=== PATIENT | female | born 1955 | race Caucasian/White ===

== ENCOUNTER 2021-06-07 11:13 | Emergency (ER) | payer MEDICARE, SELFPAY ==
[2021-06-07 11:30] VITALS: BP 157/78; PULSE 73; RESP 20; TEMP 36.5; O2SAT 97
--- NOTE | 2021-06-07 11:48 | ED.URI ---
HPI - URI/Sore Throat General Chief Complaint: Upper Respiratory Infection Stated Complaint: Cough/Sore Throat Time Seen by Provider: 06/07/21 11:48 Source: patient History of Present Illness HPI Narrative: cough and sinus congestion for the past 10 days. negative covid test. no shortness of breath and no chest pain. Related Data Home Medications Medication Instructions Recorded Confirmed alprazolam 1 mg PO BID 06/07/21 06/07/21 clopidogrel 1 mg PO DAILY 06/07/21 06/07/21 diltiazem HCl [Cartia XT] 1 mg PO DAILY 06/07/21 06/07/21 rosuvastatin 1 mg PO DAILY 06/07/21 06/07/21 sertraline 1 mg PO DAILY 06/07/21 06/07/21 Allergies Allergy/AdvReac Type Severity Reaction Status Date / Time bacitracin Allergy Intermediate Rash Verified 06/07/21 11:44 chromium Allergy Intermediate RASH Verified 06/07/21 11:44 neomycin Allergy Intermediate Rash Verified 06/07/21 11:44 polymyxin B Allergy Intermediate Rash Verified 06/07/21 11:44 Sulfa (Sulfonamide AdvReac Intermediate personality Verified 06/07/21 11:44 Antibiotics) change BETA BLOCKERS Allergy Intermediate HEART Uncoded 06/07/21 11:44 RYTHUM CHANGES ALEJANDRA INHIBORTERS Allergy Mild CARDIC Uncoded 06/07/21 11:44 SPASMS Review of Systems Review of Systems: CONSTITUTIONAL: Denies chills, or sweats. Reports fever and generalized body aches EYES: Denies visual changes, redness, or discharge. ENT: Denies otalgia. Reports nasal congestion runny nose and sore throat CARDIOVASCULAR: Denies chest pain, palpitations, or edema. RESPIRATORY: Denies dyspnea. Reports occasional cough GASTROINTESTINAL: Denies abdominal pain, nausea, vomiting, or diarrhea. GENITOURINARY: Denies dysuria or hematuria. SKIN: Denies rash or itching. MUSCULOSKELETAL: Denies back pain, joint pain, or myalgia. Reports generalized body aches NEUROLOGIC: Denies headache, numbness, or weakness. PSYCHIATRIC: Denies anxiety or depression. PMFSH Comments At time of signature, agree with nursing past medical, surgical, social and family history. There is no relevant family history pertinent to the presenting complaint Exam Narrative: The patient is a well-developed, well-nourished in no acute distress. SKIN: Skin is warm and dry without erythema, swelling or exudate. There is good turgor. No tenting. HEAD: Atraumatic. Normocephalic. No temporal or scalp tenderness. EYES: Moist and bright. Sclera and conjunctivae normal. No discharge. PERRLA. Extraocular motions intact. Gross visual acuity intact. EARS: Pinna is normal shape and contour. Clear external auditory canals. TM pearly osullivan with good cone of light, no erythema or suppuration. Bilateral cerumen noted no gross hearing deficit. NOSE: pink, moist mucosa with good air movement. Purulent rhinorrhea without nasal flaring. Septum midline. Moderate maxillary sinus pressure and tenderness Mouth: moist mucous membranes. THROAT; mild erythema noted to posterior oropharynx with moderate postnasal drainage. Without exudate or ulceration.. Uvula midline. Normal movement of soft palate. NECK: Supple and nontender with full range of motion without discomfort. No meningeal signs. LUNGS: Equal and bilateral breath sounds without wheezes, rales or rhonchi. CHEST: The chest wall is without retractions or use of accessory muscles. HEART: Has a regular rate and rhythm without murmur, gallops, click or rub. ABDOMEN: Soft, nontender with positive active bowel sounds. No rebound tenderness. EXTREMITIES: Without cyanosis, clubbing or edema. Equal 2+ distal pulses and 2 second capillary refill noted. NEUROLOGIC: alert, active, . The patient moves all extremities with normal muscle strength. Normal muscle tone is noted. Normal coordination is noted. NO focal neurological findings noted. Course Vital Signs Vital signs: Vital Signs Temperature 36.5 C 06/07/21 11:30 Pulse Rate 73 06/07/21 11:30 Respiratory Rate 20 06/07/21 11:30 Blood Pressure 157/78 H 06/07/21 1
== END 2021-06-07 11:57 | disposition home or self-care (01) ==
PROVIDERS: Emergency Provider Nurse Practitioner Family; PCP Nurse Practitioner Adult Health
DX: J32.9 Chronic sinusitis, unspecified (principal); J40 Bronchitis, not specified as acute or chronic; E78.00 Pure hypercholesterolemia, unspecified; F41.9 Anxiety disorder, unspecified; F32.9 Major depressive disorder, single episode, unspecified
CPT/HCPCS: 99213; G0463

== ENCOUNTER 2021-11-16 11:55 | Emergency (ER) | payer MEDICARE, SELFPAY ==
[2021-11-16 12:00] VITALS: BP 145/80; PULSE 73; RESP 20; TEMP 36.9; O2SAT 98
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
== END 2021-11-16 12:36 | disposition home or self-care (01) ==
PROVIDERS: Emergency Provider Registered Nurse; PCP Nurse Practitioner Adult Health
DX: J01.40 Acute pansinusitis, unspecified (principal); M19.90 Unspecified osteoarthritis, unspecified site; I25.10 Atherosclerotic heart disease of native coronary artery without angina pectoris; K21.9 Gastro-esophageal reflux disease without esophagitis; I10 Essential (primary) hypertension; G47.30 Sleep apnea, unspecified; Z96.652 Presence of left artificial knee joint
CPT/HCPCS: 99213; G0463

== ENCOUNTER 2022-04-28 15:44 | Emergency (ER) | payer MEDICARE, SELFPAY ==
[2022-04-28 15:50] VITALS: BP 132/97; PULSE 73; RESP 16; TEMP 36.8; O2SAT 94
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
== END 2022-04-28 16:20 | disposition home or self-care (01) ==
PROVIDERS: Emergency Provider Nurse Practitioner Family; PCP Nurse Practitioner Adult Health
DX: J40 Bronchitis, not specified as acute or chronic (principal); J32.9 Chronic sinusitis, unspecified; Z87.891 Personal history of nicotine dependence; M19.90 Unspecified osteoarthritis, unspecified site; I25.10 Atherosclerotic heart disease of native coronary artery without angina pectoris; K21.9 Gastro-esophageal reflux disease without esophagitis; I10 Essential (primary) hypertension; G47.33 Obstructive sleep apnea (adult) (pediatric); Z95.5 Presence of coronary angioplasty implant and graft; Z90.710 Acquired absence of both cervix and uterus; Z96.652 Presence of left artificial knee joint
CPT/HCPCS: 87081; 87880; 99213; G0463

== ENCOUNTER 2022-06-30 18:31 | Emergency (ER) | payer MEDICARE, SELFPAY ==
[2022-06-30 19:08] VITALS: BP 180/78; PULSE 73; RESP 16; TEMP 36.5; O2SAT 97
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
== END 2022-06-30 20:10 | disposition home or self-care (01) ==
PROVIDERS: Emergency Provider Nurse Practitioner; PCP Nurse Practitioner Adult Health
DX: J40 Bronchitis, not specified as acute or chronic (principal); I25.10 Atherosclerotic heart disease of native coronary artery without angina pectoris; I10 Essential (primary) hypertension; Z87.891 Personal history of nicotine dependence
CPT/HCPCS: 99213; G0463

== ENCOUNTER 2022-09-02 08:01 | Outpatient (CLI) | payer MEDICARE, SELFPAY ==
[2022-09-02 20:18] LABS: Alanine Aminotransferase 42 U/L (6-35); Alkaline Phosphatase 67 U/L (38-126); Anion Gap 7 mmol/L (8-16); Aspartate Amino Transferase 53 U/L (14-36); Bilirubin,Total 0.5 mg/dL (0.2-1.3); Blood Urea Nitrogen 13 mg/dL (7-17); Calcium 8.9 mg/dL (8.4-10.2); Carbon Dioxide 28 mmol/L (22-30); Chloride 105 mmol/L (98-107); Cholesterol 133 mg/dL (0-200); Estimated Glomerular Filt Rate > 60; Glucose 100 mg/dL (65-110); HDL Direct 41 mg/dL; Potassium 4.2 mmol/L (3.4-5.0); Sodium 140 mmol/L (137-145); Triglycerides 162 mg/dL (<150)
[2022-09-02 20:29] LABS: LDL Cholesterol Direct 54 mg/dL
[2022-09-02 20:43] LABS: Basophils Absolute Auto 0.1 K/mm3 (0.0-0.1); Basophils Percent Auto 0.9 % (0.2-1.2); Eosinophils Absolute Auto 0.5 K/mm3 (0-0.3); Eosinophils Percent Auto 6.1 % (0-4.4); Hematocrit 43.4 % (37.0-47.0); Hemoglobin 13.9 g/dL (12.0-15.0); Immature Granulocyte Absolute 0.06 K/mm3 (0.00-0.031); Immature Granulocyte Percent A 0.8 % (0-0.5); Lymphocytes Absolute Auto 1.71 K/mm3 (0.9-3.2); Lymphocytes Percent Auto 22.8 % (18.3-44.2); Mean Corpuscular Hemoglobin 30.5 pg (26-34); Mean Corpuscular Volume 95.4 fl (80-100); Mean Platelet Volume 10.6 fl (7.4-10.4); Monocytes Absolute Auto 0.6 K/mm3 (0.1-0.6); Monocytes Percent Auto 8.1 % (2.6-8.5); Neutrophils Absolute Auto 4.6 K/mm3 (1.3-6.7); Neutrophils Percent Auto 61.3 % (45.5-73.1); Platelet Count Result 243 k/mm3 (150-375); Red Blood Count 4.55 M/mm3 (4.2-5.4); White Blood Count 7.5 K/mm3 (4.5-10.0)
== END 2022-09-02 08:02 | disposition home or self-care (01) ==
PROVIDERS: PCP Family Medicine; Visit Provider Family Medicine
DX: I25.10 Atherosclerotic heart disease of native coronary artery without angina pectoris (principal); I10 Essential (primary) hypertension; Z90.710 Acquired absence of both cervix and uterus; Z95.5 Presence of coronary angioplasty implant and graft; R73.09 Other abnormal glucose
CPT/HCPCS: 36415; 80053; 80061; 83036; 85025

== ENCOUNTER 2022-11-30 07:26 | Outpatient (CLI) | payer MEDICARE, SELFPAY ==
[2022-11-30 18:38] LABS: Alanine Aminotransferase 26 U/L (6-35); Albumin Level 4.4 g/dL (3.5-5.1); Alkaline Phosphatase 68 U/L (38-126); Aspartate Amino Transferase 82 U/L (14-36); Bilirubin,Total 0.6 mg/dL (0.2-1.3)
[2022-11-30 18:48] LABS: Hemoglobin A1C 6.2 % (<5.7)
[2022-11-30 19:04] LABS: Hepatitis B Surface Antigen Negative (Negative)
[2022-11-30 19:10] LABS: HAV RESULT Negative (Negative); Hepatitis B Core IgM Result Negative (Negative)
[2022-11-30 19:21] LABS: Hepatitis C Virus Antibody Negative (Negative)
== END 2022-11-30 07:27 | disposition home or self-care (01) ==
LOC: ANHBWCLAB 07:29
PROVIDERS: PCP Family Medicine; Visit Provider Family Medicine
DX: R73.03 Prediabetes (principal); R74.01 Elevation of levels of liver transaminase levels
CPT/HCPCS: 36415; 80074; 80076; 83036

== ENCOUNTER 2023-03-04 10:12 | Outpatient (CLI) | payer MEDICARE, SELFPAY ==
[2023-03-04 18:35] LABS: Basophils Absolute Auto 0.1 K/mm3 (0.0-0.1); Basophils Percent Auto 0.7 % (0.2-1.2); Eosinophils Absolute Auto 0.5 K/mm3 (0-0.3); Eosinophils Percent Auto 5.8 % (0-4.4); Hematocrit 45.2 % (37.0-47.0); Hemoglobin 14.5 g/dL (12.0-15.0); Immature Granulocyte Absolute 0.02 K/mm3 (0.00-0.031); Immature Granulocyte Percent A 0.2 % (0-0.5); Lymphocytes Absolute Auto 1.61 K/mm3 (0.9-3.2); Lymphocytes Percent Auto 19.8 % (18.3-44.2); Mean Corpuscular HGB Conc 32.1 g/dl (32-36); Mean Corpuscular Hemoglobin 28.8 pg (26-34); Mean Corpuscular Volume 89.9 fl (80-100); Mean Platelet Volume 10.9 fl (7.4-10.4); Monocytes Absolute Auto 0.7 K/mm3 (0.1-0.6); Neutrophils Absolute Auto 5.2 K/mm3 (1.3-6.7); Neutrophils Percent Auto 64.5 % (45.5-73.1); Platelet Count Result 225 k/mm3 (150-375); Red Blood Count 5.03 M/mm3 (4.2-5.4); Red Cell Distribution Width 15.2 % (11.5-14.5); White Blood Count 8.1 K/mm3 (4.5-10.0)
[2023-03-04 18:49] LABS: Alanine Aminotransferase 40 U/L (6-35); Albumin Level 4.7 g/dL (3.5-5.1); Alkaline Phosphatase 59 U/L (38-126); Anion Gap 10 mmol/L (8-16); Aspartate Amino Transferase 68 U/L (14-36); Bilirubin,Total 0.5 mg/dL (0.2-1.3); Blood Urea Nitrogen 10 mg/dL (7-17); Calcium 9.5 mg/dL (8.4-10.2); Carbon Dioxide 24 mmol/L (22-30); Chloride 104 mmol/L (98-107); Cholesterol 134 mg/dL (0-200); Estimated Glomerular Filt Rate > 60; Glucose 102 mg/dL (65-110); HDL Direct 56 mg/dL; Potassium 4.1 mmol/L (3.4-5.0); Sodium 138 mmol/L (137-145); Triglycerides 143 mg/dL (<150)
[2023-03-04 19:00] LABS: LDL Cholesterol Direct 45 mg/dL
[2023-03-04 19:37] LABS: Hemoglobin A1C 5.9 % (<5.7)
== END 2023-03-04 10:13 | disposition home or self-care (01) ==
PROVIDERS: PCP Nurse Practitioner Adult Health; Visit Provider Nurse Practitioner Adult Health
DX: R74.01 Elevation of levels of liver transaminase levels (principal); E11.9 Type 2 diabetes mellitus without complications; E78.5 Hyperlipidemia, unspecified; I10 Essential (primary) hypertension
CPT/HCPCS: 36415; 80048; 80061; 80076; 83036; 85025

== ENCOUNTER 2023-05-12 09:40 | Outpatient (CLI) | payer MEDICARE, SELFPAY ==
[2023-05-12 19:38] LABS: Anion Gap 9 mmol/L (8-16); Blood Urea Nitrogen 12 mg/dL (7-17); CRP < 0.5 mg/dL (<1.0); Calcium 9.1 mg/dL (8.4-10.2); Carbon Dioxide 26 mmol/L (22-30); Chloride 105 mmol/L (98-107); Estimated Glomerular Filt Rate > 60; Glucose 94 mg/dL (65-110); Potassium 3.8 mmol/L (3.4-5.0); Sodium 140 mmol/L (137-145)
[2023-05-12 19:43] LABS: NT Pro B Type Natriuretic Pept 35 pg/mL (19.9-100)
[2023-05-12 20:34] LABS: Creatinine Urine 71.1 mg/dL
[2023-05-12 20:49] LABS: Microalbumin Urine Random < 6.0 mg/L (0-16.7)
[2023-05-12 20:50] LABS: MALB Creatinine Ratio < 8.4 mg/g (0-30)
[2023-05-17 00:41] LABS: Lipoprotein A 241 nmol/L (<75)
== END 2023-05-12 09:41 | disposition home or self-care (01) ==
PROVIDERS: PCP Nurse Practitioner Adult Health; Visit Provider Internal Medicine Cardiovascular Disease
DX: R07.89 Other chest pain (principal); I10 Essential (primary) hypertension; I77.811 Abdominal aortic ectasia; R73.9 Hyperglycemia, unspecified; K11.8 Other diseases of salivary glands; R91.1 Solitary pulmonary nodule; E66.9 Obesity, unspecified; G47.33 Obstructive sleep apnea (adult) (pediatric); E78.2 Mixed hyperlipidemia; I25.10 Atherosclerotic heart disease of native coronary artery without angina pectoris; Z87.891 Personal history of nicotine dependence; R06.02 Shortness of breath
CPT/HCPCS: 36415; 80048; 82043; 83036; 83695; 83880; 86140

== ENCOUNTER 2023-09-20 10:16 | Outpatient (CLI) | payer MEDICARE, SELFPAY ==
[2023-09-20 19:13] LABS: Hemoglobin A1C 5.6 % (<5.7)
[2023-09-20 19:26] LABS: Anion Gap 8 mmol/L (8-16); Blood Urea Nitrogen 17 mg/dL (7-17); Calcium 9.6 mg/dL (8.4-10.2); Carbon Dioxide 26 mmol/L (22-30); Chloride 104 mmol/L (98-107); Cholesterol 141 mg/dL (0-200); Estimated Glomerular Filt Rate > 60; Glucose 99 mg/dL (65-110); HDL Direct 47 mg/dL; Potassium 4.1 mmol/L (3.4-5.0); Sodium 138 mmol/L (137-145); Triglycerides 185 mg/dL (<150)
[2023-09-20 19:31] LABS: Creatinine Urine 193.4 mg/dL
[2023-09-20 19:32] LABS: MALB Creatinine Ratio 8.1 mg/g (0-30); Microalbumin Urine Random 15.7 mg/L (0-16.7)
[2023-09-20 19:36] LABS: LDL Cholesterol Direct 56 mg/dL
== END 2023-09-20 10:17 | disposition home or self-care (01) ==
LOC: ANHBWCLAB 10:20
PROVIDERS: PCP Nurse Practitioner Adult Health; Visit Provider Nurse Practitioner Adult Health
DX: E11.9 Type 2 diabetes mellitus without complications (principal)
CPT/HCPCS: 36415; 80048; 80061; 82043; 83036

== ENCOUNTER 2024-02-06 08:38 | Emergency (ER) | payer MEDICARE, SELFPAY ==
[2024-02-06 08:50] VITALS: BP 127/69; PULSE 62; RESP 18; TEMP 36.4; O2SAT 98
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
[2024-02-06 09:03] VITALS: BP 127/69; PULSE 62; RESP 18; TEMP 36.4; O2SAT 98
[2024-02-06 09:09] LABS: EDSTREPNEGPOS1 Presumptive Negative
[2024-02-06 09:13] LABS: EDINFLUASCREEN Negative; EDINFLUBSCREEN Negative
== END 2024-02-06 09:25 | disposition home or self-care (01) ==
PROVIDERS: Emergency Provider Registered Nurse; PCP Nurse Practitioner Adult Health
DX: J40 Bronchitis, not specified as acute or chronic (principal); Z20.822 Contact with and (suspected) exposure to COVID-19; Z87.891 Personal history of nicotine dependence; M19.90 Unspecified osteoarthritis, unspecified site; I25.10 Atherosclerotic heart disease of native coronary artery without angina pectoris; K21.9 Gastro-esophageal reflux disease without esophagitis; I10 Essential (primary) hypertension; G47.30 Sleep apnea, unspecified; Z96.652 Presence of left artificial knee joint; Z95.5 Presence of coronary angioplasty implant and graft
CPT/HCPCS: 87081; 87426; 87804; 87880; 99213; G0463

== ENCOUNTER 2024-03-21 06:47 | Outpatient (CLI) | payer MEDICARE, SELFPAY ==
[2024-03-21 18:41] LABS: Basophils Absolute Auto 0.1 K/mm3 (0.0-0.1); Basophils Percent Auto 0.7 % (0.2-1.2); Eosinophils Absolute Auto 1.1 K/mm3 (0-0.3); Hematocrit 45.1 % (37.0-47.0); Hemoglobin 13.9 g/dL (12.0-15.0); Immature Granulocyte Absolute 0.05 K/mm3 (0.00-0.031); Immature Granulocyte Percent A 0.6 % (0-0.5); Lymphocytes Percent Auto 30.8 % (18.3-44.2); Mean Corpuscular HGB Conc 30.8 g/dl (32-36); Mean Corpuscular Hemoglobin 29.4 pg (26-34); Mean Corpuscular Volume 95.3 fl (80-100); Mean Platelet Volume 11.3 fl (7.4-10.4); Monocytes Absolute Auto 0.6 K/mm3 (0.1-0.6); Monocytes Percent Auto 7.1 % (2.6-8.5); Neutrophils Percent Auto 47.8 % (45.5-73.1); Platelet Count Result 209 k/mm3 (150-375); Red Blood Count 4.73 M/mm3 (4.2-5.4); Red Cell Distribution Width 15.4 % (11.5-14.5); White Blood Count 8.4 K/mm3 (4.5-10.0)
[2024-03-21 19:00] LABS: Alanine Aminotransferase 19 U/L (6-35); Albumin Level 4.2 g/dL (3.5-5.1); Alkaline Phosphatase 58 U/L (38-126); Anion Gap 11 mmol/L (4-12); Aspartate Amino Transferase 62 U/L (14-36); Bilirubin,Total 0.4 mg/dL (0.2-1.3); Blood Urea Nitrogen 16 mg/dL (7-17); Calcium 9.2 mg/dL (8.4-10.2); Carbon Dioxide 28 mmol/L (22-30); Chloride 99 mmol/L (98-107); Cholesterol 142 mg/dL (0-200); Estimated Glomerular Filt Rate > 60; Glucose 106 mg/dL (65-110); HDL Direct 53 mg/dL; Magnesium 2.1 mg/dL (1.6-2.3); Potassium 3.9 mmol/L (3.4-5.0); Sodium 138 mmol/L (137-145); Triglycerides 159 mg/dL (<150)
[2024-03-21 19:14] LABS: LDL Cholesterol Direct 49 mg/dL
[2024-03-21 22:18] LABS: Hemoglobin A1C 6.3 % (<5.7)
== END 2024-03-21 06:48 | disposition home or self-care (01) ==
PROVIDERS: PCP Nurse Practitioner Adult Health; Visit Provider Nurse Practitioner Adult Health
DX: I10 Essential (primary) hypertension (principal); E11.9 Type 2 diabetes mellitus without complications
CPT/HCPCS: 36415; 80053; 80061; 83036; 83735; 84443; 85025

== ENCOUNTER 2024-06-15 11:23 | Outpatient (CLI) | payer MEDICARE, SELFPAY ==
[2024-06-15 20:21] LABS: Alanine Aminotransferase 22 U/L (6-35); Albumin Level 4.6 g/dL (3.5-5.1); Alkaline Phosphatase 63 U/L (38-126); Anion Gap 9 mmol/L (4-12); Aspartate Amino Transferase 76 U/L (14-36); Bilirubin,Total 0.5 mg/dL (0.2-1.3); Blood Urea Nitrogen 13 mg/dL (7-17); Calcium 9.4 mg/dL (8.4-10.2); Carbon Dioxide 28 mmol/L (22-30); Chloride 101 mmol/L (98-107); Cholesterol 130 mg/dL (0-200); Estimated Glomerular Filt Rate > 60; Glucose 111 mg/dL (65-110); HDL Direct 63 mg/dL; Potassium 4.2 mmol/L (3.4-5.0); Sodium 138 mmol/L (137-145); Triglycerides 124 mg/dL (<150)
[2024-06-15 20:29] LABS: MALB Creatinine Ratio 8.5 mg/g (0-30); Microalbumin Urine Random 17.7 mg/L (0-16.7)
[2024-06-15 20:32] LABS: LDL Cholesterol Direct 38 mg/dL
== END 2024-06-15 11:24 | disposition home or self-care (01) ==
PROVIDERS: PCP Nurse Practitioner Adult Health; Visit Provider Nurse Practitioner Adult Health
DX: K21.9 Gastro-esophageal reflux disease without esophagitis (principal); E11.9 Type 2 diabetes mellitus without complications; Z51.81 Encounter for therapeutic drug level monitoring
CPT/HCPCS: 36415; 80053; 80061; 82043; 82565; 82607; 83036

== ENCOUNTER 2024-06-27 17:08 | Outpatient (CLI) | payer MEDICARE, SELFPAY | END 2024-06-27 17:09 | disposition home or self-care (01) | LOC: ANHLAB 17:09 | PROVIDERS: PCP Nurse Practitioner Adult Health; Visit Provider Nurse Practitioner Adult Health | DX: R05.9 Cough, unspecified (principal) | CPT/HCPCS: 87070; 87205 ==

== ENCOUNTER 2024-07-24 07:38 | Outpatient (CLI) | payer MEDICARE, SELFPAY ==
--- NOTE | ~2024-07-24 | CT_ITS ---
EXAMINATION: CT lung screening DATE: 07/24/2024 08:02 INDICATION: Z87.891 - Personal history of nicotine dependence TECHNIQUE: Computed tomography (CT) of the chest was performed without intravenous contrast. Addition al 3D reconstructions utilizing coronal maximum intensity projection (MIP) were performed. Automated exposure control and iterative reconstruction technique were employed. The dose-length product was 16 2.48 mGy-cm. COMPARISON: None FINDINGS: 7 mm nodule at the anterobasilar segment of the right lower lobe. Mild reticular pattern with depende nt atelectasis in both lungs. There are a few additional scattered <3 mm pulmonary nodules. Heart siz e is normal. Lipomatous hypertrophy of the atrial septum. Atherosclerotic coronary artery calcificati on. Aortic valve and mitral annular callus location. Thoracic aorta is normal in caliber. No patholog ically enlarged thoracic lymphadenopathy. Cholecystectomy clips the gallbladder fossa. Visualized lef t renal cyst measuring up to 5.3 cm. Mild thoracic dextrocurvature with moderate spondylosis. IMPRESSION: 1. Lung-RADS category 3: Probably benign. Further evaluation is recommended with noncontrast low-dose chest CT in 6 months. Reviewed, dictated and finalized at location [facility] [employer] IMPRESSION: 1. Lung-RADS category 3: Probably benign. Further evaluation is recommended wit h noncontrast low-dose chest CT in 6 months.
--- OUTSIDE RECORDS SUMMARY | 2024-07-31 09:08 | XMS_ITS | Encounter Summary ---
Author Organization [facility] Care Team Providers Care Banquet Line Cook Name Role Phone Tricia Conroy MD Unavailable [phone] Kellie Pizano APRN Primary Care Provider [phone] Encounter Details Date Type Department Care Team (Latest Contact Info) Description 05/09/2021 Travel Social History Tobacco Use Types Packs/Day Years Used Date Smoking Tobacco: Every Day Cigarettes Last attempted to quit: 01/07/1970 Smokeless Tobacco: Never Comments:Less than 2 packs p er wk Alcohol Use Standard Drinks/Week Comments No 0 (1 standard drink = 0.6 oz pur e alcohol) Rare. 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 No / Unsure 05/09/2021 2:24 PM CDT documented as of this encounter Plan of Treatment Not on file documented as of this encounter Visit Diagnoses Not on filedocumented in this encounter Care Teams Ban[employer] Relationship Specialty Start Date End Date Kellie Pizano APRN [address] [id number] PCP - General Advanced Practice Nurse 01/07/16 Tricia Conroy MD #[address] [phone] General Surgery 12/09/14 documented as of this encounter
--- OUTSIDE RECORDS SUMMARY | 2024-07-31 09:08 | XMS_ITS | Encounter Summary ---
Author Organization [facility] Address [address] [place] [address] Phone Care Team Providers Care Poultry Field Service Technician Name Role Phone Tricia Conroy MD Unavailable [phone] Ori Pizano APRN Primary Care Provider [phone] Reason for Visit * Auth/Cert Specialty Diagnoses / Procedures Referred By Michelle t Referred To Contact Diagnoses POLYP OF COLON-PHARYNGOESOPHAGEAL DYSPHAGIA Procedures COLONOSCOPY Referral ID Status Reason Start Date Expiration Date Visits Re quested Visits Authorized [id number] 1 1 Encounter Details Date Type Department Care Team (Latest Contact Info) Description 05/28/2021 7:30 AM CDT - 05/28/2021 10:23 AM CDT Hospital Encounter [facility] GI Lab Preop/Pacu II [address] [place] [address] Marlon Alvarado MD Discharge Disposition: Discharged to home or Selfcare Social History Tobacco Use Types Packs/Day Years Used Date Smoking Tobacco: Former Cigarettes Q uit: 05/10/1981 Smokeless Tobacco: Never Alcohol Use Standard Drinks/Week Comments No 0 [...] 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 No / Unsure 05/28/2021 7:30 AM CDT documented as of this encounter Last Filed Vital Signs Vital Sign Reading Time Taken Comments Blood Pressure 129/81 05/28/2021 10:10 AM CDT Pulse 60 05/28/2021 10:10 AM CDT Temperature 36.2 ??C (97.2 ??F) 05/28/2021 8:00 AM CD T Respiratory Rate 14 05/28/2021 10:10 AM CDT Oxygen Saturation 98% 05/28/2021 10:10 AM CDT Inhaled Oxygen Concentration - - Weight 100.2 kg (221 lb) 05/09/2021 1:00 PM CDT Height 162.6 cm (5' 4 ) 05/09/2021 1:00 PM CDT Body Mass Index 37.93 05/09/2021 1:00 PM CDT documented in this encounter Discharge Instructions * Discharge Instructions* Lyndsey Vaguhn RN - 05/28/2021 10:03 AM CDT YOU HAD AN EGD AND COLONOSCOPY TODAY. DR. ALVARADO FOUND: DYSPHAGIA TO SOLIDS HIATAL HERNIA GASTRITIS WITH BIOPSIES PENDING. DUODENAL ATROPHY Post-operative Diagnosis: ESOPHAGEAL STRICTURE DILATED WITH NO 50 CHÁVEZ. DILATOR GASTRIC BIOPSIES PENDING NEEDS TO TAKE PPI 1/2 HOUR BEFORE EVENING AND BREAKFAST MEAL ?? Postoperative Diagnosis: NEGATIVE SCREENING Findings: ?? SEVERE DIVERTICULOSIS LEFT COLON. NO COLITIS OR DIVERTICULITIS. TORTUOUS COLON ,ENTIRE COLON EXAMINED MIXED HEMORRHODS AVOID POPCORN, NUTS, SEEDS DO NOT DRIVE, WORK, OPERATE MACHINERY OR USE POWER TOOLS UNTIL DAY AFTER PROCEDURE. NO ALCOHOL BEVERAGES TODAY FOLLOWING DAY: RETURN TO FULL ACTIVITY, INCLUDING WORK, UNLESS INSTRUCTED OTHERWISE. Call doctor's office ([phone]) or go to Emergency room for: Difficulty Breathing, Headache Or Visual Disturbances Persistent Dizziness Or Light-Headedness Persistent Nausea and Vomiting Temperature greater then 100.0 Significant abdominal pain, chest pain, or bleeding. Here at [facility] we strive to provide excellent care to each of our patients, along with an easy transition between departments, starting with registration until discharge. Through our excellent care and services, we hope that you would recommend our services to your family and friends. You will receive a follow-up phone call in 24-48 hours after your procedure to see how you are doing. This gives our patients the opportunity to recognize any members from our team, from housekeepers, to nurses, to physicians, that you felt gave you excellent service as well as any suggestions for improvement. We hope you found our facility clean and our mission partners courteous. You may also receiving a survey in the mail. We would appreciate it if you could complete the form and return it. A self addressed pre-paid envelope is provided. THANK YOU FOR CHOOSING [facility]. * Attachments The following attachments cannot be sent through Care Everywhere. * Hernia, Hiatal (Swazi) * Dilation, Esophageal (Swazi) * Gastritis, Treating (Swazi) * Diverticulosis (Swazi) documented in this encounter Medications at Time of Discharge acetaminophen (Tylenol 8 Hour) 650 MG Tablet Controlled Release every 6 hours as needed. 0 acetaminophen (Tylenol) 325 MG Tablet 325 mg. 4 albuterol (Ventolin HFA) 108 (90 Base) MCG/ACT Aerosol Solution every 4 hours as needed. 8 ALPRAZolam (XANAX) 0.5 MG Tablet Take 0.5 mg by mouth nightly. Calcium Carbonate-Vitamin D (CALCIUM + D PO) Take by mouth nightly. Calcium Polycarbophil (FIBER-CAPS PO) Take by mouth daily. Cholecalciferol (TH VITAMIN D3) 1000 UNIT PO CAPS Take 1 Capsule by mouth nightly. clobetasol (TEMOVATE) 0.05 % Ointment clobetasol 0.05 % topical ointment APPLY THIN LAYER EXTERNALLY TO THE AFFECTED AREA TWICE DAILY clopidogrel (PLAVIX) 75 MG Tablet Take 75 mg by mouth daily. diltiazem (CARTIA XT) 240 MG CAPSULE SR 24 HR Take 1 Cap by mouth daily. 30 Cap 5 6 esomeprazole (NexIUM) 20 MG CAPSULE DELAYED RELEASE Take 20 mg by mouth 2 times daily. fish oil-omega-3 fatty acids 1000 MG Capsule Take 1,000 mg by mouth daily. Fluticasone Propionate (FLONASE NA) by Nasal route daily as needed. levalbuterol (XOPENEX HFA) 45 MCG/ACT IN AEROIndications:As needed take by inhalation. Indications: As needed metroNIDAZOLE (METROGEL) 0.75 % Gel metronidazole 0.75 % topical gel APPLY THIN LAYER EXTERNALLY TO THE AFFECTED AREA TWICE DAILY IN THE MORNING AND IN THE EVENING nitroGLYCERIN (NITROSTAT) 0.4 MG SL Tablet 0.4 mg by Sublingual route every 5 minutes as needed. ondansetron (ZOFRAN-ODT) 4 MG TABLET DISPERSIBLE Take 4 mg by mouth every 8 hours as needed for Nausea. Probiotic Product (FLORASTOR PRE PO) Take by mouth nightly. rosuvastatin (CRESTOR) 20 MG Tablet Take 40 mg by mouth nightly. sertraline (ZOLOFT) 50 MG Tablet Take 1 Tablet by mouth nightly. 5 7 traMADol 50 MG PO TABS Take 50 mg by mouth nightly as needed. vitamin B complex-C (ALLBEE-C) Tablet Take 1 Tablet by mouth nightly. documented as of this encounter H&P Notes * Marlon Alvaardo MD - 05/28/2021 8:43 AM CDT I have reviewed Desiree Parson History and Physical, re-examined her, and no change has occurred in her condition since the H&P was completed. I have explained the risks, benefits, and alternatives of the procedure to the patient and family. They wish to proceed with procedure. Marlon Alvarado MD 05/28/2021 8:44 AM CDT * Marlon Alvarado MD - 05/27/2021 5:12 PM CDT [facility] GASTRO[facility]OLOG[facility] CONSULT/H&P NAME: Desiree Parson DATE 1955 DATE OF CONSULT: 05/27/2021 Very pleasant patient was seen at the request of Ori Pizano APN. and with the patient's permission. The patient was examined and the chart was reviewed. HISTORY: PATIENT LAST COLONOSCOPY WAS ON 01/09/16. WITH POLYPS REMOVED, HE IS NOW DUE FOR REPEAT SCREENING. ALLERGIES: Allergies Allergen Reactions ??? Marin Inhibitors Unknown ??? Adhesive Tape Unknown ??? Beta Adrenergic Blockers Unknown ??? Chromium Other (see Comments) REDNESS SKIN IRRITATION ??? Latex Unknown ??? Neosporin [Neomycin-Bacitracin Zn-Polymyx] Unknown ??? Sulfa Antibiotics Other (see Comments) Agitation MEDICATIONS No medications prior to admission. PROBLEM LIST Patient Active Problem List Diagnosis ??? Anxiety state ??? Bronchitis ??? Depressive disorder ??? Esophageal reflux ??? Hyperlipidemia ??? Systemic hypertension ??? Obesity ??? Sleep apnea MEDICAL HISTORY: Past Medical History Positives Diagnosis Date ??? Abdominal aneurysm (HCC) ??? Anxiety ??? Arthritis ??? Coronary artery disease ??? Diverticulitis of colon 10/15 ??? Dyslipidemia ??? Erosive esophagitis ??? GERD (gastroesophageal reflux disease) ??? Hx of adenomatous colonic polyps ??? Hypertension ??? Intestinal metaplasia of gastric mucosa ??? Obstructive sleep apnea ??? Rhinitis ??? Ventral hernia X2 SURGICAL HISTORY: Past Surgical History: Procedure Laterality Date ??? COLONOSCOPY N/A 01/08/2016 Procedure: COLONOSCOPY, DIVERTICULOSIS; Surgeon: Zachariah Layton DO; Location: [facility] GI LAB; Service: ??? CORONARY ANGIOPLASTY WITH STENT PLACEMENT 2014 X2 STENTS ??? INCISION AND DRAINAGE 11/06/14 I&D of skin abscess on left thigh and right labia ??? LAP,CHOLECYSTECTOMY 2012 ??? OTHER SURGICAL HISTORY 2009 excision of parotid tumor/gland left side ??? OTHER SURGICAL HISTORY 1992 skin grafts on buttocks and thighs ??? OH COLONOSCOPY W/BIOPSY SINGLE/MULTIPLE 01/21/2015 ??? OH EGD TRANSORAL BIOPSY SINGLE/MULTIPLE 02/07/2010 ??? SALPINGO-OOPHORECTOMY Bilateral ??? TONSILLECTOMY AND ADENOIDECTOMY 1969 ??? TOTAL KNEE ARTHROPLASTY Left 06/14/2016 ??? TUBAL LIGATION 1988 ??? UPPER GASTROINTESTINAL ENDOSCOPY N/A 05/11/2016 Procedure: EGD - TLAI, BIOPSY, GASTRITIS, ERROSIVE ESOPHAGITIS; Surgeon: Zachariah Layton DO; Location: [facility] GI LAB; Service: FAMILY HISTORY: Family History Problem Relation Age of Onset ??? Leukemia/Lymphoma Mother APLASTIC ANEMIA ??? Cancer Father esophageal & Lung ??? Diabetes Father ??? Heart Attack Father ??? Stroke Father ??? Diabetes Brother ??? Cancer Paternal Grandfather pancreatic ??? Lung Cancer Paternal Uncle SOCIAL HISTORY: Social History Socioeconomic History ??? Marital status: Spouse name: Not on file ??? Number of children: 2 ??? Years of education: Not on file ??? Highest education level: Not on file Occupational History ??? 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 Smoking status: Former Smoker Packs/day: 0.00 Years: 40.00 Pack years: 0.00 Types: Cigarettes Quit date: 05/10/2021 Years since quittin.0 ??? Smokeless tobacco: Never Used Vaping Use ??? Vaping Use: Never used Substance and Sexual Activity ??? Alcohol use: No Alcohol/week: 0.0 oz Comment: Rare. ??? Drug use: No ??? Sexual activity: Not Currently Other Topics Concern ??? Not on file Social History Narrative No recent travel. No asbestos. Has a bird. Social Determinants of Health Social determinant risk not applicable to this patient. OBSTETRICS HISTORY: OB History 3 Para 2 Term AB Living SAB TAB Ectopic Multiple Live Births REVIEW OF RESULTS: LAB REVIEWED: Lab Results Component Value Date SODIUM 137 06/11/2015 SODIUM 137 06/11/2015 POTASSIUM 4.4 06/11/2015 POTASSIUM 4.4 06/11/2015 CHLORIDE 98 (L) 06/11/2015 CHLORIDE 98 (L) 06/11/2015 CO2VEN 30 06/11/2015 CO2VEN 30 06/11/2015 ANIONGAP 13.4 06/11/2015 ANIONGAP 13.4 06/11/2015 GLUCOSE 93 06/11/2015 GLUCOSE 93 06/11/2015 BUN 14 06/11/2015 BUN 14 06/11/2015 CREATININE 0.80 06/11/2015 CREATININE 0.80 06/11/2015 BCRATIO8 18 06/11/2015 BCRATIO8 18 06/11/2015 TOTALPROTEIN 7.2 06/11/2015 ALBUMIN 4.2 06/11/2015 CALCIUM 10.2 06/11/2015 CALCIUM 10.2 06/11/2015 TBIL 0.3 06/11/2015 SGOTAST 23 06/11/2015 SGPTALT 20 06/11/2015 ALKALINEPHO 68 06/11/2015 GFRNA >60 06/11/2015 GFRNA >60 06/11/2015 GFRA >60 06/11/2015 GFRA >60 06/11/2015 Lab Results Component Value Date SODIUM 137 06/11/2015 SODIUM 137 06/11/2015 POTASSIUM 4.4 06/11/2015 POTASSIUM 4.4 06/11/2015 CHLORIDE 98 (L) 06/11/2015 CHLORIDE 98 (L) 06/11/2015 CO2VEN 30 06/11/2015 CO2VEN 30 06/11/2015 ANIONGAP 13.4 06/11/2015 ANIONGAP 13.4 06/11/2015 GLUCOSE 93 06/11/2015 GLUCOSE 93 06/11/2015 BUN 14 06/11/2015 BUN 14 06/11/2015 CREATININE 0.80 06/11/2015 CREATININE 0.80 06/11/2015 BCRATIO8 18 06/11/2015 BCRATIO8 18 06/11/2015 TOTALPROTEIN 7.2 06/11/2015 ALBUMIN 4.2 06/11/2015 CALCIUM 10.2 06/11/2015 CALCIUM 10.2 06/11/2015 TBIL 0.3 06/11/2015 SGOTAST 23 06/11/2015 SGPTALT 20 06/11/2015 ALKALINEPHO 68 06/11/2015 GFRNA >60 06/11/2015 GFRNA >60 06/11/2015 GFRA >60 06/11/2015 GFRA >60 06/11/2015 T-1 No results for input(s): ALBUMIN, TBIL, BILIRUBIN, ALKALINEPHO, SGOTAST, SGPTALT, TOTALPROTEIN in the last 72 hours. Lab Results Component Value Date WBC 7.78 06/11/2015 HEMOGLOBIN 15.0 06/11/2015 HEMATOCRIT 43.3 06/11/2015 PLATELETCNT 246 06/11/2015 MCV 90.2 06/11/2015 LAST IMAGING: EXAMINATION Ht 5' 4 (1.626 m) Wt 221 lb (100.2 kg) BMI 37.93 kg/m?? General appearance: alert, no distress, cooperative, appears stated age. HEENT: No scleral icterus Heart: regular rate and rhythm, S1, S2 normal, no murmur, click, rub or gallop. Lungs: no acute distress, clear to auscultation bilaterally anterior and posterior, good effort. Abdomen: soft, non-tender. Bowel sounds normal. No hepatosplenomegaly. No abdominal tenderness. Extremities: extremities normal, atraumatic, no cyanosis or edema, negative homans/angelo Skin: Skin color, texture, turgor normal. No rashes or lesions. Lymph nodes: Cervical nodes normal., Supraclavicular nodes normal. Neurologic: Alert and oriented X 3. No focal deficits. MARIELENA: No significant joint tenderness and swelling. No muscle atrophy. Mental status: Orientation X3. Affect was appropriate. Rectal exam: Deferred. IMPRESSION: H/O COLON POLYPS LAST REMOVED IN 2015. RECOMMENDATIONS: COLONOSCOPY SCREENING Thank you for much for the opportunity to participate in the care of this patient. Please do not hesitate to contact us if we can be of any further assistance. Documentation for this visit on 05/27/21. was completed using a template. I have seen and examined the patient. Everything documented was personally performed at this visit with the necessary additions, deletions and changes made as appropriate. documented in this encounter OR Notes * OR Surgeon - Marlon Alvarado MD - 05/28/2021 9:48 AM CDT COLONOSCOPY PROCEDURE NOTE Date of Procedure: 05/28/2021 History and Preoperative Diagnosis: SCREENING COLONOSCOPY FOR POLYPS. LAST COLONOSCOPY 2015 WITH POLYPS REMOVED BY Postoperative Diagnosis: NEGATIVE SCREENING Findings: SEVERE DIVERTICULOSIS LEFT COLON. NO COLITIS OR DIVERTICULITIS. TORTUOUS COLON ,ENTIRE COLON EXAMINED MIXED HEMORRHODS Anesthesia: MAC Complications: No immediate. Procedure performed: COMPLETE COLONOSCOPY. Quality Indicators: 100 % VISUALIZATION. EXCELLENT PREP Recommendations: REPEAT IN 5 YEARS. Fiber Specimens: ID Type Source Tests Collected by Time A : GASTRIC BODY AND ANTRUM BIOPSIES RULE OUT H PYLORI Tissue Stomach PATHOLOGY SURGICAL Marlon Alvarado MD 05/28/2021 0902 EBL: less than 10ml Procedure Details: Pre-Procedure: After discussion of the risks, benefits, and alternatives to the procedure, informedconsent was obtained from patient/power of estate planning attorney/caregiver. Risks discussed included, but were not limited to infection, perforation, hemorrhage, arrhythmia, hypersensitivity to sedatives, missed c ancer, surgery, blood transfusion and . Based on the pre-procedure assessment, including review of the patient's medical history, medications, allergies, and review of systems, he had been deemed to be an appropriate candidate for moderate sedation. The patient understood procedure and all ques tions were answered. A physician-directed time out was held to confirm patient and procedure. Patient was placed in the left lateral decubitus position. Sedated by the department of Anesthesiology. Digital rectal examination was performed and was unremarkable. Using the Olympus video colonoscope, it was inserted under direct visualization into the rectum and advanced to the cecum (or as otherwise specified). The cecum was identified by the appendiceal opening and ileocecal valve. Instrument used: Olympus video colonoscope Documentation for this visit on 05/28/21 was completed using a template. I have seen and examined the patient. Everything documented was personally performed at this visit with the necessary additions, deletions and changes made as appropriate. REFERRING PHYSICIAN: No ref. provider found Surgeon: Surgeon(s) and Role: * Marlon Alvarado MD - Primary Marlon Alvarado MD, 05/28/2021, 9:48 AM CDT Attending Physician: Marlon Alvarado MD Primary Care Physician: ORI PIZANO APRN * OR Surgeon - Marlon Alvarado MD - 05/28/2021 9:40 AM CDT ESOPHAGOGASTRODUODENOSCOPY PROCEDURE NOTE Date of Procedure: 05/28/2021 History and Pre-operative Diagnosis: DYSPHAGIA TO SOLIDS HIATAL HERNIA GASTRITIS WITH BIOPSIES PENDING. DUODENAL ATROPHY Post-operative Diagnosis: ESOPHAGEAL STRICTURE DILATED WITH NO 50 CHÁVEZ. DILATOR GASTRIC BIOPSIES PENDING NEEDS TO TAKE PPI 1/2 HOUR BEFORE EVENING AND BREAKFAST MEAL Findings: SEE ABOVE NOTE. Anesthesia: MAC Complications: No immediate. Procedure Performed: EGD WITH BIOPSIES AND ESOPHAGEAL DILATATION WITHOUT COMPLICATIONS AND WELL TOLRATED. Recommendations: SAME MEDS. Specimens: ID Type Source Tests Collected by Time A : GASTRIC BODY AND ANTRUM BIOPSIES RULE OUT H PYLORI Tissue Stomach PATHOLOGY SURGICAL Marlon Alvarado MD 05/28/2021 0902 EBL: less than 10ml Procedure Details: Pre-Procedure: After discussion of the risks, benefits, and alternatives to the procedure, informedconsent was obtained from patient/power of estate planning attorney/caregiver. Risks discussed included, but were not limited to infection, perforation, hemorrhage, arrhythmia, hypersensitivity to sedatives, missed c ancer, surgery, blood transfusion and . Based on the pre-procedure assessment, including review of the patient's medical history, medications, allergies, and review of systems, he had been deemed to be an appropriate candidate for moderate sedation. The patient understood procedure and all ques tions were answered. A physician-directed time out was held to confirm patient and procedure. The patient was brought to the endoscopy suite after an overnight fast and was placed in the left lateral decubitus position, sedated by the Department of Anesthesiology. Using the Olympus video endoscope inserted under direct vision and without difficulty in to the esophagus. Detailed examination of the esophagus was carried out and the GE junction identified. Scope was then advanced to the second portion of the duodenum unless otherwise specified. The endoscope was withdrawn back into the stomach. The stomach was examined in the forward and retroflexed views. The scope was withdrawn from the patient. The patient tolerated the procedure well, without any immediate complications. Documentation for this visit on was completed using a template. I have seen and examinedthe patient. Everything documented was personally performed at this visit with the necessary additions, deletions and changes made as appropriate. REFERRING PHYSICIAN: No ref. provider found Surgeon: Surgeon(s) and Role: * Marlon Alvarado MD - Primary Primary Care Physician: ORI PIZANO APRN documented in this encounter Miscellaneous Notes * Plan of Care - Lyndsey Vaughn RN - 05/28/2021 9:47 AM CDT Problem: Adult Inpatient Plan of Care Goal: Plan of Care Review 05/28/2021 0945 by Lyndsey Vaughn, RN Outcome: Outcome Achieved 05/28/2021 0739 by Lyndsey Vaughn, RN Outcome: Ongoing (see interventions/notes) Flowsheets (Taken 05/28/2021738) Plan of Care Reviewed With: patient Outcome Summary: Ready for procedure Today's Goal: to go home Goal: Absence of Hospital-Acquired Illness or Injury 05/28/2021944 by Lyndsey Vaughn RN Outcome: Outcome Achieved 05/28/2021738 by Lyndsey Vaughn RN Outcome: Ongoing (see interventions/notes) Goal: Optimal Comfort and Wellbeing 05/28/2021944 by Lyndsey Vaughn RN Outcome: Outcome Achieved 05/28/2021738 by Lyndsey Vaughn RN Outcome: Ongoing (see interventions/notes) Goal: Readiness for Transition of Care 05/28/2021944 by Lyndsey Vaughn RN Outcome: Outcome Achieved 05/28/2021738 by Lyndsey Vaughn RN Outcome: Ongoing (see interventions/notes) Problem: Ongoing Anesthesia Effects (Surgery Nonspecified) Goal: Anesthesia/Sedation Recovery 05/28/2021944 by Lyndsey Vaughn RN Outcome: Outcome Achieved 05/28/2021738 by Lyndsey Vaughn RN Outcome: Ongoing (see interventions/notes) Intervention: Optimize Anesthesia Recovery Flowsheets (Taken 05/28/2021944) Patient Tolerance (IS): good Outcome Anesthesia/Sedation Recovery: criteria met for discharge Note: Ready for discharge Problem: Pain (Surgery Nonspecified) Goal: Acceptable Pain Control 05/28/2021944 by Lyndsey Vaughn RN Outcome: Outcome Achieved 05/28/2021738 by Lyndsey Vaughn RN Outcome: Ongoing (see interventions/notes) Problem: Postoperative Nausea and Vomiting (Surgery Nonspecified) Goal: Nausea and Vomiting Relief 05/28/2021944 by Lyndsey Vaughn RN Outcome: Outcome Achieved 05/28/2021738 by Lyndsey Vaughn RN Outcome: Ongoing (see interventions/notes) * Interdisciplinary - Lyndsey Vaughn RN - 05/28/2021 8:18 AM CDT Patient meets CDC/[facility] COVID criteria for no SARS-COV-2 testing per CDC guidelines. * Plan of Care - Lyndsey Vaughn, RN - 05/28/2021 7:40 AM CDT Problem: Adult Inpatient Plan of Care Goal: Plan of Care Review Outcome: Ongoing (see interventions/notes) Flowsheets (Taken 05/28/2021 9142) Plan of Care Reviewed With: patient Outcome Summary: Ready for procedure Today's Goal: to go home Goal: Absence of Hospital-Acquired Illness or Injury Outcome: Ongoing (see interventions/notes) Goal: Optimal Comfort and Wellbeing Outcome: Ongoing (see interventions/notes) Goal: Readiness for Transition of Care Outcome: Ongoing (see interventions/notes) Problem: Ongoing Anesthesia Effects (Surgery Nonspecified) Goal: Anesthesia/Sedation Recovery Outcome: Ongoing (see interventions/notes) Problem: Pain (Surgery Nonspecified) Goal: Acceptable Pain Control Outcome: Ongoing (see interventions/notes) Problem: Postoperative Nausea and Vomiting (Surgery Nonspecified) Goal: Nausea and Vomiting Relief Outcome: Ongoing (see interventions/notes) * Interdisciplinary - Patricia Connelly RN - 05/09/2021 2:51 PM CDT [facility] GI TEACHING Patient Name: Desiree Parson : 1955 [facility]#: [id number] Person Educated Patient Ready to Learn Yes Teaching Method Phone Fully vaccinated per patients records. No covid test required. Recomended to wear mask and social distance. The Day of Procedure: Call your physician if your physical condition changes (cold, fever, flu). Do not come to the hospital without first calling your physician. Follow your surgeon's instructions regarding your diet, bowel prep, and medications if applicable. If your have any questions, please contact your surgeon's office. No alcohol and no smoking for 24 hrs prior to procedure if applicable. Wear comfortable, loose fitting clothing. Instruction to leave all jewelry at home including wedding/engagement rings or any body piercing jewelry. Leave all valuables at home. Children ages under 16 must be accompanied by a parent or legal guardian in the hospital at all times. Detailed instructions given for arrival location and parking. Arrive for your procedure as instructed by the [facility]. Go to Registration the morning of the procedure to check in. Arrange for a responsible person to accompany you and drive you home following your procedure. Follow directions regarding which medications to take or hold. It is very important to follow directions on diabetic medication or blood thinners from your surgeon's office. When you come to the hospital only 1 adult over the age of 16 will be allowed to accompany you to the [facility]. No children under the age of 16 will be allowed in the [facility] unless they are the patient. If the patient chooses to bring their children under the age of 16, an adult must accompany those children in the surgery waiting room and cannot leave them unattended. During the flu season: refer to the visitation restriction guidelines implemented during that season if applicable. Fall Prevention Teaching The Day of Surgery: ?? Your safety while you are in the hospital is very important to us. Following surgery, you might be at increased risk for falling for several reasons: ??? -The hospital environment is unfamiliar. It???s not the same as being at home ??? -You may be weaker than you realize. ??? -You may be connected to lines or equipment that can cause you to trip. ??? -You may be on medications that make you drowsy or dizzy. We know this can happen especially with pain medication and anesthesia. ??? We want to partner with you in the hospital to make sure you are safe ??? -Please do not feel hesitant to ask for help while in the hospital. You will -need extra help until you get stronger especially with walking and using the bathroom. ??? -Pay close attention to what the doctors and nurses tell you about your risk of falling. ??? -A fall can mean a longer hospital stay. Also, injuries from a fall can affect your health for the rest of your life. ??? Some things the nurses may do to keep you safe are: ??? -Have you use the call light for help whenever you get out of bed. ??? -Wear non-skid slippers to keep you from slipping on the floors ??? -Use a special belt that wraps around your waist so we can help steady you when you walk ??? -Activate an alarm on your bed so we know if you are getting up in case you forget to use your call light ??? 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 documented in this encounter Plan of Treatment Not on file documented as of this encounter Procedures Procedure Name Priority Date/Time Associated Diagnosis Comments PATHOLOGY SURGICAL Routine 05/28/2021 9:02 AM CDT EGD 05/28/2021 8:50 AM CDT EGD - GASTRIC BODY AND ANTRUM BIOPSIES RULE OUT H PYLORI, GASTRITIS, LARGE HIATAL HERNIA, ESOPHAGEAL DILATION WITH 50F MALONEYCOLONOSCOPY - DIVERTICULOSIS Special Needs 05/28 - polyps Vaccinated-no proof REQUESTS A MORNING ARRIVAL TIME COLONOSCOPY 05/28/2021 8:50 AM CDT EGD - GASTRIC BODY AND ANTRUM BIOPSIES RULE OUT H PYLORI, GASTRITIS, LARGE HIATAL HERNIA, ESOPHAGEAL DILATION WITH 50F MALONEYCOLONOSCOPY - DIVERTICULOSIS Special Needs 05/28 - polyps Vaccinated-no proof REQUESTS A MORNING ARRIVAL TIME documented in this encounter Results * Pathology Surgical (05/28/2021 9:02 AM CDT) Case Report Surgical Pathology Report ? Case: [id number] ? Authorizing Provider: ??Marlon Alvarado MD ?Collected: ? 05/28/2021 09:02 AM ? Ordering Location: ? [facility] ? Received: ?05/28/2021 12:44 PM ? [facility] ? Lab Main ? Pathologist: ? Sheeba Clarke, ? MD ? Specimen: ?Stomach, GASTRIC BODY AND ANTRUM BIOPSIES RULE OUT H PYLORI ? 05/29/2021 4:15 PM CDT [facility] FINAL DIAGNOSIS Stomach, Body and Antrum, Biopsy: - Reactive gastropathy. 05/29/2021 4:15 PM CDT [facility] Pre-Operative Diagnosis Polyp of Colon - Pharyngoesophageal Dysphagia 05/29/2021 4:15 PM CDT [facility] Gross Description A. GASTRIC BODY AND ANTRUM BIOPSIES RULE OUT H PYLORI The specimen presents in a single formalin container for gross and microscopic examination, labeled with the patient's name, Desiree MachadoZina Eb, and designated as gastric body and antrum biopsies, rule out H. pylori. In formalin are multiple pieces of pink-ramirez to yellow-ramirez tissue measuring from 3 mm up to 5 mm in greatest dimension. They will be submitted in their entirety in cassette A1. CP/sb 05/29/2021 4:15 PM CDT [facility] Microscopic Description 3 H&E. Sections show fragments of antral and fundic-type gastric mucosa with reactive epithelial changes including tortuosity of the superficial gastric pits associated with relative mucin depletion. No significant cute inflammation, intestinal metaplasia, or epithelial atypia is identified. SES/sb 05/29/2021 4:15 PM CDT [facility] Tissue STOMACH STRUCTURE / Unknown 05/28/2021 9:02 AM CDT 05/28/2021 12:44 PM CDT us Marlon Alvarado MD PATHOLOGY/CYTOLOGY ORDERABLE S Final Result [facility] [address] [place] [address] documented in this encounter Visit Diagnoses Not on filedocumented in this encounter Administered Medications Inactive Administered Medications - up to 3 most recent administrations Medication Order MAR Action Action Date Dose Rate Site lactated ringers infusion at 20 mL/hr, Intravenous, CONTINUOUS, Starting on Wed05/28/21 at 0800, Until Wed05/28/21 at 1223, PRE-OP (SURGERY) New Bag 05/28/2021 8:00 AM CDT 20 mL/hr 20 mL/hr documented in this encounter Active and Recently Administered Medications Times are shown in CDT. Scheduled Medication Order 05/26/2021 05/27/2021 05/28/2021 ondansetron (ZOFRAN) injection 4 mg 4 mg, Intravenous, ONCE, 1 dose, On Wed05/28/21 at 0800 0800 (Due) Continuous Medication Order 05/26/2021 05/27/2021 05/28/2021 lactated ringers infusion at 20 mL/hr, Intravenous, CONTINUOUS, Starting on Wed05/28/21 at 0800, Until Wed05/28/21 at 1223, PRE-OP (SURGERY) 0800 (New Bag - Prov ider: Lyndsey Vaughn RN)[phone] (Continued by Anesthesia - Provider: Marlon Alvarado MD)[phone] (Stopped - Provider: Dave Harding APRN, [place]) documented in this encounter Care Teams Poultry Field Service Technician Relationship Specialty Start Date End Date Ori Pizano APRN #[address] [address] PCP - General Advanced Practice Nurse 01/07/16 Tricia Conroy MD #[address] [address] General Surgery 12/09/14 documented as of this encounter
--- OUTSIDE RECORDS SUMMARY | 2024-07-31 09:08 | XMS_ITS | Encounter Summary ---
Author Organization [facility] Address [address] [place] [address] Phone Care Team Providers Care Coil Rewind Machine Operator Name Role Phone Tricia Conroy MD Unavailable [phone] Ori Pizano APRN Primary Care Provider [phone] Reason for Visit * Auth/Cert Specialty Diagnoses / Procedures Referred By Michelle jaime Referred To Contact Diagnoses POLYP OF COLON-PHARYNGOESOPHAGEAL DYSPHAGIA Procedures COLONOSCOPY Referral ID Status Reason Start Date Expiration Date Visits Re quested Visits Authorized [id number] 1 1 Encounter Details Date Type Department Care Team (Late st Contact Info) Description 05/28/2021 8:30 AM CDT - 05/28/2021 9:30 AM CDT [facility] [address] [place] [address] Marlon Alvarado MD COLONOSCOPY - DIVERTICULOSIS Surgery Details Date/Time Status Location OR Service Patient Class Case Class Case Type Trauma Case? 05/28/2021 8:30 AM Posted [facility] GI 02 [facility] Ambulatory Surgery Panel 1 Procedure LRB Anes Op Region Wound Class Comments COLONOSCOPY - DIVERTICULOSIS N/A Monitored Anesthesia Care EGD - GASTRIC BODY AND ANTRUM BIOPSIES RULE OUT H PYLORI, GASTRITIS, LARGE HIATAL HERNIA, ESOPHAGEAL DILATION WITH 50F CHÁVEZ N/A Monitored Anesthesia Care Surgeon Surgeon Role Service Panel Marlon Alvarado MD Primary Gastroenterology 1 Special Needs 05/28 - polyps Vaccinated-no proof REQUESTS A MORNING ARRIVAL TIME documented in this encounter Social History Tobacco Use Types Packs/Day Years [...] 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 No / Unsure 05/28/2021 7:30 AM CDT documented as of this encounter Last Filed Vital Signs Vital Sign Reading Time Taken Comments Blood Pressure 129/78 05/28/2021 8:00 AM CDT Pulse 72 05/28/2021 8:00 AM CDT Temperature 36.2 ??C (97.2 ??F) 05/28/2021 8:00 AM CD T Respiratory Rate 27 05/28/2021 8:00 AM CDT Oxygen Saturation 96% 05/28/2021 8:00 AM CDT Inhaled Oxygen Concentration - - Weight 100.2 kg (221 lb) 05/09/2021 1:00 PM CDT Height 162.6 cm (5' 4 ) 05/09/2021 1:00 PM CDT Body Mass Index 37.93 05/09/2021 1:00 PM CDT documented in this encounter Discharge Instructions * Discharge Instructions* Lyndsey Vaughn RN - 05/28/2021 10:03 AM CDT YOU [...] WORK, UNLESS INSTRUCTED OTHERWISE. Call doctor's office ([phone]) or go to Emergency room for: Difficulty Breathing, Headache Or Visual Disturbances Persistent Dizziness Or Light-Headedness Persistent Nausea and Vomiting Temperature greater then 100.0 Significant abdominal pain, chest pain, or bleeding. Here at [facility] we strive to provide excellent care to [...] envelope is provided. THANK YOU FOR CHOOSING [facility]. * Attachments The following attachments cannot be sent through Care Everywhere. * Hernia, Hiatal (Marshallese) * Dilation, Esophageal (Marshallese) * Gastritis, Treating (Marshallese) * Diverticulosis (Marshallese) documented in this encounter Medications at Time [...] of this encounter H&P Notes * Marlon Alvarado MD - 05/28/2021 8:43 AM CDT I [...] MD - 05/27/2021 5:12 PM CDT [facility] GASTROENTEROLOGY CONSULT/H&P NAME: Desiree Parson DATE [...] COLONOSCOPY, DIVERTICULOSIS; Surgeon: Zachariah Layton DO; Location: [facility]; Service: ??? CORONARY ANGIOPLASTY WITH STENT PLACEMENT 2014 X2 STENTS ??? INCISION AND DRAINAGE 11/06/14 I&D of skin abscess on left thigh and right labia ??? LAP,CHOLECYSTECTOMY 2012 ??? OTHER SURGICAL HISTORY 2009 excision of parotid tumor/gland left side ??? OTHER SURGICAL HISTORY 1993 skin grafts on buttocks and thighs ??? UT COLONOSCOPY W/BIOPSY SINGLE/MULTIPLE 01/21/2015 ??? UT EGD TRANSORAL BIOPSY SINGLE/MULTIPLE 02/07/2010 ??? SALPINGO-OOPHORECTOMY Bilateral ??? TONSILLECTOMY AND ADENOIDECTOMY 1969 ??? TOTAL KNEE ARTHROPLASTY Left 06/14/2016 ??? TUBAL LIGATION 1988 ??? UPPER GASTROINTESTINAL ENDOSCOPY N/A 05/11/2016 Procedure: EGD - TALI, BIOPSY, GASTRITIS, ERROSIVE ESOPHAGITIS; Surgeon: Zachariah Layton DO; Location: [facility]; Service: FAMILY HISTORY: Family History [...] on file Occupational History ??? 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 Smoking status: Former Smoker [...] procedure, informedconsent was obtained from patient/power of family law attorney/caregiver. Risks discussed included, but were not [...] 05/28/2021, 9:48 AM CDT Attending Physician: Marlon Avlarado MD Primary Care Physician: ORI PIZANO APRN [...] procedure, informedconsent was obtained from patient/power of family law attorney/caregiver. Risks discussed included, but were not [...] of Care Goal: Plan of Care Review 05/28/2021944 by Lyndsey Vaughn RN Outcome: Outcome Achieved 05/28/2021738 by Lyndsey Vaughn RN Outcome: Ongoing (see interventions/notes) Flowsheets (Taken [...] by Lyndsey Vaughn RN Outcome: Outcome Achieved 05/28/2021 0739 by Lyndsey Vaughn RN Outcome: Ongoing (see interventions/notes) * Interdisciplinary - Lyndsey Vaughn RN - 05/28/2021 8:18 AM CDT Patient meets CDC/[facility] COVID criteria for no SARS-COV-2 testing per CDC guidelines. * Plan of Care - Lyndsey Vaughn RN - 05/28/2021 7:40 AM CDT Problem: Adult Inpatient Plan of Care Goal: Plan of Care Review Outcome: Ongoing (see interventions/notes) Flowsheets (Taken 05/28/2021 0739) Plan of Care Reviewed With: patient Outcome [...] Connelly RN - 05/09/2021 2:51 PM CDT [facility] TEACHING Patient Name: Desiree Parson : 1955 CSN#: [id number] Person Educated Patient Ready to Learn Yes [...] be allowed to accompany you to the [facility]. No children under the age of 16 will be allowed in the [facility] unless they are the patient. 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 Case: [id number] ? Authorizing Provider: ??Marlon Alvarado MD ?Collected: ? 05/28/2021 09:02 AM ? Ordering Location: ? [facility] ? Received: ?05/28/2021 12:44 PM ? [facility] ? Lab Main ? Pathologist: ? Tricia, Sheeba Dowling, ? MD ? Specimen: ?Stomach, GASTRIC BODY AND ANTRUM BIOPSIES RULE OUT H PYLORI ? 05/29/2021 4:15 PM CDT [facility] FINAL DIAGNOSIS Stomach, Body and Antrum, Biopsy: - Reactive gastropathy. 05/29/2021 4:15 PM CDT [facility] Pre-Operative Diagnosis Polyp of Colon - Pharyngoesophageal Dysphagia 05/29/2021 4:15 PM CDT [facility] Gross Description A. GASTRIC BODY AND ANTRUM BIOPSIES RULE OUT H PYLORI The specimen presents in a single formalin container for gross and microscopic examination, labeled with the patient's name, Desiree Parson, and designated as gastric body and antrum biopsies, rule out H. pylori. In formalin are multiple pieces of pink-ramirez to yellow-ramirez tissue measuring from 3 mm up to 5 mm in greatest dimension. They will be submitted in their entirety in cassette A1. CP/sb 05/29/2021 4:15 PM CDT [facility] Microscopic Description 3 H&E. Sections show fragments of antral and fundic-type gastric mucosa with reactive epithelial changes including tortuosity of the superficial gastric pits associated with relative mucin depletion. No significant cute inflammation, intestinal metaplasia, or epithelial atypia is identified. SES/sb 05/29/2021 4:15 PM CDT [facility] Tissue STOMACH STRUCTURE / Unknown 05/28/2021 9:02 AM CDT 05/28/2021 12:44 PM CDT us Marlon Alvarado MD PATHOLOGY/CYTOLOGY ORDERABLE S Final Result [facility] [address] [place] [address] documented in this encounter Visit Diagnoses Not [...] [id number] (Stopped - Provider: Dave Harding APRN, ALARM INSTALLER) documented in this encounter Care Teams Coil Rewind Machine Operator Relationship Specialty Start Date End Date Ori Pizano APRN #[address] [address] PCP - General Advanced Practice Nurse 01/07/16 Tricia Conroy MD #2 [facility] [address] [place] [address] General Surgery 12/09/14 documented as of this encounter
--- OUTSIDE RECORDS SUMMARY | 2024-07-31 09:08 | XMS_ITS | Encounter Summary ---
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 No / Unsure 04/14/2021 1:22 PM CDT documented as of this encounter Plan of Treatment Not on file documented as of this encounter Visit Diagnoses Not on filedocumented in this encounter Care Teams Oil Pipeline Operator Relationship Specialty Start Date End Date Kellie Pizano APRN #[address] [address] PCP - General Advanced Practice Nurse 01/07/16 Tricia Conroy MD #[address] [id number] General Surgery 12/09/14 documented as of this encounter
--- OUTSIDE RECORDS SUMMARY | 2024-07-31 09:08 | XMS_ITS | Encounter Summary ---
Author Organization [facility] Address [address] [place] [address] Phone Care Team Providers Care News Specialist Name Role Phone Tricia Conroy MD Unavailable [phone] Kellie Pizano APRN Primary Care Provider [phone] Reason for Referral * Other (Routine) - Closed Specialty Diagnoses / Procedures Referred By Michelle jaime Referred To Contact Gastroenterology Diagnoses Pharyngoesophageal dysphagia Procedures GASTRO PROCEDURE Dr. Alvarado 05/28/2021 Colonoscopy Estrellita Pompa Dana, PAC [address] [place] [address] Phone: tel: fax: Marlon Alvarado MD Referral ID Status Reason Start Date Expiration Date Visits Re quested Visits Authorized [id number] Closed 04/14/2021 1 1 * Other (Routine) - Closed Specialty Diagnoses / Procedures Referred By Michelle jaime Referred To Contact Gastroenterology Diagnoses Polyp of colon, unspecified part of colon, unspecified type Procedures GASTRO PROCEDURE Dr. Alvarado 05/28/2021 Colonoscopy Estrellita Pompa, PAC [address] [place] [address] Phone: tel: fax: Marlon Alvarado MD Referral ID Status Reason Start Date Expiration Date Visits Re quested Visits Authorized [id number] Closed 04/14/2021 1 1 Reason for Visit * Reason Comments New Patient Other Esophogeal web * Consult, Test & Initiate Treatment (Routine) - Closed Specialty Diagnoses / Procedures Referred By Michelle t Referred To Contact Gastroenterology Diagnoses Esophageal web Kellie Pizano APRN [address] [address] Phone: tel: fax: [facility] Gastroenterology [facility] ([facility] [address] [place] [address] Phone: tel: fax: Referral ID Status Reason Start Date Expiration Date Visits Re quested Visits Authorized [id number] Closed 1 1 Encounter Details Date Type Department Care Team (Latest Contact Info) Description 04/14/2021 1:20 PM CDT Office Visit [facility] Gastroenterology [facility] ([facility] [address] [place] [address] Estrellita Pompa PAC [address] [place], [place] [id number] Pharyngoesophageal dysphagia (Primary Dx); Polyp of colon, unspecified part of colon, unspecified type; Gastroesophageal reflux disease without esophagitis Discharge Disposition: Discharged to home or Selfcare [...] 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 No / Unsure 04/14/2021 1:22 PM CDT documented as of this encounter Last Filed Vital Signs Vital Sign Reading Time Taken Comments Blood Pressure 124/84 04/14/2021 1:45 PM CDT Pulse 51 04/14/2021 1:45 PM CDT Temperature 36.4 ??C (97.6 ??F) 04/14/2021 1:45 PM CD T Respiratory Rate 16 04/14/2021 1:45 PM CDT Oxygen Saturation 98% 04/14/2021 1:45 PM CDT Inhaled Oxygen Concentration - - Weight 100.7 kg (221 lb 14.4 oz) 04/14/2021 1:45 PM CDT Height 162.6 cm (5' 4 ) 04/14/2021 1:45 PM CDT Body Mass Index 38.09 04/14/2021 1:45 PM CDT documented in this encounter Patient Instructions * Patient Instructions* Estrellita Pompa Dana, PAC - 04/14/2021 1:20 PM CDT Await EGD and colonoscopy Continue current therapyNatural fibers: all bran/ raisin bran/ fiber one/ oats Fruits such as apples/ pears/ prunes and juices of same may stimulate bowels- warm juice works best Bananas can cause constipation Add generic benefiber 2 tbsp daily to help regulate your system, may use up to 3 times a day Probiotic-highest colony count you can afford to purchase on a routine basis If you had lab work ordered at this visit, we will contact you regarding the results once all results have been received and reviewed. You may be able to see results in your my chart as they come in, please remember the computer is only given parameters for what is ???normal?? or ???abnormal?? .The significance of anything in the ???abnormal?? range is based on the remaining test results. Aga in we will contact you when we have received and reviewed all the results. Please arrive 15 minutes prior to all appointments Please schedule follow-up in near future to discuss any concerns that were not addressed fully at today's office visit. To continue to provide excellent patient care, you may receive a survey regarding your visit today.To help us serve you better, please complete and return. These surveys are completely anonymous. If you have any concerns/ questions regarding today's visit please call. documented in this encounter Progress Notes * Estrellita Pompa PAC - 04/14/2021 1:20 PM CDT PROBLEM LIST: Patient Active Problem List Diagnosis ??? Anxiety state ??? Bronchitis ??? Depressive disorder ??? Esophageal reflux ??? Hyperlipidemia ??? Systemic hypertension ??? Obesity ??? Sleep apnea Desiree Parson is a . 66 y.o. female who presents with Chief Complaint Patient presents with ??? New Patient ??? Other Esophogeal web . DIAGNOSIS, PLAN AND FOLLOW UP: Diagnoses and all orders for this visit: Pharyngoesophageal dysphagia - GASTRO PROCEDURE; Future Polyp of colon, unspecified part of colon, unspecified type - GASTRO PROCEDURE; Future Gastroesophageal reflux disease without esophagitis Other orders - Calcium Polycarbophil (FIBER-CAPS PO); Take by mouth. - Probiotic Product (FLORASTOR PRE PO); Take by mouth. - acetaminophen (Tylenol 8 Hour) 650 MG Tablet Controlled Release; Tylenol Arthritis Pain 650 mg tablet extended release - acetaminophen (Tylenol) 325 MG Tablet; 325 mg. - albuterol (Ventolin HFA) 108 (90 Base) MCG/ACT Aerosol Solution; Ventolin HFA 90 mcg/actuation aerosol inhaler - Discontinue: Ascorbic Acid 1000 MG Tablet; Take by mouth. - Discontinue: benzonatate (TESSALON) 100 MG Capsule; benzonatate 100 mg capsule - clobetasol (TEMOVATE) 0.05 % Ointment; clobetasol 0.05 % topical ointment APPLY THIN LAYER EXTERNALLY TO THE AFFECTED AREA TWICE DAILY - metroNIDAZOLE (METROGEL) 0.75 % Gel; metronidazole 0.75 % topical gel APPLY THIN LAYER EXTERNALLY TO THE AFFECTED AREA TWICE DAILY IN THE MORNING AND IN THE EVENING - esomeprazole (NexIUM) 20 MG CAPSULE DELAYED RELEASE; Take 20 mg by mouth 2 times daily. - nitroGLYCERIN (NITROSTAT) 0.4 MG SL Tablet; 0.4 mg by Sublingual route every 5 minutes as needed. - vitamin B complex-C (ALLBEE-C) Tablet; Take 1 Tablet by mouth daily. S: NPE. Referred by PCP for evaluation esophageal web . Reports has recently had a little bit of difficulty swallowing/ choking. Last EGD was performed 11/26/2016 and demonstrated hiatal hernia and gastritis. Reports has difficulty swallowing in past- and had to have esophagus dilatation x 2. Lastcolonoscopy 01-09-16- polyps so she is also due for colonoscopy. Normal appetite. Denies early satiety. Denies heartburn/ reflux/ nausea/ vomiting/ abdominal pain/ constipation/ diarrhea/ mucus or blood in stools/ toilet or on tissue. Denies black or tarry stools. Denies weight loss/ malaise/ fatigue. Denies sore throat/ hoarseness/ feeling of foreign body in throat. Denies yellowish discoloration to eyes or skin. Denies chest pain/ pressure/ heaviness/ tightness. Denies cough/ sob/ wheezing. ALLERGIES: Allergies Allergen Reactions ??? Marin Inhibitors Unknown ??? Adhesive Tape Unknown ??? Beta Adrenergic Blockers Unknown ??? Chromium Other (see Comments) REDNESS SKIN IRRITATION ??? Latex Unknown ??? Neosporin [Neomycin-Bacitracin Zn-Polymyx] Unknown ??? Sulfa Antibiotics Other (see Comments) Agitation MEDICATIONS: Current Outpatient Medications Medication Sig Dispense Refill ??? acetaminophen (Tylenol 8 Hour) 650 MG Tablet Controlled Release Tylenol Arthritis Pain 650 mg tablet extended release ??? acetaminophen (Tylenol) 325 MG Tablet 325 mg. ??? albuterol (Ventolin HFA) 108 (90 Base) MCG/ACT Aerosol Solution Ventolin HFA 90 mcg/actuation aerosol inhaler ??? ALPRAZolam (XANAX) 0.5 MG Tablet Take 0.5 mg by mouth 2 times daily. ??? Calcium Carbonate-Vitamin D (CALCIUM + D PO) Take by mouth daily. ??? Calcium Polycarbophil (FIBER-CAPS PO) Take by mouth. ??? Cholecalciferol (TH VITAMIN D3) 1000 UNIT PO CAPS Take 1 Cap by mouth daily. ??? clobetasol (TEMOVATE) 0.05 % Ointment clobetasol 0.05 % topical ointment APPLY THIN LAYER EXTERNALLY TO THE AFFECTED AREA TWICE DAILY ??? clopidogrel (PLAVIX) 75 MG Tablet Take 75 mg by mouth daily. ??? diltiazem (CARTIA XT) 240 MG CAPSULE SR 24 HR Take 1 Cap by mouth daily. 30 Cap 5 ??? esomeprazole (NexIUM) 20 MG CAPSULE DELAYED RELEASE Take 20 mg by mouth 2 times daily. ??? fish oil-omega-3 fatty acids 1000 MG Capsule Take 1,000 mg by mouth daily. (Patient not taking:Reported on 04/14/2021) ??? Fluticasone Propionate (FLONASE NA) by Nasal route daily as needed. ??? levalbuterol (XOPENEX HFA) 45 MCG/ACT IN AERO take by inhalation. Indications: As needed ??? metroNIDAZOLE (METROGEL) 0.75 % Gel metronidazole 0.75 % topical gel APPLY THIN LAYER EXTERNALLY TO THE AFFECTED AREA TWICE DAILY IN THE MORNING AND IN THE EVENING ??? nitroGLYCERIN (NITROSTAT) 0.4 MG SL Tablet 0.4 mg by Sublingual route every 5 minutes as needed. ??? ondansetron (ZOFRAN-ODT) 4 MG TABLET DISPERSIBLE Take 4 mg by mouth every 8 hours as needed forNausea. ??? Probiotic Product (FLORASTOR PRE PO) Take by mouth. ??? rosuvastatin (CRESTOR) 20 MG Tablet Take 40 mg by mouth daily. ??? sertraline (ZOLOFT) 50 MG Tablet Take 1 Tab by mouth daily. 5 ??? traMADol 50 MG PO TABS Take 50 mg by mouth nightly. ??? vitamin B complex-C (ALLBEE-C) Tablet Take 1 Tablet by mouth daily. No current facility-administered medications for this visit. PMS/H: Past Medical History Positives Diagnosis Date ??? Abdominal aneurysm (HCC) ??? Anxiety ??? Arthritis ??? Coronary artery disease ??? Diverticulitis of colon 10/15 ??? Dyslipidemia ??? Erosive esophagitis ??? GERD (gastroesophageal reflux disease) ??? Hx of adenomatous colonic polyps ??? Hypertension ??? Intestinal metaplasia of gastric mucosa ??? Obstructive sleep apnea ??? Rhinitis ??? Ventral hernia X2 Past Surgical History: Procedure Laterality Date ??? COLONOSCOPY N/A 01/08/2016 Procedure: COLONOSCOPY, DIVERTICULOSIS; Surgeon: Zachariah Layton DO; Location: [facility]; Service: ??? CORONARY ANGIOPLASTY WITH STENT PLACEMENT X2 STENTS ??? INCISION AND DRAINAGE 11/06/14 I&D of skin abscess on left thigh and right labia ??? LAP,CHOLECYSTECTOMY 2012 ??? OTHER SURGICAL HISTORY 2009 excision of parotid tumor/gland left side ??? OTHER SURGICAL HISTORY 1992 skin grafts on buttocks and thighs ??? DC COLONOSCOPY W/BIOPSY SINGLE/MULTIPLE 01/21/2015 ??? DC EGD TRANSORAL BIOPSY SINGLE/MULTIPLE 02/07/2010 ??? SALPINGO-OOPHORECTOMY Bilateral ??? TONSILLECTOMY AND ADENOIDECTOMY 1969 ??? TOTAL KNEE ARTHROPLASTY Left 06-14-15 ??? TUBAL LIGATION 1988 ??? UPPER GASTROINTESTINAL ENDOSCOPY N/A 05/11/2016 Procedure: EGD - TALI, BIOPSY, GASTRITIS, ERROSIVE ESOPHAGITIS; Surgeon: Zachariah Layton DO; Location: [facility]; Service: SOCIAL: Social History Socioeconomic History ??? Marital status: Spouse name: Not on file ??? Number of children: 2 ??? Years of education: Not on file ??? Highest education level: Not on file Occupational History ??? 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 Smoking status: Former Smoker Packs/day: 1.00 Years: 40.00 Pack years: 40.00 Types: Cigarettes Quit date: 01/07/2010 Years since quittin.2 ??? Smokeless tobacco: Never Used ??? Tobacco comment: quit 2009 -although has occasional cigarettes in stressful situations Vaping Use ??? Vaping Use: Never used Substance and Sexual Activity ??? Alcohol use: No Alcohol/week: 0.0 oz Comment: Rare. ??? Drug use: No ??? Sexual activity: Not Currently Other Topics Concern ??? Not on file Social History Narrative No recent travel. No asbestos. Has a bird. Social Determinants of Health Social determinant risk not applicable to this patient. FAMILY HX: Family History Problem Relation Age of Onset ??? Leukemia/Lymphoma Mother APLASTIC ANEMIA ??? Cancer Father esophageal & Lung ??? Diabetes Father ??? Heart Attack Father ??? Stroke Father ??? Diabetes Brother ??? Cancer Paternal Grandfather pancreatic ??? Lung Cancer Paternal Uncle VITAL SIGNS: Vitals: 04/14/21 1345 BP: 124/84 Pulse: 51 Resp: 16 Temp: 97.6 ??F (36.4 ??C) SpO2: 98% Weight: 221 lb 14.4 oz (100.7 kg) Height: 5' 4 (1.626 m) GENERAL EXAM: GENERAL: Well developed, well nourished, obese, in no acute distress. AAO x3. Cooperative. HEENT: Normocephalic. PERRLA. Nonicteric. NECK: Supple/ non tender/ full ROM LYMPH NODES: No adenopathy. CARDIOVASCULAR: RRR/ S1S2/ No m/g/c/r. PULMONARY: Respirations easy and regular. Breath sounds clear bilaterally. No rhonchi/ rales/ wheezes. GI: Abdomen soft, nondistended. No tenderness, rebound, guarding or masses. No hepatosplenomegaly. Bowel sounds normoactive. MUSCULOSKELETAL: No CVA tenderness. Normal gait and movement of extremities. No tenderness/ swelling/ crepitus. SKIN: General-warm, pink and dry. No rashes/ lesions. PSYCHIATRIC: Euthymic. Affect congruent with mood. Normal thought process. Return if symptoms worsen or fail to improve. Medication changes/ treatment plan reviewed. Risks and benefits discussed. Expressed understanding. Patient Instructions Await EGD and colonoscopy Continue current therapyNatural fibers: all bran/ raisin bran/ fiber one/ oats Fruits such as apples/ pears/ prunes and juices of same may stimulate bowels- warm juice works best Bananas can cause constipation Add generic benefiber 2 tbsp daily to help regulate your system, may use up to 3 times a day Probiotic-highest colony count you can afford to purchase on a routine basis If you had lab work ordered at this visit, we will contact you regarding the results once all results have been received and reviewed. You may be able to see results in your my chart as they come in, please remember the computer is only given parameters for what is ???normal?? or ???abnormal?? .The significance of anything in the ???abnormal?? range is based on the remaining test results. Aga in we will contact you when we have received and reviewed all the results. Please arrive 15 minutes prior to all appointments Please schedule follow-up in near future to discuss any concerns that were not addressed fully at today's office visit. To continue to provide excellent patient care, you may receive a survey regarding your visit today.To help us serve you better, please complete and return. These surveys are completely anonymous. If you have any concerns/ questions regarding today's visit please call. documented in this encounter Plan of Treatment Scheduled Orders Name Type Priority Associated Diagnoses Orde r Schedule GASTRO PROCEDURE Procedures Routine Polyp of colon, unspecified part of colon, unspecified type Expected: 10/14/2021 (Approximate), Expires: 04/15/2022 GASTRO PROCEDURE Procedures Routine Pharyngoesophageal dysphagia Expected: 10/13/2021 (Approximate), Expires: 10/13/2021 documented as of this encounter Visit Diagnoses Diagnosis Pharyngoesophageal dysphagia- Primary Dysphagia, pharyngoesophageal phase Polyp of colon, unspecified part of colon, unspecified type Gastroesophageal reflux disease without esophagitis Esophageal reflux documented in this encounter Care Teams News Specialist Relationship Specialty Start Date End Date Kellie Pizano APRN [address] [phone] PCP - General Advanced Practice Nurse 01/07/16 Tricia Conroy MD [address] [phone] General Surgery 12/09/14 documented as of this encounter
--- OUTSIDE RECORDS SUMMARY | 2024-07-31 09:08 | XMS_ITS | Encounter Summary ---
Author Organization [employer] 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 No / Unsure 05/28/2021 7:30 AM CDT documented as of this encounter Plan of Treatment Not on file documented as of this encounter Visit Diagnoses Not on filedocumented in this encounter Care Teams Party Plan Sales Agent Relationship Specialty Start Date End Date Kellie Pizano APRN [address] [address] PCP - General Advanced Practice Nurse 01/07/16 Tricia Conroy MD [address] [address] General Surgery 12/09/14 documented as of this encounter
--- OUTSIDE RECORDS SUMMARY | 2024-07-31 09:08 | XMS_ITS | Encounter Summary ---
Author Organization [facility] Address [address] 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 No / Unsure 04/14/2021 1:22 PM CDT documented as of this encounter Miscellaneous Notes * Telephone Encounter - Dolores Brewster RMA - 05/08/2021 4:18 PM CDT Sent patient instructions documented in this encounter Plan of Treatment Not on file documented as of this encounter Visit Diagnoses Not on filedocumented in this encounter Care Teams Venetian Blind Tape Cutter Relationship Specialty Start Date End Date Kellie Pizano APRN [address] [phone] PCP - General Advanced Practice Nurse 01/07/16 Tricia Conroy MD [address] [phone] General Surgery 12/09/14 documented as of this encounter
--- OUTSIDE RECORDS SUMMARY | 2024-07-31 09:08 | XMS_ITS | Clinical Summary ---
Author Organization [facility] Care Team Providers Care Glass Carrier Name Role Phone Tricia Conroy MD Unavailable [phone] Kellie Pizano APRN Primary Care Provider [phone] Allergies Active Allergy Reactions Criticality Noted Date Comments Marin Inhibitors Unknown Adhesive Tape Unknown Beta Adrenergic Blockers Unknown Chromium Other (see Comments) 01/06/2016 REDNESS SKIN IRRITATION Latex Unknown Neomycin-Bacitracin Zn-Polymyx Unknown 01/06/2016 Sulfa Antibiotics Other (see Comments) Agitation Medications traMADol 50 MG PO TABS Take 50 mg by mouth nightly as needed. Active Cholecalciferol ( VITAMIN D3) 1000 UNIT PO CAPS Take 1 Capsule by mouth nightly. Active ALPRAZolam (XANAX) 0.5 MG Tablet Take 0.5 mg by mouth nightly. Active levalbuterol (XOPENEX HFA) 45 MCG/ACT IN AEROIndications:A s needed take by inhalation. Indications: As needed Active diltiazem (CARTIA XT) 240 MG CAPSULE SR 24 HR Take 1 Cap by mouth daily. 30 Cap 5 11/06/19 16 Active Additional Information Patient taking differently:240 mg OralNIGHTLY, Reported on 05/27/2021 rosuvastatin (CRESTOR) 20 MG Tablet Take 40 mg by mouth nightly. Active ondansetron (ZOFRAN-ODT) 4 MG TABLET DISPERSIBLE Take 4 mg by mouth every 8 hours as needed for Nausea. Active Fluticasone Propionate (FLONASE NA) by Nasal route daily as needed. Active Calcium Carbonate-Vitamin D (CALCIUM + D PO) Take by mouth nightly. Active clopidogrel (PLAVIX) 75 MG Tablet Take 75 mg by mouth daily. Active fish oil-omega-3 fatty acids 1000 MG Capsule Take 1,000 mg by mouth daily. Active sertraline (ZOLOFT) 50 MG Tablet Take 1 Tablet by mouth nightly. 5 11/08/19 17 Active Calcium Polycarbophil (FIBER-CAPS PO) Take by mouth daily. Active Probiotic Product (FLORASTOR PRE PO) Take by mouth nightly. Active acetaminophen (Tylenol 8 Hour) 650 MG Tablet Controlled Release every 6 hours as needed. 03/26/20 20 Active acetaminophen (Tylenol) 325 MG Tablet 325 mg. 11/07/19 14 Active albuterol (Ventolin HFA) 108 (90 Base) MCG/ACT Aerosol Solution every 4 hours as needed. 03/04/20 18 Active clobetasol (TEMOVATE) 0.05 % Ointment clobetasol 0.05 % topical ointment APPLY THIN LAYER EXTERNALLY TO THE AFFECTED AREA TWICE DAILY Active metroNIDAZOLE (METROGEL) 0.75 % Gel metronidazole 0.75 % topical gel APPLY THIN LAYER EXTERNALLY TO THE AFFECTED AREA TWICE DAILY IN THE MORNING AND IN THE EVENING Active esomeprazole (NexIUM) 20 MG CAPSULE DELAYED RELEASE Take 20 mg by mouth 2 times daily. Active nitroGLYCERIN (NITROSTAT) 0.4 MG SL Tablet 0.4 mg by Sublingual route every 5 minutes as needed. Active vitamin B complex-C (ALLBEE-C) Tablet Take 1 Tablet by mouth nightly. Active Active Problems Problem Noted Date Diagnosed Date Anxiety state Bronchitis Depressive disorder Esophageal reflux Hyperlipidemia Systemic hypertension Obesity Sleep apnea Immunizations Immunization Administration Dates Next Due Covid-19, Mrna, Lnp-s, Pf, 30 Mcg/0.3 Ml Dose (P fizer) 10/18/2020,09/27/2020 Influenza Vaccine greater than 3 yrs 08/02/2011 TD VACCINE 08/02/2012 Family History Medical History Relation Name Comments Diabetes Brother Cancer Father esophageal & Bozena ng Diabetes Father Heart Attack Father Stroke Father Leukemia/Lymphoma Mother APLASTIC A NEMIA Cancer Paternal Grandfather pancrea tic Lung Cancer Paternal Uncle Relation Name Status Comments Brother Father Mother Paternal Grandfather Paternal Uncle Social History Tobacco Use Types Packs/Day Years [...] 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 Date 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 on file Not on file Last Filed Vital Signs Vital Sign Reading [...] Mass Index 37.93 05/09/2021 1:00 PM CDT Plan of Treatment Health Maintenance Due Date Last Done Comments DEXA Bone Density 1955 Hepatitis C Virus (HCV) Screening 1955 Cologuard 2005 Immunochemical Fecal Occult Blood 2005 Mammogram 2005 Zoster Immunization (1 of 2) 2005 Respiratory Syncytial Virus (RSV) Immunization (Adult) (1 - Risk 60-74 years 1-dose series) 2015 Pneumococcal Immunization (50+ years) (2 of 2 - PCV) 05/30/2021 05/30/2020, 05/30/2015 Influenza Immunization (#1) 04/02/202405/02, 05/30/2020, 06/12/2019, Additional history exists SARS-COV-2 Immunization ( season) 2024 07/21/2021, 10/18/2020, 09/27/2020 Colonoscopy 05/28/2031 05/28/2021, 01/08/2016 Colorectal Cancer Screening 05/28/2031 05/28/2021, 01/08/2016 DTaP/Tdap/Td Immunization Discontinued 06/30/2018, 08/2012 TdaP Immunization Completed 06/30/2018 Pneumococcal Immunization Combined Discontinued 05/30/2020, 05/30/2015 Hepatitis B Immunization Aged Out No longer eligible based on patient's age to complete this topic Meningococcal Immunization (ACWY) Aged Out No longer eligible based on patient's age to complete this topic Rotavirus Immunization Aged Out No lo nger eligible based on patient's age to complete this topic Insurance [facility] Care Teams Glass Carrier Relationship Specialty Start Date End Date Kellie Pizano APRN [address] [phone] PCP - General Advanced Practice Nurse 01/07/16 Tricia Conroy MD [address] [phone] General Surgery 12/09/14
--- OUTSIDE RECORDS SUMMARY | 2024-07-31 09:08 | XMS_ITS | Encounter Summary ---
Author Organization [facility] Address [address] [place] [address] Phone Care Team Providers Care Chopping Machine Operator Name Role Phone Tricia Conroy MD Unavailable [phone] Kellie Pizano APRN Primary Care Provider [phone] Reason for Visit * Auth/Cert Specialty Diagnoses / Procedures Referred By Michelle t Referred To Contact Diagnoses POLYP OF COLON-PHARYNGOESOPHAGEAL DYSPHAGIA Procedures COLONOSCOPY Referral ID Status Reason Start Date Expiration Date Visits Re quested Visits Authorized [id number] 1 1 Encounter Details Date Type Department Care Team (Late st Contact Info) Description 05/28/2021 8:54 AM CDT Anesthesia Event [facility] Periop [address] [place] [phone] Dave Harding APRN, MILKER MACHINE [address] [place] [address] Anesthesia Record Procedure Summary Procedure Name Responsible Anesthesiologist Anesthesia Start Time Anesthesia Stop Time COLONOSCOPY - DIVERTICULOSIS Dave Harding APRN, MILKER MACHINE 05/28/21 0854 05/28/21 0941 Events Date Time Event Comment 05/28/2021 0843 0854 An Start 0854 An Start Data 0854 ANASSESSCMPLT 0854 Start Supplemental O2 0856 Anesthesia Ready 0940 Stop Supplemental O2 0940 Stop Data Collection 0940 Transort to Postop 0941 Handoff to RN I completed my SBAR handoff to the receiving nurse. Last vitals BP: 93/76 Temp: 36.2 ??C (97.2 ??F) Pulse: 74 Resp: 21 SpO2: 97 % 0941 An Stop Last vitals: BP : 93/76 Temp: 36.2 ??C (97.2 ??F) Pulse: 74 Resp: 21 SpO2: 97 % Meds Name Total propofol 10 mg/mL 611,220 mcg lactated ringers infusion 600 mL * Agents Name Inspired CO2 (mmHg) ETCO2 (mmHg) * Blood No blood administrations on file. 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 No / Unsure 05/28/2021 7:30 AM CDT documented as of this encounter OR Notes * Anesthesia Postprocedure Evaluation - Dave Harding, VAISHNAVI, MILKER MACHINE - 05/28/2021 9:46 AM CDT Patient: Desiree Parson Procedure Summary Date: 05/28/21 Room / Location: [facility] 02 / [facility] Anesthesia Start: 0854 Anesthesia Stop: 940 Procedures: COLONOSCOPY - DIVERTICULOSIS (N/A ) EGD - GASTRIC BODY AND ANTRUM BIOPSIES RULE OUT H PYLORI, GASTRITIS, LARGE HIATAL HERNIA, ESOPHAGEAL DILATION WITH 50F CHÁVEZ (N/A ) Diagnosis: (EGD - GASTRIC BODY AND ANTRUM BIOPSIES RULE OUT H PYLORI, GASTRITIS, LARGE HIATAL HERNIA, ESOPHAGEAL DILATION WITH 50F CHÁVEZ COLONOSCOPY - DIVERTICULOSIS) Surgeons: Marlon Alvarado MD Responsible Provider: Dave Harding APRN, CRNA Anesthesia Type: MAC ASA Status: 3 Anesthesia Type: MAC Last vitals Vitals Value Taken Time BP 93/76 05/28/21939 Temp Pulse 74 05/28/21939 Resp 21 05/28/21939 SpO2 97 % 05/28/21939 Pain score: 0 Pain management: adequate Patient location during evaluation: GI Lab Patient participation: Sufficiently recovered to participate Level of consciousness: sleepy but conscious Cardiovascular status: acceptable Respiratory status: acceptable Hydration status: acceptable Comments: Vital signs on nursing flowsheet Anesthetic complications: no Airway patency: patent Nausea and Vomiting: none * Anesthesia Preprocedure Evaluation - Dave Harding APRN, CRNA - 05/28/2021 8:41 AM CDT Anesthesia Evaluation Procedure Information Date/Time: 05/28/2130 Procedures: COLONOSCOPY (N/A ) EGD (N/A ) Location: [facility] 02 / [facility] Surgeons: Marlon Alvarado MD Patient summary reviewed and Nursing notes reviewed No history of anesthetic complications No family history of anesthesia reaction Allergies: -- Marin Inhibitors -- Unknown -- Adhesive Tape -- Unknown -- Beta Adrenergic Blockers -- Unknown -- Chromium -- Other (see Comments) -- REDNESS SKIN IRRITATION -- Latex -- Unknown -- Neosporin (Neomycin-Bacitracin Zn-Polymyx) -- Unknown -- Sulfa Antibiotics -- Other (see Comments) -- Agitation Patient allergies reviewed. Medications: Current Facility-Administered Medications: ??? lactated ringers infusion, 20 mL/hr, Intravenous, Continuous, Marlon Alvarado MD, Last Rate:20 mL/hr at 05/28/21 0800, 20 mL/hr at 05/28/21 0800 ??? ondansetron (ZOFRAN) injection 4 mg, 4 mg, Intravenous, Once, Marlon Alvarado MD Medications Prior to Admission: acetaminophen (Tylenol 8 Hour) 650 MG Tablet Controlled Release, every 6 hours as needed., Disp: , Rfl: acetaminophen (Tylenol) 325 MG Tablet, 325 mg. (Patient not taking: Reported on 05/09/2021), Disp: ,Rfl: albuterol (Ventolin HFA) 108 (90 Base) MCG/ACT Aerosol Solution, every 4 hours as needed., Disp: , Rfl: ALPRAZolam (XANAX) 0.5 MG Tablet, Take 0.5 mg by mouth nightly., Disp: , Rfl: Calcium Carbonate-Vitamin D (CALCIUM + D PO), Take by mouth nightly., Disp: , Rfl: Calcium Polycarbophil (FIBER-CAPS PO), Take by mouth daily., Disp: , Rfl: Cholecalciferol (TH VITAMIN D3) 1000 UNIT PO CAPS, Take 1 Capsule by mouth nightly., Disp: , Rfl: clobetasol (TEMOVATE) 0.05 % Ointment, clobetasol 0.05 % topical ointment APPLY THIN LAYER EXTERNALLY TO THE AFFECTED AREA TWICE DAILY, Disp: , Rfl: clopidogrel (PLAVIX) 75 MG Tablet, Take 75 mg by mouth daily., Disp: , Rfl: diltiazem (CARTIA XT) 240 MG CAPSULE SR 24 HR, Take 1 Cap by mouth daily. (Patient taking differently: Take 240 mg by mouth nightly.), Disp: 30 Cap, Rfl: 5 esomeprazole (NexIUM) 20 MG CAPSULE DELAYED RELEASE, Take 20 mg by mouth 2 times daily., Disp: , Rfl: fish oil-omega-3 fatty acids 1000 MG Capsule, Take 1,000 mg by mouth daily. (Patient not taking: Reported on 04/14/2021), Disp: , Rfl: Fluticasone Propionate (FLONASE NA), by Nasal route daily as needed. (Patient not taking: Reported on 05/09/2021), Disp: , Rfl: levalbuterol (XOPENEX HFA) 45 MCG/ACT IN AERO, take by inhalation. Indications: As needed (Patient not taking: Reported on 05/09/2021), Disp: , Rfl: metroNIDAZOLE (METROGEL) 0.75 % Gel, metronidazole 0.75 % topical gel APPLY THIN LAYER EXTERNALLY TO THE AFFECTED AREA TWICE DAILY IN THE MORNING AND IN THE EVENING, Disp: , Rfl: nitroGLYCERIN (NITROSTAT) 0.4 MG SL Tablet, 0.4 mg by Sublingual route every 5 minutes as needed. (Patient not taking: Reported on 05/28/2021), Disp: , Rfl: ondansetron (ZOFRAN-ODT) 4 MG TABLET DISPERSIBLE, Take 4 mg by mouth every 8 hours as needed for Nausea. (Patient not taking: Reported on 05/09/2021), Disp: , Rfl: Probiotic Product (FLORASTOR PRE PO), Take by mouth nightly., Disp: , Rfl: rosuvastatin (CRESTOR) 20 MG Tablet, Take 40 mg by mouth nightly., Disp: , Rfl: sertraline (ZOLOFT) 50 MG Tablet, Take 1 Tablet by mouth nightly., Disp: , Rfl: 5 traMADol 50 MG PO TABS, Take 50 mg by mouth nightly as needed., Disp: , Rfl: vitamin B complex-C (ALLBEE-C) Tablet, Take 1 Tablet by mouth nightly., Disp: , Rfl: Patient medications reviewed. Airway Mallampati: II TM distance: <3 FB Neck ROM: full Dental - normal exam Pulmonary - normal exam breath sounds clear to auscultation (+) asthma, sleep apnea, Cardiovascular - normal exam Exercise tolerance: good (+) hypertension, Rhythm: regular Rate: normal ROS comment: hyperlipidemia Neuro/Psych (+) psychiatric history GI/Hepatic/Renal (+) GERD, Endo/Other (+) arthritis, Risks, benefits, alternatives discussed with:patient. Anesthesia Plan ASA 3 MAC intravenous induction Anesthetic plan and risks discussed with Patient. Plan discussed with MILKER MACHINE and surgeon. documented in this encounter Plan of Treatment Not on file documented as of this encounter Visit Diagnoses Not on filedocumented in this encounter Administered Medications Inactive Administered Medications - up to 3 most recent administrations Medication Order MAR Action Action Date Dose Rate Site propofol (DIPRIVAN) injection Intravenous, CONTINUOUS (in OR), Starting on Wed05/28/21 at 0854, Until Wed05/28/21 at 0946 Rate Change 05/28/2021 9:18 AM CDT 100 mcg/kg/min 60.12 mL/hr New Bag 05/28/2021 8:54 AM CDT 200 mcg/kg/min 120.24 mL /hr documented in this encounter Care Teams Chopping Machine Operator Relationship Specialty Start Date End Date Kellie Pizano APRN [address] [phone] PCP - General Advanced Practice Nurse 01/07/16 Tricia Conroy MD #[address] [phone] General Surgery 12/09/14 documented as of this encounter
--- OUTSIDE RECORDS SUMMARY | 2024-07-31 09:15 | XMS_ITS | CONTINUITY OF CARE DOCUMENT ---
Author Name peggy woods Address Unknown Organization [facility] Address [address] [place] [address] Phone [phone] Care Team Providers Care Procurement Professional Name Role Phone Frank Frazier MD Unavailable [phone] MIRNA KELLER MD Unavailable [phone] ORI MAYA Unavailable [phone] PROBLEMS Condition Status Date Provider Notes Chest pressure active Frank Frazier MD Hyperglycemia active Mane Goldstein R parotid mass - benign active Mane babb Pulmonary nodule, right lowe r lobe active Mane Goldstein Tobacco use quit active Frank Frazier MD Leg edema, left completed - Mane Goldstein CAD active Frank Frazier MD Dyslipidemia active Frank Frazier MD Obstructive sleep apnea - using CPAP active Frank Frazier MD Obesity active Frank Frazier MD Preop exam completed - Frank Frazier MD Abdominal aortic ectasia - 3.54cm 03/2022 active Frank Frazier MD HTN essential active Sean Ware ENCOUNTERS Date Type Provider Location Encounter Diag nosis - In-person encounter Office Visit Frank Frazier MD [facility] - In-person encounter Office Visit Frank Frazier MD [facility] - In-person encounter Office Visit Frank Frazier MD [facility] - In-person encounter Office Visit Frank Frazier MD [facility] - In-person encounter Office Visit Frank Frazier MD [facility] Abdominal aortic ectasia - 3.54cm 03/2022HTN essential - In-person encounter Office Visit Frank Frazier MD [facility] - In-person encounter Office Visit Frank Frazier MD [facility] - In-person encounter Office Visit Frank Frazier MD [facility] - In-person encounter Office Visit Frank Frazier MD [facility] - In-person encounter Office Visit Frank Frazier MD [facility] Preop exam - In-person encounter Office Visit Frank Frazier MD [facility] - In-person encounter Office Visit Frank Frazier MD [facility] DyslipidemiaObstructive sleep apnea - using CPAPObesity - In-person encounter Office Visit Frank Frazier MD [facility] - In-person encounter Office Visit Frank Frazier MD [facility] - In-person encounter Office Visit Frank Frazier MD [facility] Dyslipidemia - In-person encounter Office Visit Frank Frazier MD [facility] Tobacco use quitLeg edema, leftCAD VITAL SIGNS Date Observation Value Provider Body Mass Index (Ratio) 37.59 kg/m2 Jamari Álvarez blood pressure, cuff size regular Chico Cortez blood pressure, diastolic 85 mm[Hg] Chico Cortez blood pressure, systolic 124 mm[Hg] Maikol Cortez oxygen saturation, oximetry 97 % Snow Cortez pulse rate 77 /min Snow Cortez respiratory rate E&M 14 /min Snow Cortez weight E&M 219 [lb_av] Snow Cortez height E&M 64 [in_i] Snow Cortez Body Mass Index (Ratio) 36.90 kg/m2 [facility] ghada Roshan blood pressure, diastolic 83 mm[Hg] Jocelyn nkLog blood pressure, systolic 135 mm[Hg] Jeri [facility] blood pressure, cuff size regular Arnoldo blood pressure, diastolic 83 mm[Hg] Ja rust blood pressure, systolic 135 mm[Hg] Maddy [facility] pulse rate 70 /min Tarik respiratory rate E&M 14 /min Tarik oxygen saturation, oximetry 97 % Tarik weight E&M 215 [lb_av] Tarik y height E&M 64 [in_i] [facility] Body Mass Index (Ratio) 41.02 kg/m2 [facility] ghada Roshan blood pressure, diastolic 93 mm[Hg] Dayanara kelsea Unger blood pressure, systolic 134 mm[Hg] Ruthie Unger pulse rate 78 /min Orin Unger oxygen saturation, oximetry 96 % Orin Unger weight E&M 239 [lb_av] Orin Unger blood pressure, cuff size large An kelsea Unger height E&M 64 [in_i] Orin Unger Body Mass Index (Ratio) 42.91 kg/m2 Frank Frazier MD blood pressure, diastolic 77 mm[Hg] Jocelyn nkLogkaren blood pressure, systolic 149 mm[Hg] Jeri [facility] saturation, oximetry 96 % Mirtha Archuleta pulse rate 66 /min Mirtha Archuleta blood pressure, cuff size regular Ev Archuleta blood pressure, diastolic 77 mm[Hg] Ev Archuleta blood pressure, systolic 149 mm[Hg] She edvin Archuleta respiratory rate E&M 20 /min Mirtha Archuleta weight E&M 250 [lb_av] Mirtha Archuleta height E&M 64 [in_i] Mirtha Archuleta Body Mass Index (Ratio) 43.25 kg/m2 Mitch preeti Ware blood pressure, cuff size large Tx yifan [place] blood pressure, diastolic 104 mm[Hg] Tx yifan [place] blood pressure, systolic 181 mm[Hg] [facility] silvio [place] oxygen saturation, oximetry 99 % Shilpi Saravia pulse rate 87 /min Shilpi quintana weight E&M 252 [lb_av] Shilpi quintana respiratory rate E&M 16 /min Breanna Saravia height E&M 64 [in_i] Shilpi quintana Body Mass Index (Ratio) 41.71 kg/m2 Carli Chua blood pressure, cuff size large Ke rri Kyle blood pressure, diastolic 70 mm[Hg] Ke rri Kyle blood pressure, systolic 120 mm[Hg] Hugo Wright oxygen saturation, oximetry 95 % Tressa Wright respiratory rate E&M 14 /min Tressa acuña pulse rate 86 /min Tressa lott weight E&M 243 [lb_av] Tressa deckerer height E&M 64 [in_i] Tressa Desaiameliekarly lder Body Mass Index (Ratio) 37.93 kg/m2 Carli chester Jacobsmeyer blood pressure, diastolic 80 mm[Hg] Jocelyn nkLogic blood pressure, systolic 140 mm[Hg] Jeri kLogic blood pressure, cuff size regular Mikhail Bermudezby blood pressure, diastolic 80 mm[Hg] Mikhail Bermudezby blood pressure, systolic 140 mm[Hg] Kri priyanka Bermudez pulse rate 89 /min Etelvina Kathie oxygen saturation, oximetry 97 % Etelvina Belpre respiratory rate E&M 18 /min Etelvina Kathie weight E&M 221 [lb_av] Etelvina Kathie height E&M 64 [in_i] Etelvina [place] Body Mass Index (Ratio) 39.65 kg/m2 [facility]iva [facility], diastolic 74 mm[Hg] Al harry Angelita blood pressure, systolic 139 mm[Hg] Melani ricketts Angelita pulse rate 85 /min [facility] oxygen saturation, oximetry 97 % [facility] weight E&M 231 [lb_av] [employer] height E&M 64 [in_i] [employer] blood pressure, resting No Siva cliff Angelita Body Mass Index (Ratio) 40.68 kg/m2 Siva cliff Angelita blood pressure, diastolic 82 mm[Hg] Er ica Alpa blood pressure, systolic 124 mm[Hg] Sarah Yuen oxygen saturation, oximetry 98 % Winnie Yuen pulse rate 71 /min Winnie Verdin weight E&M 237 [lb_av] Winnie Verdin height E&M 64 [in_i] Winnie Verdin Body Mass Index (Ratio) 37.93 kg/m2 Siva Teagueberg blood pressure, diastolic 76 mm[Hg] Mikhail Vázquez blood pressure, systolic 140 mm[Hg] Curtis Vázquez respiratory rate E&M 17 /min Etelvina Bermudezby oxygen saturation, oximetry 97 % Etelvina Vázquez pulse rate 85 /min Etelvina Vázquez weight E&M 221 [lb_av] Etelvina Vázquez blood pressure, cuff size regular Mikhail Vázquez height E&M 64 [in_i] Etelvina Vázquez Body Mass Index (Ratio) 38.96 kg/m2 Siva Goldstein blood pressure, diastolic 80 mm[Hg] Chico Bills blood pressure, systolic 118 mm[Hg] Velasco paz Bills blood pressure, cuff size regular Chico sim Bills oxygen saturation, oximetry 97 % Romina Bills respiratory rate E&M 18 /min Romina Bills pulse rate 84 /min Romina Bills weight E&M 227 [lb_av] Romina Bills height E&M 64 [in_i] Romina Bills Body Mass Index (Ratio) 39.13 kg/m2 Siva Goldstein blood pressure, resting Yes Frank Frazier MD blood pressure, cuff size regular Chico sim Bills pulse rate 85 /min Romina Bills respiratory rate E&M 20 /min Romina Bills oxygen saturation, oximetry 98 % Romina Bills blood pressure, diastolic 82 mm[Hg] Ta chiquis Bills blood pressure, systolic 126 mm[Hg] Velasco ica Bills weight E&M 228 [lb_av] Romina Bills height E&M 64 [in_i] Romina Bills blood pressure, diastolic, left arm 80 mm [Hg] Etelvina Bermudez blood pressure, systolic, left arm 124 mm [Hg] Etelvina Bermudez blood pressure, diastolic, right arm 82 m m[Hg] Etelvina Bermudez blood pressure, systolic, right arm 130 m m[Hg] Etelvina Bermudez blood pressure, diastolic 80 mm[Hg] Mikhail Vázquez blood pressure, systolic 124 mm[Hg] Curtis Bermudezby pulse rate 79 /min Etelvina Bermudezby oxygen saturation, oximetry 98 % Etelvina Bermudezby respiratory rate E&M 18 /min Etelvina Kathie Body Mass Index (Ratio) 35.18 kg/m2 Dylan Bermudezby weight E&M 205 [lb_av] Etelvina Bermudezby blood pressure, diastolic 74 mm[Hg] Chico sim Bills blood pressure, systolic 132 mm[Hg] Rod Bills pulse rate 95 /min Romina Bills oxygen saturation, oximetry 98 % Romina Bills respiratory rate E&M 18 /min Romina Bills Body Mass Index (Ratio) 39.82 kg/m2 Tess collin Bills weight E&M 232 [lb_av] Romina Sanju blood pressure, diastolic 100 mm[Hg] Dmitry Pichardo blood pressure, systolic 130 mm[Hg] Chris Pichardo pulse rate 79 /min Jeff Pichardo oxygen saturation, oximetry 99 % Jeff Pichardo respiratory rate E&M 18 /min Jeff Pichardo Body Mass Index (Ratio) 39.51 kg/m2 Kenneth Pichardo weight E&M 230.2 [lb_av] Jeff Pichardo blood pressure, diastolic, left arm 91 mm [Hg] Oanh Jones blood pressure, systolic, left arm 139 mm [Hg] Oanh Jones blood pressure, diastolic, right arm 86 m m[Hg] Oanh Jones blood pressure, systolic, right arm 144 m m[Hg] Oanh Jones blood pressure, diastolic 91 mm[Hg] Me herron Jones blood pressure, systolic 139 mm[Hg] Jessica Jones pulse rate 88 /min Oanh Jones oxygen saturation, oximetry 95 % Oanh Jones respiratory rate E&M 15 /min Oanh Jones Body Mass Index (Ratio) 39.82 kg/m2 Olga shah Jones weight E&M 232 [lb_av] Oanh Jones height E&M 64 [in_i] Oanh Jones ALLERGIES Allergy Name Onset Date Reaction Criticality Status SULFA High Criticality active BETA BLOCKERS High Criticality activ e ALEJANDRA INHIBITORS High Criticality acti ve RESULTS Date Observation Value Provider Reference Range Interpretation Location 2 LDL cholesterol, serum 58 mg/dL [facility] 4 LDL cholesterol, serum 69 mg/dL [facility] 5 triglyceride, serum, fasting 197 mg/dL Frank Frazier MD 5 HDL cholesterol, serum 48 mg/dL Frank Frazier MD 5 LDL cholesterol, serum 49 mg/dL Frank Frazier MD 5 cholesterol, serum 136 mg/dL Frank Frazier MD HISTORY OF MEDICATION USE Medication Status Instructions Dates Provider Indications Com ments clopidogrel 75 mg tablet active TAKE ONE (1) TABLET BY MOUTH EVERY DAY Julieta Ruple Trulicity 1.5 mg/0.5 mL pen injector active INJECT 1.5 MG UNDER THE SKIN EVERY WEEK. Frank Frazier MD metformin 500 mg tablet active Frank Frazier MD rosuvastatin 40 mg tablet active TAKE 1 TABLET BY MOUTH EVERY DAY ret rosuvastatin 40 mg tablet completed Take 1 tablet by mouth once a day - Frank Frazier MD clopidogrel 75 mg tablet completed TAKE 1 TABLET BY MOUTH EVERY DAY - Julieta Ochoa Nexium 20 mg capsule,delayed release(DR/EC) active 1 capsule once a day Shilpi Saravia SUPER B-COMPLEX TABS active 1 tablet once a day Etelvina Vázquez Lasix 40 mg tablet active 1 tablet once a day as needed Etelvina Vázquez ROSUVASTATIN CALCIUM 20 MG TABS completed TAKE 1 TABLET BY MOUTH DAILY - Mane Goldstein NALTREXONE HCL 50 MG ORAL TABLET completed 1/2 tab by mouth daily, if not effective after 1 week may increase to 1/2 tab twice daily - Mane Goldstein BUPROPION HCL 100 MG ORAL TABLET completed 1 tab by mouth daily, if not effective after 1 week may increase to 1 tab twice daily - Mane Goldstein METAMUCIL FIBER PACKET active Take 1 tablet by mouth once a day Etelvina Vázquez clobetasol 0.05% cream active as directed Etelvina Vázquez ProAir HFA 90 mcg/actuation HFA aerosol inhaler active Use as directed Etelvina Vázquez Vitamin C 1,000 mg tablet active Take 1 tablet by mouth once a day Etelvina Vázquez B-12 5000 MCG ORAL TABLET (CYANOCOBALAMIN) completed take one tablet by mouth once daily - Winnie Yuen sertraline 50 mg tablet active 1 tablet once a day Etelvina Vázquez clopidogrel 75 mg tablet completed Take 1 tablet by mouth once a day - Yolanda Cintia METAMUCIL POWD completed as needed - Romina Bills ALEVE 220 MG ORAL TABLET completed 2 at night - Romina Bills tramadol 50 mg tablet completed once a day as needed - Shilpi Saravia FLONASE 50 MCG/ACT NASAL SUSPENSION completed as needed - Romina Bills Nitrostat 0.4 mg tablet, sublingual active 1 tablet under tongue as needed Frank Frazier MD ONDANSETRON HCL TABS completed as needed - Romina Bills PROBIOTIC ORAL active 1 tablet by mouth once a day Etelvina Vázquez Tylenol Arthritis Pain 650 mg tablet extended release completed 4 tablet once a day - Frank Frazier MD rosuvastatin 20 mg tablet completed Take 1 tablet by mouth once a day - Jorge A Hesst BRILINTA 90 MG ORAL TABLET completed TWICE DAILY - Frank Frazier MD CITALOPRAM HYDROBROMIDE 10 MG ORAL TABLET completed ONCE DAILY - Romina Bills VITAMIN C TABLET [id number] rror once daily - Winnie Yuen alprazolam 0.5 mg tablet active Take 1 tablet twice a day Frank Frazier MD Fish Oil 300-1,000 mg capsule,delayed release(DR/EC) active 1 capsule twice a day Etelvina Vázquez CALCIUM + D3 600-200 MG-UNIT ORAL TABLET active Take 1 tablet by mouth once a day Etelvina Vázquez VITAMIN D TABLET 125 MG(CHOLECALCIFERO L TABS) completed take one tablet by mouth once daily - Mane Goldstein MULTIVITAMINS ORAL CAPSULE completed ONE TAB. DAILY - Romina Bills ADULT ASPIRIN EC LOW STRENGTH 81 MG ORAL TABLET DELAYED RELEASE completed once daily - Mane Goldstein OXYCODONE-ACETAMI NOPHEN 5-325 MG ORAL TABLET completed every 4 hours as needed for pain - Etelvina Vázquez OMEPRAZOLE 40 MG ORAL CAPSULE DELAYED RELEASE completed once daily - Winnie Yuen PRAVACHOL 80 MG ORAL TABLET completed once daily - Romina Bills Cartia XT 300 mg capsule,extended release 24hr active Take 1 capsule once a day Frank Frazier MD SOCIAL HISTORY Date Observation Value Provider smoking status Never smoker Uziel Stevenshuber hawkins smoking status Never smoker Leland Jevon block smoking status Never smoker Frank Quintana social history reviewed E&M revi ewed - no changes required Frank Frazier MD social history E&M S moking History: Shaista goodwin has never smoked. Frank Frazier MD social history reviewed E&M revi ewed - no changes required Frank Frazier MD smoking status Never smoker Mirtha Archuleta social history E&M S moking History: P buddy is a former smoker. Frank Frazier MD social history reviewed E&M revi ewed - no changes required Frank Frazier MD smoking, year quit 2004 Shilpi Saravia cigarette use yes Shilpi Cabrera nd smoking status Former smoker Shilpi Dennise israel social history reviewed E&M revi ewed - no changes required Shantelle Chua social history E&M S moking History: Shaista goodwin is a former smoker. Frank Frazier MD social history reviewed E&M revi ewed - no changes required Frank Frazier MD smoking, year quit 2004 Tressa terry cigarette use yes Tressa [facility] smoking status Former smoker Tressa Giselle [facility] social history E&M S moking History: Shaista goodwin is a former smoker. Frank Frazier MD social history reviewed E&M revi ewed - no changes required Frank Frazier MD smoking, year quit 2005 Etelvina king cigarette use yes Etelvina Vázquez smoking status Former smoker Etelvinablaine Vázquez social history reviewed E&M revi ewed - no changes required Winnie Yuen smoking, year quit 2004 Winnie cross-Lambert cigarette use yes Winnie Meyers -Lambert smoking status Former smoker Winnie Coles on-Lambert social history reviewed E&M revi ewed - no changes required Frank Frazier MD smoking, year quit 2004 Etelvina Suazo fernando cigarette use yes Etelvina Vázquez smoking status Former smoker Etelvina Bermudezby social history reviewed E&M revi ewed - no changes required Frank Frazier MD smoking, year quit 2004 Frank martin MD cigarette use yes Frank Frazier MD smoking status Former smoker Frank Frazier MD social history reviewed E&M revi ewed - no changes required Frank Frazier MD social history reviewed E&M revi ewed - no changes required Frank Frazier MD social history E&M Smoking Histo ry: Shaista goodwin is a former smoker. Frank Frazier MD number of grandchildren Frank Frazier MD Dylan tamayo Belpre social history reviewed E&M revi ewed - no changes required Frank Frazier MD social history reviewed E&M revi ewed - no changes required Frank Frazier MD social history E&M Smoking Histo ry: Shaista goodwin is a former smoker. Frank Frazier MD social history reviewed E&M revi ewed - no changes required Frank Frazier MD smoking, year quit 2004 Oanh Bahena cigarette use yes Oanh Jones smoking status Former smoker Oanh Doss nn FUNCTIONAL STATUS Date Observation Value Provider HRA, CV Assess/Plan, Angina (inactive) Management Plan continue current therapy Uziel Álvarez HRA, CV Assess/Plan, Angina (inactive) Management Plan continue current therapy Leland Islas HRA, CV Assess/Plan, Angina (inactive) Management Plan continue current therapy Frank Frazier MD HRA, CV Assess/Plan, Angina (inactive) Management Plan continue current therapy Frank Frazier MD HRA, CV Assess/Plan, Angina (inactive) Management Plan continue current therapy Frank Frazier MD HRA, CV Assess/Plan, Angina (inactive) Management Plan continue current therapy Shantelle Toma HRA, CV Assess/Plan, Angina (inactive) Management Plan continue current therapy Frank Frazier MD HRA, CV Assess/Plan, Angina (inactive) Management Plan continue current therapy Frank Frazier MD HRA, CV Assess/Plan, Angina (inactive) Management Plan continue current therapy Frank Frazier MD HRA, CV Assess/Plan, Angina (inactive) Management Plan continue current therapy Frank Frazier MD HRA, CV Assess/Plan, Angina (inactive) Management Plan continue current therapy Mane Goldstein HRA, CV Assess/Plan, Angina (inactive) Management Plan continue current therapy Frank Frazier MD HRA, CV Assess/Plan, Angina (inactive) Management Plan continue current therapy Frank Frazier MD FAMILY HISTORY Family Member Condition Father Family History of Co ronary Artery Disease: INSURANCE PROVIDERS Payer name Policy type / Coverage type [place] red democrat ID [facility] [id number] [id number] (PPO C-SNP) Commercial insurance company [id number] ADVANCE DIRECTIVES Name Date DISCUSSED - NO DECISION MADE TREATMENT PLAN Date Name Performer [id number],Frank Santo MD [id number],S, H er updated medication list for this problem includes: Rosuvastatin 40 Mg Tablet (Rosuvastatin) ..... Take 1 tablet by mouth every day Frank Frazier MD [id number],S, H er updated medication list for this problem includes: Clopidogrel 75 Mg Tablet (Clopidogrel) ..... Take 1 tablet by mouth every day Cartia Xt 300 Mg Capsule,extended Release 24hr (Diltiazem hcl) ..... Take 1 capsule once a day Nitrostat 0.4 Mg Tablet, Sublingual (Nitroglycerin) ..... 1 tablet under tongue as needed Frank Frazier MD [id number],S, B P today: 134/93 P rior BP: 149/77 (09/21/2022) Labs Reviewed: C hol: 136 (10/15/2015) HDL: 48 (10/15/2015) LDL: 58 (04/13/2019) T (10/15/2015) Her updated medication list for this problem includes: Cartia Xt 300 Mg Capsule,extended Release 24hr (Diltiazem hcl) ..... Take 1 capsule once a day Lasix 40 Mg Tablet (Furosemide) ..... 1 tablet once a day as needed Frank Frazier MD [id number],S, H er updated medication list for this problem includes: Rosuvastatin 40 Mg Tablet (Rosuvastatin) ..... Take 1 tablet by mouth every day Frank Frazier MD [id number],B, B P today: 149/77 P rior BP: 181/104 (08/04/2022) Her updated medication list for this problem includes: Lasix 40 Mg Tablet (Furosemide) ..... 1 tablet once a day as needed Cartia Xt 240 Mg Capsule,extended Release 24hr (Diltiazem hcl) ..... Take 1 capsule once a day Frank Frazier MD [id number],S, Frank Frazier MD [id number],S,F /u AAA duplex today showed 3.51cm distal AAA, unchanged from previous. Will repeat her duplex in 6 months. Frank Frazier MD [id number],S, N o angina. Her updated medication list for this problem includes: Clopidogrel 75 Mg Tablet (Clopidogrel) ..... Take 1 tablet by mouth every day Nitrostat 0.4 Mg Tablet, Sublingual (Nitroglycerin) ..... 1 tablet under tongue as needed Cartia Xt 240 Mg Capsule,extended Release 24hr (Diltiazem hcl) ..... Take 1 capsule once a day Frank Frazier MD [id number],W,B P is elevated today. Patient was short on her alprazolam since she lost her PCP. We will give her a refill and she will monitor her BP. Sean Jeanie [id number],S, Sean Rose [id number],S, H er updated medication list for this problem includes: Rosuvastatin 40 Mg Tablet (Rosuvastatin) ..... Take 1 tablet by mouth every day Sena Ware [id number],S,W ill obtain AAA duplex in September. Sean [facility] [id number],S,N o angina. Her updated medication list for this problem includes: Clopidogrel 75 Mg Tablet (Clopidogrel) ..... Take 1 tablet by mouth every day Nitrostat 0.4 Mg Tablet, Sublingual (Nitroglycerin) ..... 1 tablet under tongue as needed Cartia Xt 240 Mg Capsule,extended Release 24hr (Diltiazem hcl) ..... Take 1 capsule once a day Sean Ware [id number],W, Frank Frazier MD [id number],S, W eight loss advised Shantelle Chua [id number],C, LDL 56, trigs 194. she does not want to start medications at this time Will obtain AAA duplex and lipid panel in 6 months. H er updated medication list for this problem includes: Rosuvastatin 40 Mg Tablet (Rosuvastatin) ..... Take 1 tablet by mouth once a day Shantelle Chua [id number],C, AAA is 3.5. Will obtain AAA duplex and lipid panel in 6 months. Shantelle Chua [id number],C,Pt denies SOB and chest pain. Shantelle Chua [id number],S, Shantelle nunez [id number],C,W eight loss advised Shantelle Toma [id number],C, TGs are elevated to 185. She is going to lose weight. Will repeat in Mar. H er updated medication list for this problem includes: Rosuvastatin 40 Mg Tablet (Rosuvastatin) ..... Take 1 tablet by mouth once a day Shantelle Chua [id number],C,. AAA showed 3.3 cm, will repeat in March. Shantelle Chua [id number],C,S /p stenting of the PDA. Her sxs improved signficnatly. TGs are elevated to 185. She is going to lose weight. Will repeat in Mar. AAA showed 3.3 cm, will repeat in March. H er updated medication list for this problem includes: Clopidogrel 75 Mg Tablet (Clopidogrel) ..... Take 1 tablet by mouth every day Nitrostat 0.4 Mg Tablet, Sublingual (Nitroglycerin) ..... 1 tablet under tongue as needed Cartia Xt 240 Mg Capsule,extended Release 24hr (Diltiazem hcl) ..... Take 1 capsule once a day Shantelle Chua [id number],W, Frank Frazier MD [id number],SFrank MD [id number],S, Frank Frazier MD [id number],SFrank MD [id number],SFrank MD [id number],C,Weight loss a dvised Shantelle Chua [id number],S, Shantelle nunez [id number],S,T he patient is using CPAP on a regular basis. The patient has been benefiting from therapy and should continue use. Shantelle Chua [id number],C,O n statin. Her updated medication list for this problem includes: Rosuvastatin 20 Mg Tablet (Rosuvastatin) ..... Take 1 tablet by mouth once a day Shantelle Chua [id number],C,h er December duplex showed AAA increased from 2.9 to 3.2, will obtain f/u duplex in July as well as ehco and stress myoview. Shantelle Chua [id number],C,O verall doing well. No chest pain, but noted palpitations with reminder of her symptoms prior to her revascularization a few years ago. In addition, her December duplex showed AAA increased from 2.9 to 3.2, will obtain f/u duplex in July as well as ehco and stress myoview. H er updated medication list for this problem includes: Nitrostat 0.4 Mg Tablet, Sublingual (Nitroglycerin) ..... 1 tablet under tongue as needed Cartia Xt 240 Mg Capsule,extended Release 24hr (Diltiazem hcl) ..... Take 1 capsule once a day Clopidogrel 75 Mg Tablet (Clopidogrel) ..... Take 1 tablet by mouth once a day Shantelle Chua Cardiology: BP is we ll controlled today. BP today: 124/85 P rior BP: 135/83 (10/18/2023) Her updated medication list for this problem includes: Cartia Xt 300 Mg Capsule,extended Release 24hr (Diltiazem hcl) ..... Take 1 capsule once a day Lasix 40 Mg Tablet (Furosemide) ..... 1 tablet once a day as needed This visit has been a part of the consistent, comprehensive, and ongoing management of the chronic medical condition(s) listed above for the patient. Uziel Álvarez Cardiology:AAA size today is 3.89 cm. Will f/u again in 6 months. Uziel Álvarez Cardiology:Her [facility] ed medication list for this problem includes: Clopidogrel 75 Mg Tablet (Clopidogrel) ..... Take 1 tablet by mouth every day Cartia Xt 300 Mg Capsule,extended Release 24hr (Diltiazem hcl) ..... Take 1 capsule once a day Nitrostat 0.4 Mg Tablet, Sublingual (Nitroglycerin) ..... 1 tablet under tongue as needed Uziel Preeti Cardiology:Trigmonica matute e 159 on 03/25. She is interested in [place] clinical trial. Her updated medication list for this problem includes: Rosuvastatin 40 Mg Tablet (Rosuvastatin) ..... Take 1 tablet by mouth every day This visit has been a part of the consistent, comprehensive, and ongoing management of the chronic medical condition(s) listed above for the patient. Uziel Álvarez Cardiology: T he patient is using CPAP on a regular basis. The patient has been benefiting from therapy and should continue use. Uziel Álvarez Cardiology:weight loss encourage d Uziel Álvarez Cardiology: H er updated medication list for this problem includes: Clopidogrel 75 Mg Tablet (Clopidogrel) ..... Take 1 tablet by mouth every day Cartia Xt 300 Mg Capsule,extended Release 24hr (Diltiazem hcl) ..... Take 1 capsule once a day Nitrostat 0.4 Mg Tablet, Sublingual (Nitroglycerin) ..... 1 tablet under tongue as needed Leland Islas Cardiology:The patie nt is using CPAP on a regular basis. The patient has been benefiting from therapy and should continue use. Leland Islas Cardiology: B P today: 135/83 P rior BP: 134/93 (04/20/2023) Labs Reviewed: C hol: 136 (10/15/2015) HDL: 48 (10/15/2015) LDL: 58 (04/13/2019) T (10/15/2015) Her updated medication list for this problem includes: Cartia Xt 300 Mg Capsule,extended Release 24hr (Diltiazem hcl) ..... Take 1 capsule once a day Lasix 40 Mg Tablet (Furosemide) ..... 1 tablet once a day as needed Leland Islas Cardiology:Lp(a) dameon vated to 271, will enroll her if [facility](a) opens back up H er updated medication list for this problem includes: Rosuvastatin 40 Mg Tablet (Rosuvastatin) ..... Take 1 tablet by mouth every day Leland Islas Cardiology:AAA size today is 3.5 cm. Will f/u in 6 months. Lp(a) elevated to 271, will enroll her if [employer](a) opens back up. WIll obtain f/u echo Leland Islas Cardiology Frank Frazier MD Cardiology: H er updated medication list for this problem includes: Rosuvastatin 40 Mg Tablet (Rosuvastatin) ..... Take 1 tablet by mouth every day Frank Frazier MD Cardiology: H er updated medication list for this problem includes: Clopidogrel 75 Mg Tablet (Clopidogrel) ..... Take 1 tablet by mouth every day Cartia Xt 300 Mg Capsule,extended Release 24hr (Diltiazem hcl) ..... Take 1 capsule once a day Nitrostat 0.4 Mg Tablet, Sublingual (Nitroglycerin) ..... 1 tablet under tongue as needed Frank Frazier MD Cardiology: B P today: 134/93 P rior BP: 149/77 (09/21/2022) Labs Reviewed: C hol: 136 (10/15/2015) HDL: 48 (10/15/2015) LDL: 58 (04/13/2019) T (10/15/2015) Her updated medication list for this problem includes: Cartia Xt 300 Mg Capsule,extended Release 24hr (Diltiazem hcl) ..... Take 1 capsule once a day Lasix 40 Mg Tablet (Furosemide) ..... 1 tablet once a day as needed Frank Frazier MD Cardiology: H er updated medication list for this problem includes: Rosuvastatin 40 Mg Tablet (Rosuvastatin) ..... Take 1 tablet by mouth every day Frank Frazier MD Cardiology: B P today: 149/77 P rior BP: 181/104 (08/04/2022) Her updated medication list for this problem includes: Lasix 40 Mg Tablet (Furosemide) ..... 1 tablet once a day as needed Cartia Xt 240 Mg Capsule,extended Release 24hr (Diltiazem hcl) ..... Take 1 capsule once a day Frank Frazier MD Cardiology Frank Frazier MD Cardiology:F/u AAA d uplex today showed 3.51cm distal AAA, unchanged from previous. Will repeat her duplex in 6 months. Frank Frazier MD Cardiology: N o angina. Her updated medication list for this problem includes: Clopidogrel 75 Mg Tablet (Clopidogrel) ..... Take 1 tablet by mouth every day Nitrostat 0.4 Mg Tablet, Sublingual (Nitroglycerin) ..... 1 tablet under tongue as needed Cartia Xt 240 Mg Capsule,extended Release 24hr (Diltiazem hcl) ..... Take 1 capsule once a day Frank Frazier MD Cardiology:BP is dameon vated today. Patient was short on her alprazolam since she lost her PCP. We will give her a refill and she will monitor her BP. Sean Ware Cardiology Sean Ware Cardiology: H er updated medication list for this problem includes: Rosuvastatin 40 Mg Tablet (Rosuvastatin) ..... Take 1 tablet by mouth every day Sean Ware Cardiology:Will obtain AAA duple x in September. Sean Ware Cardiology:No angina . Her updated medication list for this problem includes: Clopidogrel 75 Mg Tablet (Clopidogrel) ..... Take 1 tablet by mouth every day Nitrostat 0.4 Mg Tablet, Sublingual (Nitroglycerin) ..... 1 tablet under tongue as needed Cartia Xt 240 Mg Capsule,extended Release 24hr (Diltiazem hcl) ..... Take 1 capsule once a day Sean Ware Cardiology Frank Frazier MD TeleHealth: W eight loss advised Shantelle Chua TeleHealth: LDL 56, trigs 194. she does not want to start medications at this time Will obtain AAA duplex and lipid panel in 6 months. H er updated medication list for this problem includes: Rosuvastatin 40 Mg Tablet (Rosuvastatin) ..... Take 1 tablet by mouth once a day Shantelle Chua TeleHealth: AAA is 3 .5. Will obtain AAA duplex and lipid panel in 6 months. Shantelle Chua TeleHealth:Pt denies SOB and agata st pain. Shantelle Chua Cardiology Shantelle Prater eyer Cardiology:Weight lo ss advised Shantelle Chua Cardiology: TGs are elevated to 185. She is going to lose weight. Will repeat in Mar. H er updated medication list for this problem includes: Rosuvastatin 40 Mg Tablet (Rosuvastatin) ..... Take 1 tablet by mouth once a day Shantelle Chua Cardiology:. AAA jeannie wed 3.3 cm, will repeat in March. Shantelle Chua Cardiology:S/p stent ing of the PDA. Her sxs improved signficnatly. TGs are elevated to 185. She is going to lose weight. Will repeat in Mar. AAA showed 3.3 cm, will repeat in March. H er updated medication list for this problem includes: Clopidogrel 75 Mg Tablet (Clopidogrel) ..... Take 1 tablet by mouth every day Nitrostat 0.4 Mg Tablet, Sublingual (Nitroglycerin) ..... 1 tablet under tongue as needed Cartia Xt 240 Mg Capsule,extended Release 24hr (Diltiazem hcl) ..... Take 1 capsule once a day Shantelle Chua Telehealth Frank Frazier MD Telehealth Frank Frazier MD Telehealth Frank Frazier MD Telehealth Frank Frazier MD Telehealth Frank Frazier MD Cardiology:Weight loss advised B kourtney Chua Cardiology Shantelle Prater eyer Cardiology:The patie nt is using CPAP on a regular basis. The patient has been benefiting from therapy and should continue use. Shantelle Chua Cardiology:On statin . Her updated medication list for this problem includes: Rosuvastatin 20 Mg Tablet (Rosuvastatin) ..... Take 1 tablet by mouth once a day Shantelle Chua Cardiology:her December duplex showed AAA increased from 2.9 to 3.2, will obtain f/u duplex in July as well as ehco and stress myoview. Shantelle Chua Cardiology:Overall d oing well. No chest pain, but noted palpitations with reminder of her symptoms prior to her revascularization a few years ago. In addition, her December duplex showed AAA increased from 2.9 to 3.2, will obtain f/u duplex in July as well as ehco and stress myoview. H er updated medication list for this problem includes: Nitrostat 0.4 Mg Tablet, Sublingual (Nitroglycerin) ..... 1 tablet under tongue as needed Cartia Xt 240 Mg Capsule,extended Release 24hr (Diltiazem hcl) ..... Take 1 capsule once a day Clopidogrel 75 Mg Tablet (Clopidogrel) ..... Take 1 tablet by mouth once a day Shantelle Chua Telehealth [facility] Tele[facility]:Orders: H EMOGLOBIN A1c (496) [facility] Telehealth:She had a n admission last April to [facility] with a fever. Echo showed EF of 70% and proBNP was 146. There was an incidental finding on CT of abdominal aortic ectasia (2.9 cm) and she reports she is scheduled for a f/u ultrasound at [facility] soon. [facility] Telehealth:Denies ch est pain or SOB. Will obtain f/u echo and stress myoview. The following medications were removed from the medication list: Adult Aspirin Ec Low Strength 81 Mg Oral Tablet Delayed Release (Aspirin) ..... Once daily Her updated medication list for this problem includes: Clopidogrel Bisulfate 75 Mg Oral Tablet (Clopidogrel bisulfate) ..... One tablet daily Nitrostat 0.4 Mg Sublingual Tablet Sublingual (Nitroglycerin) ..... Apply one tablet under tongue every 5 minutes for 3 total doses as needed for chest pain. if no relief after 3rd dose, go to er Cartia Xt 240 Mg Oral Capsule Extended Release 24 Hour (Diltiazem hcl coated beads) ..... Take one capsule daily [facility] Cardiology [facility]:Her updat ed medication list for this problem includes: Crestor 20 Mg Oral Tablet (Rosuvastatin calcium) ..... One tab. daily [facility] Cardiology:She's int erested in weight loss and would like to try Bupropion/Naltrexone. [facility] Cardiology:Feeling w ell. Denies chest pain or SOB. Her updated medication list for this problem includes: Clopidogrel Bisulfate 75 Mg Oral Tablet (Clopidogrel bisulfate) ..... One tablet daily Nitrostat 0.4 Mg Sublingual Tablet Sublingual (Nitroglycerin) ..... Apply one tablet under tongue every 5 minutes for 3 total doses as needed for chest pain. if no relief after 3rd dose, go to er Adult Aspirin Ec Low Strength 81 Mg Oral Tablet Delayed Release (Aspirin) ..... Once daily Cartia Xt 240 Mg Oral Capsule Extended Release 24 Hour (Diltiazem hcl coated beads) ..... Take one capsule daily [facility] Cardiology:LDL: 69 ( 01/13/2018) Her updated medication list for this problem includes: Crestor 20 Mg Oral Tablet (Rosuvastatin calcium) ..... One tab. daily [facility] Cardiology:Her updat ed medication list for this problem includes: Clopidogrel Bisulfate 75 Mg Oral Tablet (Clopidogrel bisulfate) ..... One tablet daily Nitrostat 0.4 Mg Sublingual Tablet Sublingual (Nitroglycerin) ..... As needed Adult Aspirin Ec Low Strength 81 Mg Oral Tablet Delayed Release (Aspirin) ..... Once daily Cartia Xt 240 Mg Oral Capsule Extended Release 24 Hour (Diltiazem hcl coated beads) ..... Once daily [facility] Cardiology:Weight loss advised. [facility] Cardiology:Her updat ed medication list for this problem includes: Crestor 20 Mg Tabs (Rosuvastatin calcium) ..... One tab. daily [facility] Cardiology:The patie nt is actively using CPAP on a regular basis. She has been benefiting from therapy and will continue use. [facility] Cardiology:Her myovi ew scan, echo and carotid duplex were normal. She's clear for knee surgery from cardiology perspective. Mane Goldstein Cardiology:Her myovi ew scan and echo were normal. No chest pain or SOB. Her updated medication list for this problem includes: Clopidogrel Bisulfate 75 Mg Oral Tabs (Clopidogrel bisulfate) ..... One tablet daily Nitrostat 0.4 Mg Sl Subl (Nitroglycerin) ..... As needed Adult Aspirin Ec Low Strength 81 Mg Oral Tbec (Aspirin) ..... Once daily Cartia Xt 240 Mg Oral [id number] (Diltiazem hcl coated beads) ..... Once daily Mane Angelita Cardiology:She's a c andidate for knee surgery. She denies chest pain or SOB. She's on ASA/Plavix. Mane [facility] Cardiology:In October 2015, total cholesterol was 136, HDL was 48, triglycerides was 197 and LDL was 49. Her updated medication list for this problem includes: Crestor 20 Mg Tabs (Rosuvastatin calcium) ..... One tab. daily Frank Frazier MD Cardiology:Orders: S NOMED-CT: [id number] Current Medications Documented ([id number]) E KG (CPT-26355) S TR - Adenosine (CPT-02440) C omplete Echo (CPT-19744) C arotid Duplex Bilateral (CPT-86073) She's a candidate for knee surgery. Frank Frazier MD Cardiology Frank Frazier MD Cardiology:Consistently uses her CPAP. Frank Frazier MD Cardiology:She's a c andidate for knee surgery. She denies chest pain or SOB. She's on ASA/Plavix. Frank Frazier MD Cardiology:None. [facility] Cardiology:No chest pain or SOB. She complains of bruising and will try Plavix instead of Brilanta. If she continues to bruise, she can continue on ASA alone (had bare-metal stents in June). Mane Goldstein Cardiology, follow u p:Her updated medication list for this problem includes: Crestor 20 Mg Tabs (Rosuvastatin calcium) ..... One tab. daily Pravachol 80 Mg Oral Tabs (Pravastatin sodium) ..... Once daily Frank Frazier MD Cardiology, follow u p:The pt came to discuss concern about possible metal allergy. At this time, no need to change her treatment. Frank Frazier MD Cardiology:Will try Crestor 20mg daily for better lipid management. Frank Frazier MD Cardiology:Will obtain arterial duplex. Frank Frazier MD Cardiology:Palpitations resolved . Frank Frazier MD Cardiology:S/P bare- metal stents to the LCX and RCA. She's doing very well. Will try Crestor 20mg daily for better lipid management. Frank Frazier MD Date Name Aorta Duplex Ultraso und Aorta Duplex Ultraso und Complete Echo Aorta Duplex Ultraso und CRP, high sensitivit y HEMOGLOBIN A1c BASIC METABOLIC PANE L W/EGFR PROBNP, N TERMINAL BASIC METABOLIC PANE L W/EGFR Lipoprotein (a) Microalb/Creatinine Urine, Random Aorta Duplex Ultraso und Aorta Duplex Ultraso und Aorta Duplex Ultraso und LIPID PANEL Aorta Duplex Ultraso und LIPID PANEL RPM (remote patient monitoring) Aorta Duplex Ultraso und PROTHROMBIN TIME WIT H INR LIPID PANEL CBC (INCLUDES DIFF/P LT) BASIC METABOLIC PANE L W/EGFR Cardiac Cath - L/R- [facility] Stress Regadenoson Aorta Duplex Ultraso und Stress Exercise Card iolite Complete Echo Complete Echo Stress Exercise Card iolite HEMOGLOBIN A1c Carotid Duplex Bilat eral Complete Echo STR - Adenosine Arterial Duplex Bi-L ower EX Mobile Cardiac Tele Arterial Duplex Bi-L ower EX Venous Doppler Bilat eral LE Cardiac Cath - Left - GC HISTORY OF PROCEDURES Procedure Date Procedure Name Provider Procedure Notes S tatus Complex e/m visit add on Frank Frazier MD completed EKG Frank Frazier MD completed EKG Frank Frazier MD completed EKG Frank Frazier MD completed EKG Frank Frazier MD completed EKG Frank Frazier MD completed SNOMED-CT: [id number] Current Medications Documented Frank Frazier MD completed Stress EKG Rosalino Macdonald MD complet ed Cardiolite, 2 units Rosalino Macdonald MD completed SPECT Images Rosalino Macdonald MD compl eted EKG Frank Frazier MD completed SNOMED-CT: [id number] 254102 Current Medications Documented Frank Frazier MD completed SNOMED-CT: [id number] Current Medications Documented Frank Frazier MD completed SNOMED-CT: [id number] Smoking Cessation Counseling Frank Frazier MD completed SNOMED-CT: [id number] 695263 Current Medications Documented Frank Frazier MD completed SNOMED-CT: [id number] Smoking Cessation Counseling Frank Frazier MD completed SNOMED-CT: 092446302 200018 Current Medications Documented Frank Frazier MD completed SNOMED-CT: [id number] Smoking Cessation Counseling Frank Frazier MD completed SNOMED-CT: 961132871 639205 Current Medications Documented Frank Frazier MD completed
--- OUTSIDE RECORDS SUMMARY | 2024-07-31 09:15 | XMS_ITS | Data Portability ---
Author Organization [place] [facility] [place], Main Office Address [address] [place] [address] Assessment Encounter Date Assessment Date Assessment LastModified by Organization Details LastModified Time 01/28/2023 01/28/2023 This note is dictated and transcribed by [employer]. Buffet Attendant variances may occur. Despite proofreading, typographical errors may occur. Not available 01/28/2023 18:02:57 02/11/2023 02/11/2023 This note is dictated and transcribed by [employer]. Buffet Attendant variances may occur. Despite proofreading, typographical errors may occur. Not available 03/01/2023 09:01:41 11/15/2023 11/15/2023 This note is dictated and transcribed by [employer]. Buffet Attendant variances may occur. Despite proofreading, typographical errors may occur. Occasional wrong-word or '[id number]-z-dtcz' substitutions may have occurred due to the inherent limitations of voice recording. Read the chart carefully and recognize, using context, where substitutions have occurred. Not available 11/15/2023 10:59:57 02/28/2024 02/28/2024 This note is dictated and transcribed by [employer]. Buffet Attendant variances may occur. Despite proofreading, typographical errors may occur. Occasional wrong-word or 'lqhpe-y-akjg' substitutions may have occurred due to the inherent limitations of voice recording. Read the chart carefully and recognize, using context, where substitutions have occurred. Not available 02/28/2024 11:36:24 Plan of Treatment Reminders Order Date Submit Date Provider Last Modified By Organization Details Last Modified Time Details Appointments None record ed. Lab None record ed. Referral None record ed. Procedures None record ed. Surgeries None record ed. Imaging None record ed. Medication Orders None record ed. Patient TargetsNo targets recorded. Patient Instructions Encounter Date Encounter Id Patient Instructions Last Modified By Organization Details Last Modified Time 11/15/2023 [id number] diabetic foot care education Not available 11/15/2023 11:00:33 02/28/2024 [id number] paronychia: care instructions [email or web address] Not available 02/28/2024 11:37:05 Reason for Referral None Reported. Results Created Date Observation Date Name Description Value Unit Range Abnormal Flag Note LastModifiedBy Organization Detail LastModifiedTime 03/31/2003/31/2023 US, duple x, aorta No observ ation record ed. [facility] [address], [place], [address], 04/01/2023 08:57:09 10/18/19 24 10/18/2023 US, doppl er echoc ardio gram No observ ation record ed. [facility] [address], [place], [address], 10/18/2023 11:50:27 04/24/20 24 04/24/2024 MAMMO , scree tim, digit al, bilat eral No observ ation record ed. [address] , [place], [address], 04/24/2024 12:21:33 04/27/20 24 04/27/2024 imagi ng/di agnos tic resul t No observ ation record ed. [facility] [address], [place], [address], 04/27/2024 14:37:11 04/27/20 24 04/27/2024 imagi ng/di agnos tic resul t No observ ation record ed. [facility] [address], [place], [address], 04/27/2024 14:38:14 Result Notes None recorded. Problems Name Problem SNOMED Code Status Onset Date Resolution Date Notes Provider Name and Address Organization Details Recorded Time Lumbar radiculopa thy 573225598 Active 2019 Not Available [facility] 3 05:13:47 Constipati on 50742705 Active Not Available [facility] 3 05:13:47 Urinary incontinen ce 926370973 Active 2021 Not Available [facility] 3 05:13:47 Chronic anxiety 226555137 Active Not Available [facility] 3 05:13:47 Angina pectoris 539140538 Active Not Available [facility] 3 05:13:48 Abdominal aortic aneurysm 952480005 Active 2019 2.9cm Not Available [facility] 3 05:13:48 Rectal mass 436560265 Active Not Available [facility] 3 05:13:48 Pain in calf 129108408 Active Not Available [facility] 3 05:13:48 Calcaneal spur of right foot 7246563667403 00 Active 2020 Not Available [facility] 3 05:13:48 Diverticul itis 129941823 Active Not Available [facility] 3 05:13:48 Knee pain Active Not Available [facility] 3 05:13:48 Mass of parotid gland 356352163 Active 2019 Not Available [facility] 3 05:13:48 Depressive disorder 83898710 Active Not Available [facility] 3 05:13:48 Arthritis of knee 875749884 Active Not Available [facility] 3 05:13:48 Hypertensi ve disorder 09995313 Active Not Available [facility] 3 05:13:48 Obesity 399327448 Active Not Available [facility] 3 05:13:48 Solitary nodule of lung 226909503 Active 2019 Not Available [facility] 3 05:13:48 Polyp 372878328 Active Not Available [facility] 3 05:13:48 Multiple nodules of lung 477006299 Active 2019 Not Available [facility] 3 05:13:48 Anxiety 57442030 Active Not Available [facility] 3 05:13:49 Hyperlipid emia 70092056 Active Not Available [facility] 3 05:13:49 Essential hypertensi on 82305575 Active Not Available [facility] 3 05:13:49 Sacral back pain 20597269 Active Not Available [facility] 3 05:13:49 Hemorrhoid s 59833758 Active Not Available [facility] 3 05:13:49 Candidiasi s of vagina 50323698 Active Not Available [facility] 3 05:13:49 Sleep apnea 80682784 Active Not Available [facility] 3 05:13:49 Palpitatio ns 08225966 Active Not Available [facility] 3 05:13:49 Hyperglyce mandeep 33901990 Active 2020 Not Available [facility] 3 05:13:49 Impaired glucose tolerance 2980354 Active Not Available [facility] 3 05:13:49 Ingrowing nail 274617867 Active 2022 Sean Fish DPM [address], [address], [place], [address] , [facility] [employer] [facility] 3 12:01:00 Pain in toe 417436303 Active 2022 Sean Fish DPM [address], [address], [place], [address] , [facility] [employer] [facility] 3 12:03:04 Dystrophia unguium 43026510 Active 2022 Sean Fish DPM [address], [address], [place], [address] , [facility] 3 14:36:11 Diabetes mellitus 35045247 Active 2022 Sean Fish DPM [address], [address], [place], [address] , [employer] 13:55:15 Ingrowing toenail 378309602 Active 2023 Sean Fish DPM [address], [address], [place], [address] , [employer] 10:59:15 Problem Notes None recorded. Procedures Surgical History Date Name Laterality Status Provider Name and Address Organization Details Recorded Time 02/28/20 24 Nail Debridement completed Sean Fish DPM [address], [address], [place], [address], [employer] 02/28/2024 11:36:19 11/15/19 24 Nail Debridement completed Sean Fish DPM [address], [address], [place], [address], [employer] 11/15/2023 10:58:56 02/12/20 23 Nail Debridement completed Sean Fish DPM [address], [address], [place], [address], [employer] 02/11/2023 14:30:16 01/13/20 23 Partial Nail [employer] Matrixectomy-Left completed Sean Fish DPM [address], [address], [place], [address], [employer] 01/12/2023 14:36:01 11/03/19 23 Nail Debridement completed Sean Fish DPM [address], [address], [place], [address], [employer] 11/02/2022 11:59:08 06/14/20 15 Heart Catheterization completed Not Available [facility] 09/30/2022 05:05:22 other completed Not Available [facility] 09/30/2022 05:05:22 Tonsillectomy completed Not Available [facility] 09/30/2022 05:05:22 Skin Graft completed Not Available [facility] 09/30/2022 05:05:22 Hysterectomy, Partial completed Not Available [facility] 09/30/2022 05:05:22 Endoscopy completed Not Available [facility] 09/30/2022 05:05:22 Knee Replacement completed Not Available [facility] 09/30/2022 05:05:22 Cholecystectomy completed Not Available [facility] 09/30/2022 05:05:22 other completed Not Available [facility] 09/30/2022 05:05:22 Colonoscopy completed Not Available [facility] 09/30/2022 05:05:22 Imaging Results Imaging Date Name Status LastModified by Organization Details LastModified Time 03/31/2023 US, duplex, aorta completed [facility] [address], [place], [address], 04/01/2023 08:57:09 10/18/2023 US, doppler echocardiogram completed [email or web address] [facility] [address], [place], [address], 10/18/2023 11:50:27 04/24/2024 MAMMO, screening, digital, bilateral completed [address], [place], [address], 04/24/2024 12:21:33 04/27/2024 imaging/diagnostic result completed [facility] [address], [place], [address], 04/27/2024 14:37:11 04/27/2024 imaging/diagnostic result completed [email or web address] [facility] [address], [place], [address], 04/27/2024 14:38:14 Procedure Notes None recorded. Medical Equipment None Reported. Allergies Allergen ID Allergen Name Allergen Category Reaction Reaction Severity Criticality Documentation Date Start Date Code Code System Note Provider Name and Address Organization Details Recorded Time 9551 Substance with sulfonami de structure and antibacte rial mechanism of action (substanc e) medicatio n other Not available Not available 09/30/2022 02803 8003 SNOMED mean Not Available [facility] 05:21:25 9552 neomycin medicatio n Not available Not available Not available 09/30/2022 7299 RxNorm Not Available [facility] 3 05:21:25 9553 chromium medicatio n Not available Not available Not available 09/30/2022 2496 RxNorm Not Available [facility] 3 05:21:25 9554 Product containin g beta adrenergi c receptor antagonis t (product) medicatio n other Not available Not available 09/30/2022 93945 009 SNOMED heart rate drops Not Available [facility] 3 05:21:25 9555 Product containin g angiotens in-conver ting enzyme inhibitor (product) medicatio n other Not available Not available 09/30/2022 05386 009 SNOMED cardi ac spasm s Not Available [facility] 3 05:21:25 Medications Name Sig Start Date Stop Date Status Note LastModified by Organization Details LastModified Time cyclobenz aprine 10 mg tablet Take 1 tablet as needed by oral route for 30 days. active Not Available Not Available No t Available amoxicill in 500 mg capsule Take 2 po x 1 dose 2 hours prior to procedur e 06/12 completed Not Available Not Available Not Available furosemid e 40 mg tablet Take 1 po daily 11/14 completed Not Available Not Available Not Available metformin 500 mg tablet TAKE 1 TABLET BY MOUTH DAILY active Not Available Not Available No t Available promethaz ine-DM 6.25 mg-15 mg/5 mL oral syrup TAKE 5 ML BY MOUTH EVERY 4 TO 6 HOURS NEEDED FOR COUGH 11/14 completed Not Available Not Available Not Available prednison e 10 mg tablet 06/12 completed Not Available Not Available Not Available doxycycli ne hyclate 100 mg capsule Take 1 capsule twice a day by oral route for 10 days. active Not Available Not Available No t Available Depo-Medr ol 40 mg/mL suspensio n for injection Take 1 mL every day by injectio n route for 1 day. 03/04 completed Not Available Not Available Not Available clindamyc in HCl 300 mg capsule 01/17 completed Not Available Not Available Not Available azithromy doroteo 250 mg tablet TAKE 2 TABLETS BY MOUTH FOR 1 DOSE THEN 1 TABLET BY MOUTH DAILY FOR DAYS 2-5 active Not Available Not Available No t Available alprazola m 1 mg tablet TAKE 1 TABLET BY MOUTH TWICE DAILY NEEDED FOR ANXIETY active Not Available Not Available No t Available fluconazo le 150 mg tablet TAKE 1 TABLET BY MOUTH EVERY DAY FOR 1 DAY 11/14 completed Not Available Not Available Not Available benzonata te 200 mg capsule TAKE 1 CAPSULE BY MOUTH THREE TIMES DAILY 11/14 completed Not Available Not Available Not Available citalopra m 10 mg tablet Take 1 tablet every day by oral route for 30 days. active Not Available Not Available No t Available hydrocodo ne 5 mg-acetam inophen 325 mg tablet TK ONE TO TWO TS PO Q 6 H PRN P active Not Available Not Available No t Available diltiazem CD 240 mg capsule,e xtended release 24 hr TAKE 1 CAPSULE BY MOUTH DAILY 11/14 completed Not Available Not Available Not Available naltrexon e 50 mg tablet 04/18 completed Not Available Not Available Not Available ondansetr on HCl 4 mg tablet active PRN Not Available Not Available No t Available prednison e 20 mg tablet TAKE 1 TABLET BY MOUTH TWICE DAILY WITH FOOD active Not Available Not Available No t Available Doc-Q-Lac e 100 mg capsule Take 1 capsule twice a day by oral route. active Not Available Not Available No t Available clindamyc in HCl 150 mg capsule active Not Available Not Available Not Available diltiazem ER 300 mg capsule,2 4 hr,extend ed release TAKE 1 CAPSULE BY MOUTH DAILY active Not Available Not Available No t Available clopidogr el 75 mg tablet TAKE 1 TABLET BY MOUTH EVERY DAY active Not Available Not Available No t Available valacyclo vir 500 mg tablet Take by oral route for 7 days. active Not Available Not Available No t Available morphine ER 30 mg tablet,ex tended release active Not Available Not Available Not Available tramadol 50 mg tablet TAKE 1 TABLET BY MOUTH TWICE DAILY NEEDED 11/14 completed Not Available Not Available Not Available nystatin- triamcino lone 100,000 unit/gram -0.1 % topical ointment active Not Available Not Available Not Available oxycodone -acetamin ophen 5 mg-325 mg tablet active Not Available Not Available Not Available bupropion HCl 100 mg tablet 04/18 completed Not Available Not Available Not Available alprazola m 0.5 mg tablet TAKE 1 TABLET BY MOUTH TWICE DAILY NEEDED FOR ANXIETY 04/15 /2024 completed Not Available Not Available Not Available amoxicill in 875 mg tablet active Not Available Not Available Not Available pravastat in 80 mg tablet Take 1 tablet every day by oral route for 30 days. active Not Available Not Available No t Available Flagyl 500 mg tablet Take 1 tablet every 8 hours by oral route for 10 days. active Not Available Not Available No t Available benzonata te 100 mg capsule TAKE 1 CAPSULE BY MOUTH THREE TIMES DAILY NEEDED FOR COUGH 11/14 completed Not Available Not Available Not Available doxycycli ne monohydra te 100 mg capsule TAKE 1 CAPSULE BY MOUTH TWICE DAILY 11/14 completed Not Available Not Available Not Available cephalexi n 500 mg capsule TAKE 1 CAPSULE BY MOUTH EVERY 6 HOURS FOR 7 DAYS DIRECTED 11/14 completed Not Available Not Available Not Available oseltamiv ir 75 mg capsule TK 1 C PO QD FOR 10 DAYS 11/06 completed Not Available Not Available Not Available ferrous sulfate 325 mg (65 mg iron) tablet active Not Available Not Available Not Available fluconazo le 50 mg tablet TK ALL 3 TS ONE DOSE active Not Available Not Available No t Available esomepraz ole magnesium 40 mg capsule,d elayed release TK ONE C PO QD 04/18 completed Not Available Not Available Not Available Cipro 500 mg tablet Take 1 tablet every 12 hours by oral route for 10 days. active Not Available Not Available No t Available nitroglyc romelia 0.4 mg sublingua l tablet Place by sublingu al route if chest pain occurs, may repeat every 5 minutes, if chest pain persists after 15 minutes, Call 911 active Not Available Not Available No t Available aspirin 81 mg chewable tablet Chew 1 tablet every day by oral route. 2020 active Not Available Not Available Not Avai lable hydroxyzi ne HCl 25 mg tablet TAKE 1 TABLET BY MOUTH THREE TIMES DAILY NEEDED FOR ANXIETY OR PANIC 11/14 completed Not Available Not Available Not Available clobetaso l 0.05 % topical ointment APPLY THIN LAYER TOPICALL Y TO THE AFFECTED AREA TWICE DAILY active Not Available Not Available No t Available polyethyl roxanne glycol 3350 17 gram/dose oral powder MIX THE ENTIRE BOTTLE WITH 64 OUNCES OF A CLEAR LIQUID AND USE UTD BY THE OFFICE FOR COLONOSC OPY PREP active Not Available Not Available No t Available levofloxa doroteo 500 mg tablet active Not Available Not Available No t Available methylpre dnisolone 4 mg tablets in a dose pack FOLLOW PACKAGE DIRECTIO NS 12/24 completed Not Available Not Available Not Available albuterol sulfate HFA 90 mcg/actua tion aerosol inhaler INHALE 2 PUFFS BY MOUTH FOUR TIMES DAILY NEEDED active Not Available Not Available No t Available cefdinir 300 mg capsule 06/12 completed Not Available Not Available Not Available fluticaso ne propionat e 50 mcg/actua tion nasal spray,jacob pension SHAKE LIQUID AND USE 2 SPRAYS IN EACH NOSTRIL DAILY active Not Available Not Available No t Available sertralin e 50 mg tablet TAKE 1 TABLET BY MOUTH DAILY active Not Available Not Available No t Available Diflucan 200 mg tablet Take 1 tablet every day by oral route. active Not Available Not Available No t Available metronida zole 0.75 % topical gel active Not Available Not Available Not Available amoxicill in 875 mg-potass ium clavulana te 125 mg tablet TAKE 1 TABLET BY MOUTH TWICE DAILY 11/14 completed Not Available Not Available Not Available azithromy doroteo 500 mg tablet 04/18 completed Not Available Not Available Not Available rosuvasta tin 20 mg tablet TAKE 1 TABLET BY MOUTH DAILY 12/24 completed Not Available Not Available Not Available rosuvasta tin 40 mg tablet TAKE 1 TABLET BY MOUTH EVERY DAY active Not Available Not Available No t Available nitrofura ntoin monohydra te/macroc rystals 100 mg capsule 04/18 completed Not Available Not Available Not Available Vitamin C 1000 mg daily 11/14 completed Not Available Not Available Not Available Fish Oil 1 tablet by mouth daily 11/14 completed ultra omega 3 candace pro Not Available Not Available Not Available Centrum Silver 1 tablet by mouth daily 2014 active Not Available Not Available Not Avai lable Vitamin D3 125mcg bid 11/14 completed Not Available Not Available Not Available Probiotic 1 tablet by mouth daily 11/14 completed Not Available Not Available Not Available Brilinta 90 mg tablet Take 1 tablet twice a day by oral route for 30 days. active being changed Not Available Not Available Not Available calcium 166.75 mg-vit D3 166.75 unit-vit C-vit K2-minera ls capsule Take 1 capsule every day by oral route. 11/14 completed Not Available Not Available Not Available Trulicity 1.5 mg/0.5 mL subcutane ous pen injector INJECT 1.5 MG UNDER THE SKIN EVERY WEEK. active Not Available Not Available No t Available Trulicity 0.75 mg/0.5 mL subcutane ous pen injector 11/14 completed Not Available Not Available Not Available Trulicity 3 mg/0.5 mL subcutane ous pen injector INJECT 3 MG UNDER THE SKIN ONE DAY A WEEK 11/14 completed Not Available Not Available Not Available Trulicity 4.5 mg/0.5 mL subcutane ous pen injector ADMINIST ER 4.5 MG UNDER THE SKIN WEEKLY active Not Available Not Available No t Available Vitals Date Recorded Body height Heart rate Respiratory rate Oxygen saturation Oxygen saturation in Arterial blood by Pulse oximetry Systolic blood pressure Diastolic blood pressure Provider Name and Address Organization Details Last Updated DateTime 3 162.56 cm 80 /min 14 /min 98 % 98 % 148 mm[Hg] 82 mm[Hg] Kathe [facility] [employer] [facility] 3 15:09:40 Date Recorded Body height Heart rate Respiratory rate Oxygen saturation Oxygen saturation in Arterial blood by Pulse oximetry Systolic blood pressure Diastolic blood pressure Provider Name and Address Organization Details Last Updated DateTime 3 162.56 cm 72 /min 14 /min 98 % 98 % 146 mm[Hg] 75 mm[Hg] Kathe Luevano [facility] [employer] [facility] 3 14:09:46 Date Recorded Body height Heart rate Respiratory rate Oxygen saturation Oxygen saturation in Arterial blood by Pulse oximetry Systolic blood pressure Diastolic blood pressure Provider Name and Address Organization Details Last Updated DateTime 3 162.56 cm 74 /min 14 /min 98 % 98 % 140 mm[Hg] 73 mm[Hg] Kathe [facility] [employer] [facility] 3 16:04:50 Date Recorded Body height Heart rate Respiratory rate Oxygen saturation Oxygen saturation in Arterial blood by Pulse oximetry Systolic blood pressure Diastolic blood pressure Provider Name and Address Organization Details Last Updated DateTime 4 162.56 cm 60 /min 14 /min 98 % 98 % 96 mm[Hg] 54 mm[Hg] Kathe Luevano [facility] [employer] [facility] 4 10:28:20 Date Recorded Body height Heart rate Respiratory rate Body temperature Oxygen saturation Oxygen saturation in Arterial blood by Pulse oximetry Provider Name and Address Organization Details Last Updated DateTime 4 162.56 cm 76 /min 14 /min 98.6 [degF] 98 % 98 % Lexus Johnson MA [facility] [employer] [facility] 4 10:38:28 Social History Question Answer Notes LastModified by [employer] Details LastModified Time Tobacco Smoking Status Former Smoker socially Sena masterson, [facility] [employer] [facility] 01/12/2023 14:03:50 What Is Your Level Of Alcohol Consumption? None [id number] Information not available 09/30/2022 What Is Your Level Of Caffeine Consumption? Moderate [id number] Information not available 09/30/2022 How Much Tobacco Do You Chew? None [id number] Information not available 09/30/2022 Which Illicit Or Recreational Drugs Have You Used? None Information not available 01/12/2023 When Did You Quit Smoking? 1-5yearssinc elastcigaret te Information not available 01/12/2023 What Was The Date Of Your Most Recent Tobacco Screening? 01/17/2018 Information not available 01/12/2023 Sex: Unknown Functional Status Question Answer Note LastModified by [employer] Details LastModified Time What is your exercise level? Occasional [id number] Information not available 09/30/2022 Mental Status None recorded. Family History Relationship Description Onset Age of this Age Resolved Age Notes LastModified by Organization Details LastModified Time Father Myocardial infarction [id number] Not available 09/30/2022 05:05:28 Father Diabetes mellitus [id number] Not available 09/30/2022 05:05:28 Father Malignant tumor of lung [email or web address] Not available 2023 10:27:25 Father Cerebrovascu lar accident [email or web address] Not available 10:27:25 Sister Schizophreni a [email or web address] Not available 2023 10:27:25 Maternal Grandmother Verónica elder [email or web address] Not available 2023 10:27:25 Medical History Condition Response HIGH CHOLESTEROL / HYPERLIPIDEMIA Y EYE PROBLEMS Y DEPRESSION (INCLUDING POST ) Y HEARTBURN / REFLUX Y HYPERTENSION Y ANXIETY DISORDER Y Gynecological HistoryNo gynecological history recorded. Obstetrics History GPAL:G 0 P 0 0 0 0 Immunizations Vaccine Type Date Status Note Provider Nam e and Address Organization Details Recorded Time SARS-COV-2 (COVID-19) vaccine, UNSPECIFIED 1 completed Not Available [facility] 09/30/2022 05:21:16 SARS-COV-2 (COVID-19) vaccine, UNSPECIFIED 1 completed Not Available [facility] 09/30/2022 05:21:16 Influenza, split virus, quadrivalent, preservative 9 completed Not Available [facility] 09/30/2022 05:21:16 Tdap 8 completed Not Available [facility] 09/30/2022 05:21:16 Influenza, split virus, trivalent, preservative 6 completed Not Available [facility] 09/30/2022 05:21:16 Influenza, split virus, trivalent, preservative 4 completed Not Available [facility] 09/30/2022 05:21:16 Influenza, high-dose, quadrivalent, PF 1 completed Not Available [facility] 09/30/2022 05:21:16 Influenza, high-dose, quadrivalent, PF 0 completed Not Available [facility] 09/30/2022 05:21:17 pneumococcal polysaccharide PPV23 0 completed Not Available [facility] 09/30/2022 05:21:17 Influenza, split virus, quadrivalent, PF 9 completed Not Available [facility] 09/30/2022 05:21:17 Influenza, split virus, quadrivalent, PF 8 completed Not Available [facility] 09/30/2022 05:21:17 Influenza, split virus, quadrivalent, PF 7 completed Not Available [facility] 09/30/2022 05:21:17 pneumococcal polysaccharide PPV23 10/29/201 5 completed Not Available [facility] 09/30/2022 05:21:17 Influenza, split virus, quadrivalent, preservative 5 completed Not Available [facility] 09/30/2022 05:21:17 Past Encounters Encounter ID Performer Location Encounter Start Date Encounter Closed Date Diagnosis/Indication Diagnosis SNOMED-CT Code Diagnosis ICD10 Code [id number] [facility] [place] [address] [place] [address] 01/15/2021 00:00:00 01/15/2021 10:02:18 [id number] [facility] [place] [address] [place] [address] 01/22/2021 00:00:00 01/27/2021 07:21:18 [id number] [facility] [place] [address] [place] [address] 03/10/2021 00:00:00 03/10/2021 09:55:[id number]G [facility] [place] [address] [place] [address] 05/12/2021 00:00:00 05/12/2021 16:50:42 [id number]_G [facility] [place] [address] [place] [address] 06/16/2021 00:00:00 06/23/2021 08:20:14 [id number] [facility] [place] [address] [place] [address] 12/24/2021 00:00:00 12/24/2021 12:22:09 [id number] Sean Fish DPM [facility] [place] [address] [place] [address] 11/02/2022 11:19:56 11/03/2022 13:41:53 Ingrowing nail [id number] L60.0 Pain in toe [id number] M7 9.675 M79.674 [id number] Sean Fish DPM [facility] [place] [address] [facility] [place] [address] [place] [address] 01/12/2023 14:03:37 01/12/2023 15:07:54 Dystrophia unguium [id number] L60.3 [id number] Sean Fish DPM [facility] [place] [address] [facility] [place] [address] [place] [address] 01/28/2023 15:00:09 01/29/2023 11:11:30 Dystrophia unguium [id number] L60.3 [id number] Sean Fish DPM [facility] [place] [address] [place] [address] 02/11/2023 13:54:39 03/01/2023 15:11:43 Dystrophia unguium [id number] L60.3 [id number] Sean Fish DPM [facility] [place] [address] [place] [address] 05/10/2023 15:59:29 05/19/2023 16:57:49 Diabetes mellitus 99404118 E11.9 [id number] Sean Fish DPM [facility] [place] [address] [place] [address] 11/15/2023 10:20:53 11/15/2023 11:22:30 Diabetes mellitus 77114305 E11.9 Dystrophia unguium 23823 009 L60.3 Ingrowing toenail 374192 009 L60.0 [id number] Sean Fish DPM [facility] [place] [address] [place] [address] 02/28/2024 10:25:56 02/28/2024 12:01:11 Ingrowing toenail 194524941 L60.0 Health Concerns Section Related Observation LastModified by Organization Detai ls LastModified Time None Recorded Concern Status LastModified by Organization Details LastModified Time None Recorded Advance Directives Directive None Recorded Payers Encounter Date Sequence Insurance Name Policy Number Policy Klein Covered Member ID Klein Member ID Guarantor Name 01/28/2023 1 [place] Desiree Chackoson [id number] Desiree Machado Parson 01/28/2023 2 [place] [id number] Desiree Chackoson [id number] Desiree Machado Parson 02/11/2023 1 [place] Desiree Chackoson [id number] Desiree L Parson 02/11/2023 2 [place] [id number] Desiree L Parson [id number] Desiree L Parson 05/10/2023 1 [place] Desiree Chackoson [id number] Desiree L Parson 05/10/2023 2 [place] [id number] Desiree L Parson [id number] Desiree L Parson 11/15/2023 1 [place] Desiree Chackoson [id number] Desiree L Parson 11/15/2023 2 [place] [id number] Desiree L Parson [id number] Desiree L Parson 02/28/2024 1 [place] Desiree Chackoson [id number] Desiree L Parson 02/28/2024 2 [place] [id number] Desiree L Parson [id number] Desiree L Parson Notes Date Note Type Note Provider Name and Address Organization Details Recorded Time 01/28/2023 text/html . Patient is a 67-year-old female who returns the office for follow-up on left 2nd toe-- Total nail matrixectomy. Patient returned with a cellulitis which has since resolved with use of oral antibiotics. Patient still has a minor scab to the wound bed area which I advised her to continue local wound care until healed. Patient states the toe feels much better. Patient denies any fever, chills, nausea vomiting. Patient denies any other pedal complaints. Sean Fish, PAM [address] [place] [address], [facility] [address], [place], [address], [place] 01/28/2023 18:03:46 02/11/2023 text/html . Patient is a 67-year-old female who returns the office for follow-up on toenail procedure the left 2nd toe. Patient has completely healed the wound bed. Patient denies any pain to the toe. Patient denies any other pedal complaints.Patimicheline t states her nails are long would like to have them cut. Sean Fish DPM [address], [facility] [employer], [place], [address], [place] 03/01/2023 09:03:54 05/10/2023 text/html . Patient is a 68-year-old female who returns the office for follow-up on diabetic foot care. Patient states overall she is doing well. Patient denies any open wounds or infection. Patient denies any pain with weight-bearing. Patient denies any other complaints. Sean Fish DPM [address], [employer] [employer], [place], [address], [place] 05/19/2023 13:56:27 11/15/2023 text/html . Patient is a 68-year-old female who returns the office for diabetic foot care. Patient states overall she is doing well. Patient states she does have ingrown toenail issues of both great toes but denies any redness or drainage. Patient states she is mild pain to the corners. Patient denies any other complaints. Sean Fish DPM [address], [facility] [employer], [place], [address], [place] 11/15/2023 11:00:50 02/28/2024 text/html . Patient is a 68-year-old female she presents the office with complaints of right great toe pain to the medial corner. Patient states the nail continues be incurvated and causes her pain. Patient denies any signs of infection. Patient states she is tried wide shoe gear and offloading but continues have discussed comfort with walking. Patient denies any other complaints. Sean Fish DPM [address], [place] [facility], [place], [address], [place] 02/28/2024 11:37:18 OBGyn Episode No OBEpisode recorded.
--- OUTSIDE RECORDS SUMMARY | 2024-07-31 09:16 | XMS_ITS | Encounter Summary ---
Author Organization [facility] Healthcare Address [address] [place] [address] Care Team Providers Care Vending Service Technician Name Role Phone Frank Frazier MD Unavailable Oscar Lynch MD Primary Care Provider [phone] Reason for Referral * Diagnostic Imaging (Routine) - Closed Specialty Diagnoses / Procedures Referred By Michelle jaime Referred To Contact Diagnoses Encounter for screening mammogram for malignant neoplasm of breast Procedures Screening Mammogram Bilateral W Ori [place] NP [address] [place] [address] [place] [address] Phone: tel: fax: [address] [phone] Referral ID Status Reason Start Date Expiration Date Visits Re quested Visits Authorized [id number] Closed 02/23/2024 03/24/2025 1 1 Reason for Visit * Diagnostic Imaging (Routine) - Closed Specialty Diagnoses / Procedures Referred By Michelle jaime Referred To Contact Diagnoses Encounter for screening mammogram for malignant neoplasm of breast Procedures Screening Mammogram Bilateral W Ori [place] NP [address] [place] [address] [place] [address] Phone: tel: fax: [address] [phone] Referral ID Status Reason Start Date Expiration Date Visits Re quested Visits Authorized [id number] Closed 02/23/2024 03/24/2025 1 1 Encounter Details Date Type Department Care Team (Latest Contact Info) Description 04/24/2024 9:09 AM CDT - 04/24/2024 11:59 PM CDT Hospital Encounter [facility] [address] [place] [address] Encounter for screening mammogram for malignant neoplasm of breast Discharge Disposition: Discharge to home or self care Social History Tobacco Use Types Packs/Day Years Used Date Smoking Tobacco: Former Cigarettes 1 40 Comments:pt quit years ago, not sure when, relapsed 1 year ago but hasn't smoked since Alcohol Use Standard Drinks/Week Comments Yes 0 (1 standard drink = 0.6 oz pur e alcohol) AUDIT-C Answer Date Recorded Q1: How often do you have a drink containing alc ohol? 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 Gender Identity Not on file Sexual Orientation Not on file documented as of this encounter Last Filed Vital Signs Vital Sign Reading Time Taken Comments Blood Pressure - - Pulse - - Temperature - - Respiratory Rate - - Oxygen Saturation - - Inhaled Oxygen Concentration - - Weight 97.5 kg (215 lb) 04/24/2024 9:23 AM CDT Height 158.8 cm (5' 2.5 ) 04/24/2024 9:23 AM CDT Body Mass Index 38.7 04/24/2024 9:23 AM CDT documented in this encounter Medications at Time of Discharge acetaminophen (TYLENOL) 325 mg tablet take 1 tablet by oral route every 4 hours as needed 0 0 11/06/2013 acidophilus-pecti n, citrus 100 million cell-10 mg capsule Take 2 tablets by mouth albuterol HFA (PROVENTIL HFA,VENTOLIN HFA,PROAIR HFA) 90 mcg/actuation inhaler Inhale 2 puffs every 6 (six) hours as needed 03/04/2018 ALPRAZolam (XANAX) 0.5 mg tablet Take one by mouth one time per day 30 0 11/06/2008 aspirin 81 mg chewable tablet Take 81 mg by mouth daily as needed calcium carbonate-vitamin D3 (CALCIUM 600 + D,3,) 600 mg calcium- 200 unit capsule take 1 capsule a day 0 0 08/10/2014 clobetasoL (TEMOVATE) 0.05 % cream Apply 1 application topically daily as needed 03/04/2018 clopidogrel (PLAVIX) 75 mg tabletIndications :Stent placement Take 75 mg by mouth daily dilTIAZem CD (CARTIA XT) 240 mg 24 hr capsule take 1 capsule by oral route every day 0 0 11/06/2013 diphenhydrAMINE-a cetaminophen (TYLENOL PM) 25-500 mg tablet Take 2 tablets by mouth nightly esomeprazole DR (NexIUM) 20 mg capsule Take 20 mg by mouth daily before breakfast Lactobacillus acidophilus (PROBIOTIC ORAL) Take 1 capsule by mouth daily 08/02/1969 loratadine 10 mg capsule Take 1 capsule by mouth daily metroNIDAZOLE (METROGEL) 0.75 % gel Apply 1 application topically daily nitroglycerin (NITROSTAT) 0.[address] 0.4 mg under the tongue every 5 (five) minutes as needed omega 4-hvc-fyi-fish oil (FISH OIL) 100-160-1,000 mg capsule 0 0 01/09/2016 psyllium 0.52 gram capsule Take 0.52 g by mouth daily rosuvastatin (CRESTOR) 20 mg tablet take 1 tablet by oral route every day 0 0 01/09/2016 sertraline (ZOLOFT) 50 mg tablet Take 50 mg by mouth daily 08/02/1969 traMADol (ULTRAM) 50 mg tablet take 1 - 2 Tablet by oral route every 6 hours for pain 0 0 01/09/2016 vitamin B complex capsule Take 1 capsule by mouth daily documented as of this encounter Discharge Disposition Disposition Code Departure Means Destination Discharge to home or self care documented in this encounter Plan of Treatment Not on file documented as of this encounter Procedures Procedure Name Priority Date/Time Associated Diagnosis Comments SCREENING MAMMOGRAM BILATERAL W CORTEZ Schedule Routine, Read Routine (OP Routine) 04/24/2024 9:30 AM CDT Encounter for screening mammogram for malignant neoplasm of breast documented in this encounter Results * Screening Mammogram Bilateral W [place] (04/24/2024 9:30 AM CDT) Anatomical Region Laterality Modality Breast Bilateral Mammography 04/24/2024 9:59 AM CDT Impressions 04/24/2024 9:59 AM CDT There is no mammographic evidence of malignancy. A 1 year screening mammogram is recommended. BI-RADS: 1 - Negative. The patient has been or will be contacted. The patient will be entered into a reminder system with a target due date of 1 year for her next mammogram. Electronically signed by: HUSAM DOMINGO Narrative 04/24/2024 9:59 AM CDT EXAMINATION: SCREENING MAMMOGRAM BILATERAL W [place] ORDERING HEALTHCARE PROVIDER: ORI PIZANO HISTORY: Routine screening mammography. COMPARISON: ??11/05/2022, 08/27/2021, 04/15/2020, 01/16/2016. TECHNIQUE: CC and MLO views of both breasts were obtained with digital technique using digital breast tomosynthesis with C view. Computer aided detection was utilized. FINDINGS: DENSITY: There are scattered areas of fibroglandular density. BREASTS: There is no new suspicious finding in either breast on mammogram. Ori Pizano ENVIRONMENTAL HEALTH NURSE IMG MAMMO PROCEDURES Final Res ult documented in this encounter Visit Diagnoses Diagnosis Encounter for screening mammogram for malignant neoplasm of breast documented in this encounter Care Teams Vending Service Technician Relationship Specialty Start Date End Date Oscar Lynch MD PCP - General Family Practice 09/28/22 Frank Frazier MD Consulting Physician Cardiovascular Disease 01/02/22 documented as of this encounter
--- OUTSIDE RECORDS SUMMARY | 2024-07-31 09:16 | XMS_ITS | Referral Summary ---
Author Organization [facility] Address [address] [place] [address] Care Team Providers Care Nurse Case Management Name Role Phone Frank Frazier MD Unavailable Oscar Lynch MD Primary Care Provider [phone] Allergies Active Allergy Reactions Criticality Noted Date Comments Marin Inhibitors Adhesive Tape-Silicones Rash,Redness Medium Atenolol Beta-Blockers (Beta-Adrenergic Blocking Agts) Chromium Other (See comments) Low 01/06/2016 REDNESS SKIN IRRITATION Latex Rash,Redness Medium Neomycin Blisters High 12/30/2021 Sulfa (Sulfonamide Antibiotics) Sulfanilamide Terfenadine Medications calcium carbonate-vitami n D3 (CALCIUM 600 + D,3,) 600 mg calcium- 200 unit capsule take 1 capsule a day 0 0 5 Active Additional Information Patient taking differently: 600 capsule oral Daily, Reported on 01/02/2022 traMADol (ULTRAM) 50 mg tablet take 1 - 2 Tablet by oral route every 6 hours for pain 0 0 6 Active Additional Information Patient taking differently:50 mgoral Every 6 hours PRN, 1-2 tablets, Reported on 01/02/2022 omega 7-tbo-prf-fish oil (FISH OIL) 100-160-1,000 mg capsule 0 0 6 Active rosuvastatin (CRESTOR) 20 mg tablet take 1 tablet by oral route every day 0 0 6 Active Additional Information Patient taking differently: 40 mg oral Nightly, Reported on 01/02/2022 ALPRAZolam (XANAX) 0.5 mg tablet Take one by mouth one time per day 30 0 9 Active Additional Information Patient taking differently: 0.5 mg oral 2 times daily, Reported on 01/02/2022 dilTIAZem CD (CARTIA XT) 240 mg 24 hr capsule take 1 capsule by oral route every day 0 0 4 Active Additional Information Patient taking differently:240 mgoral, Reported on 01/02/2022 acetaminophen (TYLENOL) 325 mg tablet take 1 tablet by oral route every 4 hours as needed 0 0 4 Active Additional Information Patient taking differently: 650 mg oral Every 6 hours PRN, Reported on 01/02/2022 clopidogrel (PLAVIX) 75 mg tabletIndication s:Stent placement Take 75 mg by mouth daily Active nitroglycerin (NITROSTAT) 0.[address] 0.4 mg under the tongue every 5 (five) minutes as needed Active sertraline (ZOLOFT) 50 mg tablet Take 50 mg by mouth daily 0 Active metroNIDAZOLE (METROGEL) 0.75 % gel Apply 1 application topically daily Active clobetasoL (TEMOVATE) 0.05 % cream Apply 1 application topically daily as needed 8 Active Lactobacillus acidophilus (PROBIOTIC ORAL) Take 1 capsule by mouth daily 0 Active albuterol HFA (PROVENTIL HFA,VENTOLIN HFA,PROAIR HFA) 90 mcg/actuation inhaler Inhale 2 puffs every 6 (six) hours as needed 8 Active aspirin 81 mg chewable tablet Take 81 mg by mouth daily as needed Active diphenhydrAMINE- acetaminophen (TYLENOL PM) 25-500 mg tablet Take 2 tablets by mouth nightly Active loratadine 10 mg capsule Take 1 capsule by mouth daily Active esomeprazole DR (NexIUM) 20 mg capsule Take 20 mg by mouth daily before breakfast Active acidophilus-pect in, citrus 100 million cell-10 mg capsule Take 2 tablets by mouth Active vitamin B complex capsule Take 1 capsule by mouth daily Active psyllium 0.52 gram capsule Take 0.52 g by mouth daily Active Active Problems Problem Noted Date Diagnosed Date CAD (coronary artery disease) 12/22/2021 Overview (12/22/2021): Added automatically from request for surgery [id number] Mass of right parotid gland 01/08/2020 Assessment & Plan (01/08/2020 12:18 PM CDT): Fine needle aspiration of Right Parotid Mass - call with results SIRS (systemic inflammatory response syndrome) 0 04/10/2019 Assessment & Plan (04/10/2019 1:43 AM CDT): Exact etiology is unclear. Patient really only had symptoms of a fever and generalized weakness. She is having a cough with sinus drainage for the last 4 days. Denies any sputum. Denies any chest pain or shortness of breath. Patient also denies any abdominal pain, nausea, vomiting or changes in her bowel habits. Patient has crackles on exam at the right base and possible diverticulitis on CT scan. Patient was started empirically on ceftriaxone and Flagyl. Patient's physical exam findings were discussed with patient and she is okay with the addition of azithromycin for 3 days to cover her for pneumonia. Patient was hypoxic as low as 80% and is currently on some supplemental oxygen. Cultures are in process. Continue to monitor. Patient does feel better at this time. Will continue with IV hydration. History of tobacco use 04/10/2019 Assessment & Plan (04/10/2019 1:40 AM CDT): Patient quit 2 days ago. She states she was smoking 1 pack per week but has smoked up to 2 packs per day for 50 years. She is not interested in a nicotine patch. GERD (gastroesophageal reflux disease) 9 Assessment & Plan (04/10/2019 1:40 AM CDT): Continue PPI Anxiety 04/10/2019 Assessment & Plan (04/10/2019 1:40 AM CDT): Continue p.r.n. Xanax Obstructive sleep apnea syndrome 08/10/2014 Overview (11/06/2016): ALL Hypertension 12/16/2013 Overview (11/05/2016): HYPERTENSION NOS Assessment & Plan (04/10/2019 1:40 AM CDT): Blood pressure is normotensive at this time. Will resume diltiazem with hold parameters. Chronic ischemic heart disease 12/16/2013 Overview (11/05/2016): CHR ISCHEMIC HRT DIS NOS Assessment & Plan (04/10/2019 1:40 AM CDT): Continue Plavix and statin. Patient intolerant to both beta-blockers and Marin inhibitors. 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 Gender Identity Not on file Sexual Orientation Not on file Last Filed Vital Signs Vital Sign Reading Time Taken Comments Blood Pressure 140/74 01/02/2022 7:00 AM CDT Pulse 60 01/02/2022 7:00 AM CDT Temperature 36.8 ??C (98.2 ??F) 01/02/2022 7:00 AM CD T Respiratory Rate 18 01/02/2022 7:00 AM CDT Oxygen Saturation 97% 01/02/2022 7:00 AM CDT Inhaled Oxygen Concentration - - Weight 97.5 kg (215 lb) 04/24/2024 9:23 AM CDT Height 158.8 cm (5' 2.5 ) 04/24/2024 9:23 AM CDT Body Mass Index 38.7 04/24/2024 9:23 AM CDT Plan of Treatment Not on file Medical Devices Implanted Type Area Trophy Assembler Device Identifier Shelf Expiration Date Model / Serial / Lot Medtronic Inc Resolute [place] 2.5mm 2.1-2.7fr 15mm 140cm Rapid Exchange [id number] - [id number] Implanted:Qty : 1 on 01/01/2022 by Frank Frazier MD at [facility] Stent Right: Coronary Medtronic Inc 09/20/2024 [id number] / / [id number] Angio-Seal Vip 6fr Closere Device [id number] - [id number] Implanted:Qty : 1 on 01/01/2022 by Frank Frazier MD at [facility] Right: Groin Skycatch Amrik 10/30/2022 [id number] / / [id number] Procedures Procedure Name Priority Date/Time Associated Diagnosis Comments SCREENING MAMMOGRAM BILATERAL W CORTEZ Schedule Routine, Read Routine (OP Routine) 04/24/2024 9:30 AM CDT Encounter for screening mammogram for malignant neoplasm of breast DEXA AXIAL SKELETON BONE DENSITY 1 OR MORE SITES Schedule Routine, Read Routine (OP Routine) 08/27/2021 8:16 AM ALLERGIST/MD Menopausal and female climacteric states from Last 3 Months or Most Recently Relevant to Health Maintenance Results * Screening Mammogram Bilateral W [place] [...] her next mammogram. Electronically signed by: HUSAM Maldonado 04/24/2024 9:59 AM CDT EXAMINATION: SCREENING MAMMOGRAM [...] suspicious finding in either breast on mammogram. us Ori Pizano CYBER SYSTEMS OPERATIONS SPECIALIST IMG MAMMO PROCEDURES Final Res ult * Dexa Axial Skeleton Bone Density 1 or 2 Site (08/27/2021 8:16 AM ALLERGIST/MD) Anatomical Region Laterality Modality Body N/A Other 08/27/2021 11:0 6 AM ALLERGIST/MD Narrative 08/27/2021 11:08 AM ALLERGIST/MD EXAM DESCRIPTION: ?? DEXA AXIAL SKELETON BONE DENSITY 1 OR MORE SITES REASON FOR STUDY: ?66 y/o ?? year old ?? F ??with given history of screening. ?? Postmenopausal Trophy Assembler/Model: ?? Video Recruit Discovery SL (S/N [id number]) CLINICAL INFORMATION: Current height: ?? 64 ??inches ? Maximum height: 64 inches ? Weight: 225 pounds Risk factors: Postmenopausal COMPARISON: None available. FINDINGS: AP LUMBAR SPINE L1-L4: Total BMD is ?? 0.965 ??g/cm2 T-score is -0.7 LEFT HIP: Total BMD is 1.064 g/cm2 T-score is 1.0 Femoral neck BMD is 0.872 g/cm2 T-score is 0.2 IMPRESSION: ??Based on the lumbar spine bone mineral density (T-score -0.7) the patient has normal bone mass. REFERENCE: Bone mineral density: ? Normal (T-score above or = -1.0) ? Low bone mass ??(T-score between -1.0 and -2.5) replaces the previously used term osteopenia ? Osteoporosis (T-score = or below -2.5) Medical evaluation for secondary causes of low bone mineral density may be appropriate. FRAX is a World Health Organization validated fracture risk assessment tool that calculates a person's 10 year probability of a major osteoporosis related fracture and hip fracture. ??According to the National Osteoporosis Foundation guidelines, postmenopausal women and men age 50 or older with low bone mass and a 10 year probability of a major osteoporosis related fracture = or greater than 20% or a 10 year probability of a hip fracture = or greater than 3% should be considered for treatment. For further information, including treatment recommendations, please refer to the 2013 ISCD Official Positions (http://www.iscd.org) and the NOF's Clinician's Guide to Prevention and Treatment of Osteoporosis (http://www.nof.org/professionals/clinical-guidelines) THIS IS AN ELECTRONICALLY VERIFIED FINAL REPORT 08/27/2021 11:08 AM - Electronically signed by ??Rosalino Terry M.D. MF: CORY D: ??08/27/2021 11:08 AM T: ??08/27/2021 11:08 AM Report ID: [id number] Reading Location: ??[id number] Procedure Note Rosalino Terry MD - 08/27/2021 EXAM DESCRIPTION: DEXA AXIAL SKELETON BONE DENSITY 1 OR MORE SITES REASON FOR STUDY: 66 y/o year old F with given history ofscreening. Postmenopausal Trophy Assembler/Model: Video Recruit Discovery SL (S/N [id number]) CLINICAL INFORMATION: Current height: 64 inches Maximum height: 64 inches Weight: 225 pounds Risk factors: Postmenopausal COMPARISON: None available. FINDINGS: AP LUMBAR SPINE L1-L4: Total BMD is 0.965 g/cm2 T-score is -0.7 LEFT HIP: Total BMD is 1.064 g/cm2 T-score is 1.0 Femoral neck BMD is 0.872 g/cm2 T-score is 0.2 IMPRESSION: Based on the lumbar spine bone mineral density (T-score -0.7) thepatient has normal bone mass. REFERENCE: Bone mineral density: Normal (T-score above or = -1.0) Low bone mass (T-score between -1.0 and -2.5) replaces thepreviously used term osteopenia Osteoporosis (T-score = or below -2.5) Medical evaluation for secondary causes of low bone mineral density may be appropriate. FRAX is a World Health Organization validated fracture risk assessmenttool that calculates a person's 10 year probability of a major osteoporosisrelated fracture and hip fracture. According to the National OsteoporosisFoundation guidelines, postmenopausal women and men age 50 or older with low bonemass and a 10 year probability of a major osteoporosis related fracture = or greater than 20% or a 10 year probability of a hip fracture = or greaterthan 3% should be considered for treatment. For further information, including treatment recommendations, please referto the 2013 ISCD Official Positions (http://www.iscd.org) and the NOF's Clinician's Guide to Prevention and Treatment of Osteoporosis (http://www.nof.org/professionals/clinical-guidelines) THIS IS AN ELECTRONICALLY VERIFIED FINAL REPORT 08/27/2021 11:08 AM - Electronically signed by Rosalino Terry M.D. MF: CORY Report ID: [id number] Reading Location: [place] [address] Abdon Obrien MD IMG DXA PROCEDURES Fin al Result from Last 3 Months or Most Recently Relevant to Health Maintenance Insurance CHOICE [facility] [place]PO [place] [facility] CHOICE PR[place] [facility] MEDICARE SOLUTIONS Advance Directives For more information, please contact: [phone] Documents on File Type Date Recorded Patient Workforce Management Consultant Expl anation ADVANCE DIRECTIVE 04/09/2019 * Full Code (Latest Code Status on File) Date Activated Date Inactivated Comments 01/01/2022 3:50 PM 01/02/2022 4:58 PM * Full Code Date Activated Date Inactivated Comments 04/10/2019 1:38 AM 04/13/2019 8:51 PM * Full Code Date Activated Date Inactivated Comments 04/09/2019 10:32 PM 04/10/2019 1:38 AM Care Teams Nurse Case Management Relationship Specialty Start Date End Date Oscar Lynch MD PCP - General Family Practice 09/28/22 Frank Frazier MD Consulting Physician Cardiovascular Disease 01/02/22
--- OUTSIDE RECORDS SUMMARY | 2024-07-31 09:16 | XMS_ITS | Clinical Summary ---
Author Organization [facility] Address [address] [place] [address] Care Team Providers Care Grain Trader Name Role Phone Frank Frazier MD Unavailable Oscar Lynch MD Primary Care Provider [phone] [phone] Allergies Active Allergy Reactions Criticality Noted Date [...] PRN, 1-2 tablets, Reported on 01/02/2022 omega 8-who-gpo-fish oil (FISH OIL) 100-160-1,000 mg capsule 0 [...] (12/22/2021): Added automatically from request for surgery [id number] Mass of right parotid gland 01/08/2020 Assessment [...] acquired pneumonia of right lung Pulmonary congestion Surgical History Surgery Date Site/Laterality Comments TONSILLECTOMY Tonsillectomy TUBAL LIGATION Bilateral tubal ligation OVARIAN CYST REMOVAL ovarian cyst removal CHOLECYSTECTOMY Cholecystectomy OTHER SURGICAL HISTORY heart stents x 2 OOPHORECTOMY Bilateral still has uterus TUMOR REMOVAL Left carotid SKIN GRAFT posterior back to knees Medical History Medical History Date Comments Hx Other Medical skin graft from 2nd/third degrees vance Hypertension Hypertension Cardiovascular disease Coronary artery disease Hyperlipidemia Hyperlipidemia Gastroesophageal reflux disease GERD Hx Other Medical renal cyst Hx Other Medical ventral hernia Smoking Sleep apnea PONV (postoperative nausea and vomiting) Hiatal hernia Family History Medical History Relation Name Comments Cancer Father Other Father Cancer -epiglot itis; /Cancer - epiglottis; Other Mother Aplastic anemia ; Asthma Sister 1 Asthma; Other Sister 2 obese; Relation Name Status Comments Father Mother Sister 1 Sister 2 Social History Tobacco Use Types Packs/Day Years [...] Average Number of Drinks Not on file 022 Frequency of Binge Drinking Not on file 09/2021 Comments No Sex and Gender Information Value Date Recorded Sex Assigned at Not on file Legal Sex Female 8:07 PM DESIGN PAINTER Gender Identity Not on file Sexual Orientation Not on file Obstetrics History Para Term AB IAB SAB Ectopic Multiple Livin g Live Births 3 2 2 Date Outcome GA Total Labor Labor/2nd/3rd Weight Sex Type Anes PTL Daja A1 A5 Name Clin Term Term Last Filed Vital Signs Vital Sign Reading [...] 04/24/2024 9:23 AM CDT Plan of Treatment Health Maintenance Due Date Last Done Comments Colon Cancer Screening-Colonoscopy 1955 Depression Screening 1955 Fall Risk Assessment 1955 Hepatitis C Screening 1955 Hepatitis B Screening 1973 Zoster Vaccine (1 of 2) 2005 Well Visit 65+ 2020 Pneumococcal vaccine 65+ (2 of 2 - PCV) 05/30/2021 05/30/2020, 05/30/2015 Osteoporosis Screening-Bone Density Scan 08/27/2023 08/27/2021 Covid-19 Vaccine (3 - 2023-2 5 season) 2024 10/18/2020, 09/27/2020 Influenza Vaccine (#1) 2024 9, 06/09/2018, 05/12/2017, Additional history exists Breast Cancer Screening-Mammogram 04/24/2025 04/24/2024, 11/05/2022, 08/27/2021, Additional history exists DTaP/Tdap/Td Vaccine (2 - Td or Tdap) 06/30/2028 06/30/2018, 08/02/2012 Medical Devices Implanted Type Area Gastroenterology Professor Device Identifier Shelf Expiration Date Model / Serial / Lot Medtronic Inc Resolute [place] 2.5mm 2.1-2.7fr 15mm 140cm Rapid Exchange [id number] - [id number] Implanted:Qty : 1 on 01/01/2022 by Frank Frazier MD at [facility] Stent Right: Coronary Medtronic Inc 09/20/2024 [id number] / / [id number] Angio-Seal Vip 6fr Closere Device [id number] - [id number] Implanted:Qty : 1 on 01/01/2022 by Frank Frazier MD at [facility] Right: Groin Baihe Amrik 10/30/2022 [id number] / / [id number] Procedures Procedure Name Priority Date/Time Associated Diagnosis Comments SCREENING MAMMOGRAM BILATERAL W CORTEZ Schedule Routine, Read Routine (OP Routine) 04/24/2024 9:30 AM CDT Encounter for screening mammogram for malignant neoplasm of breast DEXA AXIAL SKELETON BONE DENSITY 1 OR MORE SITES Schedule Routine, Read Routine (OP Routine) 08/27/2021 8:16 AM DESIGN PAINTER Menopausal and female climacteric states from Last [...] in either breast on mammogram. Ori Pizano NP IMG MAMMO PROCEDURES Final Res ult * Dexa Axial Skeleton Bone Density 1 or 2 Site (08/27/2021 8:16 AM DESIGN PAINTER) Anatomical Region Laterality Modality Body N/A Other 08/27/2021 11:0 6 AM DESIGN PAINTER Narrative 08/27/2021 11:08 AM DESIGN PAINTER EXAM DESCRIPTION: ?? DEXA AXIAL SKELETON BONE DENSITY 1 OR MORE SITES REASON FOR STUDY: ?66 y/o ?? year old ?? F ??with given history of screening. ?? Postmenopausal Gastroenterology Professor/Model: ?? Hitpost Discovery SL (S/N [id number]) CLINICAL INFORMATION: Current height: ?? 64 ??inches [...] AM T: ??08/27/2021 11:08 AM Report ID: [id number] Reading Location: ??[id number] Procedure Note Rosalino Terry MD - 08/27/2021 EXAM DESCRIPTION: DEXA AXIAL SKELETON BONE DENSITY 1 OR MORE SITES REASON FOR STUDY: 66 y/o year old F with given history ofscreening. Postmenopausal Gastroenterology Professor/Model: Hitpost Discovery SL (S/N [id number]) CLINICAL INFORMATION: Current height: 64 inches Maximum [...] Rosalino Terry M.D. MF: CORY Report ID: [id number] Reading Location: [place] [address] Abdon Obrien MD IMG DXA PROCEDURES Fin al Result from Last 3 Months or Most Recently Relevant to Health Maintenance Insurance CHO[place]ARE [facility] [place] MEDICARE [facility] MEDIC[facility] SOLUTIONS Advance Directives For more information, please contact: [phone] Documents on File Type Date Recorded Patient Sweeper Driver Expl anation ADVANCE DIRECTIVE 04/09/2019 * Full Code (Latest Code Status on File) Date Activated Date Inactivated Comments 01/01/2022 3:50 PM 01/02/2022 4:58 PM * Full Code Date Activated Date Inactivated Comments 04/10/2019 1:38 AM 04/13/2019 8:51 PM * Full Code Date Activated Date Inactivated Comments 04/09/2019 10:32 PM 04/10/2019 1:38 AM Care Teams Grain Trader Relationship Specialty Start Date End Date Oscar Lynch MD PCP - General Family Practice 09/28/22 Frank Frazier MD Consulting Physician Cardiovascular Disease 01/02/22
--- OUTSIDE RECORDS SUMMARY | 2024-07-31 09:16 | XMS_ITS | Encounter Summary ---
Author Organization [facility] Address [address] [place] [address] Care Team Providers Care Frame Table Operator Name Role Phone Frank Frazier MD Unavailable Oscar Lynch MD Primary Care Provider [phone] Reason for Referral * MRI/CAT/PET Scan (Routine) - Closed Specialty Diagnoses / Procedures Referred By Contac t Referred To Contact Radiology Diagnoses Personal history of nicotine dependence Procedures CT Lung Cancer Screening Kellie Pizano NP [address] [place] [address] [place] [address] Phone: tel: fax: [address] [phone] Referral ID Status Reason Start Date Expiration Date Visits Re quested Visits Authorized [id number] Closed 02/22/2024 03/23/2025 1 1 Reason for Visit * MRI/CAT/PET Scan (Routine) - Closed Specialty Diagnoses / Procedures Referred By Contac t Referred To Contact Radiology Diagnoses Personal history of nicotine dependence Procedures CT Lung Cancer Screening Kellie Pizano NP [address] [place] [address] [place] [address] Phone: tel: fax: [address] [phone] Referral ID Status Reason Start Date Expiration Date Visits Re quested Visits Authorized [id number] Closed 02/22/2024 03/23/2025 1 1 Encounter Details Date Type Department Care Team (Latest Contact Info) Description 04/24/2024 9:09 AM CDT - 04/24/2024 11:59 PM CDT Hospital Encounter [facility] [address] [place] [address] Personal history of nicotine dependence Discharge Disposition: Discharge to home or self [...] on file Legal Sex 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 Gender Identity Not on file Sexual Orientation Not on file documented as of this encounter Medications at Time of Discharge [...] every 5 (five) minutes as needed omega 8-idc-fus-fish oil (FISH OIL) 100-160-1,000 mg capsule 0 [...] Procedure Name Priority Date/Time Associated Diagnosis Comments CT LUNG CANCER SCREENING Schedule Routine, Read Routine (OP Routine) 04/24/2024 9:21 AM CDT Personal history of nicotine dependence documented in this encounter Results * CT Lung Cancer Screening (04/24/2024 9:21 AM CDT) Anatomical Region Laterality Modality Chest N/A Computed Tomogra phy 04/25/2024 8:57 AM CDT Narrative 04/25/2024 9:21 AM CDT EXAM DESCRIPTION: ?? CT LUNG CANCER SCREENING REASON FOR STUDY: Screening CT of the chest in a ?? former ??smoker with a ??40 ?? pack year smoking history. Additional history: The patient stopped smoking 4 years ago. TECHNIQUE: Low dose CT scan of the chest was performed without intravenous contrast using helical scanning technique. The exam extends from the lung apices through the lung bases. Automatic exposure control was used as a dose optimization technique. NOTE: This study was performed for the specific purposes of lung cancer screening and is not an alternative to diagnostic chest CT. RADIATION DOSE: CT dose index volume (CTDIvol) = 2.63 mGy COMPARISON: ??CT chest 11/05/2022 FINDINGS: SMOKING RELATED LUNG DISEASE: ?? Mild pulmonary emphysema. LUNG NODULES: ?? Numerous new ground-glass and part solid nodules predominantly within the lower and right middle lobes. ??For reference, new left lower lobe irregular part solid opacity measuring approximately 2.3 cm, with a 1.5 cm solid component (series 2, image 213). Stable 8 mm solid nodule in the lateral right lower lobe (series 3, image 191). CORONARY ARTERY CALCIFICATION: ??Ulcrwral-ph-ueccce. OTHER: ?? No focal consolidation, pneumothorax, or pleural effusion. ??The central airways are clear. ??No mediastinal mass. ??Stable borderline enlarged subaortic 1 cm mediastinal node (series 2, image 101). ??The heart is normal in size. ??Prominent mitral annular calcifications. ??No pericardial effusion. ?? Mild atherosclerotic calcifications of the thoracic aorta. ??No thoracic aortic aneurysm. ??No acute fractures or suspicious osseous lesions. ??Redemonstrated small hiatal hernia. IMPRESSION: ?? Numerous new part solid and ground-glass pulmonary nodules, predominantly within the lower and right middle lobes, favoring an infectious etiology. Stable right lower lobe 8 mm solid nodule. Mild emphysema. Lung-RADS category ??0: Findings suggestive of an inflammatory or infectious process. Recommendation: ??Low dose CT of chest in 3 months. THIS IS AN ELECTRONICALLY VERIFIED FINAL REPORT 04/25/2024 9:21 AM - Electronically signed by ??Anson Lee M.D. KR: SHIVANI D: ??04/25/2024 9:21 AM T: ??04/25/2024 9:21 AM Report ID: [id number] Reading Location: ??[id number] Kellie Pizano NP [facility] [place]ED[place] Final Result documented in this encounter Visit Diagnoses Diagnosis Personal history of nicotine dependence documented in this encounter Care Teams Frame Table Operator Relationship Specialty Start Date End Date Oscar Lynch MD PCP - General Family Practice 09/28/22 Frank Frazier MD Consulting Physician Cardiovascular Disease 01/02/22 documented as of this encounter
--- OUTSIDE RECORDS SUMMARY | 2024-07-31 09:17 | XMS_ITS | Encounter Summary ---
Author Organization [facility] Healthcare Address [address] [place] [address] Care Team Providers Care Reservation Clerk Name Role Phone Ori Pizano NP Primary Care Provider [phone] Reason for Referral * Diagnostic Imaging (Routine) - Closed Specialty Diagnoses / Procedures Referred By Contac t Referred To Contact Radiology Diagnoses Radiculopathy, lumbar region Procedures MRI Lumbar Spine WO Contrast Ori Pizano NP Phone: tel: fax: [address] [address] Referral ID Status Reason Start Date Expiration Date Visits Re quested Visits Authorized [id number] Closed 09/21/2019 11/05/2019 1 1 RVISOR FRAMING MILL Reason for Visit * Diagnostic Imaging (Routine) - Closed Specialty Diagnoses / Procedures Referred By Contac t Referred To Contact Radiology Diagnoses Radiculopathy, lumbar region Procedures MRI Lumbar Spine WO Contrast Ori Pizano NP Phone: tel: fax: [address] [address] Referral ID Status Reason Start Date Expiration Date Visits Re quested Visits Authorized [id number] Closed 09/21/2019 11/05/2019 1 1 Encounter Details Date Type Department Care Team (Late st Contact Info) Description 09/27/2019 7:31 PM SUPERVISOR FRAMING MILL - 09/27/2019 11:59 PM SUPERVISOR FRAMING MILL Hospital Encounter [facility] [address] [place] [address] [place] [address] [place] [address] [place] [address] [place] [address] [place] [address] [place] [address] Radiculopathy, lumbar region Discharge Disposition: Discharge to home or self care Social History Tobacco Use Types Packs/Day Years Used Date Smoking Tobacco: Smoker, Current Status Unknown Smokeless Tobacco: Never Alcohol Use Standard Drinks/Week Comments Yes 0 (1 standard drink = 0.6 oz pur e alcohol) Comments No Sex and Gender Information Value Date Recorded Sex Assigned at Not on file Legal Sex Female 8:07 PM SUPERVISOR FRAMING MILL Gender Identity Not on file Sexual Orientation Not on file documented as of this encounter Medications at Time of Discharge acetaminophen (TYLENOL) 325 mg tablet take 1 tablet by oral route every 4 hours as needed 0 0 11/06/2013 albuterol HFA (PROVENTIL HFA,VENTOLIN HFA,PROAIR HFA) 90 mcg/actuation inhaler Inhale 2 puffs every 6 (six) hours as needed 03/04/2018 ALPRAZolam (XANAX) 0.5 mg tablet Take one by mouth one time per day 30 0 11/06/2008 calcium carbonate-vitamin D3 (CALCIUM 600 + D,3,) 600 mg calcium- 200 unit capsule take 1 capsule a day 0 0 08/10/2014 clobetasoL (TEMOVATE) 0.05 % cream Apply 1 application topically daily as needed 03/04/2018 clopidogrel (PLAVIX) 75 mg tabletIndications: Stent placement Take 75 mg by mouth daily dilTIAZem CD (CARTIA XT) 240 mg 24 hr capsule take 1 capsule by oral route every day 0 0 11/06/2013 Lactobacillus acidophilus (PROBIOTIC ORAL) Take 1 capsule by mouth daily 08/02/1969 omega 9-qnd-xkh-fish oil (FISH OIL) 100-160-1,000 mg capsule 0 0 01/09/2016 rosuvastatin (CRESTOR) 20 mg tablet take 1 tablet by oral route every day 0 0 01/09/2016 sertraline (ZOLOFT) 50 mg tablet Take 50 mg by mouth daily 08/02/1969 traMADol (ULTRAM) 50 mg tablet take 1 - 2 Tablet by oral route every 6 hours for pain 0 0 01/09/2016 azithromycin (ZITHROMAX) 500 mg tabletIndications: Pneumonia, Community Acquired Take 1 tablet (500 mg total) by mouth daily 2 tablet 04/13/2019 2 betamethasone dipropionate (DIPROLENE) 0.05 % cream apply by topical route every day a thin layer to the affected area(s) 0 0 11/06/2013 2 calcium carbonate-vitamin D3 1500 mg (600 mg elemental) -200 units per tablet Take by mouth 03/04/201812/30 2 cholecalciferol (VITAMIN D3) 1,000 unit capsule take 1 Capsule by Oral route once 0 0 01/09/2016 2 docosahexanoic acid-epa (FISH OIL) 120-180 mg capsule 0 0 11/06/[address] (NexIUM) 40 mg capsule take 1 capsule by oral route every day 0 0 01/09/2016 2 furosemide (LASIX) 40 mg tablet Take 1 tablet (40 mg total) by mouth daily 30 tablet 1 04/13/2019 2 L. gasseri-B. bifidum-B longum ([facility] [employer] [facility]) 1.5 billion cell capsule 0 0 11/06/2013 2 Lactobacillus acidophilus (PROBIOTIC) 10 billion cell capsule take 1 daily 0 0 08/10/2014 2 levalbuterol (XOPENEX HFA) 45 mcg/actuation inhaler inhale 2 puff by inhalation route every 6 hours 0 Inhaler 0 11/06/2013 2 nitroglycerin (NITROLINGUAL) 400 mcg/spray spray 1-2 sprays under the tongue prn, max 3 sprays in 15 minutes. 1 3 11/19/2008 2 predniSONE (DELTASONE) 10 mg tablet Take 1 tablet (10 mg) by mouth daily 14 tablet 04/13/2019 2 psyllium 0.52 gram capsule take 1 capsule daily 0 0 08/10/2014 2 psyllium, aspartame, SF (Metamucil Fiber Singles) 3.4 gram packet Take by mouth 03/04/2018 2 documented as of this encounter Discharge Disposition Disposition Code Departure Means Destination Discharge to home or self care documented in this encounter Plan of Treatment Not on file documented as of this encounter Procedures Procedure Name Priority Date/Time Associated Diagnosis Comments MRI LUMBAR SPINE WO CONTRAST Schedule Routine, Read Routine (OP Routine) 09/27/2019 8:13 PM SUPERVISOR FRAMING MILL Radiculopathy, lumbar region documented in this encounter Results * MRI Lumbar Spine WO Contrast (09/27/2019 8:13 PM SUPERVISOR FRAMING MILL) Anatomical Region Laterality Modality Spine N/A Magnetic Resonan ce 09/27/2019 7:27 PM SUPERVISOR FRAMING MILL Narrative 09/28/2019 9:15 AM SUPERVISOR FRAMING MILL [facility] ?Imaging Result Name: DESIREE PARSON ? Ordering Phys: ORI PIZANO Age: 64 ?Date of : 1955 ? Accession Number: [id number] Date of Service: 09/27/2019 ??Gender: F EXAM DESCRIPTION: ??MRI LUMBAR SPINE WO CONTRAST REASON FOR STUDY: ??Dx: Radiculopathy, lumbar region M54.16 (ICD-10-CM)Pt c/o difficulty walking, Left leg numbness, Left leg locks up, symptoms since ChristmasDuration: 2 months TECHNIQUE: ?? Sagittal and Axial imaging includes T1, T2, STIR sequences. COMPARISON: ??None. ??SEGMENTATION: No transitional anatomy. The lowest well-developed disc space is labeled L5-S1. ALIGNMENT: Mild levoscoliosis measuring approximately 19 degrees. ??No spondylolisthesis. VERTEBRAE: No compression fracture or marrow replacement. DISC HEIGHT: Moderate disc degeneration with desiccation, loss of disc height and osteophyte formation. ??This favors L2-3, L3-4 and L4-5. HARDWARE: None in the spine. CORD/CAUDA: Terminates at T12-L1 and is unremarkable. ??No cord tethering lesion is identified. LOWER THORACIC: No high-grade spinal canal stenosis or spinal cord compression. INDIVIDUAL DISC LEVELS: L1-2: Annular bulge without spinal canal stenosis. ??The left foramen is mildly narrowed. L2-3: Annular bulge and facet arthropathy. ??Mild to moderate right foraminal stenosis. L3-4: Annular bulge with facet arthropathy and ligamentous thickening. Moderate spinal canal stenosis. ??Moderate right foraminal narrowing. L4-5: Annular disc bulge with facet arthropathy and ligamentous thickening. Mild left lateral recess stenosis. ??Moderate to severe left foraminal narrowing. L5-S1: Annular bulge and facet arthropathy but no spinal canal or foraminal stenosis. SACRUM: Visualized upper sacrum intact. VISUALIZED UPPER ABDOMEN: Fusiform infrarenal abdominal aortic aneurysm measures up to 3 cm. Partially imaged T2 hyperintense mass within the left kidney. ??This is probably a cyst but not evaluated. ??In the absence of prior studies for comparison, consider evaluation with renal ultrasound. ??Alternatively, may consider CT given the finding of the aorta. OTHER: No other significant findings. IMPRESSION: 1. ??Moderate lumbar disc degeneration and facet arthropathy. ??Resultant spinal canal, lateral recess and foraminal stenosis as detailed above. 2. ??No lumbar spine compression fracture. 3. ??19 degrees of lumbar levoscoliosis. 4. ??Fusiform infrarenal abdominal aortic aneurysm measuring 3 cm. ??Probable left renal cyst. ??Please see text for recommendation. THIS IS AN ELECTRONICALLY VERIFIED FINAL REPORT 09/28/2019 9:12 AM - Electronically signed by Harris Tinsley D.O. : D: ??09/28/2019 9:12 AM T: ??09/28/2019 9:12 AM Report ID: [id number] Reading Location: ??[id number] Procedure Note Harris Tinsley DO - 09/28/2019 [facility] Imaging Result Name: DESIREE PARSON Ordering Phys: ROI PIZANO Age: 64 Date of : 1955 Accession Number: [id number] Date of Service: 09/27/2019 Gender: F EXAM DESCRIPTION: MRI LUMBAR SPINE WO CONTRAST REASON FOR STUDY: Dx: Radiculopathy, lumbar region M54.16 (ICD-10-CM)Ptc/o difficulty walking, Left leg numbness, Left leg locks up, symptoms since ChristmasDuration: 2 months TECHNIQUE: Sagittal and Axial imaging includes T1, T2, STIR sequences. COMPARISON: None. SEGMENTATION: No transitional anatomy. The lowest well-developed disc space is labeled L5-S1. ALIGNMENT: Mild levoscoliosis measuring approximately 19 degrees. No spondylolisthesis. VERTEBRAE: No compression fracture or marrow replacement. DISC HEIGHT: Moderate disc degeneration with desiccation, loss of discheight and osteophyte formation. This favors L2-3, L3-4 and L4-5. HARDWARE: None in the spine. CORD/CAUDA: Terminates at T12-L1 and is unremarkable. No cord tethering lesion is identified. LOWER THORACIC: No high-grade spinal canal stenosis or spinal cordcompression. INDIVIDUAL DISC LEVELS: L1-2: Annular bulge without spinal canal stenosis. The left foramen ismildly narrowed. L2-3: Annular bulge and facet arthropathy. Mild to moderate rightforaminal stenosis. L3-4: Annular bulge with facet arthropathy and ligamentous thickening. Moderate spinal canal stenosis. Moderate right foraminal narrowing. L4-5: Annular disc bulge with facet arthropathy and ligamentousthickening. Mild left lateral recess stenosis. Moderate to severe left foraminal narrowing. L5-S1: Annular bulge and facet arthropathy but no spinal canal orforaminal stenosis. SACRUM: Visualized upper sacrum intact. VISUALIZED UPPER ABDOMEN: Fusiform infrarenal abdominal aortic aneurysm measures up to 3 cm. Partially imaged T2 hyperintense mass within the left kidney. This is probably a cyst but not evaluated. In the absence of prior studies for comparison, consider evaluation with renal ultrasound. Alternatively,may consider CT given the finding of the aorta. OTHER: No other significant findings. IMPRESSION: 1. Moderate lumbar disc degeneration and facet arthropathy. Resultantspinal canal, lateral recess and foraminal stenosis as detailed above. 2. No lumbar spine compression fracture. 3. 19 degrees of lumbar levoscoliosis. 4. Fusiform infrarenal abdominal aortic aneurysm measuring 3 cm.Probable left renal cyst. Please see text for recommendation. THIS IS AN ELECTRONICALLY VERIFIED FINAL REPORT 09/28/2019 9:12 AM - Electronically signed by Harris Tinsley D.O. : Report ID: [id number] Reading Location: [place] [address] Ori Pizano NP IMG MRI PROCEDURES Final Resul t documented in this encounter Visit Diagnoses Diagnosis Radiculopathy, lumbar region Thoracic or lumbosacral neuritis or radiculitis, unspecified documented in this encounter Care Teams Reservation Clerk Relationship Specialty Start Date End Date Ori Pizano NP PCP - General 02/27/15 03/07/20 documented as of this encounter
--- OUTSIDE RECORDS SUMMARY | 2024-07-31 09:17 | XMS_ITS | Encounter Summary ---
Author Organization [facility] Healthcare Address [address] [place] [address] Care Team Providers Care Tunnel Heading Supervisor Name Role Phone Carlee Mtz MD Primary Care Provider [phone] Reason for Referral * Diagnostic Imaging (Routine) - Closed Specialty Diagnoses / Procedures Referred By Contac t Referred To Contact Diagnoses Menopausal and female climacteric states Procedures Dexa Axial Skeleton Bone Density 1 or 2 Site Abdon Obrien MD Phone: tel: fax: [address] [address] Referral ID Status Reason Start Date Expiration Date Visits Re quested Visits Authorized [id number] Closed 07/28/2021 08/27/2022 1 1 OYEE DEVELOPMENT SPECIALIST Reason for Visit * Diagnostic Imaging (Routine) - Closed Specialty Diagnoses / Procedures Referred By Contac t Referred To Contact Diagnoses Menopausal and female climacteric states Procedures Dexa Axial Skeleton Bone Density 1 or 2 Site Abdon Obrien MD Phone: tel: fax: [address] [address] Referral ID Status Reason Start Date Expiration Date Visits Re quested Visits Authorized [id number] Closed 07/28/2021 08/27/2022 1 1 Encounter Details Date Type Department Care Team (Latest Contact Info) Description 08/27/2021 7:51 AM EMPLOYEE DEVELOPMENT SPECIALIST - 08/27/2021 11:59 PM EMPLOYEE DEVELOPMENT SPECIALIST Hospital Encounter [facility] [address] [place] [address] Abdon Obrien MD [address] [place] [address] [address] [place] [address] Menopausal and female climacteric states Discharge Disposition: Discharge to home or self care Social History Tobacco Use Types Packs/Day Years Used Date Smoking Tobacco: Smoker, Current Status Unknown Smokeless Tobacco: Never Comments:Smokes 1-1 1/2 pack s a week but not daily. Alcohol Use Standard Drinks/Week Comments Yes 0 (1 standard drink = 0.6 oz pur e alcohol) Comments No Sex and Gender Information Value Date Recorded Sex Assigned at Not on file Legal Sex Female 8:07 PM EMPLOYEE DEVELOPMENT SPECIALIST Gender Identity Not on file Sexual Orientation [...] 1 capsule by mouth daily 08/02/1969 omega 0-dgx-qeu-fish oil (FISH OIL) 100-160-1,000 mg capsule 0 [...] 1 04/13/2019 2 L. gasseri-B. bifidum-B longum ([facility] [employer]) 1.5 billion cell capsule 0 0 11/06/2013 2 Lactobacillus acidophilus (PROBIOTIC) 10 billion cell capsule take 1 daily 0 0 08/10/2014 2 levalbuterol (XOPENEX HFA) 45 mcg/actuation inhaler inhale 2 puff by inhalation route every 6 hours 0 Inhaler 0 11/06/2013 2 nitroglycerin (NITROLINGUAL) 400 mcg/spray spray 1-2 sprays under the tongue prn, max 3 sprays in 15 minutes. 1 3 11/19/2008 2 omeprazole (PriLOSEC) 20 mg capsule Take 20 mg by mouth 2 (two) times a day 2 predniSONE (DELTASONE) 10 mg tablet Take [...] Procedure Name Priority Date/Time Associated Diagnosis Comments DEXA AXIAL SKELETON BONE DENSITY 1 OR MORE SITES Schedule Routine, Read Routine (OP Routine) 08/27/2021 8:16 AM EMPLOYEE DEVELOPMENT SPECIALIST Menopausal and female climacteric states documented in this encounter Results * Dexa Axial Skeleton Bone Density 1 or 2 Site (08/27/2021 8:16 AM EMPLOYEE DEVELOPMENT SPECIALIST) Anatomical Region Laterality Modality Body N/A Other 08/27/2021 11:0 6 AM EMPLOYEE DEVELOPMENT SPECIALIST Narrative 08/27/2021 11:08 AM EMPLOYEE DEVELOPMENT SPECIALIST EXAM DESCRIPTION: ?? DEXA AXIAL SKELETON BONE DENSITY 1 OR MORE SITES REASON FOR STUDY: ?66 y/o ?? year old ?? F ??with given history of screening. ?? 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 for; to (do) [employer] (S/N [id number]) CLINICAL INFORMATION: Current height: ?? 64 ??inches [...] AM T: ??08/27/2021 11:08 AM Report ID: [id number] Reading Location: ??[id number] Procedure Note Rosalino Terry MD - 08/27/2021 EXAM DESCRIPTION: DEXA AXIAL SKELETON BONE DENSITY 1 OR MORE SITES REASON FOR STUDY: 66 y/o year old F with given history ofscreening. 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 MF: CORY Report ID: [id number] Reading Location: [id number] Abdon Obrien MD IMG DXA PROCEDURES Fin al Result documented in this encounter Visit Diagnoses Diagnosis Menopausal and female climacteric states documented in this encounter Care Teams Tunnel Heading Supervisor Relationship Specialty Start Date End Date Carlee Mtz MD [facility] [place] [address] PCP - General Family Medicine 03/08/20 09/27/22 documented as of this encounter
--- OUTSIDE RECORDS SUMMARY | 2024-07-31 09:17 | XMS_ITS | Encounter Summary ---
Author Organization [facility] Healthcare Address [address] [place] [address] Care Team Providers Care Home Decorator Name Role Phone Carlee Mtz MD Primary Care Provider [phone] Encounter Details Date Type Department Care Team (Late st Contact Info) Description 04/15/2020 9:05 AM CDT [address] [address] [place] [id number] [address] Discharge Disposition: Discharge to home or self [...] on file Legal Sex Female 8:07 PM SPOOLER OPERATOR AUTOMATIC Gender Identity Not on file Sexual Orientation Not on file documented as of this encounter Discharge Disposition Disposition Code Departure Means Destination Discharge to home or self care documented in this encounter Plan of Treatment Not on file documented as of this encounter Procedures Procedure Name Priority Date/Time Associated Diagnosis Comments HEMOGLOBIN A1C Routine 04/15/2020 8:51 AM CDT documented in this encounter Results * (ABNORMAL) Hemoglobin A1c (04/15/2020 8:51 AM CDT) Hgb A1C 5.8(H) 4.0 - 5.6 % [facility] Estimated Average Glucose 120 mg/dL [facility] Comment: The ADA recommends reporting an estimated Average Glucose (eAG) with all Hemoglobin A1c results using the equation derived from a study of 507 normal and diabetic adults. ??Minority populations were underrepresented and children were not included. ?? (Diabetes Care 31:5170-1235, 2008). ??The eAG is not equivalent to a fasting glucose. Blood specimen (specimen) 04/15/2020 8:51 AM CDT 04/15/2020 9:28 AM CDT Frank Frazier MD LAB BLOOD ORDERABLES Final Resul t [facility] Department [place] [address] documented in this encounter Visit Diagnoses Not on filedocumented in this encounter Care Teams Home Decorator Relationship Specialty Start Date End Date Carlee Mtz MD [address] [place] [address] [place] [address] PCP - General Family Medicine 03/08/20 09/27/22 documented as of this encounter
--- OUTSIDE RECORDS SUMMARY | 2024-07-31 09:17 | XMS_ITS | Encounter Summary ---
Author Organization [facility] Healthcare Address [address] [place] [address] Care Team Providers Care Director Clinical Pharmacology Name Role Phone Carlee Mtz MD Primary Care Provider [phone] Frank Frazier MD Unavailable Oscar Lynch MD Primary Care Provider [phone] Encounter Details Date Type Department Care Team (Late st Contact Info) Description 01/28/2021 Telephone [facility] [address] [place] [address] Transcribed Order, Provider Social History Tobacco Use Types Packs/Day Years [...] on file Legal Sex Female 8:07 PM MOBILE DEVICE ENGINEER Gender Identity Not on file Sexual Orientation Not on file documented as of this encounter Plan of Treatment Not on file documented as of this encounter Visit Diagnoses Not on filedocumented in this encounter Care Teams Director Clinical Pharmacology Relationship Specialty Start Date End Date Carlee Mtz MD [address] [place] [address] [place] [address] PCP - General Family Medicine 03/08/20 09/27/22 Oscar Lynch MD [address] [place] [address] [place] [address] PCP - General Family Practice 09/28/22 Frank Frazier MD [address] [place] [address] [place] [address] Consulting Physician Cardiovascular Disease 01/02/22 documented as of this encounter
--- OUTSIDE RECORDS SUMMARY | 2024-07-31 09:17 | XMS_ITS | Encounter Summary ---
Author Organization [facility] Healthcare Address [address] [place] [address] Care Team Providers Care Freight Car Builder Name Role Phone Kellie Pizano NP Primary Care Provider [phone] Reason for Referral * Diagnostic Imaging (Routine) - Closed Specialty Diagnoses / Procedures Referred By Michelle t Referred To Contact Diagnoses Localized swelling, mass and lump, neck Procedures US Head Neck Soft Tissue Carlee Mtz MD Phone: tel: fax: [address] [phone] Referral ID Status Reason Start Date Expiration Date Visits Re quested Visits Authorized [id number] Closed 09/21/2019 04/01/2021 1 1 ERS AND ACQUISITIONS ATTORNEY Reason for Visit * Diagnostic Imaging (Routine) - Closed Specialty Diagnoses / Procedures Referred By Michelle jaime Referred To Contact Diagnoses Localized swelling, mass and lump, neck Procedures US Head Neck Soft Tissue Carlee Mtz MD Phone: tel: fax: [address] [phone] Referral ID Status Reason Start Date Expiration Date Visits Re quested Visits Authorized [id number] Closed 09/21/2019 04/01/2021 1 1 Encounter Details Date Type Department Care Team (Late st Contact Info) Description 09/27/2019 9:05 AM MERGERS AND ACQUISITIONS ATTORNEY - 09/27/2019 7:30 PM MERGERS AND ACQUISITIONS ATTORNEY Hospital Encounter [place] [id number] Carlee Mtz MD [address] [place] [address] Localized swelling, mass and lump, neck Discharge Disposition: Discharge to home or self care Social History Tobacco Use Types Packs/Day Years Used Date Smoking Tobacco: Smoker, Current Status Unknown Smokeless Tobacco: Never Alcohol Use Standard Drinks/Week Comments Yes 0 (1 standard drink = 0.6 oz pur e alcohol) Comments No Sex and Gender Information Value Date Recorded Sex Assigned at Not on file Legal Sex Female 8:07 PM MERGERS AND ACQUISITIONS ATTORNEY Gender Identity Not on file Sexual Orientation [...] 1 capsule by mouth daily 08/02/1969 omega 5-zzp-zmw-fish oil (FISH OIL) 100-160-1,000 mg capsule 0 [...] 1 04/13/2019 2 L. gasseri-B. bifidum-B longum ([facility] [employer] 1.5 billion cell capsule 0 0 11/06/2013 [...] Procedure Name Priority Date/Time Associated Diagnosis Comments US SOFT TISSUE HEAD NECK Schedule Routine, Read Routine (OP Routine) 09/27/2019 9:36 AM MERGERS AND ACQUISITIONS ATTORNEY Localized swelling, mass and lump, neck documented in this encounter Results * US Head Neck Soft Tissue (09/27/2019 9:36 AM MERGERS AND ACQUISITIONS ATTORNEY) Anatomical Region Laterality Modality Head and Neck N/A Ultrasound 09/27/2019 11:0 0 AM MERGERS AND ACQUISITIONS ATTORNEY Impressions 09/27/2019 11:07 AM MERGERS AND ACQUISITIONS ATTORNEY 10 x 8 x 7 mm sized hypoechoic lesion seen in the right parotid gland, corresponding to the findings on the PET scan. ??The etiology of this is uncertain. ??It could represent an intraparotid lymph node, though other more significant pathology cannot be excluded. Recommend a follow-up ultrasound of the parotid glands after a period of 4-6 months. Electronically signed by: Pili Mackey M.D. Narrative 09/27/2019 11:07 AM MERGERS AND ACQUISITIONS ATTORNEY EXAMINATION: US SOFT TISSUE HEAD NECK HISTORY: The patient is a 64-year-old female who presents with a mass in the right parotid gland region. ??Comparison made with the PET CT scan done at :2019 which had revealed a 7 mm sized nodule in the medial aspect of the right parotid gland. TECHNIQUE: Transverse and sagittal images were obtained along with color Doppler imaging. FINDINGS: In the lower portion of the right parotid gland is a 10 x 8 x 7 mm hypoechoic nodule which probably corresponds to the findings on the recent PET scan of 09/14/2019. ??Color Doppler imaging reveals slight increased flow within this hypoechoic area. ??The remainder of the parotid parenchyma is normal. ??No abnormal findings. Procedure Note Pili Mackey MD - 09/27/2019 EXAMINATION: US SOFT TISSUE HEAD NECK HISTORY: The patient is a 64-year-old female who presents with a mass in the right parotid gland region. Comparison made with the PET CT scan done at :2019 which had revealed a 7 mm sized nodule in the medial aspect of the right parotid gland. TECHNIQUE: Transverse and sagittal images were obtained along with color Doppler imaging. FINDINGS: In the lower portion of the right parotid gland is a 10 x 8 x 7 mm hypoechoic nodule which probably corresponds to the findings on the recent PET scan of 09/14/2019. Color Doppler imaging reveals slight increased flow within this hypoechoic area. The remainder of the parotid parenchyma is normal. No abnormal findings. IMPRESSION: 10 x 8 x 7 mm sized hypoechoic lesion seen in the right parotid gland, corresponding to the findings on the PET scan. The etiology of this is uncertain. It could represent an intraparotid lymph node, though other more significant pathology cannot be excluded. Recommend a follow-up ultrasound of the parotid glands after a period of 4-6 months. Electronically signed by: Pili Mackey M.D. us Carlee Mtz MD IMG US PROCEDURES Final Re sult documented in this encounter Visit Diagnoses Diagnosis Localized swelling, mass and lump, neck Swelling, mass, or lump in head and neck documented in this encounter Care Teams Freight Car Builder Relationship Specialty Start Date End Date Kellie Pizano NP PCP - General 02/27/15 03/07/20 documented as of this encounter
--- OUTSIDE RECORDS SUMMARY | 2024-07-31 09:17 | XMS_ITS | Encounter Summary ---
Author Organization [facility] Healthcare Address [address] [place] [address] Care Team Providers Care Head Banquet Waiter/Waitress Name Role Phone Carlee Mtz MD Primary Care Provider [phone] Reason for Referral * Diagnostic Imaging (Routine) - Closed Specialty Diagnoses / Procedures Referred By Contac t Referred To Contact Diagnoses Abdominal aortic aneurysm, without rupture Procedures US Abdominal Aorta Ori Pizano NP Phone: tel: fax: [address] [phone] Referral ID Status Reason Start Date Expiration Date Visits Re quested Visits Authorized [id number] Closed 03/08/2020 04/07/2021 1 1 Reason for Visit * Diagnostic Imaging (Routine) - Closed Specialty Diagnoses / Procedures Referred By Contac t Referred To Contact Diagnoses Abdominal aortic aneurysm, without rupture Procedures US Abdominal Aorta Ori Pizano NP Phone: tel: fax: [address] [phone] Referral ID Status Reason Start Date Expiration Date Visits Re quested Visits Authorized [id number] Closed 03/08/2020 04/07/2021 1 1 Encounter Details Date Type Department Care Team (Late st Contact Info) Description 04/15/2020 7:32 AM CDT - 04/15/2020 11:59 PM CDT Hospital Encounter [facility] [address] [place] [address] Ori Pizano, JOLEEN [address] [address] Abdominal aortic aneurysm, without rupture (CMS/HCC) Discharge Disposition: Discharge to home or self [...] on file Legal Sex Female 8:07 PM C ENGINEER Gender Identity Not on file Sexual [...] 1 capsule by mouth daily 08/02/1969 omega 6-lcq-bgg-fish oil (FISH OIL) 100-160-1,000 mg capsule 0 [...] 1 04/13/2019 2 L. gasseri-B. bifidum-B longum ([facility] [employer]) 1.5 billion cell capsule 0 0 11/06/2013 [...] Name Priority Date/Time Associated Diagnosis Comments US ABDOMINAL AORTA Schedule Routine, Read Routine (OP Routine) 04/15/2020 8:14 AM CDT Abdominal aortic aneurysm, without rupture (CMS/HCC) documented in this encounter Results * US Abdominal Aorta (04/15/2020 8:14 AM CDT) Anatomical Region Laterality Modality Abdomen N/A Ultrasound 04/15/2020 8:21 AM CDT Impressions 04/16/2020 7:17 AM CDT 1. ??Atherosclerotic changes of the aorta with grossly stable interstitial dilatation of the distal abdominal aorta measuring up to 3.1 cm. Electronically signed by: Roxana Loyd D.O. Narrative 04/16/2020 7:17 AM CDT EXAMINATION: US ABDOMINAL AORTA ORDERING HEALTHCARE PROVIDER: ORI PIZANO HISTORY: aneursyn. Follow up for abdominal aortic aneurysm. ?? COMPARISON: 04/09/2019 TECHNIQUE: Sonographic examination of the abdominal aorta was performed. FINDINGS: There are atherosclerotic changes of aorta. ??There is asymmetrical dilatation of the distal abdominal aorta measuring 3.1 cm in AP dimension by 3.0 cm in transverse dimension by 2.8 cm in length, which previously measured up to 3.1 cm. Measurements are as follows: Proximal: 2.5 cm AP, 2.5 cm transverse. Mid: 1.9 cm AP, 1.8 cm transverse. Distal: 3.1 cm AP, ??3.0 cm transverse. Aortic bifurcation: Right common iliac: 1.1 cm AP, 1.1 cm transverse. Left common iliac: 1.1 cm AP, 1.1 cm transverse. Procedure Note Roxana Loyd, - 04/16/2020 EXAMINATION: US ABDOMINAL AORTA ORDERING HEALTHCARE PROVIDER: ORI PIZANO HISTORY: aneursyn. Follow up for abdominal aortic aneurysm. COMPARISON: 04/09/2019 TECHNIQUE: Sonographic examination of the abdominal aorta was performed. FINDINGS: There are atherosclerotic changes of aorta. There is asymmetrical dilatation of the distal abdominal aorta measuring 3.1 cm in AP dimension by 3.0 cm in transverse dimension by 2.8 cm in length, which previously measured up to 3.1 cm. Measurements are as follows: Proximal: 2.5 cm AP, 2.5 cm transverse. Mid: 1.9 cm AP, 1.8 cm transverse. Distal: 3.1 cm AP, 3.0 cm transverse. Aortic bifurcation: Right common iliac: 1.1 cm AP, 1.1 cm transverse. Left common iliac: 1.1 cm AP, 1.1 cm transverse. IMPRESSION: 1. Atherosclerotic changes of the aorta with grossly stable interstitial dilatation of the distal abdominal aorta measuring up to 3.1 cm. Electronically signed by: Roxana Loyd D.O. us Ori Pizano PROOF TECHNICIAN IMG US PROCEDURES Final Result documented in this encounter Visit Diagnoses Diagnosis Abdominal aortic aneurysm, without rupture documented in this encounter Care Teams Head Banquet Waiter/Waitress Relationship Specialty Start Date End Date Carlee Mtz MD [address] [place] [address] [place] [address] PCP - General Family Medicine 03/08/20 09/27/22 documented as of this encounter
--- OUTSIDE RECORDS SUMMARY | 2024-07-31 09:17 | XMS_ITS | Encounter Summary ---
Author Organization [facility] Address [address] [place] [address] Care Team Providers Care Cloth Layer Name Role Phone Kellie Pizano NP Primary Care Provider [phone] Encounter Details Date Type Department Care Team (Late st Contact Info) Description 01/23/2020 Telephone [facility] - [address] [place] [id number] Arminda Gupta MA Social History Tobacco Use Types Packs/Day Years [...] on file Legal Sex Female 8:07 PM TEACHING MUSIC LESSONS Gender Identity Not on file Sexual Orientation Not on file documented as of this encounter Miscellaneous Notes * Telephone Encounter - Arminda Gupta MA - 01/23/2020 3:49 PM CDT Patient notified and states her great relief and understanding. * Telephone Encounter - Keyla Alexander DO - 01/23/2020 3:17 PM CDT Please call: benign cyst * Telephone Encounter - Arminda Gupta MA - 01/23/2020 1:41 PM CDT Patient called asking for results of FNA. documented in this encounter Plan of Treatment Not on file documented as of this encounter Visit Diagnoses Not on filedocumented in this encounter Care Teams Cloth Layer Relationship Specialty Start Date End Date Kellie Pizano NP PCP - General 02/27/15 03/07/20 documented as of this encounter
--- OUTSIDE RECORDS SUMMARY | 2024-07-31 09:17 | XMS_ITS | Encounter Summary ---
Author Organization [facility] Healthcare Address [address] [place] [address] Care Team Providers Care Town Manager Name Role Phone Carlee Mtz MD Primary Care Provider [phone] Reason for Referral * Diagnostic Imaging (Routine) - Closed Specialty Diagnoses / Procedures Referred By Michelle jaime Referred To Contact Diagnoses Encounter for screening mammogram for malignant neoplasm of breast Procedures Screening Mammogram Bilateral W Ori [place] NP Phone: tel: fax: [address] [phone] Referral ID Status Reason Start Date Expiration Date Visits Re quested Visits Authorized [id number] Closed 03/04/2020 04/03/2021 1 1 Reason for Visit * Diagnostic Imaging (Routine) - Closed Specialty Diagnoses / Procedures Referred By Michelle jaime Referred To Contact Diagnoses Encounter for screening mammogram for malignant neoplasm of breast Procedures Screening Mammogram Bilateral W Ori Montana NP Phone: tel: fax: [address] [phone] Referral ID Status Reason Start Date Expiration Date Visits Re quested Visits Authorized [id number] Closed 03/04/2020 04/03/2021 1 1 Encounter Details Date Type Department Care Team (Late st Contact Info) Description 04/15/2020 7:32 AM CDT - 04/15/2020 11:59 PM CDT Hospital Encounter [facility] [address] [place] [id number] Carlee Mtz MD [address] [place] [address] Ori Rich NP [address] [place] [address] Encounter for screening mammogram for malignant neoplasm [...] on file Legal Sex Female 8:07 PM DEMO SPECIALIST Gender Identity Not on file Sexual Orientation Not on file documented as of this encounter Last Filed Vital Signs Vital Sign Reading Time Taken Comments Blood Pressure - - Pulse - - Temperature - - Respiratory Rate - - Oxygen Saturation - - Inhaled Oxygen Concentration - - Weight 102.1 kg (225 lb) 04/15/2020 7:47 AM CDT Height 162.6 cm (5' 4 ) 04/15/2020 7:47 AM CDT Body Mass Index 38.62 04/15/2020 7:47 AM CDT documented in this encounter Medications [...] 1 capsule by mouth daily 08/02/1969 omega 7-tfz-xvv-fish oil (FISH OIL) 100-160-1,000 mg capsule 0 [...] 1 04/13/2019 2 L. gasseri-B. bifidum-B longum ([employer]) 1.5 billion cell capsule 0 0 11/06/2013 [...] CORTEZ Schedule Routine, Read Routine (OP Routine) 04/15/2020 7:53 AM CDT Encounter for screening mammogram for malignant neoplasm of breast documented in this encounter Results * Screening Mammogram Bilateral W [place] (04/15/2020 7:53 AM CDT) Anatomical Region Laterality Modality Breast Bilateral Mammography 04/16/2020 8:35 AM CDT Impressions 04/19/2020 8:27 AM CDT There is no mammographic evidence of malignancy. A 1 year screening mammogram is recommended. BI-RADS: 1 - Negative. The patient has been or will be contacted. The patient will be entered into a reminder system with a target due date of 1 year for her next mammogram. Electronically signed by: Rusty Fontana M.D. Narrative 04/19/2020 8:27 AM CDT EXAMINATION: SCREENING MAMMOGRAM BILATERAL W CORTEZ ORDERING HEALTHCARE PROVIDER: ORI RICH HISTORY: Routine screening mammography. COMPARISON: ??01/16/2016, 07/11/2012, 09/12/2009 TECHNIQUE: CC and MLO views of the bilateral breasts were obtained with digital technique using breast tomosynthesis with C view. Computer aided detection was utilized. FINDINGS: DENSITY: There are scattered fibroglandular elements in the bilateral breasts. BREASTS: There are no suspicious masses, suspicious calcifications, or other suspicious findings in either breast. There has been no suspicious interval change. Ori Rich BUTT MAKER IMG MAMMO PROCEDURES Final Res ult documented in this encounter Visit Diagnoses Diagnosis Encounter for screening mammogram for malignant neoplasm of breast documented in this encounter Care Teams Town Manager Relationship Specialty Start Date End Date Carlee Mtz MD [facility] [place] [address] PCP - General Family Medicine 03/08/20 09/27/22 documented as of this encounter
--- OUTSIDE RECORDS SUMMARY | 2024-07-31 09:17 | XMS_ITS | Encounter Summary ---
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 documented in this encounter Plan of Treatment Not on file documented as of this encounter Visit Diagnoses Not on filedocumented in this encounter Care Teams Director Supply Relationship Specialty Start Date End Date Oscar Lynch MD PCP - General Family Practice 09/28/22 Frank Frazier MD Consulting Physician Cardiovascular Disease 01/02/22 documented as of this encounter
--- OUTSIDE RECORDS SUMMARY | 2024-07-31 09:17 | XMS_ITS | Encounter Summary ---
Author Organization [facility] Healthcare Address [address] [place] [address] Care Team Providers Care Credit Negotiator Name Role Phone Carlee Mzt MD Primary Care Provider [phone]- [phone] Encounter Details Date Type Department Care Team (Late st Contact Info) Description 01/01/2022 9:25 AM CDT - 01/01/2022 11:25 AM CDT Surgery [facility] Cardiac Catheterization Lab [address] [place] [address] Frank Frazier MD [id number] [place] [address] PCI RADU MAJOR CORONARY C9600 - [id number] Surgery Details Date/Time Status Location OR Service Patient Class Case Class Case Type Trauma Case? 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 Gender Identity Not on file Sexual Orientation Not on file documented as of this encounter Last Filed Vital Signs Vital Sign Reading Time Taken Comments Blood Pressure 139/86 01/01/2022 8:19 AM CDT Pulse 78 01/01/2022 8:19 AM CDT Temperature 36.6 ??C (97.9 ??F) 01/01/2022 8:19 AM CD T Respiratory Rate 18 01/01/2022 8:19 AM CDT Oxygen Saturation 96% 01/01/2022 8:19 AM CDT Inhaled Oxygen Concentration - - Weight 107.7 kg (237 lb 8 oz) 01/01/2022 8:19 AM CDT Height 162.6 cm (5' 4 ) 01/01/2022 8:19 AM CDT Body Mass Index 40.77 01/01/2022 8:19 AM CDT documented in this encounter Discharge Summaries * Lexus Ricardo NP - 01/02/2022 6:56 AM CDT Inpatient Discharge Summary BRIEF OVERVIEW Admitting Provider: Frank Frazier MD Discharge Provider: Frank Frazier MD Primary Care Physician at Discharge: Carlee Mtz MD [phone] Admission Date: 01/01/2022 Discharge Date: 01/02/2022 Admission Location: [facility] Hospital Problems/Diagnoses: Principal Problem: CAD (coronary artery disease) Resolved Problems: No resolved hospital problems. DETAILS OF HOSPITAL STAY Presenting Problem/History of Present Illness: CAD Hospital Course: She has history of CAD status post stenting of the left circumflex and the RCA. She presented with symptoms including palpitations and shortness of breath which reminded her of the symptoms she had prior to her stent in 2014. Thus, she underwent catheterization. It was found that she had 80% stenosis of the PDA and borderline stenosis of the left circumflex. In view of the above, she was brought in for IFR/FFR assessment of the left circumflex with possible intervention and for intervention of the PDA. She underwent Successful stenting of the PDA with a 2.5 x 15 mm [place] drug-eluting stent. IFR/FFR assessment of the left circumflex revealed that there is no hemodynamically significant stenosis. Pt has been stable post procedure. R groin stable. Post cath discharge instructions reviewed with pt. All questions and concerns addressed. Pt is stable for discharge. ?? Active Issues Requiring Follow-up: Test Results Pending at Discharge: Operative Procedures Performed: Procedure(s): PCI RADU MAJOR CORONARY C9600 - [id number] Coronary Flow Velocity (CFR) / Instantaneous Flow Velocity (IFR), 1st Vessel Other Procedures: Pertinent Test Results: Discharge Details Physical Exam at Discharge: Discharge Condition: stable Pulse: 67 Resp: 18 BP: 136/74 Temp: 36.5 ??C (97.7 ??F) Weight: 107.7 kg (237 lb 8 oz) Pertinent Exam Findings at Discharge: R groin stable Discharge Disposition: Code Status at Discharge:FULL Discharge Instructions: Reviewed with patient Activity Instructions Discharge Activity: Lifting restrictions -Do NOT lift greater than 10 pounds for 1 week. Discharge Activity: Stairs LIMIT STAIR CLIMBING FOR 1 WEEK Discharge Activity: Walking -You may walk as tolerated. Discharge activity: Shower -You may shower later today. No tub baths for 2 weeks Other Instructions Call provider for: Temperature -Temperature greater than 101 degrees F Call provider for: difficulty breathing or chest pain Call provider for: extreme fatigue Call provider for: persistent dizziness or light-headedness Call provider for: persistent nausea or vomiting Call provider for: redness, tenderness, or signs of infection (pain, swelling, redness, odor or green/yellow discharge around incision site) Call provider for: severe uncontrolled pain Call provider for: headache, visual disturbances, weakness and speech changes Post-Discharge Dressing Care: No dressing needed. Can remove dressing later today. If undergarments irritate site, can apply a band-aid. If apply a band-aid, change daily. Dressing Removal: No dressing needed. Discharge Medications: Current Medications Some of the medications listed here do not show instructions, such as how often to take the medication. Ask your doctor or nurse how to use these medications. Specifically ask about this and similar medications: omega 0-jey-pma-fish oil (FISH OIL) 100-160-1,000 mg capsule TAKE these medications acidophilus-pectin, citrus 100 million cell-10 mg capsule Take 2 tablets by mouth albuterol HFA 90 mcg/actuation inhaler Inhale 2 puffs every 6 (six) hours as needed Commonly known as: PROVENTIL HFA,VENTOLIN HFA,PROAIR HFA aspirin 81 mg chewable tablet Take 81 mg by mouth daily as needed Calcium 600 + D(3) 1,500 mg (600 mg elemental)-200 unit capsule take 1 capsule a day Generic drug: calcium carbonate-vitamin D3 Cartia XT 240 mg 24 hr capsule take 1 capsule by oral route every day Generic drug: dilTIAZem XR clobetasoL 0.05 % cream Apply 1 application topically daily as needed Commonly known as: TEMOVATE clopidogreL 75 mg tablet Take 75 mg by mouth daily For: Stent placement Commonly known as: PLAVIX Crestor 20 mg tablet take 1 tablet by oral route every day Generic drug: rosuvastatin diphenhydrAMINE-acetaminophen 25-500 mg tablet Take 2 tablets by mouth nightly Commonly known as: TYLENOL PM esomeprazole DR 20 mg capsule Take 20 mg by mouth daily before breakfast Commonly known as: NexIUM Fish OiL 100-160-1,000 mg capsule Generic drug: omega 5-swv-two-fish oil loratadine 10 mg capsule Take 1 capsule by mouth daily metroNIDAZOLE 0.75 % gel Apply 1 application topically daily Commonly known as: METROGEL nitroglycerin 0.[address] 0.4 mg under the tongue every 5 (five) minutes as needed Commonly known as: NITROSTAT PROBIOTIC ORAL Take 1 capsule by mouth daily psyllium 0.52 gram capsule Take 0.52 g by mouth daily sertraline 50 mg tablet Take 50 mg by mouth daily Commonly known as: ZOLOFT traMADoL 50 mg tablet take 1 - 2 Tablet by oral route every 6 hours for pain Commonly known as: ULTRAM TylenoL 325 mg tablet take 1 tablet by oral route every 4 hours as needed Generic drug: acetaminophen vitamin B complex capsule Take 1 capsule by mouth daily Xanax 0.5 mg tablet Take one by mouth one time per day Generic drug: ALPRAZolam Outpatient Follow-Up: Contact Information for Follow-ups Frank Frazier MD Specialty: Cardiovascular Disease, Internal Medicine, Interventional Cardiology Relationship: Consulting Physician Margar[address] [facility] [address] Next Steps: Follow up Instructions: 2 weeks. our office will call with date and time of follow up. any questions or concerns, please call office. [phone] Questions: To provider: FRANK FRAZIER Instructions for follow-up (appointment date and time): 2 weeks. our office will call with date andtime of follow up. any questions or concerns, please call office. [phone] Cosigned by Frank Frazier MD at 01/02/2022 3:31 PM CDT documented in this encounter Medications at [...] every 5 (five) minutes as needed omega 6-wcl-znx-fish oil (FISH OIL) 100-160-1,000 mg capsule 0 [...] or self care documented in this encounter Miscellaneous Notes * Plan of Care - Antonia Gilbert RN - 01/01/2022 7:40 PM CDT Goals: Problem: Cardiac: Goal: Postprocedural complications will be avoided or minimized Outcome: Progressing Summary: Pt received a scheduled stent today * Pre-Sedation Documentation - Frank Frazier MD - 01/01/2022 10:41 AM CDT Sedation Plan ASA 3 - Severe systemic disease Mallampati class: II. Risks, benefits, and alternatives discussed with patient. * Pre-Procedure Instructions - Danelle Park RN - 12/30/2021 12:43 PM CDT We are pleased that you and your doctor have chosen [facility] for your surgery. We hope that the following information will help make your visit a pleasant one. Surgery Date: 01/01/2022 and arrive at 8:00 AM [facility] (look for sign reading ???[facility] - [facility]ENTER?? ) [address] [place] [address] Before your surgery: ?? Notify your doctor of ANY change in your health such as a cold, sore throat, fever, infection ora change in the problem for which you are having your surgery. ?? Follow any instructions given to you by your doctor or surgeon. Check with your doctor if you need to STOP taking: ?? Aspirin (ordered by your doctor) ?? Plavix ?? Coumadin (Warfarin) ?? Eliquis ?? Brilinta ?? Xarelto ?? Effient (PRASUGREL) 24 hours before your surgery: ?? No smoking, vaping, alcohol, Marijuana, or recreational drug use. ?? Hydrate yourself (water) - if no restrictions. Night before your surgery: ?? DO NOT eat or drink anything after midnight. ?? Follow surgeon's instructions for anti-bacterial (DIAL) shower night before and morning of surgery. Shower Instructions: Clean your hair using normal shampoo and/or conditioner products. Using antibacterial soap and clean washcloth, wash your face, thoroughly wash your body. You may need help if some areas cannot easily be reached, such as you back. Rinse thoroughly and dry with a clean towel (use a different freshly washed towel for each shower). Do not use lotions, powders, creams, Vaseline, or hair products after either shower. ?? Dress in clean, freshly washed pajamas or clothing. ?? Do not shave below the neck on the night before or day of surgery ?? Powder-free deodorant is permitted. ?? The night before surgery sleep on clean linen, no pets. Day of surgery: ?? Repeat your shower. ?? No smoking, vaping, alcohol, or recreational drug use. ?? ONLY take these pills with a tiny sip of water. Pre-Surgery Instructions: Medication Instructions ??? Take medications as directed by your physician. For any questions, please call Dr. Frazier's office. ?? Wear comfortable clothes that will not be tight over the area of your surgery ?? Do not use perfume/cologne, make-up, nail luxembourger, lotions, oil/vaseline or powders on your skin. ?? Do Not Glue Dentures or Partials In ?? Do Not Wear Contact Lenses ?? Bring your Covid Vaccination Card ?? If you have an implantable device with a remote, bring the remote with you on the day of surgery. ?? Leave all valuables and jewelry (including all body piercing jewelry) at home. ?? If you use a CPAP machine, please bring it with you to wear after your surgery. ?? Please bring your photo ID, insurance cards, and medication list (including all [id number]) with you. ?? Prescriptions can be filled onsite prior to discharge. Please have your co- pay available. ?? Check in at the Registration Desk. ?? Wear a mask. ?? You may have 2 visitors daily (visitor must be over the age of 18). After your Outpatient Surgery: ?? You must have a responsible adult to drive you home, you will not be allowed to drive or take a cab home. ?? We recommend you have someone stay with you for 24 hours after your surgery. What to bring if you are spending the night with us: ?? Bring toiletry items such as: robe, slippers, toothbrush, toothpaste, brush or comb. ?? Bring contact lens, hearing aids, glass cases and denture container if you use any of these items. ?? The hospital will provide you with a gown. Questions or concerns: ?? If you have any questions or concerns regarding your procedure, or to cancel your surgery/procedure - contact your surgeon as soon as possible. ?? If you have questions regarding your Pre-Admission Screen/Testing, please call Danelle at before 5 PM M-F. documented in this encounter Plan of Treatment Not on file documented as of this encounter Procedures Procedure Name Priority Date/Time Associated Diagnosis Comments EGFR STAT 01/02/2022 7:22 AM CDT BASIC METABOLIC PANEL STAT 01/02/2022 7:22 AM CDT CORONARY FLOW VELOCITY (CFR) / INSTATANEOUS FLOW VELOCITY (IFR), 1ST VESSEL Routine 01/01/2022 11:41 AM CDT CAD (coronary artery disease) RADU MAJOR CORONARY Routine 01/01/2022 11 :41 AM CDT CAD (coronary artery disease) documented in this encounter Results * eGFR (01/02/2022 7:22 AM CDT) [facility] eGFR 96 mL/min/1. 73 m2 [facility] Comment: Interpretive Data Reference Interval Normal ?>/= 90 mL/min/1.73m2 Mildly decreased* ? 60 - 89 mL/min/1.73m2 Mildly to moderately decreased ?45 - 59 mL/min/1.73m2 Moderately to severely decreased ??30 - 44 mL/min/1.73m2 Severely decreased ?15 - 29 mL/min/1.73m2 Kidney Failure ?< 15 ??mL/min/1.73m2 *Relative to young adult level Estimated glomerular filtration rate is determined by the 2020 CKD-EPI equation recommended by the National Kidney Foundation (A Unifying Approach to GFR Estimation: Recommendations of the NKF-ASK Task Force on Reassessing the Inclusion of Race in Diagnosing Kidney Disease, JASN 2020). The CKD-EPI equation should not be used for patients with unstable renal function and has not been validated in children and those over 70. Current interpretive data was last reviewed 2021. Blood 01/02/2022 7:22 AM CDT 01/02/2022 7:25 AM CDT Frank Frazier MD LAB BLOOD ORDERABLES Final Resul t Performing Organization Address [facility]/ZIP Co de Phone Number [facility] [address] [address] Department of [employer] [place], [place] [id number] * Basic metabolic panel (01/02/2022 7:22 AM CDT) Sodium 139 135 - 145 mmol/L [facility] Potassium, pl 4.3 3.3 - 4.9 mmol/L [facility] Chloride 104 97 - 110 mmol/L [facility] CO2 24 22 - 32 mmol/L [facility] Anion gap 11 2 - 15 mmol/L [facility] BUN 13 8 - 25 mg/dL [facility] Creatinine 0.67 0.60 - 1.10 mg/dL [facility] Glucose 106 70 - 199 mg/dL [facility] Comment: Interpretive Data Fasting glucose >/= 126 mg/dl is diagnostic for diabetes. ?? Fasting is defined as no caloric intake for at least 8 hours. Fasting glucose between 100 mg/dl to 125 mg/dl is diagnostic of prediabetes. In a patient with classic symptoms of hyperglycemia or hyperglycemic crisis, a random glucose >/= 200 mg/dl is diagnostic for diabetes. In the absence of unequivocal hyperglycemia, results should be confirmed by repeat testing. The classification and Diagnosis of Diabetes Diabetes Care 2017;40 (Suppl. 1):S11. Current interpretive data was last revised 2017. Calcium 9.2 8.5 - 10.3 mg/dL [facility] Blood 01/02/2022 7:22 AM CDT 01/02/2022 7:25 AM CDT Narrative [facility] - 01/02/2022 7:49 AM CDT Re-collecting, initial sample hemolyzed. Frank Fraizer MD LAB BLOOD ORDERABLES Final Resul t Performing Organization Address [facility]/ZIP Co de Phone Number [facility] [address] [place] [address] * RADU MAJOR CORONARY, CORONARY FLOW VELOCITY (CFR) / INSTATANEOUS FLOW VELOCITY (IFR), 1ST VESSEL (01/01/2022 11:41 AM CDT) Anatomical Region Laterality Modality X-Ray Angiograph y 01/01/2022 Narrative 01/01/2022 3:54 PM CDT [employer] Job ID: [id number] [employer] Document ID: [id number] Dictated date/time: [id number] CARDIAC CATHETERIZATION REPORT BRIEF CLINICAL HISTORY This 66-year-old woman was born 1955. ??She has history of CAD status post stenting of the left circumflex and the RCA. ??She presented with symptoms including palpitations and shortness of breath which reminded her of the symptoms she had prior to her stent in 2014. ??Thus, she underwent catheterization. ??It was found that she had 80% stenosis of the PDA and borderline stenosis of the left circumflex. ??In view of the above, she is being brought in for IFR/FFR assessment of the left circumflex with possible intervention and for intervention of the PDA. PROCEDURE After informed consent was obtained, the patient was brought to the cardiac catheterization lab in the postabsorptive state. ??I administered Versed and fentanyl to sedate her. Trained dedicated personnel was available in the room to monitor for conscious sedation. ??The sedation time was 36 minutes. ??The right groin was prepped and draped in the usual sterile manner. ??Lidocaine 1% plain was infiltrated for anesthesia. Duplex imaging was used to identify the right coronary artery and a 6-Scottish short sheath was inserted without difficulty. ??Next, we started Angiomax infusion per protocol. ??We used a 6/4 cm left Rai guide catheter to intubate the left coronary artery. We obtained guiding angiography. ??We then brought in the pressure wire to the tip of the guide and neutralized it. Prior to that it was zeroed. Then we crossed the lesion to the distal left circumflex and performed IFR which was 1.01. ??We infused adenosine per protocol and the FFR was 0.99. Thus, this lesion is not hemodynamically significant and does not need to be treated. ??We removed all equipment, brought in a 6/4 right Rai catheter, intubated the right coronary artery, obtained guiding angiography then brought a wire to cross the lesion to the PDA. We had difficulty crossing with [place] wire and Whisper wire and successfully crossed with a BMW wire. ??We then placed a 2.5 x 15 mm [place] RADU stent at high pressure with excellent result without any residual stenosis with BRENDA 3 flow. ??We now removed all equipment. ??We performed angiography of the right femoral artery with the side of the sheath. ??We confirmed that the entry point of the sheath is in the common femoral vein. ??A 6-Scottish Angio-Seal closure device was successfully deployed per protocol. ??The patient tolerated procedure well. No complications. CONCLUSION 1. Successful stenting of the PDA with a 2.5 x 15 mm [place] drug-eluting stent. 2. IFR/FFR assessment of the left circumflex revealed that there is no hemodynamically significant stenosis. Thank you very much for allowing me to participate in the care of your patient. ??If I can be of further assistance, please do not hesitate to contact me. Job ID/Internal Job ID: ??[id number] Frank Frazier MD CV CARDIAC CATH PROCEDURES Final Result documented in this encounter Visit Diagnoses Diagnosis CAD (coronary artery disease)- Primary Coronary atherosclerosis of unspecified type of vessel, atka or graft CAD (coronary artery disease) Coronary atherosclerosis of unspecified type of vessel, atka or graft documented in this encounter Admitting Diagnoses Diagnosis CAD (coronary artery disease) Coronary atherosclerosis of unspecified type of vessel, atka or graft documented in this encounter Administered Medications Inactive Administered Medications - up to 3 most recent administrations Medication Order MAR Action Action Date Dose Rate Site acetaminophen (TYLENOL) tablet 650 mg 650 mg, oral, Every 6 hours PRN, 1st line for pain, Starting on Wed01/01/22 at 1555 ALPRAZolam (XANAX) tablet 0.5 mg 0.5 mg, oral, Once, On Wed01/01/22 at 2245, For 1 dose Given 01/01/2022 11:12 PM CDT 0.5 mg aspirin enteric coated tablet 81 mg 81 mg, oral, Daily, First dose on Wed01/02/22 at 0900, Recovery (CV), Do not crush, chew, cut, dissolve, open or otherwise manipulate tablet/capsule., Indications: cardiovascular diseaseIndications:cardiov ascular disease Given 01/02/2022 10:55 AM CDT 81 mg aspirin tablet As needed, Starting on Wed01/01/22 at 1157, Intra-Procedure (CV) Given 01/01/2022 11:57 AM CDT 325 mg bivalirudin (ANGIOMAX) 250 mg in sodium chloride 0.9% 50 mL infusion Continuous PRN, Starting on Vandana 01/01/22 at 1112, Intra-Procedure (CV) New Bag 01/01/2022 11:12 AM CDT 1.75 mg/kg/hr 37.7 mL/hr bivalirudin (ANGIOMAX) injection As needed, Starting on Vandana 01/01/22 at 1111, Intra-Procedure (CV) Given 01/01/2022 11:11 AM CDT 80.775 mg clopidogreL (PLAVIX) tablet 75 mg 75 mg, oral, Daily, First dose on Wed01/02/22 at 0900, Recovery (CV), Indications: myocardial infarction prevention, cardiovascular diseaseIndications:myocard ial infarction prevention,cardiovascular disease Given 01/02/2022 10:55 AM CDT 75 mg clopidogreL (PLAVIX) tablet As needed, Starting on Vandana 01/01/22 at 1157, Intra-Procedure (CV) Given 01/01/2022 11:57 AM CDT 600 mg fentaNYL (SUBLIMAZE) preservative free injection As needed, Starting on Vandana 01/01/22 at 1106, Intra-Procedure (CV) Given 01/01/2022 11:35 AM CDT 25 mcg Given 01/01/2022 11:25 AM CDT 25 mcg Given 01/01/2022 11:06 AM CDT 50 mcg heparin in 0.9% sodium chloride 1,000 units/500 mL (2 unit/mL) infusion (premix) As needed, Starting on Vandana 01/01/22 at 1059, Intra-Procedure (CV) Given 01/01/2022 10:59 AM CDT 1,000 mL ioversoL (OPTIRAY 350) injection As needed, Starting on Vandana 01/01/22 at 1139, Intra-Procedure (CV) Given 01/01/2022 11:39 AM CDT 160 mL lidocaine (XYLOCAINE) 10 mg/mL (1 %) injection As needed, Starting on Vandana 01/01/22 at 1106, Intra-Procedure (CV), Indications: Administration of Local AnesthesiaIndications:Administrati on of Local Anesthesia Given 01/01/2022 11:06 AM CDT 10 mL Right Groin midazolam (VERSED) 1 mg/mL preservative free injection Administer over 2 Minutes, As needed, Starting on Vandana 01/01/22 at 1106, Intra-Procedure (CV) Given 01/01/2022 11:25 AM CDT 1 mg Given 01/01/2022 11:06 AM CDT 2 mg ondansetron (ZOFRAN) injection 4 mg 4 mg, intravenous, Administer over 2 Minutes, Every 6 hours PRN, nausea, vomiting, Starting on Vandana 01/01/22 at 1555 rosuvastatin (CRESTOR) tablet 40 mg 40 mg, oral, Nightly, First dose on Vandana 01/01/22 at 2230 Given 01/01/2022 11:12 PM CDT 40 mg sertraline (ZOLOFT) tablet 50 mg 50 mg, oral, Daily, First dose on Wed01/02/22 at 0900 Given 01/02/2022 10:56 AM CDT 50 mg sodium chloride 0.9% infusion Continuous PRN, Starting on Vandana 01/01/22 at 1059, Intra-Procedure (CV) New Bag 01/01/2022 10:59 AM CDT 50 mL/hr 50 mL/hr sodium chloride 0.9% infusion 100 mL/hr, intravenous, Continuous, Starting on Vandana 01/01/22 at 1630, For 4 hours, Recovery (CV), Till bag is done Rate/Dose Change 01/01/2022 3:53 PM CDT 100 mL/hr 100 mL/hr documented in this encounter Discontinued Medications Medication Sig Discontinue Reason Start Date End Da te psyllium, aspartame, SF (Metamucil Fiber Singles) 3.4 gram packet Take by mouth Other 03/04/2018 12/30/2021 Lactobacillus acidophilus (PROBIOTIC) 10 billion cell capsule take 1 daily Other 08/10/2014 12/30/2021 calcium carbonate-vitamin D3 1500 mg (600 mg elemental) -200 units per tablet Take by mouth Other 03/04/2018 12/30/2021 docosahexanoic acid-epa (FISH OIL) 120-180 mg capsule Other 11/06/2013 12/30/2021 docosahexaenoic acid-epa 120-180 mg capsule Take 1,000 mg by mouth daily Other 12/30/2021 nitroglycerin (NITROLINGUAL) 400 mcg/spray spray 1-2 sprays under the tongue prn, max 3 sprays in 15 minutes. Other 11/19/2008 12/30/2021 amoxicillin-clavulana te (AUGMENTIN) 875-125 mg per tablet amoxicillin 875 mg-potassium clavulanate 125 mg tablet TAKE 1 TABLET BY MOUTH EVERY 12 HOURS WITH FOOD FOR 10 DAYS. CAN BE HARD ON STOMACH Other 12/30/2021 ascorbic acid (vitamin C) 1,000 mg tablet Vitamin C 1000 mg daily Other 12/30/2021 azithromycin (ZITHROMAX) 500 mg tabletIndications:Pne [place], Community Acquired Take 1 tablet (500 mg total) by mouth daily Other 04/13/2019 12/30/2021 benzonatate (TESSALON) 100 mg capsule benzonatate 100 mg capsule Other 12/30/2021 betamethasone dipropionate (DIPROLENE) 0.05 % cream apply by topical route every day a thin layer to the affected area(s) Other 11/06/2013 12/30/2021 cephalexin (KEFLEX) 500 mg capsule cephalexin 500 mg capsule Other 2021 cholecalciferol (VITAMIN D3) 1,000 unit capsule take 1 Capsule by Oral route once Other 01/09/2016 12/30/2021 cholecalciferol (Vitamin D3) 5,000 unit tablet Vitamin D3 125mcg bid Other 12/30/2021 ciprofloxacin (Cipro) 500 mg tablet Cipro 500 mg tablet Take 1 tablet every 12 hours by oral route for 10 days. Other 12/30/2021 clindamycin (CLEOCIN) 150 mg capsule clindamycin HCl 150 mg capsule Other 12/30/2021 citalopram (CeleXA) 10 mg tablet citalopram 10 mg tablet Other 12/31/19 cyclobenzaprine (FLEXERIL) 10 mg tablet cyclobenzaprine 10 mg tablet Take 1 tablet as needed by oral route for 30 days. Other 12/30/2021 docusate sodium (COLACE) 100 mg capsule Doc-Q-Lace 100 mg capsule Other 2021 doxycycline (doxycycline hyclate) 100 mg capsule doxycycline hyclate 100 mg capsule TAKE 1 CAPSULE BY MOUTH TWICE DAILY FOR 10 DAYS Other 12/30/2021 furosemide (LASIX) 40 mg tablet Take 1 tablet (40 mg total) by mouth daily Other 04/13/2019 12/30/2021 ferrous sulfate 325 mg (65 mg of elemental iron) tablet ferrous sulfate 325 mg (65 mg iron) tablet Other 12/30/2021 HYDROcodone-acetamino phen (NORCO) 5-325 mg per tablet hydrocodone 5 mg-acetaminophen 325 mg tablet TK ONE TO TWO TS PO Q 6 H PRN P Other 12/30/2021 L. gasseri-B. bifidum-B longum (Secured Mail) 1.5 billion cell capsule Other 11/06/2013 12/30/2021 levalbuterol (XOPENEX HFA) 45 mcg/actuation inhaler inhale 2 puff by inhalation route every 6 hours Other 11/06/2013 12/30/2021 levoFLOXacin (LEVAQUIN) 500 mg tablet levofloxacin 500 mg tablet Other 12/30/2021 methylPREDNISolone (MEDROL DOSEPACK) 4 mg Dosepack FOLLOW PACKAGE DIRECTIONS Other 12/02/20212021 methylPREDNISolone (MEDROL DOSEPACK) 4 mg Dosepack methylprednisolone 4 mg tablets in a dose pack FOLLOW PACKAGE DIRECTIONS Other 12/30/2021 methylPREDNISolone (MEDROL DOSEPACK) 4 mg Dosepack methylprednisolone 4 mg tablets in a dose pack TAKE BY MOUTH DIRECTED PER PACKAGE DIRECTIONS Other 12/30/2021 methylPREDNISolone acetate (DEPO-MedroL) 40 mg/mL injection 1 mL daily Other 12/30/2021 metroNIDAZOLE (FlagyL) 500 mg tablet Flagyl 500 mg tablet Take 1 tablet every 8 hours by oral route for 10 days. Other 12/30/2021 morphine ER (MS CONTIN) 30 mg 12 hr tablet morphine ER 30 mg tablet,extended release Other 12/30/2021 qbdgiabm-rjf-FH-lycop en-lutein (Centrum Silver) 0.4 mg-300 mcg- 250 mcg tablet Centrum Silver 1 tablet by mouth daily Other 12/30/2021 nystatin-triamcinolon e ointment nystatin-triamcinolone 100,000 unit/gram-0.1 % topical ointment Other 12/30/2021 omega 8-tgs-orj-fish oil (Fish OiL) 100-160-1,000 mg capsule Fish Oil 1 tablet by mouth daily Other 12/30/2021 omeprazole (PriLOSEC) 20 mg capsule Take 20 mg by mouth 2 (two) times a day Other 12/30/2021 ondansetron ODT (ZOFRAN-ODT) 4 mg disintegrating tablet Take 4 mg by mouth every 8 (eight) hours as needed Other 12/30/2021 oxyCODONE-acetaminoph en (PERCOCET) 5-325 mg per tablet oxycodone-acetaminophen 5 mg-325 mg tablet Other 12/30/2021 valACYclovir (VALTREX) 500 mg tablet valacyclovir 500 mg tablet Take by oral route for 7 days. Other 12/30/2021 vitamin B complex with vitamin C tablet Take 1 tablet by mouth nightly Other 12/30/2021 ticagrelor (Brilinta) 90 mg tablet Brilinta 90 mg tablet Other 12/30/2021 psyllium 0.52 gram capsule take 1 capsule daily Other 08/10/2014 12/30/2021 predniSONE (DELTASONE) 10 mg tablet Take 1 tablet (10 mg) by mouth daily Other 04/13/2019 12/30/2021 pravastatin (PRAVACHOL) 80 mg tablet pravastatin 80 mg tablet Other [address] (NexIUM) 40 mg capsule take 1 capsule by oral route every day Alternate therapy 01/09/2016 01/01/2022 polycarbophil (FIBERCON) 625 mg tablet Take 625 mg by mouth daily Alternate therapy 01/01/2022 lansoprazole (PREVACID) 15 mg capsule Take 20 mg by mouth daily Stop Taking at Discharge 01/02/2022 omega 0-knj-hir-fish oil 1,000 mg (120 mg-180 mg) capsule Take 1 capsule by mouth daily Stop Taking at Discharge 01/02/2022 documented as of this encounter Historical Medications * This list may reflect changes made after this encounter. psyllium 0.52 gram capsule Take 0.52 g by mouth daily vitamin B complex capsule Take 1 capsule by mouth daily acidophilus-pectin , citrus 100 million cell-10 mg capsule Take 2 tablets by mouth esomeprazole DR (NexIUM) 20 mg capsule Take 20 mg by mouth daily before breakfast loratadine 10 mg capsule Take 1 capsule by mouth daily diphenhydrAMINE-ac etaminophen (TYLENOL PM) 25-500 mg tablet Take 2 tablets by mouth nightly aspirin 81 mg chewable tablet Take 81 mg by mouth daily as needed albuterol HFA (PROVENTIL HFA,VENTOLIN HFA,PROAIR HFA) 90 mcg/actuation inhaler Inhale 2 puffs every 6 (six) hours as needed 03/04/20 18 Lactobacillus acidophilus (PROBIOTIC ORAL) Take 1 capsule by mouth daily 08/02/18 70 clobetasoL (TEMOVATE) 0.05 % cream Apply 1 application topically daily as needed 03/04/20 18 metroNIDAZOLE (METROGEL) 0.75 % gel Apply 1 application topically daily sertraline (ZOLOFT) 50 mg tablet Take 50 mg by mouth daily 08/02/18 70 nitroglycerin (NITROSTAT) 0.[address] 0.4 mg under the tongue every 5 (five) minutes as needed omega 4-aip-dvn-fish oil 1,000 mg (120 mg-180 mg) capsule Take 1 capsule by mouth daily lansoprazole (PREVACID) 15 mg capsule Take 20 mg by mouth daily ciprofloxacin (Cipro) 500 mg tablet Cipro 500 mg tablet Take 1 tablet every 12 hours by oral route for 10 days. cephalexin (KEFLEX) 500 mg capsule cephalexin 500 mg capsule benzonatate (TESSALON) 100 mg capsule benzonatate 100 mg capsule amoxicillin-clavul anate (AUGMENTIN) 875-125 mg per tablet amoxicillin 875 mg-potassium clavulanate 125 mg tablet TAKE 1 TABLET BY MOUTH EVERY 12 HOURS WITH FOOD FOR 10 DAYS. CAN BE HARD ON STOMACH cholecalciferol (Vitamin D3) 5,000 unit tablet Vitamin D3 125mcg bid ascorbic acid (vitamin C) 1,000 mg tablet Vitamin C 1000 mg daily vitamin B complex with vitamin C tablet Take 1 tablet by mouth nightly methylPREDNISolone (MEDROL DOSEPACK) 4 mg Dosepack methylprednisolone 4 mg tablets in a dose pack TAKE BY MOUTH DIRECTED PER PACKAGE DIRECTIONS methylPREDNISolone (MEDROL DOSEPACK) 4 mg Dosepack methylprednisolone 4 mg tablets in a dose pack FOLLOW PACKAGE DIRECTIONS psyllium, aspartame, SF (Metamucil Fiber Singles) 3.4 gram packet Take by mouth 03/04/20 18 omega 8-iuu-ice-fish oil (Fish OiL) 100-160-1,000 mg capsule Fish Oil 1 tablet by mouth daily afdtqpzw-xsw-ZH-ly copen-lutein (Centrum Silver) 0.4 mg-300 mcg- 250 mcg tablet Centrum Silver 1 tablet by mouth daily polycarbophil (FIBERCON) 625 mg tablet Take 625 mg by mouth daily calcium carbonate-vitamin D3 1500 mg (600 mg elemental) -200 units per tablet Take by mouth 03/04/20 18 clindamycin (CLEOCIN) 150 mg capsule clindamycin HCl 150 mg capsule citalopram (CeleXA) 10 mg tablet citalopram 10 mg tablet doxycycline (doxycycline hyclate) 100 mg capsule doxycycline hyclate 100 mg capsule TAKE 1 CAPSULE BY MOUTH TWICE DAILY FOR 10 DAYS docusate sodium (COLACE) 100 mg capsule Doc-Q-Lace 100 mg capsule cyclobenzaprine (FLEXERIL) 10 mg tablet cyclobenzaprine 10 mg tablet Take 1 tablet as needed by oral route for 30 days. ferrous sulfate 325 mg (65 mg of elemental iron) tablet ferrous sulfate 325 mg (65 mg iron) tablet HYDROcodone-acetam inophen (NORCO) 5-325 mg per tablet hydrocodone 5 mg-acetaminophen 325 mg tablet TK ONE TO TWO TS PO Q 6 H PRN P levoFLOXacin (LEVAQUIN) 500 mg tablet levofloxacin 500 mg tablet methylPREDNISolone acetate (DEPO-MedroL) 40 mg/mL injection 1 mL daily methylPREDNISolone (MEDROL DOSEPACK) 4 mg Dosepack FOLLOW PACKAGE DIRECTIONS 12/03/19 22 metroNIDAZOLE (FlagyL) 500 mg tablet Flagyl 500 mg tablet Take 1 tablet every 8 hours by oral route for 10 days. nystatin-triamcino lone ointment nystatin-triamcinolone 100,000 unit/gram-0.1 % topical ointment morphine ER (MS CONTIN) 30 mg 12 hr tablet morphine ER 30 mg tablet,extended release ondansetron ODT (ZOFRAN-ODT) 4 mg disintegrating tablet Take 4 mg by mouth every 8 (eight) hours as needed oxyCODONE-acetamin ophen (PERCOCET) 5-325 mg per tablet oxycodone-acetaminophe n 5 mg-325 mg tablet pravastatin (PRAVACHOL) 80 mg tablet pravastatin 80 mg tablet valACYclovir (VALTREX) 500 mg tablet valacyclovir 500 mg tablet Take by oral route for 7 days. ticagrelor (Brilinta) 90 mg tablet Brilinta 90 mg tablet docosahexaenoic acid-epa 120-180 mg capsule Take 1,000 mg by mouth daily added in this encounter Active and Recently Administered Medications Times are shown in CDT. Scheduled Medication Order 12/31/2021 01/01/2022 01/02/2022 ALPRAZolam (XANAX) tablet 0.5 mg (COMPLETED) 0.5 mg, oral, Once, On Vandana 01/01/22 at 2245, For 1 dose 2312 (Given - Provider: Jeffery Solis RN) aspirin enteric coated tablet 81 mg 81 mg, oral, Daily, First dose on Wed01/02/22 at 0900, Recovery (CV), Do not crush, chew, cut, dissolve, open or otherwise manipulate tablet/capsule., Indications: cardiovascular disease 1055 (Given - Provid er: Mook Darnell RN) clopidogreL (PLAVIX) tablet 75 mg 75 mg, oral, Daily, First dose on Wed01/02/22 at 0900, Recovery (CV), Indications: myocardial infarction prevention, cardiovascular disease 1055 (Given - Provid er: Mook Darnell RN) rosuvastatin (CRESTOR) tablet 40 mg 40 mg, oral, Nightly, First dose on Vandana 01/01/22 at 2230 2312 (Given - Provider: Jeffery Solis, CHICHI) sertraline (ZOLOFT) tablet 50 mg 50 mg, oral, Daily, First dose on Wed01/02/22 at 0900 1056 (Given - Provid er: Mook Darnell RN) Continuous Medication Order 12/31/2021 01/01/2022 01/02/2022 sodium chloride 0.9% infusion () 100 mL/hr, intravenous, Continuous, Starting on Vandana 01/01/22 at 1630, For 4 hours, Recovery (CV), Till bag is done 1553 (Rate/Dose Change - Provider: Zeina Gonzalez, CHICHI)2000 (Stopped - Provider: Jeffery Solis RN) PRN Medication Order 12/31/2021 01/01/2022 01/02/2022 acetaminophen (TYLENOL) tablet 650 mg 650 mg, oral, Every 6 hours PRN, 1st line for pain, Starting on Vandana 01/01/22 at 1555 aspirin tablet (CANCELED) As needed, Starting on Vandana 01/01/22 at 1157, Intra-Procedure (CV) 1157 (Given - Provider: Seamus Sinha, CHICHI) bivalirudin (ANGIOMAX) 250 mg in sodium chloride 0.9% 50 mL infusion (COMPLETED) Continuous PRN, Starting on Vandana 01/01/22 at 1112, Intra-Procedure (CV) 1112 (New Bag - Provider: Talon Sinha RN)1158 (Stopped - Provider: Zeina Gonzalez, CHICHI) bivalirudin (ANGIOMAX) injection (CANCELED) As needed, Starting on Vandana 01/01/22 at 1111, Intra-Procedure (CV) 1111 (Given - Provider: Seamus Sinha, CHICHI) clopidogreL (PLAVIX) tablet (CANCELED) As needed, Starting on Vandana 01/01/22 at 1157, Intra-Procedure (CV) 1157 (Given - Provider: Seamus Sinha RN) fentaNYL (SUBLIMAZE) preservative free injection (CANCELED) As needed, Starting on Vandana 01/01/22 at 1106, Intra-Procedure (CV) 1106 (Given - Provider: Seamus Sinha RN)1125 (Given - Provider: Talon Sinha RN)1135 (Given - Provider: Talon Sinha RN) heparin in 0.9% sodium chloride 1,000 units/500 mL (2 unit/mL) infusion (premix) (CANCELED) As needed, Starting on Vandana 6/09/23 at 1059, Intra-Procedure (CV) 1059 (Given - Provider: Frank Frazier MD - Comment: On procedure table for flush solution and pressure transduction) ioversoL (OPTIRAY 350) injection (CANCELED) As needed, Starting on Vandana 6 at 1139, Intra-Procedure (CV) 1139 (Given - Provider: Frank Frazier MD) lidocaine (XYLOCAINE) 10 mg/mL (1 %) injection (CANCELED) As needed, Starting on Vandaan 6 at 1106, Intra-Procedure (CV), Indications: Administration of Local Anesthesia 1106 (Given - Provider: Frank Frazier MD) midazolam (VERSED) 1 mg/mL preservative free injection (CANCELED) Administer over 2 Minutes, As needed, Starting on Vandana 6 at 1106, Intra-Procedure (CV) 1106 (Given - Provider: Seamus Sinha RN)1125 (Given - Provider: Talon Sinha RN) ondansetron (ZOFRAN) injection 4 mg 4 mg, intravenous, Administer over 2 Minutes, Every 6 hours PRN, nausea, vomiting, Starting on Vandana 01/01/22 at 1555 sodium chloride 0.9% infusion (COMPLETED) Continuous PRN, Starting on Vandana 01/01/22 at 1059, Intra-Procedure (CV) 1059 (New Bag - Provider: Talon Sinha, CHICHI)1553 (Stopped - Provider: Zeina Gonzalez RN) documented in this encounter Orders Medications Ordered That Jarret ht Not Have Been Administered Count Last Ordered Date First Ordered Date acetaminophen (TYLENOL) tablet 650 mg 1 09/2021 ondansetron (ZOFRAN) injection 4 mg 1 01/01 Nursing Count Last Ordered Date First Orde red Date DISCHARGE ACTIVITY 4 01/02/2022 DISCHARGE CALL PROVIDER 7 01/02/2022 DISCHARGE DRESSING 1 01/02/2022 DISCHARGE INSTRUCTIONS 1 01/02/2022 FOLLOW UP WITH ESTABLISHED PROVIDER 1 01/02 CORE MEASURES Count Last Ordered Date First Ord ered Date REASON FOR NO VTE PROPHYLAXIS AT ADMISSION 1 01/01/2022 documented in this encounter Care Teams Credit Negotiator Relationship Specialty Start Date End Date Carlee Mtz MD [facility] [place] [address] PCP - General Family Medicine 03/08/20 09/27/22 documented as of this encounter
--- OUTSIDE RECORDS SUMMARY | 2024-07-31 09:17 | XMS_ITS | Encounter Summary ---
Author Organization [facility] Healthcare Address [address] [place] [address] Care Team Providers Care Power Plant Electrician Name Role Phone Frank Frazier MD Unavailable Oscar Lynch MD Primary Care Provider [phone] Reason for Referral * Diagnostic Imaging (Routine) - Closed Specialty Diagnoses / Procedures Referred By Contac t Referred To Contact Diagnoses Screening mammogram, encounter for Procedures Screening Mammogram Bilateral [place] Screening Mammogram, Self [address] [address] Referral ID Status Reason Start Date Expiration Date Visits Re quested Visits Authorized [id number] Closed 09/28/2022 10/28/2023 1 1 * Diagnostic Imaging (Routine) - Closed Specialty Diagnoses / Procedures Referred By Contac t Referred To Contact Diagnoses Screening mammogram, encounter for Procedures Screening Mammogram Bilateral [place] Screening Mammogram, Self [address] [address] Referral ID Status Reason Start Date Expiration Date Visits Re quested Visits Authorized [id number] Closed 09/28/2022 10/28/2023 1 1 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 Reason for Visit * Diagnostic Imaging (Routine) - Closed Specialty Diagnoses / Procedures Referred By Contac t Referred To Contact Diagnoses Screening mammogram, encounter for Procedures Screening Mammogram Bilateral [place] Screening Mammogram, Self [facility] [address] [place] [address] Referral ID Status Reason Start Date Expiration Date Visits Re quested Visits Authorized [id number] Closed 09/28/2022 10/28/2023 1 1 Encounter Details Date Type Department Care Team (Latest Contact Info) Description 11/05/2022 12:50 PM CDT - 11/05/2022 11:59 PM CDT Hospital Encounter [facility] [address] [place] [address] Screening mammogram, encounter for Discharge Disposition: Discharge to home or self [...] on file Legal Sex 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 A 1 year screening mammogram is recommended. BI-RADS: 1 - Negative. The patient has been or will be contacted. The patient will be entered into a reminder system with a target due date of 1 year for her next mammogram. Electronically signed by: Rusty Fontana M.D. Narrative 11/05/2022 1:15 PM CDT EXAMINATION: SCREENING MAMMOGRAM BILATERAL W [place] ORDERING HEALTHCARE PROVIDER: SELF SCREENING MAMMOGRAM HISTORY: Routine screening mammography. COMPARISON: ??08/27/2021, 04/15/2020, 01/16/2016 TECHNIQUE: CC and MLO views of the bilateral breasts were obtained with digital technique using breast tomosynthesis with C view. Computer aided detection was utilized. FINDINGS: DENSITY: There are scattered fibroglandular elements in the bilateral breasts. BREASTS: There are no suspicious masses, suspicious calcifications, or other suspicious findings in either breast. There has been no suspicious interval change. us Self Screening Mammogram IMG MAMMO PROCEDURES Fi nal Result documented in this encounter Visit Diagnoses Diagnosis Screening mammogram, encounter for documented in this encounter Care Teams Power Plant Electrician Relationship Specialty Start Date End Date Oscar Lynch MD PCP - General Family Practice 09/28/22 Frank Frazier MD Consulting Physician Cardiovascular Disease 01/02/22 documented as of this encounter
--- OUTSIDE RECORDS SUMMARY | 2024-07-31 09:17 | XMS_ITS | Encounter Summary ---
Author Organization [facility] Healthcare Address [address] [place] [address] Care Team Providers Care Director Summer Sessions Name Role Phone Carlee Mtz MD Primary Care Provider [phone] Reason for Referral * Diagnostic Imaging (Routine) - Closed Specialty Diagnoses / Procedures Referred By Contac t Referred To Contact Diagnoses Abdominal aortic aneurysm, without rupture Procedures US Abdominal Aorta Kellie Pizano NP Phone: tel: fax: [address] [address] Referral ID Status Reason Start Date Expiration Date Visits Re quested Visits Authorized [id number] Closed 01/21/2021 02/20/2022 1 1 Reason for Visit * Diagnostic Imaging (Routine) - Closed Specialty Diagnoses / Procedures Referred By Contac t Referred To Contact Diagnoses Abdominal aortic aneurysm, without rupture Procedures US Abdominal Aorta Kellie Pizano NP Phone: tel: fax: [address] [address] Referral ID Status Reason Start Date Expiration Date Visits Re quested Visits Authorized [id number] Closed 01/21/2021 02/20/2022 1 1 Encounter Details Date Type Department Care Team (Latest Contact Info) Description 01/29/2021 8:04 AM CDT - 01/29/2021 11:59 PM CDT Hospital Encounter [facility] - Imaging [address] [place] [address] Abdominal aortic aneurysm, without rupture (CMS/HCC) Discharge [...] on file 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 gasseri-B. bifidum-B longum ([facility] [employer]) 1.5 billion cell capsule 0 0 11/06/2013 [...] AORTA Schedule Routine, Read Routine (OP Routine) 01/29/2021 8:57 AM CDT Abdominal aortic aneurysm, without rupture (CMS/HCC) documented in this encounter Results * US Abdominal Aorta (01/29/2021 8:57 AM CDT) Anatomical Region Laterality Modality Abdomen N/A Ultrasound 01/29/2021 9:08 AM CDT Impressions 01/29/2021 9:08 AM CDT 1. There is a 3.2 cm distal abdominal aortic aneurysm. 2. ??Abdominal aortic atherosclerosis. Electronically signed by: Casey Jasmine M.D. Narrative 01/29/2021 9:08 AM CDT EXAM: US ABDOMINAL AORTA CLINICAL HISTORY: Known distal abdominal aortic aneurysm. COMPARISON: Ultrasound of the abdomen dated 04/15/2020. FINDINGS: There is abdominal aortic atherosclerosis. The proximal abdominal aorta measures 2.5 x 2.6 cm. The mid abdominal aorta measures 2.0 x 1.9 cm. The distal abdominal aorta measures 3.2 x 3.0 cm. Distal abdominal aortic aneurysm extends 3.6 cm in length. ??This is similar in appearance the patient's prior study when this measured 3.1 cm in maximum dimension. ??Both common iliac arteries are of normal caliber. No periaortic mass or fluid collection is identified. Procedure Note Casey Jamsine MD - 01/29/2021 EXAM: US ABDOMINAL AORTA CLINICAL HISTORY: Known distal abdominal aortic aneurysm. COMPARISON: Ultrasound of the abdomen dated 04/15/2020. FINDINGS: There is abdominal aortic atherosclerosis. The proximal abdominal aorta measures 2.5 x 2.6 cm. The mid abdominal aorta measures 2.0 x 1.9 cm. The distal abdominal aorta measures 3.2 x 3.0 cm. Distal abdominal aortic aneurysm extends 3.6 cm in length. This is similar in appearance the patient's prior study when this measured 3.1 cm in maximum dimension. Both common iliac arteries are of normal caliber. No periaortic mass or fluid collection is identified. IMPRESSION: 1. There is a 3.2 cm distal abdominal aortic aneurysm. 2. Abdominal aortic atherosclerosis. Electronically signed by: Casey Jasmine M.D. Kellie Pizano NP [facility] US PROCEDURES Final Result documented in this encounter Visit Diagnoses Diagnosis Abdominal aortic aneurysm, without rupture documented in this encounter Care Teams Director Summer Sessions Relationship Specialty Start Date End Date Carlee Mtz MD [facility] [place] [address] PCP - General Family Medicine 03/08/20 09/27/22 documented as of this encounter
--- OUTSIDE RECORDS SUMMARY | 2024-07-31 09:17 | XMS_ITS | Encounter Summary ---
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 Gender Identity Not on file Sexual Orientation Not on file documented as of this encounter Discharge Disposition Disposition Code Departure Means Destination Discharge to home or self care documented in this encounter Plan of Treatment Not on file documented as of this encounter Procedures Procedure Name Priority Date/Time Associated Diagnosis Comments EGFR Routine 12/13/2021 11:39 AM CDT DIFFERENTIAL AUTO Routine 12/13/2021 11: 39 AM CDT CBC WITH AUTO DIFFERENTIAL Routine 12/13/2021 11:39 AM CDT PROTIME-INR Routine 12/13/2021 11:39 AM CDT LIPID PANEL Routine 12/13/2021 11:39 AM CDT BASIC METABOLIC PANEL Routine 12/13/2021 11:39 AM CDT documented in this encounter Results * eGFR (12/13/2021 11:39 AM CDT) Pathologist [facility] eGFR 96 mL/min/1. 73 m2 [facility] ([facility]) Comment: Interpretive Data Reference Interval Normal ?>/= [...] interpretive data was last reviewed 2021. Blood 12/13/2021 11:3 9 AM CDT 12/13/2021 12:06 PM CDT us Frank Frazier MD LAB BLOOD ORDERABLES Final Resul t [facility] ([facility]) 1 [facility] Department [place] [address] * Differential, auto (12/13/2021 11:39 AM CDT) Neutrophil abs 5.1 1.7 - 6.5 K/cumm [facility] ([facility]) Imm gran abs 0.1 0.0 - 0.1 K/cumm [facility] ([facility]) Lymphocyte abs 1.8 0.8 - 3.3 K/cumm [facility] ([facility]) Monocyte abs 0.7 0.2 - 0.8 K/cumm [facility] ([facility]) Eosinophil abs 0.5 0.0 - 0.5 K/cumm [facility] ([facility]) Basophil abs 0.1 0.0 - 0.1 K/cumm [facility] ([facility]) Neutrophil pct 62.4 % [facility] ([facility] Comment: Interpretive Data Percent cell count reference ranges are not reported, since discordance with absolute values may lead to misinterpretation of CBC data. Current Interpretive Data was last revised on 2017. Imm gran pct 0.7 % [facility] ([facility]) Comment: Interpretive Data Percent cell count reference ranges are not reported, since discordance with absolute values may lead to misinterpretation of CBC data. Current Interpretive Data was last revised on 2017. Lymphocyte pct 22.3 % [facility] ([facility]) Comment: Interpretive Data Percent cell count reference ranges are not reported, since discordance with absolute values may lead to misinterpretation of CBC data. Current Interpretive Data was last revised on 2017. Monocyte pct 8.0 % [facility] ([facility] Comment: Interpretive Data Percent cell count reference ranges are not reported, since discordance with absolute values may lead to misinterpretation of CBC data. Current Interpretive Data was last revised on 2017. Eosinophil pct 6.0 % [facility] ([facility] Comment: Interpretive Data Percent cell count reference ranges are not reported, since discordance with absolute values may lead to misinterpretation of CBC data. Current Interpretive Data was last revised on 2017. Basophil pct 0.6 % [facility] ([facility]) Comment: Interpretive Data Percent cell count reference ranges are not reported, since discordance with absolute values may lead to misinterpretation of CBC data. Current Interpretive Data was last revised on 2017. Blood 12/13/2021 11:3 9 AM CDT 12/13/2021 12:06 PM CDT Frank Frazier MD LAB BLOOD ORDERABLES Final Resul t Performing Organization Address City/[facility]/ZIP Co de Phone Number [facility] ([facility] 1 [facility] [place] [place] [address] * Protime-INR (12/13/2021 11:39 AM CDT) PT 12.7 9.5 - 13.6 sec [facility]) INR 1.1 0.9 - 1.2 [facility]) Comment: Interpretive data Oral anticoagulant therapeutic ranges: Venous thromboembolism prophylaxis or treatment: 2.0-3.0 CARDIOLOGY Standard range: 2.0-3.0 High-intensity range: 2.5-3.5 Refer to indication-specific guidelines for appropriate target ranges for prosthetic heart valve replacement. Current interpretive data was last revised on 2019. Blood 12/13/2021 11:3 9 AM CDT 12/13/2021 12:06 PM CDT Frank Frazier MD LAB BLOOD ORDERABLES Final Resul t [facility] ([facility] 1 [facility] [place] [place] [address] * (ABNORMAL) Lipid panel (12/13/2021 11:39 AM CDT) Cholesterol 125 30 - 199 mg/dL [facility] ([facility]) Comment: Interpretive Data Ages < or = 19 years ??Acceptable: ? <170 mg/dL ??Borderline high: ??170-199 mg/dL ??High: ? >or= 200 mg/dL Ages > or = 20 years ??Desirable: ?<200 mg/dL ??Borderline high: ??200-239 mg/dL ??High: ? >or= 240 mg/dL Literature References: 1. Expert Panel on Integrated Guidelines for Cardiovascular Health and Risk Reduction in Children and Adolescents. Pediatrics 2011;128:S213 2. NCEP Expert Panel. Circulation 2004;110:227 Current Interpretive Data was last revised on 2018. Triglycerides 185(H) <=149 mg/dL [facility]) Comment: Interpretive Data Ages < or = 9 years ??Acceptable: ? <75 mg/dL ??Borderline high: ??75-99 mg/dL ??High: ? >or= 100 mg/dL Ages 10 to 20 years ??Acceptable: ? <90 mg/dL ??Borderline high: ??90-129 mg/dL ??High: ? >or= 130 mg/dL Ages > or = 20 years ??Desirable: ?<150 mg/dL ??Borderline high: ??150-199 mg/dL ??High: ? 200-499 mg/dL ?Very high: ?? >or= 499 mg/dL Literature References: 1. Expert Panel on Integrated Guidelines for Cardiovascular Health and Risk Reduction in Children and Adolescents. Pediatrics 2011;128:S213 2. NCEP Expert Panel. Circulation 2004;110:227 Current Interpretive Data was last revised on 2018. HDL 50 >=40 mg/dL [facility]) Comment: Interpretive Data Ages < or = 19 years ??Acceptable: ? >45 mg/dL ??Borderline low: ?? 40-45 mg/dL ??Low: ? <40 mg/dL Ages > or = 20 years ??Desirable: ?>or= 60 mg/dL ??Low: ? <40 mg/dL Literature References: 1. Expert Panel on Integrated Guidelines for Cardiovascular Health and Risk Reduction in Children and Adolescents. Pediatrics 2011;128:S213 2. NCEP Expert Panel. Circulation 2004;110:227 Current Interpretive Data was last revised on 2018. LDL, calculated 38 <=129 mg/dL [facility] ([facility]) Comment: Interpretive Data Ages < or = 19 years ??Acceptable: ? <110 mg/dL ??Borderline high: ??110-129 mg/dL ??High: ?>or= 130 mg/dL Ages > or = 20 years ??Optimal: ? <100 mg/dL ??Near optimal: ?100-129 mg/dL ??Borderline high: ?? 130-159 mg/dL ??High: ?>160 mg/dL Literature References: 1. Expert Panel on Integrated Guidelines for Cardiovascular Health and Risk Reduction in Children and Adolescents. Pediatrics 2011;128:S213 2. NCEP Expert Panel. Circulation 2004;110:227 Current Interpretive Data was last revised on 2018. Non-HDL Cholesterol 75 mg/dL [facility] ([facility]) Comment: Interpretive Data Ages < or = 19 years ??Acceptable: ?<120 mg/dL ??Borderline high: ??120-144 mg/dL ??High: ?>145 mg/dL Ages > or = 20 years ??When triglycerides are >200 mg/dL, Non-HDL cholesterol is a secondary target of ? therapy with treatment goals that are 30 mg/dL greater than the LDL cholesterol target. ? Literature References: 1. Expert Panel on Integrated Guidelines for Cardiovascular Health and Risk Reduction in Children and Adolescents. Pediatrics 2011;128:S213 2. NCEP Expert Panel. Circulation 2004;110:227 Current Interpretive Data was last revised on 2018. Chol/HDL ratio 2 [facility] ([facility]) Blood 12/13/2021 11:3 9 AM CDT 12/13/2021 12:06 PM CDT us Frank Frazier MD LAB BLOOD ORDERABLES Final Resul t [facility] ([facility] 1 [facility] Department [place] [address] * CBC with auto differential (12/13/2021 11:39 AM CDT) WBC 8.2 3.8 - 9.9 K/cumm [facility] ([facility]) Hgb 13.9 11.9 - 15.5 g/dL [facility] ([facility]) Hct 42.3 35.6 - 45.5 % [facility] ([facility]) Plt 208 150 - 400 K/cumm [facility] ([facility]) MPV 10.3 9.1 - 12.3 fL [facility] ([facility]) RBC 4.60 3.90 - 5.20 M/cumm [facility] ([facility]) MCV 92.0 81.3 - 96.4 fL [facility]) MCH 30.2 27.1 - 33.3 pg [facility] MCHC 32.9 32.3 - 35.7 g/dL [facility]) RDW CV 13.6 11.1 - 14.9 % [facility] RDW SD 46.2 35.7 - 48.1 fL [facility]) NRBC abs 0.00 0.00 - 0.01 K/cumm [facility] ([facility]) Blood 12/13/2021 11:3 9 AM CDT 12/13/2021 12:06 PM CDT us Frank Frazier MD LAB BLOOD ORDERABLES Final Resul t [facility] ([facility]) 1 [facility] Department [place] [address] * Basic metabolic panel (12/13/2021 11:39 AM CDT) Sodium 139 135 - 145 mmol/L [facility] ([facility]) Potassium, pl 4.5 3.3 - 4.9 mmol/L [facility]) Chloride 105 97 - 110 mmol/L [facility] CO2 25 22 - 32 mmol/L [facility] Anion gap 10 2 - 15 mmol/L [facility]) BUN 10 8 - 25 mg/dL [facility]) Creatinine 0.68 0.60 - 1.10 mg/dL [facility]) Glucose 91 70 - 199 mg/dL [facility] ([facility]) Comment: Interpretive Data Fasting glucose >/= 126 [...] interpretive data was last revised 2017. Calcium 9.1 8.5 - 10.3 mg/dL [facility] Blood 12/13/2021 11:3 9 AM CDT 12/13/2021 12:06 PM CDT us Frank Frazier MD LAB BLOOD ORDERABLES Final Resul t [facility] ([facility]) 1 [facility] Department [place] [address] documented in this encounter Visit Diagnoses Not on filedocumented in this encounter Care Teams Edgerman Relationship Specialty Start Date End Date Carlee Mtz MD [facility] [place] [address] PCP - General Family Medicine 03/08/20 09/27/22 documented as of this encounter
--- OUTSIDE RECORDS SUMMARY | 2024-07-31 09:17 | XMS_ITS | Encounter Summary ---
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
--- OUTSIDE RECORDS SUMMARY | 2024-07-31 09:17 | XMS_ITS | Encounter Summary ---
Author Organization [facility] Healthcare Address [address] [place] [address] Care Team Providers Care Wood Getter Name Role Phone Carlee Mtz MD Primary Care Provider [phone] Frank Frazier MD Unavailable Oscar Lynch MD Primary Care Provider [phone] Reason for Visit * Reason Onset Date Comments Scheduling Appointments 08/26/2021 no answe r for dexa reminder Encounter Details Date Type Department Care Team (Late st Contact Info) Description 08/26/2021 Telephone [facility] [address] [place] [phone] Jacqueline Thompson RT Scheduling Appointments (no answer for dexa reminder) Social History Tobacco Use Types Packs/Day Years [...] on file 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 Gender Identity Not on file Sexual Orientation Not on file documented as of this encounter Plan of Treatment Not on file documented as of this encounter Visit Diagnoses Not on filedocumented in this encounter Care Teams Wood Getter Relationship Specialty Start Date End Date Carlee Mtz MD [address] [place] [address] [place] [address] PCP - General Family Medicine 03/08/20 09/27/22 Oscar Lynch MD [address] [place] [address] [place] [address] PCP - General Family Practice 09/28/22 Frank Frazier MD [address] [place] [address] [place] [address] Consulting Physician Cardiovascular Disease 01/02/22 documented as of this encounter
--- OUTSIDE RECORDS SUMMARY | 2024-07-31 09:17 | XMS_ITS | Encounter Summary ---
Author Organization [facility] Healthcare Address [address] [place] [address] Care Team Providers Care Door Tender Name Role Phone Carlee Mtz MD Primary Care Provider [phone]- [phone] Reason for Referral * Diagnostic Imaging (Routine) - Closed Specialty Diagnoses / Procedures Referred By Michelle jaime Referred To Contact Diagnoses Encounter for screening mammogram for malignant neoplasm of breast Procedures Screening Mammogram Bilateral [place] Screening Mammogram, Self [address] [address] Referral ID Status Reason Start Date Expiration Date Visits Re quested Visits Authorized [id number] Closed 07/28/2021 08/27/[address] Reason for Visit * Diagnostic Imaging (Routine) - Closed Specialty Diagnoses / Procedures Referred By Michelle jaime Referred To Contact Diagnoses Encounter for screening mammogram for malignant neoplasm of breast Procedures Screening Mammogram Bilateral [place] Screening Mammogram, Self [address] [address] Referral ID Status Reason Start Date Expiration Date Visits Re quested Visits Authorized [id number] Closed 07/28/2021 08/27/2022 1 1 Encounter Details Date Type Department Care Team (Latest Contact Info) Description 08/27/2021 7:[address] - 08/27/2021 11:[address] Hospital Encounter [facility] [address] [place] [id number] Screening Mammogram, Self Encounter for screening mammogram for malignant neoplasm [...] on file Legal Sex Female 8:[address] Gender Identity Not on file Sexual Orientation [...] 1 capsule by mouth daily 08/02/1969 omega 6-kxx-peu-fish oil (FISH OIL) 100-160-1,000 mg capsule 0 [...] 1 04/13/2019 2 L. gasseri-B. bifidum-B longum ([employer]) 1.5 billion cell capsule 0 0 11/06/2013 [...] [facility] Schedule Routine, Read Routine (OP Routine) 08/27/2021 8:[address] Encounter for screening mammogram for malignant neoplasm of breast documented in this encounter Results * Screening Mammogram Bilateral [place] (08/27/2021 8:[address]) Anatomical Region Laterality Modality Breast Bilateral Mammography 08/27/2021 12:[address] Impressions 08/27/2021 12:[address] There is no mammographic evidence of malignancy. Routine screening mammography is recommended in 1 year. BI-RADS: 1 - Negative. The patient will be entered into a reminder system with a target due date of 1 year for her next mammogram. Electronically signed by: Indio Morrell M.D. Narrative 08/27/2021 12:[address] EXAMINATION: SCREENING MAMMOGRAM BILATERAL [facility] [place] ORDERING HEALTHCARE PROVIDER: SELF SCREENING MAMMOGRAM HISTORY: Routine screening mammography. COMPARISON: ??04/15/2020, 01/16/2016, 07/11/2012. TECHNIQUE: CC and MLO views of the [...] breast documented in this encounter Care Teams Door Tender Relationship Specialty Start Date End Date Carlee Mtz MD [address] [place] [address] [place] [address] PCP - General Family Medicine 03/08/20 09/27/22 documented as of this encounter
--- OUTSIDE RECORDS SUMMARY | 2024-07-31 09:17 | XMS_ITS | Encounter Summary ---
Author Organization [facility] Address [address] [place] [address] Care Team Providers Care Manager Media Relations Name Role Phone Kellie Pizano NP Primary Care Provider [phone] Reason for Visit * Consultation (Routine) - Canceled Specialty Diagnoses / Procedures Referred By Michelle jaime Referred To Contact Otolaryngology Diagnoses Localized swelling, mass or lump of neck Kellie Pizano NP Phone: tel: fax: Keyla Alexander DO [address] LORRAINE Hager [facility] [address] [place] [address] Phone: tel: fax: Referral ID Status Reason Start Date Expiration Date Visits Requested Visits Authorized [id number] Canceled Specialty Services Required 12/14/2019 06/24/2021 1 1 Encounter Details Date Type Department Care Team (Late st Contact Info) Description 01/08/2020 11:30 AM CDT Office Visit [facility] ENT Specialists - [facility] [address] [place] [id number] Keyla Alexander DO [address] [place] [address] DR LORRAINE Hager [facility] [address] [place] [address] Mass of right parotid gland (Primary Dx) Social History Tobacco Use Types Packs/Day Years [...] on file 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 Gender Identity Not on file Sexual Orientation Not on file documented as of this encounter Last Filed Vital Signs Vital Sign Reading Time Taken Comments Blood Pressure 139/81 01/08/2020 11:41 AM CDT Pulse 74 01/08/2020 11:41 AM CDT Temperature 36.1 ??C (96.9 ??F) 01/08/2020 1 1:41 AM CDT Respiratory Rate - - Oxygen Saturation - - Inhaled Oxygen Concentration - - Weight 106.5 kg (234 lb 12.8 oz) 2019 11:41 AM CDT Height 162.6 cm (5' 4 ) 01/08/2020 11:4 1 AM CDT Body Mass Index 40.3 01/08/2020 11:41 AM CDT documented in this encounter Patient Instructions * Patient Instructions* Keyla Alexander DO - 01/08/2020 11:30 AM CDT Fine needle aspiration of Right Parotid Mass - Call with results documented in this encounter Progress Notes * Keyla Alexander DO - 01/08/2020 11:30 AM CDT Images from the original note were not included. ENT Consult Reason for Consult: Parotid mass Requesting Provider: Kellie Pizano NP SUBJECTIVE: Patient is a 64 y.o. female with chief complaint of parotid. HPI: Desiree reported location of complaint was right parotid. This compliant quality was reported as constant and has a severity of moderate. The duration of this complaint was the last September. Onset of this problems was September and was associated with left superficial parotidectomy at [facility] over 8 years ago, Benign - pleomorphic adenoma. FH: 09/27/2019: US Head and Neck FINDINGS: In the lower portion of the [...] glands after a period of 4-6 months. ?? Electronically signed by: Pili Mackey M.D. Past Medical History: Diagnosis Date ??? Cardiovascular disease Coronary artery disease ??? Gastroesophageal reflux disease GERD ??? 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 HX OTHER MEDICAL Dyslipidemia ??? HX OTHER MEDICAL renal cyst ??? HX OTHER MEDICAL ventral hernia ??? Hyperlipidemia Hyperlipidemia ??? Hypertension Hypertension Patient Active Problem List Diagnosis ??? Hypertension ??? Chronic ischemic heart disease ??? Hyperlipidemia ??? Obstructive sleep apnea syndrome ??? SIRS (systemic inflammatory response syndrome) (CMS/HCC) ??? History of tobacco use ??? GERD (gastroesophageal reflux disease) ??? Anxiety ??? Community acquired pneumonia of right lung ??? Pulmonary congestion ??? Mass of right parotid gland Past Surgical History: Procedure Laterality Date ??? CHOLECYSTECTOMY Cholecystectomy ??? OTHER SURGICAL HISTORY heart stents x 2 ??? OVARIAN CYST REMOVAL ovarian cyst removal ??? TONSILLECTOMY Tonsillectomy ??? TUBAL LIGATION Bilateral tubal ligation Social History Tobacco Use ??? Smoking status: Smoker, Current Status Unknown ??? Smokeless tobacco: Never Used ??? Tobacco comment: Smokes 1-1 1/2 packs a week but not daily. Substance Use Topics ??? Alcohol use: Yes ??? Drug use: Not on file Family History Problem Relation Age of Onset ??? Other Mother Aplastic anemia; ??? Other Father Cancer -epiglotitis; /Cancer - epiglottis; ??? Asthma Sister Asthma; ??? Other Sister obese; Current Outpatient Medications on File Prior to Visit Medication Sig Dispense Refill ??? acetaminophen (TYLENOL) 325 mg tablet take 1 tablet by oral route every 4 hours as needed 0 0 ??? ALPRAZolam (XANAX) 0.5 mg tablet Take one by mouth one time per day 30 0 ??? betamethasone dipropionate (DIPROLENE) 0.05 % cream apply by topical route every day a thin layer to the affected area(s) (Patient taking differently: 0.75 % ) 0 0 ??? calcium carbonate-vitamin D3 (CALCIUM 600 + D,3,) 600 mg calcium- 200 unit capsule take 1 capsule a day 0 0 ??? cholecalciferol (VITAMIN D3) 1,000 unit capsule take 1 Capsule by Oral route once 0 0 ??? clopidogrel (PLAVIX) 75 mg tablet Take 50 mg by mouth daily ??? dilTIAZem CD (CARTIA XT) 240 mg 24 hr capsule take 1 capsule by oral route every day 0 0 ??? docosahexanoic acid-epa (FISH OIL) 120-180 mg capsule 0 0 ??? furosemide (LASIX) 40 mg tablet Take 1 tablet (40 mg total) by mouth daily (Patient taking differently: Take 40 mg by mouth daily PRN) 30 tablet 1 ??? Lactobacillus acidophilus (PROBIOTIC) 10 billion cell capsule take 1 daily 0 0 ??? levalbuterol (XOPENEX HFA) 45 mcg/actuation inhaler inhale 2 puff by inhalation route every 6 hours 0 Inhaler 0 ??? nitroglycerin (NITROLINGUAL) 400 mcg/spray spray 1-2 sprays under the tongue prn, max 3 sprays in 15 minutes. 1 3 ??? omeprazole (PriLOSEC) 20 mg capsule Take 20 mg by mouth 2 (two) times a day ??? rosuvastatin (CRESTOR) 20 mg tablet take 1 tablet by oral route every day 0 0 ??? traMADol (ULTRAM) 50 mg tablet take 1 - 2 Tablet by oral route every 6 hours for pain 0 0 ??? azithromycin (ZITHROMAX) 500 mg tablet Take 1 tablet (500 mg total) by mouth daily (Patient nottaking: Reported on 01/08/2020) 2 tablet 0 ??? esomeprazole DR (NexIUM) 40 mg capsule take 1 capsule by oral route every day (Patient not taking: Reported on 01/08/2020) 0 0 ??? L. gasseri-B. bifidum-B longum ([place]) 1.5 billion cell capsule (Patient not taking: Reported on 01/08/2020) 0 0 ??? omega 0-ewv-hxu-fish oil (FISH OIL) 100-160-1,000 mg capsule (Patient not taking: Reported on 01/08/2020) 0 0 ??? predniSONE (DELTASONE) 10 mg tablet Take 1 tablet (10 mg) by mouth daily (Patient not taking: Reported on 01/08/2020) 14 tablet 0 ??? psyllium 0.52 gram capsule take 1 capsule daily (Patient not taking: Reported on 01/08/2020) 0 0 No current facility-administered medications on file prior to visit. Allergies Allergen Reactions ??? Marin Inhibitors ??? Adhesive Tape-Silicones ??? Atenolol ??? Beta-Blockers (Beta-Adrenergic Blocking Agts) ??? Latex ??? Sulfa (Sulfonamide Antibiotics) ??? Sulfanilamide ??? Terfenadine ??? Chromium Other (See comments) REDNESS SKIN IRRITATION OBJECTIVE: Vitals BP 139/81 (BP Location: Left arm, Patient Position: Sitting) Pulse 74 Temp 36.1 ??C (96.9 ??F) (Temporal) Ht 162.6 cm (5' 4 ) Wt 106.5 kg (234 lb 12.8 oz) BMI 40.30 kg/m?? Review of Systems Constitutional: Negative. Negative for chills, fatigue and fever. HENT: Negative. Negative for congestion, ear discharge, ear pain, hearing loss, nosebleeds, sinus pressure, sore throat, tinnitus, trouble swallowing and voice change. Eyes: Negative. Negative for pain and discharge. Respiratory: Negative for apnea, cough, choking, shortness of breath, wheezing and stridor. Cardiovascular: Negative for chest pain, palpitations and leg swelling. Gastrointestinal: Negative for abdominal pain, constipation, nausea and vomiting. Negative for Heartburn, trouble swallowing foods or liquids Endocrine: Negative. Negative for cold intolerance and heat intolerance. Musculoskeletal: Negative. Negative for arthralgias, joint swelling, myalgias, neck pain and neck stiffness. Skin: Negative. Negative for color change, rash and wound. Negative for new skin lesions Allergic/Immunologic: Negative. Negative for environmental allergies and food allergies. Neurological: Negative. Negative for dizziness, syncope, speech difficulty, light-headedness and headaches. Hematological: Negative. Negative for adenopathy. Does not bruise/bleed easily. Psychiatric/Behavioral: Negative for agitation, behavioral problems and dysphoric mood. The patientis not nervous/anxious. Physical Exam Constitutional: She is oriented to person, place, and time. She appears well- developed. She is cooperative. No distress. HENT: Head: Normocephalic and atraumatic. Right Ear: Hearing, tympanic membrane, external ear and ear canal normal. Left Ear: Hearing, tympanic membrane, external ear and ear canal normal. Nose: Mucosal edema present. No rhinorrhea, sinus tenderness or nasal deformity. Mouth/Throat: Uvula is midline, oropharynx is clear and moist and mucous membranes are normal. No oral lesions. Left neck s/p parotidectomy, well healed scar Eyes: Pupils are equal, round, and reactive to light. Conjunctivae and lids are normal. Neck: Trachea normal and full passive range of motion without pain. Neck supple. Cardiovascular: No edema, no JVD, normal distal perfusion Pulmonary/Chest: Effort normal. No respiratory distress. No cough, wheezing or stridor Abdominal: Normal appearance. Musculoskeletal: Normal range of motion. Left shoulder: Normal. Lymphadenopathy: She has no cervical adenopathy. Neurological: She is alert and oriented to person, place, and time. No cranial nerve deficit. Coordination and gait normal. Skin: Skin is warm and dry. No rash noted. Nails show no clubbing. Psychiatric: Her speech is normal and behavior is normal. Examination of the pharynx with use of the laryngeal mirror was not able to be performed due to patient discomfort Neck: no palpable abnormality of submandibular or parotid gland on the right side, well healed parotidectomy scar on the left Facial Nerve strength intact and symmetric Assessment & Plan: Diagnoses and all orders for this visit: Mass of right parotid gland (Primary) Assessment & Plan: Fine needle aspiration of Right Parotid Mass - call with results Orders: - US Guided Fine Needle Aspiration 1st Lesion; Future Keyla Schinkel, DO documented in this encounter Miscellaneous Notes * Assessment & Plan Note - Keyla Alexander DO - 01/08/2020 12:18 PM CDT Associated Problem(s): Mass of right parotid gland Fine needle aspiration of Right Parotid Mass - call with results documented in this encounter Plan of Treatment Not on file documented as of this encounter Visit Diagnoses Diagnosis Mass of right parotid gland- Primary documented in this encounter Historical Medications * This list may reflect changes made after this encounter. omeprazole (PriLOSEC) 20 mg capsule Take 20 mg by mouth 2 (two) times a day 12/30/2021 added in this encounter Care Teams Manager Media Relations Relationship Specialty Start Date End Date Kellie Pizano NP PCP - General 02/27/15 03/07/20 documented as of this encounter
--- OUTSIDE RECORDS SUMMARY | 2024-07-31 09:17 | XMS_ITS | Encounter Summary ---
Author Organization 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
--- OUTSIDE RECORDS SUMMARY | 2024-07-31 09:17 | XMS_ITS | Encounter Summary ---
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 Gender Identity Not on file Sexual Orientation Not on file documented as of this encounter Discharge Disposition Disposition Code Departure Means Destination Discharge to home or self care documented in this encounter Plan of Treatment Not on file documented as of this encounter Procedures Procedure Name Priority Date/Time Associated Diagnosis Comments EGFR Routine 04/15/2020 8:51 AM CDT LIPID PANEL Routine 04/15/2020 8:51 AM CDT COMPREHENSIVE METABOLIC PANEL Routine 04/15/2020 8:51 AM CDT documented in this encounter Results * eGFR (04/15/2020 8:51 AM CDT) eGFR 92 mL/min/1.7 3 m2 [facility] ([facility]) Comment: Interpretive Data Reference Interval Normal ?>/= 90 mL/min/1.73m2 Mildly decreased* ? 60 - 89 mL/min/1.73m2 Mildly to moderately decreased ?45 - 59 mL/min/1.73m2 Moderately to severely decreased ??30 - 44 mL/min/1.73m2 Severely decreased ?15 - 29 mL/min/1.73m2 Kidney Failure ?< 15 ??mL/min/1.73m2 *Relative to young adult level If -Haitian multiply value by 1.16. Estimated glomerular filtration rate is determined by the CKD-EPI equation recommended by the National Kidney Foundation (KDIGO 2012 Clinical Practice Guideline for the Evaluation and Management of Chronic Kidney Disease. Kidney Intnl Suppl Aug 2012;3:1). The CKD-EPI equation should not be used for patients with unstable renal function and has not been validated in children and those over 70. Current interpretive data was last reviewed 2016. Blood specimen (specimen) 04/15/2020 8:51 AM CDT 04/15/2020 9:28 AM CDT us Kellie Pizano NP LAB BLOOD ORDERABLES Final Res ult [facility] ([facility]) [address] Department [place] [address] * Comprehensive metabolic panel (04/15/2020 8:51 AM CDT) Sodium 139 135 - 145 mmol/L [facility] ([facility]) Potassium, pl 3.8 3.3 - 4.9 mmol/L [facility] ([facility]) Chloride 103 97 - 110 mmol/L [facility] ([facility]) CO2 24 22 - 32 mmol/L [facility] ([facility]) Anion gap 12 2 - 15 mmol/L [facility] ([facility]) BUN 11 8 - 25 mg/dL [facility] ([facility]) Creatinine 0.67 0.60 - 1.10 mg/dL [facility] ([facility]) Glucose 95 70 - 199 mg/dL [facility] ([facility]) [...] interpretive data was last revised 2017. Calcium 9.6 8.5 - 10.3 mg/dL [facility] ([facility]) Bilirubin, total 0.5 0.1 - 1.2 mg/dL [facility] ([facility]) Protein, pl 7.4 6.5 - 8.5 g/dL [facility] ([facility]) Albumin 4.4 3.5 - 5.0 g/dL [facility] ([facility]) Alk phos 57 40 - 130 Units/L [facility] ([facility]) ALT 22 7 - 45 Units/L [facility] ([facility]) AST 23 10 - 45 Units/L [facility] ([facility]) Blood specimen (specimen) 04/15/2020 8:51 AM CDT 04/15/2020 9:28 AM CDT Narrative [facility] ([facility]) - 04/15/2020 10:11 AM CDT fax results to [phone] us Kellie Pizano NP LAB BLOOD ORDERABLES Final Res ult [facility] ([facility]) [address] Department [place] [address] * (ABNORMAL) Lipid panel (04/15/2020 8:51 AM CDT) Cholesterol 141 30 - 199 mg/dL [facility] ([facility]) [...] Data was last revised on 2018. Triglycerides 226(H) <=149 mg/dL [facility] ([facility]) Comment: Interpretive Data [...] Data was last revised on 2018. HDL 45 >=40 mg/dL [facility] ([facility]) Comment: Interpretive Data [...] was last revised on 2018. LDL, calculated 51 <=129 mg/dL [facility] ([facility]) Comment: Interpretive Data Ages < or [...] was last revised on 2018. Non-HDL Cholesterol 96 mg/dL [facility] ([facility]) Comment: Interpretive Data Ages < or [...] was last revised on 2018. Chol/HDL ratio 3 [facility] ([place] [facility]) Blood specimen (specimen) 04/15/2020 8:51 AM CDT 04/15/2020 9:28 AM CDT us Kellie Pizano NP LAB BLOOD ORDERABLES Final Res ult [facility] ([place]) [address] Department [place] [address] documented in this encounter Visit Diagnoses Not on filedocumented in this encounter Care Teams Oil Lease Buyer Relationship Specialty Start Date End Date Carlee Mtz MD [facility] [place] [address] PCP - General Family Medicine 03/08/20 09/27/22 documented as of this encounter
--- OUTSIDE RECORDS SUMMARY | 2024-07-31 09:17 | XMS_ITS | Encounter Summary ---
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 Gender Identity Not on file Sexual Orientation Not on file documented as of this encounter Plan of Treatment Not on file documented as of this encounter Visit Diagnoses Diagnosis CAD (coronary artery disease)- Primary Coronary atherosclerosis of unspecified type of vessel, [place] or graft documented in this encounter Orders Case Request Count Last Ordered Date First Orde red Date 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
--- OUTSIDE RECORDS SUMMARY | 2024-07-31 09:17 | XMS_ITS | Encounter Summary ---
Author Organization [facility] Healthcare Address [address] [place] [address] Care Team Providers Care Biometric Technician Name Role Phone Frank Frazier MD Unavailable Oscar Lynch MD Primary Care Provider [phone] Reason for Referral * MRI/CAT/PET Scan (Routine) - Closed Specialty Diagnoses / Procedures Referred By Contac t Referred To Contact Radiology Diagnoses Personal history of nicotine dependence Procedures CT Lung Cancer Screening Oscar Lynch MD Phone: tel: fax: [address] [phone] Referral ID Status Reason Start Date Expiration Date Visits Re quested Visits Authorized [id number] Closed 09/28/2022 10/28/2023 1 1 Reason for Visit * MRI/CAT/PET Scan (Routine) - Closed Specialty Diagnoses / Procedures Referred By Contac t Referred To Contact Radiology Diagnoses Personal history of nicotine dependence Procedures CT Lung Cancer Screening Oscar Lynch MD Phone: tel: fax: [address] [phone] Referral ID Status Reason Start Date Expiration Date Visits Re quested Visits Authorized [id number] Closed 09/28/2022 10/28/2023 1 1 Encounter Details Date Type Department Care Team (Latest Contact Info) Description 11/05/2022 12:50 PM CDT - 11/05/2022 11:59 PM CDT Hospital Encounter [facility] [address] [place] [address] Personal history of nicotine dependence Discharge Disposition: [...] on file 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 Gender Identity Not on file Sexual Orientation Not on file documented as of this encounter Last Filed Vital Signs Vital Sign Reading Time Taken Comments Blood Pressure - - Pulse - - Temperature - - Respiratory Rate - - Oxygen Saturation - - Inhaled Oxygen Concentration - - Weight 107.5 kg (237 lb) 11/05/2022 1:35 PM CDT Height 162.6 cm (5' 4 ) 11/05/2022 1:35 PM CDT Body Mass Index 40.68 11/05/2022 1:35 PM CDT documented in this encounter Medications [...] every 5 (five) minutes as needed omega 2-icd-dxk-fish oil (FISH OIL) 100-160-1,000 mg capsule 0 [...] SCREENING Schedule Routine, Read Routine (OP Routine) 11/05/2022 1:35 PM CDT Personal history of nicotine dependence documented in this encounter Results * CT Lung Cancer Screening (11/05/2022 1:35 PM CDT) Anatomical Region Laterality Modality Chest N/A Computed Tomogra phy 11/08/2022 7:18 AM CDT Narrative 11/08/2022 7:22 AM CDT EXAM DESCRIPTION: ?? CT LUNG CANCER SCREENING REASON FOR STUDY: Screening CT of the chest in a ?? former ??smoker with a ??40 ?? pack year smoking history. Additional history: History of COPD, hypertension. TECHNIQUE: Low dose CT scan of the [...] DOSE: CT dose index volume (CTDIvol) = ?? 2.65 ??mGy COMPARISON: ?? CT September 06, 2019 FINDINGS: SMOKING RELATED LUNG DISEASE: ?? Mild emphysema. LUNG NODULES: ?? In the lateral aspect of the right lower lobe is a noncalcified 0.8 cm pulmonary nodule (series 3, image 169/266), stable. No pulmonary mass or suspicious noncalcified pulmonary nodule. CORONARY ARTERY CALCIFICATION: ??Present. OTHER: ?? Dependent atelectasis. ??No airspace consolidation. ??No pleural effusion or pneumothorax. ??The airways are patent. No lymphadenopathy. ??Cardiomegaly. ??No pericardial effusion. ??No thoracic aortic aneurysm. Small hiatal hernia. ??No acute abnormality in the upper abdomen. Thoracic vertebral body heights and alignment are intact. ??Disc space narrowing in the mid and lower thoracic spine with spondylosis and endplate degenerative change. IMPRESSION: Stable right lower lobe pulmonary nodule. No pulmonary mass or suspicious noncalcified pulmonary nodule. Mild emphysema. Lung-RADS v1.1 category ??2: Benign appearance or behavior. Recommendation: ??Low dose Screening CT of chest in 12 months. THIS IS AN ELECTRONICALLY VERIFIED FINAL REPORT 11/08/2022 7:22 AM - Electronically signed by ??Estelle Monsalve D.O. AC: JESSICA D: ??11/08/2022 7:22 AM T: ??11/08/2022 7:22 AM Report ID: [id number] Reading Location: ??[id number] Procedure Note Estelle Monsalve DO - 11/08/2022 EXAM DESCRIPTION: CT LUNG CANCER SCREENING REASON FOR STUDY: Screening CT of the chest in a former smoker with a40 pack year smoking history. Additional history: History of COPD,hypertension. TECHNIQUE: Low dose CT scan of the chest was performed without intravenous contrast using helical scanning technique. The exam extends from the lung apices through the lung bases. Automatic exposure control was used as adose optimization technique. NOTE: This study was performed for the specific purposes of lung cancer screening and is not an alternative to diagnostic chest CT. RADIATION DOSE: CT dose index volume (CTDIvol) = 2.65 mGy COMPARISON: CT September 06, 2019 FINDINGS: SMOKING RELATED LUNG DISEASE: Mild emphysema. LUNG NODULES: In the lateral aspect of the right lower lobe is a noncalcified 0.8 cm pulmonary nodule (series 3, image 169/266), stable. No pulmonary mass or suspicious noncalcified pulmonary nodule. CORONARY ARTERY CALCIFICATION: Present. OTHER: Dependent atelectasis. No airspace consolidation. No pleural effusion or pneumothorax. The airways are patent. No lymphadenopathy. Cardiomegaly. No pericardial effusion. No thoracic aortic aneurysm. Small hiatal hernia. No acute abnormality in the upper abdomen. Thoracic vertebral body heights and alignment are intact. Disc space narrowing in the mid and lower thoracic spine with spondylosis andendplate degenerative change. IMPRESSION: Stable right lower lobe pulmonary nodule. No pulmonary mass or suspicious noncalcified pulmonary nodule. Mild emphysema. Lung-RADS v1.1 category 2: Benign appearance or behavior. Recommendation: Low dose Screening CT of chest in 12 months. THIS IS AN ELECTRONICALLY VERIFIED FINAL REPORT 11/08/2022 7:22 AM - Electronically signed by Estelle Monsalve D.O. AC: JESSICA Report ID: [id number] Reading Location: [id number] us Oscar Lynch MD IMG CT PROCEDURES Final R esult documented in this encounter Visit Diagnoses Diagnosis Personal history of nicotine dependence documented in this encounter Care Teams Biometric Technician Relationship Specialty Start Date End Date Oscar Lynch MD PCP - General Family Practice 09/28/22 Frank Frazier MD Consulting Physician Cardiovascular Disease 01/02/22 documented as of this encounter
--- OUTSIDE RECORDS SUMMARY | 2024-07-31 09:17 | XMS_ITS | Encounter Summary ---
Author Organization [facility] Healthcare Address [address] [place] [address] Care Team Providers Care Fire Watchman Name Role Phone Kellie Pizano NP Primary Care Provider [phone] Reason for Visit * Diagnostic Imaging (Routine) - Closed Specialty Diagnoses / Procedures Referred By Michelle jaime Referred To Contact Diagnoses Mass of right parotid gland Procedures US Guided Needle Biopsy Soft Tissue Mass US Guided Fine Needle Aspiration 1st Lesion Keyla Alexander DO Phone: tel: fax: [address] [phone] Referral ID Status Reason Start Date Expiration Date Visits Re quested Visits Authorized [id number] Closed 01/08/2020 07/19/2021 1 1 Encounter Details Date Type Department Care Team (Latest Contact Info) Description 01/19/2020 10:11 AM CDT - 01/19/2020 11:59 PM CDT Hospital Encounter [facility] [address] [place] [id number] Keyla Alexander DO [address] [place] [address] 1, Tawana Rad Rn Rad, Amh Fluoro Mass of right parotid gland Discharge Disposition: Discharge to home or self [...] on file 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 Gender Identity Not on file Sexual Orientation Not on file documented as of this encounter Last Filed Vital Signs Vital Sign Reading Time Taken Comments Blood Pressure 140/87 01/19/2020 10:24 AM CDT Pulse 76 01/19/2020 10:24 AM CDT Temperature 37 ??C (98.6 ??F) 01/19/2020 10:24 AM CDT Respiratory Rate 16 01/19/2020 10:24 AM CDT Oxygen Saturation - - Inhaled Oxygen Concentration - - Weight 103.9 kg (229 lb) 01/19/2020 10:24 AM CDT Height 162.6 cm (5' 4 ) 01/19/2020 10:24 AM CDT Body Mass Index 39.31 01/19/2020 10:24 AM CDT documented in this encounter Medications [...] 1 capsule by mouth daily 08/02/1969 omega 2-eff-aqr-fish oil (FISH OIL) 100-160-1,000 mg capsule 0 [...] 1 04/13/2019 2 L. gasseri-B. bifidum-B longum ([facility]) 1.5 billion cell capsule 0 0 11/06/2013 [...] Name Priority Date/Time Associated Diagnosis Comments US PERCUTANEOUS NEEDLE BIOPSY MUSCLE Schedule Routine, Read Routine (OP Routine) 01/19/2020 11:11 AM CDT Mass of right parotid gland CYTOLOGY Routine 01/19/2020 12:00 AM CDT Mass of right parotid gland documented in this encounter Results * US Guided Needle Biopsy Soft Tissue Mass (01/19/2020 11:11 AM CDT) Anatomical Region Laterality Modality Body N/A Ultrasound 01/19/2020 11:2 4 AM CDT Impressions 01/19/2020 11:28 AM CDT Successful ultrasound-guided right parotid nodule biopsy Electronically signed by: Tavo Davis M.D. Narrative 01/19/2020 11:28 AM CDT EXAMINATION: US GUIDED NEEDLE BIOPSY SOFT TISSUE MASS ORDERING HEALTHCARE PROVIDER: KEYLA ALEXANDER HISTORY: Right Parotid Mass. Hypoechoic nodule seen inferior right parotid gland inferior. COMPARISON: Correlation with ultrasound performed 09/27/2019 TECHNIQUE: The procedure and risks were discussed with the patient, and verbal and written informed consent was obtained. Risks discussed include infection, bleeding, damage to adjacent structures and inadequate material. The right jaw and neck was prepped and draped in usual sterile fashion. Local anesthesia was provided by 1% lidocaine. Under real-time sonographic guidance, a 19-gauge introducer was advanced to the right parietal lobe nodule. 3 core biopsy samples were obtained by coaxial technique with a 20-gauge device and these samples were sent to pathology. Static sonographic images were obtained to document the procedure. Post procedure images demonstrate no significant hematoma or active bleeding. The patient tolerated the procedure well. There were no immediate complications. Estimated blood loss less than 2 mL. Procedure Note Tavo Davis MD - 01/19/2020 EXAMINATION: US GUIDED NEEDLE BIOPSY SOFT TISSUE MASS ORDERING HEALTHCARE PROVIDER: KEYLA ALEXANDER HISTORY: Right Parotid Mass. Hypoechoic nodule seen inferior right parotid gland inferior. COMPARISON: Correlation with ultrasound performed 09/27/2019 TECHNIQUE: The procedure and risks were discussed with the patient, and verbal and written informed consent was obtained. Risks discussed include infection, bleeding, damage to adjacent structures and inadequate material. The right jaw and neck was prepped and draped in usual sterile fashion. Local anesthesia was provided by 1% lidocaine. Under real-time sonographic guidance, a 19-gauge introducer was advanced to the right parietal lobe nodule. 3 core biopsy samples were obtained by coaxial technique with a 20-gauge device and these samples were sent to pathology. Static sonographic images were obtained to document the procedure. Post procedure images demonstrate no significant hematoma or active bleeding. The patient tolerated the procedure well. There were no immediate complications. Estimated blood loss less than 2 mL. IMPRESSION: Successful ultrasound-guided right parotid nodule biopsy Electronically signed by: Tavo Davis M.D. us Keyla Alexander DO IMG US PROCEDURES Final Resu lt * Cytology (01/19/2020 12:00 AM CDT) Fluid (Parotid Gland (Cytology)) 01/19/2020 11:00 AM CDT Narrative PATHOLOGY [facility] - 01/22/2020 9:44 AM CDT EPIC results best viewed via link to PDF [facility] Department of Pathology [address] [place], [place] [id number] Final Report Patient Name: ??PARSONDESIREE Address: [address] [place], [place] ??[address] Gender: ??F : ??1955 (Age: 64) Service: ??Radiology Location: ??[facility] # ??[id number] Patient Type: ??[facility] EP ANCILLARY Taken: ??01/19/2020 Received: ?? 01/19/2020 Accessioned: ?? 01/19/2020 Reported: ?? 01/22/2020 Physician(s): ??Tavo Davis MD Diagnosis: Parotid, right, mass, fine needle biopsy cytology: ? - Paucicellular specimen. ? - Warthin's tumor, compatible with. ? - No evidence of malignancy. ? - See microscopic description. Indio Chapman MD Report Electronically Reviewed and Signed Out By ??Indio Chapman MD ??01/22/2020 09:44:29 REYES Huber(ASCP) Specimen(s) Received: A: FNBx, Parotid Gland Clinical History: None given Gross Description: 1 container received with 10 cc of clear Plasmalyte and two thin pale ramirez core/core fragments ranging between 1-2 mm in length. One ThinPrep made from fluid. ??One cell block made with all tissue cores. Microscopic Description: Microscopic examination of the right parotid mass fine needle biopsy cytology specimen (one ThinPrep slide and cell block sections) shows a paucicellular specimen. ??The ThinPrep slide shows occasional dispersed lymphocytes. ??The cell block sections show scant strips of double layered epithelial cells focally resting on a small amount of dense lymphoid stroma. ??A small amount of bland salivary gland parenchyma is also seen. ??There is no evidence of malignancy. ?? 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 ??Correlation with clinical and imaging findings is recommended. ? The performance characteristics of some immunohistochemical stains, fluorescence in-situ hybridization tests and immunophenotyping by flow cytometry cited in this report (if any) were determined by the Surgical Pathology Department at [facility] as part of an ongoing director of quality control program and in compliance with federally mandated regulations drawn from the Clinical Laboratory Improvement Act of 1988 (CLIA '88). ??Some of these tests rely on the use of analyte specific reagents and are subject to specific labeling requirements by the US Food and Drug Administration. ??Such diagnostic tests may only be performed in a facility that is certified by the Department of Health and Human Services as a high complexity laboratory under CLIA '88. The FDA has determined that such clearance or approval is not necessary. ??This test is used for clinical purposes. ??It should not be regarded as investigational or for research. ??Nevertheless, federal rules concerning the medical use of analyte specific reagents require that the following disclaimer be attached to the report: This test was developed and its performance characteristics determined by the Surgical Pathology Department [facility]. ??It has not been cleared or approved by the U. S. Food and Drug Administration. REPORT IMAGES AND SCANNED DOCUMENTS, IF INCLUDED, ONLY VIEWABLE IN PDF VERSION OF REPORT us Keyla Alexander DO LAB CYTOLOGY ORDERABLES Bianca bello Result PATHOLOGY [facility] [address] [place] [address] documented in this encounter Visit Diagnoses Diagnosis Mass of right parotid gland documented in this encounter Administered Medications Inactive Administered Medications - up to 3 most recent administrations Medication Order MAR Action Action Date Dose Rate Site lidocaine PF (XYLOCAINE) 10 mg/mL (1 %) preservative free injection Code/trauma/sedation medication, Starting on Wed01/19/20 at 1046, Intra-Procedure (IR), Indications: Administration of Local AnesthesiaIndications:Admini stration of Local Anesthesia Given 01/19/2020 10:46 AM CDT 4 mL Other (Comment) documented in this encounter Orders Medications Ordered That Jarret ht Not Have Been Administered Count Last Ordered Date First Ordered Date lidocaine PF (XYLOCAINE) 10 mg/mL (1 %) preservative free injection 1 01/19/2020 documented in this encounter Care Teams Fire Watchman Relationship Specialty Start Date End Date Kellie Pizano NP PCP - General 02/27/15 03/07/20 documented as of this encounter
--- OUTSIDE RECORDS SUMMARY | 2024-07-31 09:17 | XMS_ITS | Encounter Summary ---
Author Organization [facility] Address [address] [place] [address] Care Team Providers Care Business Professor Name Role Phone Kellie Pizano NP Primary Care Provider [phone] Encounter Details Date Type Department Care Team (Late st Contact Info) Description 12/12/2019 Telephone [facility] - [address] [place] [id number] Arminda Gupta MA Social History Tobacco Use Types Packs/Day Years Used Date Smoking Tobacco: Smoker, Current Status Unknown Smokeless Tobacco: Never Alcohol Use Standard Drinks/Week Comments Yes 0 (1 standard drink = 0.6 oz pur e alcohol) Comments No Sex and Gender Information Value Date Recorded Sex Assigned at Not on file 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 Offered in message January 07 at 11:30, pt to call back if time works/doesn't work for her. * Telephone Encounter - Arminda Gupta MA - 12/12/2019 2:04 PM CDT Patient had notes and CT scans sent over for doctor to review. Wanting to know if Dr. Alexander willbe able to treat her for the parotid mass or if should go to [facility]. Also patient states in message that she is willing to wait to avoid covid if things aren't urgent. documented in this encounter Plan of Treatment Not on file documented as of this encounter Visit Diagnoses Not on filedocumented in this encounter Care Teams Business Professor Relationship Specialty Start Date End Date Kellie Pizano NP PCP - General 02/27/15 03/07/20 documented as of this encounter
--- OUTSIDE RECORDS SUMMARY | 2024-07-31 09:17 | XMS_ITS | Encounter Summary ---
Author Organization [facility] Healthcare Address [address] [place] [address] Care Team Providers Care Silica Spray Mixer Name Role Phone Carlee Mtz MD Primary Care Provider [phone] Frank Frazier MD Unavailable Encounter Details Date Type Department Care Team (Latest Contact Info) Description 01/01/2022 7:30 AM CDT - 01/02/2022 12:55 PM CDT Hospital Encounter [facility] [address] [place] [address] Frank Frazier MD [address] [place] [id number] CAD (coronary artery disease) Discharge Disposition: Discharge to home or self [...] on file Legal Sex Female 8:07 PM EPIC ANALYST Gender Identity Not on file Sexual Orientation [...] AM CDT documented in this encounter Discharge Diagnoses Diagnosis 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 - ATHEROSCLEROTIC HEART DISEASE OF SAM[place] CORONARY ARTERY WITHOUT ANGINA PECTORIS Hyperlipidemia, unspecified - HYPERLIPIDEMIA, UNSPECIFIED Obstructive sleep apnea (adult) (pediatric) - OBSTRUCTIVE SLEEP APNEA (ADULT) (PEDIATRIC) Obesity, unspecified - OBESITY, UNSPECIFIED Body mass index (BMI) 40.0-44.9, adult (HCC) - BODY MASS INDEX [BMI] 40.0-44.9, ADULT Dependence on other enabling machines and devices - DEPENDENCE ON OTHER ENABLING MACHINES AND DEVICES Presence of coronary angioplasty implant and graft - PRESENCE OF CORONARY ANGIOPLASTY IMPLANT AND GRAFT Personal history of nicotine dependence - PERSONAL HISTORY OF NICOTINE DEPENDENCE Allergy status to other antibiotic agents - ALLERGY STATUS TO OTHER ANTIBIOTIC AGENTS Allergy status to other drugs, medicaments and biological substances - ALLERGY STATUS TO OTHER DRUGS, MEDICAMENTS AND BIOLOGICAL SUBSTANCES care home (current) use of antithrombotics/antiplatelets - [facility] (CURRENT) USE OF ANTITHROMBOTICS/ANTIPLATELETS exterminator (current) use of inhaled steroids - [facility] (CURRENT) USE OF INHALED STEROIDS Other exterminator (current) drug therapy - OTHER [facility] (CURRENT) DRUG THERAPY documented in this encounter Discharge Summaries * Lexus Ricardo NP - 01/02/2022 6:56 AM CDT Inpatient Discharge Summary BRIEF OVERVIEW Admitting Provider: Frank Frazier MD Discharge Provider: Frank Frazier MD Primary Care Physician at Discharge: Carlee Mtz MD [phone] Admission Date: 01/01/2022 Discharge Date: 01/02/2022 Admission Location: [facility] Problems/Diagnoses: Principal Problem: CAD (coronary artery disease) [...] 2.5 x 15 mm Noah drug-eluting stent. IFR/FFR assessment of the left circumflex revealed that there is no hemodynamically significant stenosis. Pt has been stable post procedure. R groin stable. Post cath discharge instructions reviewed with pt. All questions and concerns addressed. Pt is stable for discharge. ?? Active Issues Requiring Follow-up: Test Results Pending at Discharge: Operative Procedures Performed: Procedure(s): PCI RADU MAJOR CORONARY C9600 - 60076 Coronary Flow Velocity (CFR) / Instantaneous Flow [...] ask about this and similar medications: omega 8-whz-rax-fish oil (FISH OIL) 100-160-1,000 mg capsule TAKE [...] OiL 100-160-1,000 mg capsule Generic drug: omega 2-hym-rnj-fish oil loratadine 10 mg capsule Take 1 [...] Medicine, Interventional Cardiology Relationship: [place] [address] Next Steps: Follow up Instructions: 2 weeks. our office will call with date and time of follow up. any questions or concerns, please call office. [phone] Questions: To provider: FRANK FRAZIER Instructions for follow-up (appointment date and time): 2 weeks. our office will call with date andtime of follow up. any questions or concerns, please call office. [phone] Cosigned by Frank Frazier MD at 01/02/2022 [...] every 5 (five) minutes as needed omega 9-avm-gkx-fish oil (FISH OIL) 100-160-1,000 mg capsule 0 [...] that you and your doctor have chosen [facility] for your surgery. We hope that the following information will help make your visit a pleasant one. Surgery Date: 01/01/2022 and arrive at 8:00 AM [facility] (look for sign reading ???[facility] - [facility] CENTER?? ) [address] [place] [address] Before your surgery: ?? Notify your doctor [...] ?? Do not use perfume/cologne, make-up, nail luxembourgish, lotions, oil/vaseline or powders on your skin. [...] insurance cards, and medication list (including all fyyb-paj-ynzosynbepfvdpewle) with you. ?? Prescriptions can be filled [...] Results * eGFR (01/02/2022 7:22 AM CDT) Pathologist [facility] eGFR 96 mL/min/1. 73 m2 [facility] [...] of Race in Diagnosing Kidney Disease, JASN 202). The CKD-EPI equation should not be used for patients with unstable renal function and has not been validated in children and those over 70. Current interpretive data was last reviewed 2021. Blood 01/02/2022 7:22 AM CDT 01/02/2022 7:25 AM CDT us Frank Frazier MD LAB BLOOD ORDERABLES Final Resul t [facility] [address] Department [place] [address] * Basic metabolic panel (01/02/2022 7:22 AM CDT) Sodium 139 135 - 145 mmol/L [facility] Potassium, pl 4.3 3.3 - 4.9 mmol/L [facility] Chloride 104 97 - 110 mmol/L [facility] CH CO2 24 22 - 32 mmol/L [facility] CH Anion gap 11 2 - 15 mmol/L [facility] BUN 13 8 - 25 mg/dL [facility] Creatinine 0.67 0.60 - 1.10 mg/dL [facility] Glucose 106 70 - 199 mg/dL [facility] Comment: Interpretive Data Fasting glucose >/= 126 [...] 2017. Calcium 9.2 8.5 - 10.3 mg/dL [facility] Blood 01/02/2022 7:22 AM CDT 01/02/2022 7:25 AM CDT Narrative [facility] - 01/02/2022 7:49 AM CDT Re-collecting, initial sample hemolyzed. us Frank Frazier MD LAB BLOOD ORDERABLES Final Resul t [facility] [address] Department of Laboratories [place] [id number] * RADU MAJOR CORONARY, CORONARY FLOW VELOCITY (CFR) / INSTATANEOUS FLOW VELOCITY (IFR), 1ST VESSEL (01/01/2022 11:41 AM CDT) Anatomical Region Laterality Modality X-Ray Angiograph y 01/01/2022 Narrative 01/01/2022 3:54 PM CDT [employer] Job ID: [id number] [employer] Document ID: [id number] Dictated date/time: [id number] CARDIAC CATHETERIZATION REPORT BRIEF CLINICAL HISTORY This [...] identify the right coronary artery and a 6-Colombian short sheath was inserted without difficulty. ??Next, [...] then placed a 2.5 x 15 mm Noah RADU stent at high pressure with excellent result without any residual stenosis with BRENDA 3 flow. ??We now removed all equipment. ??We performed angiography of the right femoral artery with the side of the sheath. ??We confirmed that the entry point of the sheath is in the common femoral vein. ??A 6-Colombian Angio-Seal closure device was successfully deployed per protocol. ??The patient tolerated procedure well. No complications. CONCLUSION 1. Successful stenting of the PDA with a 2.5 x 15 mm Waverly drug-eluting stent. 2. IFR/FFR assessment of the left circumflex revealed that there is no hemodynamically significant stenosis. Thank you very much for allowing me to participate in the care of your patient. ??If I can be of further assistance, please do not hesitate to contact me. Job ID/Internal Job ID: ??[id number] Frank Frazier MD CV CARDIAC CATH PROCEDURES Final Result documented in this encounter Visit Diagnoses Diagnosis CAD (coronary artery disease)- Primary Coronary atherosclerosis of unspecified type of vessel, tolowa dee-ni' or graft CAD (coronary artery disease) Coronary atherosclerosis of unspecified type of vessel, tolowa dee-ni' or graft documented in this encounter Admitting Diagnoses Diagnosis CAD (coronary artery disease) Coronary atherosclerosis of unspecified type of vessel, tolowa dee-ni' or graft documented in this encounter Administered Medications Inactive Administered Medications - up to 3 most recent administrations Medication Order MAR Action Action Date Dose Rate Site acetaminophen (TYLENOL) tablet 650 mg 650 mg, oral, Every 6 hours PRN, 1st line for pain, Starting on Vandana 01/01/22 at 1555 ALPRAZolam (XANAX) tablet 0.5 mg [...] Given 01/02/2022 10:55 AM CDT 81 mg clopidogreL (PLAVIX) tablet 75 mg 75 mg, oral, Daily, First dose on Wed01/02/22 at 0900, Recovery (CV), Indications: myocardial infarction prevention, cardiovascular diseaseIndications:myocard ial infarction prevention,cardiovascular disease Given 01/02/2022 10:55 AM CDT 75 mg ondansetron (ZOFRAN) injection 4 mg 4 mg, intravenous, Administer over 2 Minutes, Every 6 hours PRN, nausea, vomiting, Starting on Wed01/01/22 at 1555 rosuvastatin (CRESTOR) tablet 40 mg 40 mg, oral, Nightly, First dose on Wed01/01/22 at 2230 Given 01/01/2022 11:12 PM CDT 40 mg sertraline (ZOLOFT) tablet 50 mg 50 mg, oral, Daily, First dose on Wed01/02/22 at 0900 Given 01/02/2022 10:56 AM CDT 50 mg sodium chloride 0.9% infusion 100 mL/hr, intravenous, Continuous, Starting on Wed01/01/22 at 1630, For 4 hours, Recovery (CV), [...] P Other 12/30/2021 L. gasseri-B. bifidum-B longum (Apcera) 1.5 billion cell capsule Other 11/06/2013 12/30/2021 [...] ER 30 mg tablet,extended release Other 12/30/2021 molhajwi-pjk-SB-lycop en-lutein (Centrum Silver) 0.4 mg-300 mcg- 250 mcg tablet Centrum Silver 1 tablet by mouth daily Other 12/30/2021 nystatin-triamcinolon e ointment nystatin-triamcinolone 100,000 unit/gram-0.1 % topical ointment Other 12/30/2021 omega 5-qan-zyv-fish oil (Fish OiL) 100-160-1,000 mg capsule Fish [...] daily Stop Taking at Discharge 01/02/2022 omega 5-ykc-std-fish oil 1,000 mg (120 mg-180 mg) capsule [...] every 5 (five) minutes as needed omega 1-oou-spc-fish oil 1,000 mg (120 mg-180 mg) capsule [...] packet Take by mouth 03/04/20 18 omega 1-hec-iii-fish oil (Fish OiL) 100-160-1,000 mg capsule Fish Oil 1 tablet by mouth daily umfponov-zjm-VJ-ly copen-lutein (Centrum Silver) 0.4 mg-300 mcg- 250 [...] 4 mg Dosepack FOLLOW PACKAGE DIRECTIONS 12/03/19 metroNIDAZOLE (FlagyL) 500 mg tablet Flagyl 500 [...] disease 1055 (Given - Provid er: Mook Darnell, CHICHI) rosuvastatin (CRESTOR) tablet 40 mg 40 mg, [...] aspirin tablet (CANCELED) As needed, Starting on Wed01/01/22 at 1157, Intra-Procedure (CV) 1157 (Given - Provider: Seamus Sinha, CHICHI) bivalirudin (ANGIOMAX) 250 mg in sodium chloride 0.9% 50 mL infusion (COMPLETED) Continuous PRN, Starting on Vandana 01/01/22 at 1112, Intra-Procedure (CV) 1112 (New Bag - Provider: Talon Sinha, CHICHI)1158 (Stopped - Provider: Zeina Gonzalez, CHICHI) bivalirudin (ANGIOMAX) injection (CANCELED) As needed, Starting on Vandana 01/01/22 at 1111, Intra-Procedure (CV) 1111 (Given - Provider: Seamus Sinha, CHICHI) clopidogreL (PLAVIX) tablet (CANCELED) As needed, Starting on Vandana 01/01/22 at 1157, Intra-Procedure (CV) 1157 (Given - Provider: Seamus Sinha RN) fentaNYL (SUBLIMAZE) preservative free injection (CANCELED) As needed, Starting on Vandana 6/09/23 at 1106, Intra-Procedure (CV) 1106 (Given - Provider: Seamus Sinha RN)1125 (Given - Provider: Talon Sinha, CHICHI)1135 (Given - Provider: Talon Sinha RN) heparin [...] %) injection (CANCELED) As needed, Starting on Vandana 6 at 1106, Intra-Procedure (CV), Indications: Administration of Local Anesthesia 1106 (Given - Provider: Frank Frazier MD) midazolam (VERSED) 1 mg/mL preservative free injection (CANCELED) Administer over 2 Minutes, As needed, Starting on Vandana 6/09/23 at 1106, Intra-Procedure (CV) 1106 (Given - Provider: Seamus Sinha RN)1125 (Given - Provider: Talon Sinah RN) ondansetron (ZOFRAN) injection 4 mg 4 mg, intravenous, Administer over 2 Minutes, Every 6 hours PRN, nausea, vomiting, Starting on Vandana 6 at 1555 sodium chloride 0.9% infusion (COMPLETED) Continuous PRN, Starting on Vandana 6 at 1059, Intra-Procedure (CV) 1059 (New Bag - Provider: Talon Sinha, CHICHI)1553 (Stopped - Provider: Zeina Gonzalez RN) documented in this encounter Orders Medications Ordered That Jarret ht Not Have Been Administered Count Last Ordered Date First Ordered Date acetaminophen (TYLENOL) tablet 650 mg 1 09/2021 aspirin tablet 1 01/01/2022 bivalirudin (ANGIOMAX) 250 m g in sodium chloride 0.9% 50 mL infusion 1 01/01/2022 bivalirudin (ANGIOMAX) injection 1 01/02/20 clopidogreL (PLAVIX) tablet 1 01/01/2022 fentaNYL (SUBLIMAZE) preserv ative free injection 1 01/01/2022 heparin in 0.9% sodium chlor kalpesh 1,000 units/500 mL (2 unit/mL) infusion (premix) 1 01/01/2022 ioversoL (OPTIRAY 350) injection 1 01/02/20 lidocaine (XYLOCAINE) 10 mg/ mL (1 %) injection 1 01/01/2022 midazolam (VERSED) 1 mg/mL p reservative free injection 1 01/01/2022 ondansetron (ZOFRAN) injection 4 mg 1 01/01 sodium chloride 0.9% infusion 1 01/01/2022 Nursing Count Last Ordered Date First Orde red Date DISCHARGE ACTIVITY 4 01/02/2022 DISCHARGE CALL PROVIDER 7 01/02/2022 DISCHARGE DRESSING 1 01/02/2022 DISCHARGE INSTRUCTIONS 1 01/02/2022 FOLLOW UP WITH ESTABLISHED PROVIDER 1 01/02 CORE MEASURES Count Last Ordered Date First Ord ered Date REASON FOR NO VTE PROPHYLAXIS AT ADMISSION 1 01/01/2022 documented in this encounter Care Teams Silica Spray Mixer Relationship Specialty Start Date End Date Carlee Mtz MD [address] [place] [address] [place] [address] PCP - General Family Medicine 03/08/20 09/27/22 Frank Frazier MD [address] [place] [address] [place] [address] Consulting Physician Cardiovascular Disease 01/02/22 documented as of this encounter
--- OUTSIDE RECORDS SUMMARY | 2024-07-31 09:18 | XMS_ITS | Encounter Summary ---
Author Organization [facility] Healthcare Address [address] [place] [address] Care Team Providers Care Practice Office Associate Name Role Phone Ori Pizano NP Primary Care Provider [phone] Reason for Referral * Diagnostic Imaging (Routine) - Closed Specialty Diagnoses / Procedures Referred By Michelle jaime Referred To Contact Radiology Diagnoses Solitary pulmonary nodule Procedures CT Chest WO Contrast Ori Pizano NP Phone: tel: fax: [address] [phone] Referral ID Status Reason Start Date Expiration Date Visits Re quested Visits Authorized [id number] Closed 08/29/2019 03/09/2021 1 1 UGATED SHEET MATERIAL SHEETER Reason for Visit * Diagnostic Imaging (Routine) - Closed Specialty Diagnoses / Procedures Referred By Michelle jaime Referred To Contact Radiology Diagnoses Solitary pulmonary nodule Procedures CT Chest WO Contrast Ori Pizano NP Phone: tel: fax: [address] [phone] Referral ID Status Reason Start Date Expiration Date Visits Re quested Visits Authorized [id number] Closed 08/29/2019 03/09/2021 1 1 Encounter Details Date Type Department Care Team (Late st Contact Info) Description 09/06/2019 9:41 AM CORRUGATED SHEET MATERIAL SHEETER - 09/06/2019 11:59 PM CORRUGATED SHEET MATERIAL SHEETER Hospital Encounter [facility] [address] [place] [address] Carlee Mtz MD [address] [place] [address] [place] [address] Ori Pizano NP [address] [place] [address] Solitary pulmonary nodule Discharge Disposition: Discharge to home or self care Social History Tobacco Use Types Packs/Day Years Used Date Smoking Tobacco: Smoker, Current Status Unknown Smokeless Tobacco: Never Alcohol Use Standard Drinks/Week Comments Yes 0 (1 standard drink = 0.6 oz pur e alcohol) Comments No Sex and Gender Information Value Date Recorded Sex Assigned at Not on file Legal Sex Female 8:07 PM CORRUGATED SHEET MATERIAL SHEETER Gender Identity Not on file Sexual Orientation [...] 1 capsule by mouth daily 08/02/1969 omega 8-mdl-kjp-fish oil (FISH OIL) 100-160-1,000 mg capsule 0 [...] 04/13/2019 2 L. gasseri-B. bifidum-B longum ([facility] [employer]) 1.5 billion cell capsule 0 0 11/06/2013 [...] Name Priority Date/Time Associated Diagnosis Comments CT CHEST WO CONTRAST Schedule Routine, Read Routine (OP Routine) 09/06/2019 9:53 AM CORRUGATED SHEET MATERIAL SHEETER Solitary pulmonary nodule documented in this encounter Results * CT Chest WO Contrast (09/06/2019 9:53 AM CORRUGATED SHEET MATERIAL SHEETER) Anatomical Region Laterality Modality Body N/A Computed Tomogra phy 09/06/2019 3:42 PM CORRUGATED SHEET MATERIAL SHEETER Impressions 09/06/2019 4:10 PM CORRUGATED SHEET MATERIAL SHEETER Right lung lower lobe 8 mm nodule is unchanged from 04/09/2019 and mildly increased in size from 09/16/2015. ??Follow-up in 6-12 months is recommended. ??Alternatively, PET CT could be performed. Electronically signed by: Carl Roman M.D. Narrative 09/06/2019 4:10 PM CORRUGATED SHEET MATERIAL SHEETER EXAMINATION: CT CHEST WO CONTRAST ORDERING HEALTHCARE PROVIDER: ORI PIZANO HISTORY: Follow-up of a pulmonary nodule diagnosed on 04/09/2019 TECHNIQUE: CT chest without intravenous contrast. ??Reconstructed coronal and sagittal images reviewed. ??Automated exposure control was used as a dose optimization technique for this examination. COMPARISON: 04/09/2019 CT abdomen and pelvis, 09/16/2015 CT chest FINDINGS: LUNGS: The right lung lower lobe subpleural nodule measuring 8 mm has increased in size from 09/16/2015 when it measured 6 cm (axial image 66). ??No mass or consolidation PLEURA: No pleural effusion or pneumothorax. MEDIASTINUM/BREA: No lymphadenopathy. HEART: Normal size. ??Severe coronary artery disease. VASCULATURE CHEST: Aortic arch configuration is normal. AXILLA: No lymphadenopathy. UPPER ABDOMEN: Cholecystectomy changes. MUSCULOSKELETAL: No aggressive lesions. OTHER: No other significant findings. Procedure Note Carl Roman MD - 09/06/2019 EXAMINATION: CT CHEST WO CONTRAST ORDERING HEALTHCARE PROVIDER: ORI PIZANO HISTORY: Follow-up of a pulmonary nodule diagnosed on 04/09/2019 TECHNIQUE: CT chest without intravenous contrast. Reconstructed coronal and sagittal images reviewed. Automated exposure control was used as a dose optimization technique for this examination. COMPARISON: 04/09/2019 CT abdomen and pelvis, 09/16/2015 CT chest FINDINGS: LUNGS: The right lung lower lobe subpleural nodule measuring 8 mm has increased in size from 09/16/2015 when it measured 6 cm (axial image 66). No mass or consolidation PLEURA: No pleural effusion or pneumothorax. MEDIASTINUM/BREA: No lymphadenopathy. HEART: Normal size. Severe coronary artery disease. VASCULATURE CHEST: Aortic arch configuration is normal. AXILLA: No lymphadenopathy. UPPER ABDOMEN: Cholecystectomy changes. MUSCULOSKELETAL: No aggressive lesions. OTHER: No other significant findings. IMPRESSION: Right lung lower lobe 8 mm nodule is unchanged from 04/09/2019 and mildly increased in size from 09/16/2015. Follow-up in 6-12 months is recommended. Alternatively, PET CT could be performed. Electronically signed by: Carl Roman M.D. Ori Pizano NP IMG CT PROCEDURES Final Result documented in this encounter Visit Diagnoses Diagnosis Solitary pulmonary nodule documented in this encounter Care Teams Practice Office Associate Relationship Specialty Start Date End Date Ori Pizano NP PCP - General 02/27/15 03/07/20 documented as of this encounter
--- OUTSIDE RECORDS SUMMARY | 2024-07-31 09:18 | XMS_ITS | Encounter Summary ---
Author Organization [facility] Healthcare Address [address] [place] [address] Care Team Providers Care Automotive Parts Coordinator Name Role Phone Kellie Pizano NP Primary Care Provider [phone] Carlee Mtz MD Primary Care Provider [phone] Frank Frazier MD Unavailable ModestoOscar MD Primary Care Provider [phone] Encounter Details Date Type Department Care Team (Late st Contact Info) Description 09/26/2019 Telephone [facility] Diagnostic Imaging [address] [place], [place] [id number] Carlee Mtz MD [address] [place] [address] [place] [address] Social History Tobacco Use Types Packs/Day Years Used Date Smoking Tobacco: Smoker, Current Status Unknown Smokeless Tobacco: Never Alcohol Use Standard Drinks/Week Comments Yes 0 (1 standard drink = 0.6 oz pur e alcohol) Comments No Sex and Gender Information Value Date Recorded Sex Assigned at Not on file Legal Sex Female 8:07 PM LABORER PIE BAKERY Gender Identity Not on file Sexual Orientation Not on file documented as of this encounter Plan of Treatment Not on file documented as of this encounter Visit Diagnoses Not on filedocumented in this encounter Care Teams Automotive Parts Coordinator Relationship Specialty Start Date End Date Kellie Pizano NP PCP - General 02/27/15 03/07/20 Carlee Mtz MD [address] [place] [address] [place] [address] PCP - General Family Medicine 03/08/20 09/27/22 Oscar Lynch MD [address] [place] [address] [place] [address] PCP - General Family Practice 09/28/22 Frank Frazier MD [address] [place] [address] [place] [address] Consulting Physician Cardiovascular Disease 01/02/22 documented as of this encounter
--- OUTSIDE RECORDS SUMMARY | 2024-07-31 09:18 | XMS_ITS | Encounter Summary ---
Author Organization [facility] Address [address] [place] [address] Care Team Providers Care Gerontology Aide Name Role Phone Ori Pizano NP Primary Care Provider [phone] Reason for Referral * Diagnostic Imaging (Routine) - Closed Specialty Diagnoses / Procedures Referred By Michelle jaime Referred To Contact Radiology Diagnoses Solitary pulmonary nodule Procedures PET/CT FDG Skull to Thigh Ori Pizano NP Phone: tel: fax: [address] [phone] Referral ID Status Reason Start Date Expiration Date Visits Re quested Visits Authorized [id number] Closed 09/11/2019 03/22/2021 2 2 TABLE COOK Reason for Visit * Diagnostic Imaging (Routine) - Closed Specialty Diagnoses / Procedures Referred By Michelle jaime Referred To Contact Radiology Diagnoses Solitary pulmonary nodule Procedures PET/CT FDG Skull to Thigh Ori Pizano NP Phone: tel: fax: [address] [phone] Referral ID Status Reason Start Date Expiration Date Visits Re quested Visits Authorized [id number] Closed 09/11/2019 03/22/2021 2 2 Encounter Details Date Type Department Care Team (Late st Contact Info) Description 09/14/2019 3:23 PM VEGETABLE COOK - 09/14/2019 11:59 PM VEGETABLE COOK Hospital Encounter [facility] [address] [place] [address] Carlee Mtz MD [address] [place] [address] [place] [address] Ori Pizano NP [address] [place] [address] [place] [address] Solitary pulmonary nodule Discharge Disposition: Discharge to [...] on file Legal Sex Female 8:07 PM VEGETABLE COOK Gender Identity Not on file Sexual Orientation [...] 1 capsule by mouth daily 08/02/1969 omega 0-vye-dzb-fish oil (FISH OIL) 100-160-1,000 mg capsule 0 [...] 1 04/13/2019 2 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 Ordering Phys: ORI PIZANO Age: 64 ?Date of : 1955 ? Accession Number: [id number] Date of Service: 09/14/2019 ??Gender: F EXAM DESCRIPTION: ??PET/CT FDG SKULL TO THIGH RADIOPHARMACEUTICAL: ??11.4 mCi F-18 Fluorodeoxyglucose (FDG) via a left antecubital vein IV site REASON FOR STUDY: ??Solitary pulmonary nodule, initial treatment strategy. TECHNIQUE: ??The patient's fasting blood glucose level, measured by glucometer before injection of FDG, was 78 mg/dL. ??After intravenous administration of FDG, noncontrast CT images were obtained for attenuation correction and for fusion with emission PET images to allow for anatomical localization of PET findings. ??Emission PET images were then obtained. The area imaged spanned the region from the skull base to the proximal thighs. ??The time from injection of FDG to start of imaging was 45 minutes. COMPARISON: ??CT chest 09/06/2019 ??. Head: No abnormality within the limited portions of the brain. Neck: There is a 0.7 cm nodule in the medial aspect of the right parotid gland with an SUV of 4.5. Chest: Symmetric uptake within the hilar regions is likely reactive. ??No hypermetabolic mediastinal lymphadenopathy. ??Small hiatal hernia. The 8 mm nodule in the lateral right lower lobe shows no significant FDG uptake but is adjacent to the diaphragm and prone to motion artifact. ??Heart is at the upper limits of normal for size. ??Coronary artery calcification. ??No pericardial or pleural effusion. Abdomen and Pelvis: No focal hypermetabolic liver lesion. Cholecystectomy.The spleen is normal. Normal pancreas without focal FDG activity. No focal hypermetabolic adrenal lesion. Photopenic interpolar left renal cyst measuring 5.5 cm is not significantly changed. ?? Normal gastrointestinal activity is seen. No hypermetabolic lymph nodes in the abdomen or pelvis. The infrarenal abdominal aorta measures 3 cm. ??Atherosclerotic calcification of the aorta. Bones: No acute or aggressive appearing osseous lesions. IMPRESSION: 1. ??No significant FDG uptake within the right lower lobe pulmonary nodule. Continued follow-up with CT is recommended as the nodule is adjacent to the diaphragm and prone to motion artifact. 2. ??No suspicious hypermetabolic thoracic lymphadenopathy. ??Mild FDG uptake within both hilar regions is felt be reactive. ??Attention to the hilar regions on follow-up imaging is recommended. ??Evaluation with contrast would be helpful on the initial follow-up CT scan. 3. ??Nonenlarged 0.7 cm nodule within the medial aspect of the right parotid gland has moderate FDG uptake and may represent a Warthin tumor, pleomorphic adenoma, or intraparotid lymph node. ??Attention on follow-up imaging is recommended. 4. ??The infrarenal abdominal aorta measures 3 cm. THIS IS AN ELECTRONICALLY VERIFIED FINAL REPORT 09/17/2019 5:45 PM - Electronically signed by Philip Chavarria M.D. LB: MARY D: ??09/17/2019 5:45 PM T: ??09/17/2019 5:45 PM Report ID: [id number] Reading Location: ??[id number] Procedure Note Philip Chavarria MD - 09/17/2019 [facility] Imaging Result Name: DESIREE PARSON Ordering Phys: ORI PIZANO Age: 64 Date of : 1955 Accession Number: [id number] Date of Service: 09/14/2019 Gender: F EXAM DESCRIPTION: PET/CT FDG SKULL TO THIGH RADIOPHARMACEUTICAL: 11.4 mCi F-18 Fluorodeoxyglucose (FDG) via a left antecubital vein IV site REASON FOR STUDY: Solitary pulmonary nodule, initial treatmentstrategy. TECHNIQUE: The patient's fasting blood glucose level, measured byglucometer before injection of FDG, was 78 mg/dL. After intravenous administrationof FDG, noncontrast CT images were obtained for attenuation correction andfor fusion with emission PET images to allow for anatomical localization ofPET findings. Emission PET images were then obtained. The area imaged spannedthe region from the skull base to the proximal thighs. The time frominjection of FDG to start of imaging was 45 minutes. COMPARISON: CT chest 09/06/2019 . Head: No abnormality within the limited portions of the brain. Neck: There is a 0.7 cm nodule in the medial aspect of the right parotid glandwith an SUV of 4.5. Chest: Symmetric uptake within the hilar regions is likely reactive. No hypermetabolic mediastinal lymphadenopathy. Small hiatal hernia. The 8 mm nodule in the lateral right lower lobe shows no significant FDG uptake but is adjacent to the diaphragm and prone to motion artifact.Heart is at the upper limits of normal for size. Coronary artery calcification.No pericardial or pleural effusion. Abdomen and Pelvis: No focal hypermetabolic liver lesion. Cholecystectomy.The spleen isnormal. Normal pancreas without focal FDG activity. No focal hypermetabolicadrenal lesion. Photopenic interpolar left renal cyst measuring 5.5 cm is not significantly changed. Normal gastrointestinal activity is seen. No hypermetabolic lymph nodes in the abdomen or pelvis. The infrarenalabdominal aorta measures 3 cm. Atherosclerotic calcification of the aorta. Bones: No acute or aggressive appearing osseous lesions. IMPRESSION: 1. No significant FDG uptake within the right lower lobe pulmonarynodule. Continued follow-up with CT is recommended as the nodule is adjacent tothe diaphragm and prone to motion artifact. 2. No suspicious hypermetabolic thoracic lymphadenopathy. Mild FDGuptake within both hilar regions is felt be reactive. Attention to the hilarregions on follow-up imaging is recommended. Evaluation with contrast would be helpful on the initial follow-up CT scan. 3. Nonenlarged 0.7 cm nodule within the medial aspect of the rightparotid gland has moderate FDG uptake and may represent a Warthin tumor,pleomorphic adenoma, or intraparotid lymph node. Attention on follow-up imaging is recommended. 4. The infrarenal abdominal aorta measures 3 cm. THIS IS AN ELECTRONICALLY VERIFIED FINAL REPORT 09/17/2019 5:45 PM - Electronically signed by Philip Chavarria M.D. LB: MARY Report ID: [id number] Reading Location: [place] [address] Ori Pizano NP IMG PET PROCEDURES Final Resul t documented in this encounter Visit Diagnoses Diagnosis Solitary pulmonary nodule documented in this encounter Administered Medications Inactive Administered Medications - up to 3 most recent administrations Medication Order MAR Action Action Date Dose Rate Site fludeoxyglucose F-18 (FDG) injection 11.37 millicurie 11.37 millicurie, intravenous, Once in imaging, radiopharmaceutical , Starting on Vandana 09/14/19 at 1535, For 1 dose Given 09/14/2019 3:20 PM VEGETABLE COOK 11.37 millicuries Left Antecubital documented in this encounter Orders Medications Ordered That Jarret ht Not Have Been Administered Count Last Ordered Date First Ordered Date fludeoxyglucose F-18 (FDG) i njection 11.37 millicurie 1 09/14/2019 documented in this encounter Care Teams Gerontology Aide Relationship Specialty Start Date End Date Ori Pizano NP PCP - General 02/27/15 03/07/20 documented as of this encounter
--- OUTSIDE RECORDS SUMMARY | 2024-07-31 09:18 | XMS_ITS | Encounter Summary ---
Author Organization [facility] Healthcare Address [address] [place] [address] Care Team Providers Care Ice Platform Supervisor Name Role Phone Harinder Kellie JOLEEN Primary Care Provider [phone] Reason for Visit * Reason Comments Fever Back Pain Weakness - Generalized Encounter Details Date Type Department Care Team (Late st Contact Info) Description 04/09/2019 3:58 PM CDT - 04/13/2019 4:46 PM CDT Hospital Encounter [facility] IMU [address] [place] [address] Uziel Miner MD [address] [address] Marie Yadav MD [address] [place] [address] [place] [address] Sanjana Billy MD [address] [place], [place] [address] [address] Servando Cortez Jr., MD [address] [place] [address] [place] [address] [place] [phone] [address] Diverticulosis large intestine w/o perforation or abscess w/o bleeding (Primary Dx); SIRS (systemic inflammatory response syndrome) ([facility]) Discharge Disposition: Discharge to home or self care Social History Tobacco Use Types Packs/Day Years Used Date Smoking Tobacco: Smoker, Current Status Unknown Smokeless Tobacco: Never Alcohol Use Standard Drinks/Week Comments Yes 0 (1 standard drink = 0.6 oz pur e alcohol) Comments No Sex and Gender Information Value Date Recorded Sex Assigned at Not on file Legal Sex Female 8:07 PM [employer] Gender Identity Not on file Sexual Orientation Not on file documented as of this encounter Last Filed Vital Signs Vital Sign Reading Time Taken Comments Blood Pressure 130/66 04/13/2019 11:42 AM CDT Pulse 72 04/13/2019 11:42 AM CDT Temperature 36.4 ??C (97.6 ??F) 04/13/2019 1 1:42 AM CDT Respiratory Rate 18 04/13/2019 11:4 2 AM CDT Oxygen Saturation 92% 04/13/2019 11: 42 AM CDT Inhaled Oxygen Concentration - - Weight 105.3 kg (232 lb 1.6 oz) 019 10:22 PM CDT Height 162.6 cm (5' 4 ) 04/09/2019 10:2 2 PM CDT Body Mass Index 39.84 04/09/2019 10:22 PM CDT documented in this encounter Discharge Diagnoses Diagnosis Pneumonia - PNEUMONIA, UNSPECIFIED ORGANISM Pneumonia, organism unspecified Chronic pulmonary edema - CHRONIC PULMONARY EDEMA Pulmonary congestion and hypostasis Hyperlipidemia - HYPERLIPIDEMIA, UNSPECIFIED Other and unspecified hyperlipidemia Fluid overload - FLUID OVERLOAD, UNSPECIFIED Cardiomegaly - CARDIOMEGALY Anxiety disorder - ANXIETY DISORDER, UNSPECIFIED Anxiety state, unspecified Atherosclerotic heart disease of [place] coronary artery without angina pectoris - ATHEROSCLEROTIC HEART DISEASE OF [place] CORONARY ARTERY WITHOUT ANGINA PECTORIS Do not resuscitate - DO NOT RESUSCITATE Gastro-esophageal reflux disease without esophagitis - GASTRO-ESOPHAGEAL REFLUX DISEASE WITHOUT ESOPHAGITIS Hypoxemia - HYPOXEMIA 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 of antithrombotics/antiplatelets - HALF-WAY (CURRENT) USE OF ANTITHROMBOTICS/ANTIPLATELETS Acquired absence of other specified parts of digestive tract - ACQUIRED ABSENCE OF OTHER SPECIFIED PARTS OF DIGESTIVE TRACT Personal history of nicotine dependence - PERSONAL HISTORY OF NICOTINE DEPENDENCE Presence of coronary angioplasty implant and graft - PRESENCE OF CORONARY ANGIOPLASTY IMPLANT AND GRAFT Other snf (current) drug therapy - OTHER HALF-WAY (CURRENT) DRUG THERAPY documented in this encounter Discharge Summaries * Jose Huerta MD - 04/13/2019 1:32 PM CDT Inpatient Discharge Summary BRIEF OVERVIEW Admitting Provider: Marie Yadav MD Discharge Provider: Jose Huerta MD Primary Care Physician at Discharge: Kellie Pizano NP [phone] Admission Date: 04/09/2019 Discharge Date: 04/13/2019 Primary Discharge Diagnosis: Principal Problem: SIRS (systemic inflammatory response syndrome) (CMS/HCC) Active Problems: History of tobacco use GERD (gastroesophageal reflux disease) Anxiety Hypertension Chronic ischemic heart disease Hyperlipidemia Pulmonary congestion Community acquired pneumonia Wheezing Secondary Discharge Diagnosis: SIRS (systemic inflammatory response syndrome) (CMS/HCC) History of tobacco use GERD (gastroesophageal reflux disease) Anxiety Hypertension Chronic ischemic heart disease Hyperlipidemia DETAILS OF HOSPITAL STAY Presenting Problem/History of Present Illness: SIRS (systemic inflammatory response syndrome) (CMS/HCC) 64 y/o female smoker with a h/o HTN, CAD, and HLD presenting to the ED via private vehicle c/o a fever of 102 measured at home today. Patient reports that she had been diagnosed with a UTI 1 week prior after presenting with dysuria and bilateral flank pain . She was placed on Macrobid felt better but on morning of presentation developed fever chills generalized weakness diffuse mid back and posterior neck pain. Initial vital signs in ED: Temp 102.1 pulse 100 BP 145/74 oxygen 90%. Imaging significant for : Cardiomegaly interstitial infiltrates pulmonary edema. Patient denying history of CHF . No paroxysmal nocturnal dyspnea , no orthopnea . She was hospitalized for SIRS possible Pneumonia Also required supplemental oxygen on admission . Hospital Course: 64 y/o female smoker with a h/o HTN, CAD, and HLD presenting to the ED via private vehicle c/o a fever of 102 measured at home today. Patient reports that she had been diagnosed with a UTI 1 week prior after presenting with dysuria and bilateral flank pain . She was placed on Macrobid felt better but on morning of presentation developed fever chills generalized weakness diffuse mid back and posterior neck pain. Initial vital signs in ED: Temp 102.1 pulse 100 BP 145/74 oxygen 90%. Imaging significant for : Cardiomegaly interstitial infiltrates pulmonary edema. Patient denying history of CHF . No paroxysmal nocturnal dyspnea , no orthopnea . She was hospitalized for SIRS possible Pneumonia Also required supplemental oxygen on admission . Following morning she felt better but continued having wheezing on physical exam. Also with lower extremity edema. She received one time dose of lasix 60mg IV with significant urine output of 1600 ml. Also started on Azithromycin and Ceftriaxone for treatment of Pneumonia. On day of discharge she felt better. Lasix IV repeated at 40 mg IV . She received prescription for lasix 40 mg po BID She also received prescription for Azithromycin Omnicef, andprednisone taper. She was never diagnosed with COPD. Former smoker. Test Results Pending at Discharge: Order Current Status Blood culture Blood Antecubital, right Preliminary result Blood culture Blood Hand, left Preliminary result Operative Procedures Performed: Other Procedures: Pertinent Test Results: XR CHEST 1 VIEW ?? HISTORY: Shortness of Breath increased crackles, comparative. ?? TECHNIQUE: Portable AP view. ?? COMPARISON: 92,019. ?? FINDINGS: Mild cardiomegaly. Minimal interstitial changes/infiltrates primarily lower lung johnson. No lung consolidation identified. No definite pleural effusion is evident. Atherosclerotic changes of aorta. Diminished detail due to body habitus. Follow up standard examination recommended. ?? IMPRESSION: MILD CARDIOMEGALY, WITH MINIMAL INTERSTITIAL INFILTRATES PRIMARILY LOWER LUNG JOHNSON, SUPPORTING PULMONARY EDEMA/CONGESTIVE HEART FAILURE. FOLLOW-UP STANDARD EXAMINATION RECOMMENDED CT Abdomen Pelvis IMPRESSION: 1. DIVERTICULOSIS WITH SOME MINIMAL CHANGES FOR POSSIBLE DIVERTICULITIS. 2. POSSIBLE ENTERITIS. ENTERITIS MAY BE INFECTIOUS, INFLAMMATORY, OR ISCHEMIC. 3. PRIOR CHOLECYSTECTOMY. 4. BORDERLINE INTRAHEPATIC BILIARY DUCTAL DILATATION. 5. 9 MM IN NATURE. NODULE RIGHT LOWER LOBE. THIS MEASURES 6 MM ON PRIOR STUDY OF 09/16/2015. 6. PATCHY ATELECTASIS/SCARRING IN LUNG BASES. 7. ECTASIA ABDOMINAL AORTA, WITH MAXIMAL DIAMETER 2.9 CM, UPPER RANGE OF NORMAL. Discharge Details Physical Exam at Discharge: Discharge Condition: fair Pulse: 72 Resp: 18 BP: 130/66 Temp: 36.4 ??C (97.6 ??F) Weight: 105.3 kg (232 lb 1.6 oz) BP 130/66 (BP Location: Right arm, Patient Position: Sitting) Pulse 72 Temp 36.4 ??C (97.6 ??F)(Temporal) Resp 18 Ht 162.6 cm (5' 4 ) Wt 105.3 kg (232 lb 1.6 oz) SpO2 92% BMI 39.84 kg/m?? Pertinent Exam Findings at Discharge: General: well-developed, no acute distress, in good spirits. cooperative and able to provide full history. HEENT: PERRL, conjunctiva non-injected, no scleral icterus, oropharynx clear and non-injected, no lesions or ulcers, no lymphadenopathy, MMM neck: supple. no JVD no carotid bruits lymph nodes non tender not swollen skin: no petechiae no ecchymosis CV: RRR, Normal S1, S2, no murmurs, rubs, or gallops Respiratory: mild rales throughout Abdomen: +BS, NTD, no masses, no hepatosplenomegaly Extremities:mild lower extremity edema Neuro: CN II-XII intact Labs at discharge: Recent Results (from the past 24 hour(s)) Lipid panel Collection Time: 04/13/19 4:22 AM Result Value Ref Range Cholesterol 112 30 - 199 mg/dL Triglycerides 68 <=149 mg/dL HDL 40 >=40 mg/dL LDL, calculated 58 <=129 mg/dL Non-HDL Cholesterol 72 mg/dL Chol/HDL ratio 3 CBC with auto differential Collection Time: 04/13/19 4:25 AM Result Value Ref Range WBC 8.9 3.8 - 9.9 K/cumm Hgb 13.1 11.9 - 15.5 g/dL Hct 37.2 35.6 - 45.5 % Plt 210 150 - 400 K/cumm MPV 10.3 9.1 - 12.3 fL RBC 4.12 3.90 - 5.20 M/cumm MCV 90.3 81.3 - 96.4 fL MCH 31.8 27.1 - 33.3 pg MCHC 35.2 32.3 - 35.7 g/dL RDW CV 13.2 11.1 - 14.9 % RDW SD 43.8 35.7 - 48.1 fL NRBC abs 0.02 (H) 0.00 - 0.01 K/cumm Comprehensive metabolic panel Collection Time: 04/13/19 4:25 AM Result Value Ref Range Sodium 140 135 - 145 mmol/L Potassium, pl 3.6 3.3 - 4.9 mmol/L Chloride 101 97 - 110 mmol/L CO2 25 22 - 32 mmol/L Anion gap 14 2 - 15 mmol/L BUN 11 8 - 25 mg/dL Creatinine 0.51 (L) 0.60 - 1.10 mg/dL Glucose 143 70 - 199 mg/dL Calcium 9.6 8.5 - 10.3 mg/dL Bilirubin, total 0.2 0.1 - 1.2 mg/dL Protein, pl 7.4 6.5 - 8.5 g/dL Albumin 3.7 3.5 - 5.0 g/dL Alk phos 45 40 - 130 Units/L ALT 18 7 - 45 Units/L AST 13 10 - 45 Units/L Magnesium Collection Time: 04/13/19 4:25 AM Result Value Ref Range Magnesium 1.9 1.6 - 2.4 mg/dL Differential, auto Collection Time: 04/13/19 4:25 AM Result Value Ref Range Neutrophil abs 7.4 (H) 1.7 - 6.5 K/cumm Imm gran abs 0.1 0.0 - 0.1 K/cumm Lymphocyte abs 1.0 0.8 - 3.3 K/cumm Monocyte abs 0.3 0.2 - 0.8 K/cumm Eosinophil abs 0.0 0.0 - 0.5 K/cumm Basophil abs 0.0 0.0 - 0.1 K/cumm Neutrophil pct 83.3 % Imm gran pct 1.6 % Lymphocyte pct 11.6 % Monocyte pct 3.1 % Eosinophil pct 0.2 % Basophil pct 0.2 % eGFR Collection Time: 04/13/19 4:25 AM Result Value Ref Range GFR 102 mL/min/1.73 m2 Discharge Disposition: Full Code Discharge Instructions: Diet: Regular Activity: As tolerated Discharge Medications: Your medication list Some of the medications listed here do not show instructions, such as how often to take the medication. Ask your doctor or nurse how to use these medications. Specifically ask about these and similar medications: omega 7-qja-zmg-fish oil (FISH OIL) 100-160-1,000 mg capsule L. gasseri-B. bifidum-B longum ([employer]) 1.5 billion cell capsule docosahexanoic acid-epa (FISH OIL) 120-180 mg capsule START taking these medications azithromycin 500 mg tablet Commonly known as: ZITHROMAX Take 1 tablet (500 mg total) by mouth daily cefdinir 300 mg capsule Commonly known as: OMNICEF Take 1 capsule (300 mg total) by mouth 2 (two) times a day for 5 days furosemide 40 mg tablet Commonly known as: LASIX Take 1 tablet (40 mg total) by mouth daily predniSONE 10 mg tablet Commonly known as: DELTASONE Take 1 tablet (10 mg) by mouth daily CONTINUE taking these medications betamethasone dipropionate 0.05 % cream Commonly known as: DIPROLENE apply by topical route every day a thin layer to the affected area(s) CALCIUM 600 + D(3) 600 mg calcium- 200 unit capsule Generic drug: calcium carbonate-vitamin D3 take 1 capsule a day CARTIA XT 240 mg 24 hr capsule Generic drug: dilTIAZem XR take 1 capsule by oral route every day clopidogrel 75 mg tablet Commonly known as: PLAVIX CRESTOR 20 mg tablet Generic drug: rosuvastatin take 1 tablet by oral route every day FISH OIL 100-160-1,000 mg capsule Generic drug: omega 7-oxh-ubd-fish oil FISH OIL 120-180 mg capsule Generic drug: docosahexanoic acid-epa NexIUM 40 mg capsule Generic drug: esomeprazole DR take 1 capsule by oral route every day NITROLINGUAL 400 mcg/spray spray Generic drug: nitroglycerin 1-2 sprays under the tongue prn, max 3 sprays in 15 minutes. [facility] 1.5 billion cell capsule Generic drug: L. gasseri-B. bifidum-B longum PROBIOTIC 10 billion cell capsule Generic drug: Lactobacillus acidophilus take 1 daily psyllium 0.52 gram capsule take 1 capsule daily traMADol 50 mg tablet Commonly known as: ULTRAM take 1 - 2 Tablet by oral route every 6 hours for pain TYLENOL 325 mg tablet Generic drug: acetaminophen take 1 tablet by oral route every 4 hours as needed VITAMIN D3 1,000 unit capsule Generic drug: cholecalciferol take 1 Capsule by Oral route once XANAX 0.5 mg tablet Generic drug: ALPRAZolam Take one by mouth one time per day XOPENEX HFA 45 mcg/actuation inhaler Generic drug: levalbuterol inhale 2 puff by inhalation route every 6 hours Outpatient Follow-Up: No future appointments. No follow-up provider specified. Time Spent on Discharge: 35 minutes documented in this encounter Discharge Instructions * Discharge Instructions* Jovana Yip, RN - 04/13/2019 1:44 PM CDT Images from the original note were not included. Diverticulosis WHAT YOU NEED TO KNOW: Diverticulosis is a condition that causes small pockets called diverticula to form in your intestine. These pockets make it difficult for bowel movements to pass through your digestive system. DISCHARGE INSTRUCTIONS: Seek care immediately if: ?? You have severe pain on the left side of your lower abdomen. ?? Your bowel movements are bright or dark red. Contact your healthcare provider if: ?? You have a fever and chills. ?? You feel dizzy or lightheaded. ?? You have nausea, or you are vomiting. ?? You have a change in your bowel movements. ?? You have questions or concerns about your condition or care. Medicines: ?? Medicines to soften your bowel movements may be given. You may also need medicines to treat symptoms such as bloating and pain. ?? Take your medicine as directed. Contact your healthcare provider if you think your medicine is not helping or if you have side effects. Tell him or her if you are allergic to any medicine. Keep a list of the medicines, vitamins, and herbs you take. Include the amounts, and when and why you take them. Bring the list or the pill bottles to follow-up visits. Carry your medicine list with you in case of an emergency. Self-care: The goal of treatment is to manage any symptoms you have and prevent other problems suchas diverticulitis. Diverticulitis is swelling or infection of the diverticula. Your healthcare provider may recommend any of the following: ?? Eat a variety of high-fiber foods. High-fiber foods help you have regular bowel movements. High-fiber foods include cooked beans, fruits, vegetables, and some cereals. Most adults need 25 to 35 grams of fiber each day. Your healthcare provider may recommend that you have more. Ask your healthcare provider how much fiber you need. Increase fiber slowly. You may have abdominal discomfort, bloating, and gas if you add fiber to your diet too quickly. You may need to take a fiber supplement if you are not getting enough fiber from food. ?? Drink liquids as directed. You may need to drink 2 to 3 liters (8 to 12 cups) of liquids every day. Ask your healthcare provider how much liquid to drink each day and which liquids are best for you. ?? Apply heat on your abdomen for 20 to 30 minutes every 2 hours for as many days as directed. Heathelps decrease pain and muscle spasms. Help prevent diverticulitis or other symptoms: The following may help decrease your risk for diverticulitis or symptoms, such as bleeding. Talk to your provider about these or other things you can doto prevent problems that may occur with diverticulosis. ?? Exercise regularly. Ask your healthcare provider about the best exercise plan for you. Exercise can help you have regular bowel movements. Get 30 minutes of exercise on most days of the week. ?? Maintain a healthy weight. Ask your healthcare provider how much you should weigh. Ask him or her to help you create a weight loss plan if you are overweight. ?? Do not smoke. Nicotine and other chemicals in cigarettes increase your risk for diverticulitis. Ask your healthcare provider for information if you currently smoke and need help to quit. E-cigarettes or smokeless tobacco still contain nicotine. Talk to your healthcare provider before you use these products. ?? Ask your healthcare provider if it is safe to take NSAIDs. NSAIDs may increase your risk of diverticulitis. Follow up with your healthcare provider as directed: Write down your questions so you remember to ask them during your visits. ?? 2017 [employer] Information is for End User's use only and may not be sold, redistributed or otherwise used for commercial purposes. All illustrations and images included in CareNotes?? are the copyrighted property of [employer] or [employer]. The above information is an health aide only. It is not intended as medical advice for individual conditions or treatments. Talk to your doctor, nurse or pharmacist before following any medical regimen to see if it is safe and effective for you. * Attachments The following attachments cannot be sent through Care Everywhere. * Azithromycin (By mouth) ([place]ayan) * Cefdinir (By mouth) ([place]) * Furosemide (By mouth) ([place]) * Prednisolone (By mouth) ([place]) documented in this encounter Medications at Time [...] 1 capsule by mouth daily 08/02/1969 omega 5-vyb-mcz-fish oil (FISH OIL) 100-160-1,000 mg capsule 0 0 01/09/2016 rosuvastatin (CRESTOR) 20 mg tablet take 1 tablet by oral route every day 0 0 01/09/2016 sertraline (ZOLOFT) 50 mg tablet Take 50 mg by mouth daily 08/02/1969 traMADol (ULTRAM) 50 mg tablet take 1 - 2 Tablet by oral route every 6 hours for pain 0 0 01/09/2016 cefdinir (OMNICEF) 300 mg capsuleIndications :Pneumonia, Community Acquired Take 1 capsule (300 mg total) by mouth 2 (two) times a day for 5 days 10 capsule 04/13/2019 9 azithromycin (ZITHROMAX) 500 mg tabletIndications: Pneumonia, Community [...] 1 04/13/2019 2 L. gasseri-B. bifidum-B longum ([facility] [employer]) 1.5 billion cell capsule 0 0 11/06/2013 [...] 03/04/2018 2 documented as of this encounter Ordered Prescriptions Prescription Sig Dispense Quantity Refills Last Filled Start Date End Date cefdinir (OMNICEF) 300 mg capsuleIndications :Pneumonia, Community Acquired Take 1 capsule (300 mg total) by mouth 2 (two) times a day for 5 days 10 capsule 04/13/2019 9 azithromycin (ZITHROMAX) 500 mg tabletIndications: Pneumonia, Community Acquired Take 1 tablet (500 mg total) by mouth daily 2 tablet 04/13/2019 2 predniSONE (DELTASONE) 10 mg tablet Take 1 tablet (10 mg) by mouth daily 14 tablet 04/13/2019 2 furosemide (LASIX) 40 mg tablet Take 1 tablet (40 mg total) by mouth daily 30 tablet 1 04/13/2019 2 documented in this encounter Discharge Disposition Disposition Code Departure Means Destination Discharge to home or self care documented in this encounter Progress Notes * Jose Huerta MD - 04/12/2019 11:42 AM CDT Hospitalist Daily Progress SUBJECTIVE: Chief complaint of Chief Complaint Patient presents with ??? Fever ??? Back Pain ??? Weakness - Generalized Complaining of cough. No abdominal pain . No chest pain No paroxysmal nocturnal dyspnea . No orthopnea Low grade fever overnight . OBJECTIVE: Vitals: 24hr Min/Max: Temp Min: 36.2 ??C (97.1 ??F) Max: 38.2 ??C (100.8 ??F) Pulse Min: 62 Max: 82 BP Min: 126/53 Max: 149/81 Resp Min: 18 Max: 20 SpO2 Min: 91 % Max: 95 % Review of Systems Most Recent : Vitals: 04/12/19 0400 04/12/19 0600 04/12/19 0831 04/12/19 1128 BP: 134/71 129/67 BP Location: Right arm Right arm Patient Position: Lying Lying Pulse: 64 66 62 66 Resp: 18 18 Temp: 36.4 ??C (97.5 ??F) 36.2 ??C (97.1 ??F) TempSrc: Temporal Temporal SpO2: 95% 95% Weight: Height: I/O last 2 completed shifts: In: 840 [P.O.:840] Out: - No intake/output data recorded. Physical Exam General: well-developed, no acute distress, in good spirits. cooperative and able to provide full history. HEENT: PERRL, conjunctiva non-injected, no scleral icterus, oropharynx clear and non-injected, no lesions or ulcers, no lymphadenopathy, MMM neck: supple. no JVD no carotid bruits lymph nodes non tender not swollen skin: no petechiae no ecchymosis CV: RRR, Normal S1, S2, no murmurs, rubs, or gallops Respiratory: DIFFUSE INSPIRATORY EXPIRATORY WHEEZING Abdomen: +BS, NTD, no masses, no hepatosplenomegaly Extremities:mild lower extremity edema Neuro: CN II-XII intact Lab/Radiology/Diagnostic Review: No results found for this or any previous visit (from the past 24 hour(s)). XR CHEST 1 VIEW ?? HISTORY: Shortness of Breath increased crackles, comparative. ?? TECHNIQUE: Portable AP view. ?? COMPARISON: 92,019. ?? FINDINGS: Mild cardiomegaly. Minimal interstitial changes/infiltrates primarily lower lung johnson. No lung consolidation identified. No definite pleural effusion is evident. Atherosclerotic changes of aorta. Diminished detail due to body habitus. Follow up standard examination recommended. ?? IMPRESSION: MILD CARDIOMEGALY, WITH MINIMAL INTERSTITIAL INFILTRATES PRIMARILY LOWER LUNG JOHNSON, SUPPORTING PULMONARY EDEMA/CONGESTIVE HEART FAILURE. FOLLOW-UP STANDARD EXAMINATION RECOMMENDED. ASSESSMENT/PLAN: Principal Problem: SIRS (systemic inflammatory response syndrome) (CMS/HCC) Active Problems: History of tobacco use GERD (gastroesophageal reflux disease) Anxiety Hypertension Chronic ischemic heart disease Hyperlipidemia Wheezing - chest x ray with infiltrates Extensive inspiratory expiratory wheezing on exam May have Bronchitis Pneumonia Continue Azithromycin and Ceftriaxone Solumedrol 80 mg every 12 hours Patient never diagnosed with copd Although patient is denying paroxysmal nocturnal dyspnea Orthopnea or Exertional dyspnea x ray showing possible pulmonary congestion . Some edema in legs. Echo ordered. One time lasix of 60 mg IV DVT prophylaxis Lovenox Jose Huerta MD 04/12/2019 11:42 AM * Hilary Diamond, [employer] HCM CONSULTANT - 04/11/2019 11:39 AM CDT [facility] Hospitalist Service Progress Note Patient Name: Desiree Roblero Patient : 1955 Age/Sex: 64 y.o. female Room/Bed: [place] [address]/[place] [address] Admission Date/Time: 04/09/2019 3:58 PM Date: 04/11/2019 Time: 11:39 AM Chief Complaint: Weakness Subjective: Today the patient states she is doing much better, last reported fever was overnight. Patient denies, N/V, diarrhea, SOB or pain. Patient had mild headache this morning that resolved with Tylenol. Nonew complaints. Allergies: Allergies Allergen Reactions ??? Marin Inhibitors ??? Adhesive Tape-Silicones ??? Atenolol ??? Beta-Blockers (Beta-Adrenergic Blocking Agts) ??? Latex ??? Sulfa (Sulfonamide Antibiotics) ??? Sulfanilamide ??? Terfenadine Current Medication List: Scheduled Meds: azithromycin 500 mg oral Nightly Bifidobacterium infantis 4 mg oral Daily calcium carbonate-vitamin D3 1 tablet oral Daily cefTRIAXone 1,000 mg intravenous Q24H AMRITA cholecalciferol 1,000 Units oral Daily clopidogrel 37.5 mg oral Daily dilTIAZem XR 240 mg oral Daily enoxaparin 40 mg subcutaneous Daily-2100 metroNIDAZOLE 500 mg oral TID omega 1-ggr-npo-fish oil 1 capsule oral Daily pantoprazole DR 40 mg oral BID rosuvastatin 20 mg oral Nightly sodium chloride 0.9% 0.5-20 mL intra-catheter Q8H AMRITA Continuous Infusions: PRN Meds:??? acetaminophen ??? albuterol ??? ALPRAZolam ??? ibuprofen ??? ondansetron ODT OR ondansetron ??? sodium chloride 0.9% ??? traMADol Objective: Vitals: Vitals: 04/11/19 0723 04/11/19 0735 04/11/19 0900 04/11/19 1125 BP: 123/62 125/56 BP Location: Right arm Left arm Patient Position: Lying Sitting Pulse: 73 76 77 70 Resp: 20 20 Temp: 37.1 ??C (98.7 ??F) 36.8 ??C (98.2 ??F) TempSrc: Tympanic Tympanic SpO2: 92% 92% Weight: Height: Physical Exam: General: Sitting up in bed, no acute distress HEENT: face flush, MM dry Resp: faint crackles in right base, no wheezing noted CV:RRR GI: Obese, BS+ throughout, soft, non tender, no back pain Ext: trace edema in bilateral ankles Skin: warm to touch, dry Neuro: alert, oriented, no focal deficits Labs: Lab Results Component Value Date WBC 8.3 04/11/2019 HGB 11.8 (L) 04/11/2019 HCT 34.7 (L) 04/11/2019 MCV 94.0 04/11/2019 LABPLAT 158 04/11/2019 Blood culture Blood Antecubital, right Order: [id number] Collected: 04/09/2019 16:35 Status: Preliminary result ?Visible to patient: No (Not Released) Specimen Information: Antecubital, right; Blood ?? Component Report Preliminary Report: No growth to date. Pertinent Labs: I have reviewed the pertinent labs. ASSESSMENT AND PLAN: SIRS (systemic inflammatory response syndrome) Etiology remains unclear, patients WBCs normalized. Patient notes continued cough without drainage.SOB improved with Lasix. Possible diverticulitis on CT scan?. ??Patient continuing on ceftriaxone, oral Flagyl, with oral Zithromax for coverage of Pneumonia. PRN supplemental oxygen. Blood??Culturesprelim. Negative. ??Continue to monitor. ??Patient much improved this morning, ??d/c fluids due to increase in oral intake. Will increase diet and activity, if patient remains afebrile for 24hrs, plan to d/c in morning. Anxiety Continue PRN xanax ?? GERD Continue PPI ?? HX of Tobacco abuse Refused nicotine patch Smoke history of > 100 pack yrs ?? Hyperlipidemia Continue Statin ?? Chronic Ischemia Heart Disease Continue Plavix and statin ?? Hypertension Continue Diltiazem with parameters I spent a total of 20 minutes of which more than 50% of the time was spent in counseling and coordination of care. This time included: discussing patient condition, furthering care plan. MDM: andrea Diamond NP [facility] - Adult Hospitalist Service 04/11/2019 11:39 AM Cosigned by Jose Huerta MD at 10/15/2019 11:24 AM CDT * SyedaqiSelvinah - 04/11/2019 11:33 AM CDT Spiritual Care: Followed up with pt per spiritual care plan. Pt completed both Healthcare POA and Living Will. No need for further follow up unless otherwise requested. * Hilary Rivera RN - 04/10/2019 6:02 PM CDT 04/10/19 1801 Discharge Planning Type of Residence Other (Comment) (Duplex) Steps in home? Yes, Outside of home Number of steps outside: 2 steps Living Arrangements Alone Support Systems Children Assistance Needed (independent with adls and ambulation; she uses a CPAP at home at night provided by [facility]) Medication Assistance (none verbalized) Patient expects to be discharged to: Private residence Does the patient need discharge transport arranged? No * Hilary Rivera RN - 04/10/2019 6:01 PM CDT 04/10/19 1800 Basic Mobility - 6 Click How much difficulty does the patient have: Turning over in bed 4 How much difficulty does the patient currently have: Sitting down and standing up from a chair witharms? 4 How much difficulty does the patient have: Moving from lying on back to sitting on the side of the bed? 4 How much difficulty does the patient have: Moving to and from a bed to a chair including wheelchair? 4 How much help does the patient currently need: Walk in hospital room? 4 (she is not walking in room now but prior to admit she was indep with ambulation) How much help from another person does the patient currently need: Climbing 3-5 steps with a railing? 4 Total Score (range 6-24) 24 * Sheeba Roberts - 04/10/2019 3:30 PM CDT Spiritual Care: Visited with pt per referral for assistance with Healthcare POA. Pt states that shewants to discuss it with her daughter before signing. Arranged to follow up tomorrow to potentiallycomplete documentation. Will do so. * Hilary Diamond NP - 04/10/2019 10:50 AM CDT [facility] Hospitalist Service Progress Note Patient Name: Desiree Roblero Patient : 1955 Age/Sex: 64 y.o. female Room/Bed: [place] [address]/[place] [address] Admission Date/Time: 04/09/2019 3:58 PM Date: 04/10/2019 Time: 10:50 AM Chief Complaint: fever, headache Subjective: Today the patient states she did not sleep well last night due to having random aches and pains. Reports mild headache this morning and overall poor feeling when temperature rises. Patient denies chest pain, diarrhea, N/V. Mild SOB , uses CPAP at home. Allergies: Allergies Allergen Reactions ??? Marin Inhibitors ??? Adhesive Tape-Silicones ??? Atenolol ??? Beta-Blockers (Beta-Adrenergic Blocking Agts) ??? Latex ??? Sulfa (Sulfonamide Antibiotics) ??? Sulfanilamide ??? Terfenadine Current Medication List: Scheduled Meds: azithromycin 500 mg oral Nightly Bifidobacterium infantis 4 mg oral Daily calcium carbonate-vitamin D3 1 tablet oral Daily cefTRIAXone 1,000 mg intravenous Q24H AMRITA cholecalciferol 1,000 Units oral Daily clopidogrel 37.5 mg oral Daily dilTIAZem XR 240 mg oral Daily enoxaparin 40 mg subcutaneous Daily-2100 furosemide 40 mg intravenous Once metroNIDAZOLE 500 mg intravenous Q8H AMRITA omega 1-uaa-kuu-fish oil 1 capsule oral Daily pantoprazole DR 40 mg oral BID rosuvastatin 20 mg oral Nightly sodium chloride 0.9% 0.5-20 mL intra-catheter Q8H AMRITA Continuous Infusions: sodium chloride 0.9% 100 mL/hr Last Rate: 125 mL/hr (04/10/19 0204) PRN Meds:??? acetaminophen ??? albuterol ??? ALPRAZolam ??? ketorolac ??? ondansetron ODT OR ondansetron ??? sodium chloride 0.9% ??? traMADol Objective: Vitals: Vitals: 04/10/19 0600 04/10/19 0735 04/10/19 0748 04/10/19 1000 BP: 132/55 BP Location: Patient Position: Pulse: 82 89 88 88 Resp: 18 Temp: (!) 39.8 ??C (103.6 ??F) TempSrc: SpO2: 92% Weight: Height: Physical Exam: General: Laying in bed, appears ill HEENT: face flush, MM dry Resp: Bilateral LL crackles, no wheezing CV:RRR GI: Obese, BS+ throughout, soft, non tender, no back pain Ext: trace edema in bilateral ankles Skin: warm to touch, dry Neuro: alert, oriented, no focal deficits Psych: cooperative Labs: Lab Results Component Value Date WBC 11.7 (H) 04/10/2019 HGB 12.8 04/10/2019 HCT 38.4 04/10/2019 MCV 94.1 04/10/2019 LABPLAT 166 04/10/2019 Lab Results Component Value Date GLUCOSE 108 04/10/2019 CALCIUM 8.9 04/10/2019 SODIUM 139 04/10/2019 POTASSIUM 3.8 04/10/2019 CO2 27 04/10/2019 CHLORIDE 102 04/10/2019 BUNSER 11 04/10/2019 CREATININE 0.67 04/10/2019 Pertinent Labs: I have reviewed the pertinent labs. Radiology: XR CHEST 1 VIEW IMPRESSION: MILD CARDIOMEGALY, WITH MINIMAL INTERSTITIAL INFILTRATES PRIMARILY LOWER LUNG JOHNSON, SUPPORTING PULMONARY EDEMA/CONGESTIVE HEART FAILURE. FOLLOW-UP STANDARD EXAMINATION RECOMMENDED ASSESSMENT AND PLAN: SIRS (systemic inflammatory response syndrome) Etiology remains unclear, patients WBCs 11.7 down from 12.1. Patient notes continued cough without drainage. Mild increase in SOB, likely due to fluid overload, repeat chest xray. Possible diverticulitis on CT scan?. Patient was started empirically on ceftriaxone and Flagyl, with the addition of Zithromax for coverage of Pneumonia. PRN supplemental oxygen. Cultures are in process. Continue to monitor. Patient does not feel well this morning, reports headache, stiffness/body aches. Will need to decrease IV hydration due to concern for fluid overload. Anxiety Continue PRN xanax GERD Continue PPI HX of Tobacco abuse Refused nicotine patch Smoke history of > 100 pack yrs Hyperlipidemia Continue Statin Chronic Ischemia Heart Disease Continue Plavix and statin Hypertension Current BP 122/57 Continue Diltiazem with parameters I spent a total of 30 minutes of which more than 50% of the time was spent in counseling and coordination of care. This time included: reviewing patients chart, discussing current condition with patient/exam, furthering patients care plan MDM: aristides Diamond NP [facility] - Adult Hospitalist Service 04/10/2019 10:50 AM Cosigned by Sanjana Billy MD at 04/11/2019 9:03 AM CDT documented in this encounter H&P Notes * Marie Yadav MD - 04/10/2019 1:43 AM CDT General Medicine History and Physical Date of Encounter 04/10/2019 PCP: Kellie Pizano SUBJECTIVE Patient is a 64 y.o. female with a PMH of CAD status post stent, hypertension, GERD, anxiety with achief complaint of fever and generalized weakness. HPI: Per patient she was recently treated for a UTI for 7 days with Macrobid. She completed her last antibiotic on Wednesday. She states she was able to mow her lawn however was having trouble sleeping that evening. She states she had developed chills and then a fever with generalized weakness. She called her daughter who came over and checked her temperature. Her daughters thermometer read of temperature of a 106??. It was associated with lightheadedness and dizziness. She also notes poor appetite with poor p.o. Intake and no energy for the last day. Patient was brought to the ED for evaluation. Of note, patient states she has had a cough with a runny nose for the last 4 days. She attributes this to sinus drainage. Denies any sputum. She denies any chest pain, shortness of breath, abdominal pain, nausea, vomiting, black or bloody stools, changes in her bowel habits. She states her symptomsof dysuria resolved after Macrobid. In the ED, patient was noted to have an initial temperature of a 102.1??. She had a leukocytosis of12. CT of the abdomen and pelvis showed possible diverticulitis. Chest x-ray showed no focal infiltrates. Patient was started on ceftriaxone and Flagyl for possible diverticulitis. She was also givenIV fluids. She was admitted for further care. Currently patient states she is feeling much better. She would like some Jell-O. Patient has a history of smoking 1 pack per week most recently however up to 2 packs per day for 50years. She states she smoked her last cigarette 2 days ago and that 2 days ago was her quit date. Denies any alcohol or street drugs. Past Medical History: Diagnosis Date ??? Cardiovascular disease Coronary artery disease ??? Gastroesophageal reflux disease GERD ??? 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 HX OTHER MEDICAL Dyslipidemia ??? HX OTHER MEDICAL renal cyst ??? HX OTHER MEDICAL ventral hernia ??? Hyperlipidemia Hyperlipidemia ??? Hypertension Hypertension Past Surgical History: Procedure Laterality Date ??? CHOLECYSTECTOMY Cholecystectomy ??? OTHER SURGICAL HISTORY heart stents x 2 ??? OVARIAN CYST REMOVAL ovarian cyst removal ??? TONSILLECTOMY Tonsillectomy ??? TUBAL LIGATION Bilateral tubal ligation Medications Prior to Admission Medication Sig Dispense Refill Last Dose ??? clopidogrel (PLAVIX) 75 mg tablet Take 50 mg by mouth daily ??? acetaminophen (TYLENOL) 325 mg tablet take 1 tablet by oral route every 4 hours as needed 0 0 04/09/2019 at Unknown time ??? ALPRAZolam (XANAX) 0.5 mg tablet Take one by mouth one time per day 30 0 04/09/2019 at Unknown time ??? betamethasone dipropionate (DIPROLENE) 0.05 % cream apply by topical route every day a thin layer to the affected area(s) 0 0 Past Week at Unknown time ??? calcium carbonate-vitamin D3 (CALCIUM 600 + D,3,) 600 mg calcium- 200 unit capsule take 1 capsule a day 0 0 04/09/2019 at Unknown time ??? cholecalciferol (VITAMIN D3) 1,000 unit capsule take 1 Capsule by Oral route once 0 0 04/09/2019 at Unknown time ??? dilTIAZem CD (CARTIA XT) 240 mg 24 hr capsule take 1 capsule by oral route every day 0 0 04/09/2019 at Unknown time ??? docosahexanoic acid-epa (FISH OIL) 120-180 mg capsule 0 0 04/09/2019 at Unknown time ??? esomeprazole DR (NexIUM) 40 mg capsule take 1 capsule by oral route every day 0 0 04/09/2019 at Unknown time ??? L. gasseri-B. bifidum-B longum (Sera Prognostics) 1.5 billion cell capsule 0 0 04/09/2019 at Unknown time ??? Lactobacillus acidophilus (PROBIOTIC) 10 billion cell capsule take 1 daily 0 0 04/09/2019 at Unknown time ??? levalbuterol (XOPENEX HFA) 45 mcg/actuation inhaler inhale 2 puff by inhalation route every 6 hours 0 Inhaler 0 04/09/2019 at Unknown time ??? nitroglycerin (NITROLINGUAL) 400 mcg/spray spray 1-2 sprays under the tongue prn, max 3 sprays in 15 minutes. 1 3 More than a month at Unknown time ??? omega 0-btu-zol-fish oil (FISH OIL) 100-160-1,000 mg capsule 0 0 04/09/2019 at Unknown time ??? psyllium 0.52 gram capsule take 1 capsule daily 0 0 Taking ??? rosuvastatin (CRESTOR) 20 mg tablet take 1 tablet by oral route every day 0 0 Taking ??? traMADol (ULTRAM) 50 mg tablet take 1 - 2 Tablet by oral route every 6 hours for pain 0 0 Past Week at Unknown time Allergies Allergen Reactions ??? Marin Inhibitors ??? Adhesive Tape-Silicones ??? Atenolol ??? Beta-Blockers (Beta-Adrenergic Blocking Agts) ??? Latex ??? Sulfa (Sulfonamide Antibiotics) ??? Sulfanilamide ??? Terfenadine Social History Tobacco Use ??? Smoking status: Smoker, Current Status Unknown ??? Smokeless tobacco: Never Used Substance Use Topics ??? Alcohol use: Yes Family History Problem Relation Age of Onset ??? Other Mother Aplastic anemia; ??? Other Father Cancer -epiglotitis; /Cancer - epiglottis; ??? Asthma Sister Asthma; ??? Other Sister obese; Review of Systems Please see HPI for pertinent positives and negatives. Otherwise 10 point review of systems was completed and is otherwise negative. OBJECTIVE Vitals: Arrival Vitals Temp 04/09/19 1609 (!) 38.9 ??C (102.1 ??F) Pulse 04/09/19 1605 100 Resp 04/09/19 1605 17 BP 04/09/19 1605 145/74 SpO2 04/09/19 1605 90 % Temp src 04/09/19 1609 Oral Heart Rate Source -- Patient Position 04/09/19 2222 Lying BP Location 04/09/19 2222 Left arm FiO2 (%) -- 24hr Min/Max: Temp Min: 36.4 ??C (97.5 ??F) Max: 38.9 ??C (102.1 ??F) Pulse Min: 68 Max: 100 BP Min: 112/51 Max: 145/74 Resp Min: 17 Max: 36 SpO2 Min: 88 % Max: 95 % Most Recent : Vitals: 04/10/19 0125 BP: Pulse: Resp: Temp: 37.8 ??C (100 ??F) SpO2: I/O this shift: In: 1100 [IV Piggyback:1100] Out: - PHYSICAL EXAM GENERAL: No acute distress, A&O x4 HEENT: No conjunctival pallor, mucous membranes are moist NEURO: PERRL, EOMI, moves all extremities CVS: S1-S2, regular rate and rhythm LUNGS: Decreased breath sounds bilaterally, crackles on the right base, no wheezing or rhonchi ABDOMEN: Positive bowel sounds, soft, mild epigastric/left upper quadrant tenderness to palpation, left-sided CVA tenderness but patient has a 5.8 cm cyst on left kidney per CT report EXT: No lower extremity edema or tenderness to palpation SKIN: Warm, dry Lab/Radiology/Diagnostic Review: Recent Results (from the past 24 hour(s)) CBC with auto differential Collection Time: 04/09/19 4:35 PM Result Value Ref Range WBC 12.0 (H) 3.8 - 9.9 K/cumm Hgb 14.4 11.9 - 15.5 g/dL Hct 42.3 35.6 - 45.5 % Plt 199 150 - 400 K/cumm MPV 9.8 9.1 - 12.3 fL RBC 4.56 3.90 - 5.20 M/cumm MCV 92.8 81.3 - 96.4 fL MCH 31.6 27.1 - 33.3 pg MCHC 34.0 32.3 - 35.7 g/dL RDW CV 13.9 11.1 - 14.9 % RDW SD 47.5 35.7 - 48.1 fL NRBC abs 0.00 0.00 - 0.01 K/cumm Comprehensive metabolic panel Collection Time: 04/09/19 4:35 PM Result Value Ref Range Sodium 135 135 - 145 mmol/L Potassium, pl 3.6 3.3 - 4.9 mmol/L Chloride 98 97 - 110 mmol/L CO2 26 22 - 32 mmol/L Anion gap 11 2 - 15 mmol/L BUN 10 8 - 25 mg/dL Creatinine 0.74 0.60 - 1.10 mg/dL Glucose 136 70 - 199 mg/dL Calcium 9.6 8.5 - 10.3 mg/dL Bilirubin, total 0.6 0.1 - 1.2 mg/dL Protein, pl 7.6 6.5 - 8.5 g/dL Albumin 4.2 3.5 - 5.0 g/dL Alk phos 54 40 - 130 Units/L ALT 16 7 - 45 Units/L AST 17 10 - 45 Units/L CRP (acute phase) Collection Time: 04/09/19 4:35 PM Result Value Ref Range C-RP 60.7 (H) <=10.0 mg/L Creatine kinase (CK), total Collection Time: 04/09/19 4:35 PM Result Value Ref Range CK 76 30 - 200 Units/L Troponin T Collection Time: 04/09/19 4:35 PM Result Value Ref Range Troponin T <0.01 0.00 - 0.01 ng/mL Pro B-type natriuretic peptide Collection Time: 04/09/19 4:35 PM Result Value Ref Range NT-proBNP 146 <=300 pg/mL Differential, auto Collection Time: 04/09/19 4:35 PM Result Value Ref Range Neutrophil abs 10.6 (H) 1.7 - 6.5 K/cumm Imm gran abs 0.1 0.0 - 0.1 K/cumm Lymphocyte abs 0.4 (L) 0.8 - 3.3 K/cumm Monocyte abs 0.7 0.2 - 0.8 K/cumm Eosinophil abs 0.1 0.0 - 0.5 K/cumm Basophil abs 0.0 0.0 - 0.1 K/cumm Neutrophil pct 88.8 % Imm gran pct 0.9 % Lymphocyte pct 3.3 % Monocyte pct 5.8 % Eosinophil pct 1.2 % Basophil pct 0.0 % eGFR Collection Time: 04/09/19 4:35 PM Result Value Ref Range GFR 86 mL/min/1.73 m2 D-dimer, quantitative Collection Time: 04/09/19 4:35 PM Result Value Ref Range D-dimer 223 150 - 230 ng/mL D-DU Lactate Collection Time: 04/09/19 4:40 PM Result Value Ref Range Lactate 1.4 0.7 - 2.0 mmol/L Urinalysis reflex to microscopic and culture Urine, clean voided Collection Time: 04/09/19 5:40 PM Result Value Ref Range Color, ur Yellow Yellow Clarity, ur Clear Clear Specific gravity, ur 1.024 1.010 - 1.025 pH, urine 7.5 Protein, ur ql Trace Negative Glucose, ur ql Negative Negative Ketones, ur Negative Negative Bilirubin, ur Negative Negative Blood, ur Negative Negative Urobilinogen, ur 1.0 mg/dL Nitrite, ur Negative Negative Leukocyte esterase, ur Negative Negative Ct Head Wo Contrast Result Date: 04/09/2019 Narrative: PROCEDURE: CT HEAD WO CONTRAST HISTORY: Headache, acute, normal neuro exam. COMPARISON: None. TECHNIQUE: Helical CT scan of the head obtained noncontrast. FINDINGS: No acute intracranial hemorrhage identified. No midline shift is noted. Brainstem cisterns are intact. Ventricles are normal in size. Cerebrovascular atherosclerosis. Diminished attenuation involving the reynold on axial image#9 appears be technical/artifactual nature. This appears less remarkable on adjacent images. Impression: NO ACUTE INTRACRANIAL FINDING. Electronically signed by: Robson Spence M.D Ct Abdomen Pelvis W Contrast Result Date: 04/09/2019 Narrative: CT ABDOMEN PELVIS W CONTRAST HISTORY: Abd pain, gastroenteritis or colitis suspected. TECHNIQUE: Helical CT scan abdomen and pelvis obtained with intravenous contrast. 100 mL Optiray 320. No oral contrast as requested. COMPARISON: None available. FINDINGS: Mild hepatic steatosis. Prior ch olecystectomy. Borderline intrahepatic ductal dilatation. No extra hepatic biliary ductal dilatation. No pancreatic mass identified. For the kidneys, no hydronephrosis. A cyst at the midpole of the left kidney measuring 5.8 cm. Just above this a small cyst is seen left kidney. No adrenal mass identified. No small bowel dilatation identified. Evaluation the gastrointestinal tract is limited without oral contrast. Also some mural thickening of a few jejunal segments, for possible enteritis. Fairly extensive diverticulosis descending and sigmoid colon. Some minimal stranding associated with the distal descending sigmoid colon. Possible minimal change of diverticulitis. Urinary bladder is mildly distended with urine. Uterus is present. Umbilical hernia containing only adipose tissue. Atherosclerotic changes abdominal aorta, with ectasia. Diameter of the distal abdominal aorta is at the upper range of normal at 2.9 cm. Scattered patchy atelectasis/scarring in lung bases. 9 mm subpleural nodule lateral aspect right lower lobe on axial image #6. Noncalcified. Indeterminate nature. This measures 6 mm on the prior examination of 09/16/2015. Degenerative disc disease L3-L4 and L4-L5. Impression: 1. DIVERTICULOSIS WITH SOME MINIMAL CHANGES FOR POSSIBLE DIVERTICULITIS. 2. POSSIBLE ENTERITIS. ENTERITIS MAY BE INFECTIOUS, INFLAMMATORY, OR ISCHEMIC. 3. PRIOR CHOLECYSTECTOMY. 4. BORDERLINE INTRAHEPATIC BILIARY DUCTAL DILATATION. 5. 9 MM IN NATURE. NODULE RIGHT LOWER LOBE. THIS MEASURES 6 MM ON PRIOR STUDY OF 09/16/2015. 6. PATCHY ATELECTASIS/SCARRING IN LUNG BASES. 7. ECTASIA ABDOMINAL AORTA, WITH MAXIMAL DIAMETER 2.9 CM, UPPER RANGE OF NORMAL. Electronically signed by: Robson Chang M.D Xr Chest 1 Vw Portable Result Date: 04/09/2019 Narrative: XR CHEST 1 VIEW HISTORY: fever. Cough and congestion. TECHNIQUE: Portable AP view. COMPARISON: Topogram from CT the chest 09/16/2015. FINDINGS: Heart size within range of normal. No definite focal infiltrate identified. Costophrenic angles are sharp. Opacity left lower lung Field appearsto be primarily due to superimposition of shadows including left breast. Some infiltrate/atelectasis in this area difficult to exclude. Atherosclerotic changes of the aorta. Diminished detail due to body habitus. Dextro scoliosis lower thoracic spine. Impression: NO DEFINITE FOCAL INFILTRATE IDENTIFIED. FOLLOW-UP STANDARD EXAMINATION MAY BE BENEFICIAL. Electronically signed by: Robson Spence M.D ASSESSMENT/PLAN Principal Problem: SIRS (systemic inflammatory response syndrome) ([facility]) Active Problems: Hypertension Chronic ischemic heart disease Hyperlipidemia History of tobacco use GERD (gastroesophageal reflux disease) Anxiety * SIRS (systemic inflammatory response syndrome) ([facility]) Assessment & Plan Exact etiology is unclear. Patient really only had symptoms of a fever and generalized weakness. She is having a cough with sinus drainage for the last 4 days. Denies any sputum. Denies any chest pain or shortness of breath. Patient also denies any abdominal pain, nausea, vomiting or changes in herbowel habits. Patient has crackles on exam at [...] this time. Will continue with IV hydration. Anxiety Assessment & Plan Continue p.r.n. Xanax GERD (gastroesophageal reflux disease) Assessment & Plan Continue PPI History of tobacco use Assessment & Plan Patient quit 2 days ago. She states she was smoking 1 pack per week but has smoked up to 2 packs per day for 50 years. She is not interested in a nicotine patch. Hyperlipidemia Assessment & Plan Continue statin Chronic ischemic heart disease Assessment & Plan Continue Plavix and statin. Patient intolerant to both beta-blockers and Marin inhibitors. Hypertension Assessment & Plan Blood pressure is normotensive at this time. Will resume diltiazem with hold parameters. Diet. Clear liquid DVT Prophylaxis. Lovenox Code status. Patient states she wishes to be allowed a natural if that were to occur. She is DNR DNI. She is requesting spiritual care to help her fill out an advanced directive. Estimated length of stay greater than 2 midnights. Clinical Decision Making Complexity: High Time spent 50 minutes documented in this encounter Nursing Notes * Zeina Barnett RN - 04/13/2019 10:25 AM CDT Patient ambulated 160 feet with PT on room air. O2 remained 91-94% with no desaturation. documented in this encounter ED Notes * Uziel Miner MD - 04/09/2019 4:12 PM CDT HPI Chief Complaint Patient presents with ??? Fever ??? Back Pain ??? Weakness - Generalized 4:07 PM 04/09/2019 - Patient is a 64 y/o female smoker with a h/o HTN, CAD, and HLD presenting to theED via private vehicle c/o a fever of 102 measured at home today. Patient reports that she had beendiagnosed with a UTI 1 week ago with dysuria and bilateral flank pain. She was placed on Macrobid and has been taking Azo. Her dysuria has improved, but she developed a fever and chills this morning as well as generalized weakness and worsening, diffuse mid-back and posterior neck pain. She has also been nauseated, but denies any emesis or abdominal pain. No chest pain or SOB. No headache or dizziness. She states that she took 2 Tylenol at 1200 today. Patient History Patient Active Problem List Diagnosis Date Noted ??? Obstructive sleep apnea syndrome 08/10/2014 Class: Temporary ??? Hypertension 12/16/2013 Class: Chronic ??? Chronic ischemic heart disease 12/16/2013 Class: Chronic ??? Hyperlipidemia 12/16/2013 Class: Chronic Past Medical History: Diagnosis Date ??? Cardiovascular disease Coronary artery disease ??? Gastroesophageal reflux disease GERD ??? 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 HX OTHER MEDICAL Dyslipidemia ??? HX OTHER MEDICAL renal cyst ??? HX OTHER MEDICAL ventral hernia ??? Hyperlipidemia Hyperlipidemia ??? Hypertension Hypertension Past Surgical History: Procedure Laterality Date ??? CHOLECYSTECTOMY Cholecystectomy ??? OTHER SURGICAL HISTORY heart stents x 2 ??? OVARIAN CYST REMOVAL ovarian cyst removal ??? TONSILLECTOMY Tonsillectomy ??? TUBAL LIGATION Bilateral tubal ligation Family History Problem Relation Age of Onset ??? Other Mother Aplastic anemia; ??? Other Father Cancer -epiglotitis; /Cancer - epiglottis; ??? Asthma Sister Asthma; ??? Other Sister obese; Social History Tobacco Use ??? Smoking status: Smoker, Current Status Unknown ??? Smokeless tobacco: Never Used Substance Use Topics ??? Alcohol use: Yes ??? Drug use: Not on file Social History Social History Narrative ??? Not on file Review of Systems Review of Systems Constitutional: Positive for chills and fever. Negative for fatigue. HENT: Negative for congestion, ear pain, rhinorrhea, sneezing and sore throat. Respiratory: Negative for cough, shortness of breath and wheezing. Cardiovascular: Negative for chest pain and palpitations. Gastrointestinal: Positive for nausea. Negative for abdominal pain, constipation, diarrhea and vomiting. Genitourinary: Negative for dysuria and frequency. Musculoskeletal: Positive for back pain and neck pain. Negative for arthralgias and myalgias. Skin: Negative for rash and wound. Neurological: Positive for weakness. Negative for dizziness, syncope, light- headedness and headaches. All other systems reviewed and are negative. Physical Exam ED Triage Vitals Temp Pulse Resp BP SpO2 04/09/19 1609 04/09/19 1605 04/09/19 1605 04/09/19 1605 04/09/19 1605 (!) 38.9 ??C (102.1 ??F) 100 17 145/74 90 % Temp src Heart Rate Source Patient Position BP Location FiO2 (%) 04/09/19 1609 -- 04/09/19 2222 04/09/19 2222 -- Oral Lying Left arm Physical Exam Constitutional: She is oriented to person, place, and time. She appears well- developed and well-nourished. She appears ill. No distress. Pleasant talkative female with marked blushing. HENT: Head: Normocephalic and atraumatic. Mouth/Throat: Uvula is midline and oropharynx is clear and moist. Mucous membranes are dry. Speech clear and fluent. Eyes: Conjunctivae and EOM are normal. Neck: Normal range of motion. Neck supple. No JVD present. Cardiovascular: Regular rhythm and intact distal pulses. Tachycardia present. Exam reveals distant heart sounds. Exam reveals no gallop and no friction rub. No murmur heard. Pulmonary/Chest: Effort normal. No respiratory distress. She has no wheezes. She has no rales. Decreased airflow. Abdominal: Soft. She exhibits no distension. There is no tenderness. There is no rebound and no guarding. No flank pain on percussion. Musculoskeletal: Normal range of motion. She exhibits tenderness (bilateral lower back). She exhibits no edema or deformity. No calf pain or edema. Lymphadenopathy: She has no cervical adenopathy. Neurological: She is alert and oriented to person, place, and time. Neurological exam is non-focal. Skin: Skin is warm and dry. Capillary refill takes less than 2 seconds. No rash noted. No erythema.No pallor. Extremities are warm and dry. Psychiatric: She has a normal mood and affect. Her behavior is normal. Nursing note and vitals reviewed. [facility] Labs Reviewed CBC WITH AUTO DIFFERENTIAL - Abnormal Result Value WBC 12.0 (*) Hgb 14.4 Hct 42.3 Plt 199 MPV 9.8 RBC 4.56 MCV 92.8 MCH 31.6 MCHC 34.0 RDW CV 13.9 RDW SD 47.5 NRBC abs 0.00 CRP (ACUTE PHASE) - Abnormal C-RP 60.7 (*) DIFFERENTIAL AUTO - Abnormal Neutrophil abs 10.6 (*) Imm gran abs 0.1 Lymphocyte abs 0.4 (*) Monocyte abs 0.7 Eosinophil abs 0.1 Basophil abs 0.0 Neutrophil pct 88.8 Imm gran pct 0.9 Lymphocyte pct 3.3 Monocyte pct 5.8 Eosinophil pct 1.2 Basophil pct 0.0 URINALYSIS AND REFLEX TO MICROSCOPIC AND CULTURE Color, ur Yellow Clarity, ur Clear Specific gravity, ur 1.024 pH, urine 7.5 Protein, ur ql Trace Glucose, ur ql Negative Ketones, ur Negative Bilirubin, ur Negative Blood, ur Negative Urobilinogen, ur 1.0 Nitrite, ur Negative Leukocyte esterase, ur Negative Narrative: Urine pH is affected by diet, medications, systemic acid-base disturbances, and renal tubular function. pH may affect urinary stone formation. For example, urine pH below 6.0 may help reduce the tendency for calcium phosphate stones and pH greater than 6.0 may reduce the tendency for uric acid stone formation. Source: [employer] Re[facility]ora.Last revised 08-12-2017 BLOOD CULTURE BLOOD CULTURE COMPREHENSIVE METABOLIC PANEL Sodium 135 Potassium, pl 3.6 Chloride 98 CO2 26 Anion gap 11 BUN 10 Creatinine 0.74 Glucose 136 Calcium 9.6 Bilirubin, total 0.6 Protein, pl 7.6 Albumin 4.2 Alk phos 54 ALT 16 AST 17 CREATINE KINASE (CK), TOTAL CK 76 TROPONIN T Troponin T <0.01 PRO B-TYPE NATRIURETIC PEPTIDE NT-proBNP 146 LACTATE Lactate 1.4 EGFR GFR 86 D-DIMER, QUANTITATIVE D-dimer 223 CT Abdomen Pelvis W Contrast Final Result 1. DIVERTICULOSIS WITH SOME MINIMAL CHANGES FOR POSSIBLE DIVERTICULITIS. 2. POSSIBLE ENTERITIS. ENTERITIS MAY BE INFECTIOUS, INFLAMMATORY, OR ISCHEMIC. 3. PRIOR CHOLECYSTECTOMY. 4. BORDERLINE INTRAHEPATIC BILIARY DUCTAL DILATATION. 5. 9 MM IN NATURE. NODULE RIGHT LOWER LOBE. THIS MEASURES 6 MM ON PRIOR STUDY OF 09/16/2015. 6. PATCHY ATELECTASIS/SCARRING IN LUNG BASES. 7. ECTASIA ABDOMINAL AORTA, WITH MAXIMAL DIAMETER 2.9 CM, UPPER RANGE OF NORMAL. Electronically signed by: Robson Spence M.D XR Chest 1 Vw Portable Final Result NO DEFINITE FOCAL INFILTRATE IDENTIFIED. FOLLOW-UP STANDARD EXAMINATION MAY BE BENEFICIAL. Electronically signed by: Robson Spence M.D CT Head WO Contrast Final Result NO ACUTE INTRACRANIAL FINDING. Electronically signed by: Robson Spence M.D BP 112/51 (BP Location: Left arm, Patient Position: Lying) Pulse 68 Temp 36.4 ??C (97.5 ??F) (Tympanic) Resp 20 Ht 162.6 cm (5' 4 ) Wt 105.3 kg (232 lb 1.6 oz) SpO2 95% BMI 39.84 kg/m?? ED Course as of Apr 10 24 Time: 04/09 1827 Value: D-dimer, quantitative Comment: (Reviewed) By: Uziel Miner MD Time: 04/09 1827 Value: D-dimer, quantitative Comment: (Reviewed) By: Uziel Miner MD Time: 04/09 2037 Comment: Discussed patient's case with Dr. Yadav, [facility], who accepts the patient for admission. By: Tressa Maria Diverticulosis large intestine w/o perforation or abscess w/o bleeding SIRS (systemic inflammatory response syndrome) ([facility]) 12:24 AM: This note is prepared by Tressa Maria, acting as a scribe for Uziel Miner MD. I electronically signed this note at 12:24 AM on 04/10/2019. I, Uziel Miner MD, have personally performed the services described in the documentation , reviewed the documentation, as recorded by the scribe in my presence, and it accurately and completely records my words and actions. Uziel Miner MD 04/10/19 0024 * Kourtney Marie RN - 04/09/2019 4:05 PM CDT Pt reports that she finished a course of antibiotics yesterday for a UTI. Pt reports that she has afever at home.states that she took 2 Tylenol around noon and is febrile at this time. Pt reports generalized weakness and neck pain documented in this encounter Miscellaneous Notes * Plan of Care - Zeina Barnett RN - 04/13/2019 1:45 PM CDT Goals: Clinical Goals for the Shift: resp remain stable, pending discharge Summary: Remains in stable condition. Discharge medication reviewed with patient. Understanding verbalized. Signs and symptoms to report discussed. Awaiting ride. Problem: Health Behavior: Goal: Understanding of discharge needs will improve Outcome: Adequate for Discharge Problem: Lack of Knowledge: Goal: Ability to develop a pain control plan will improve Outcome: Adequate for Discharge Goal: Ability to identify pain intensity on a pain scale and rate it consistently will improve Outcome: Adequate for Discharge Goal: Ability to notify healthcare provider of pain before it becomes unmanageable or unbearable will improve Outcome: Adequate for Discharge Problem: Medication: Goal: Satisfaction with pain management regimen will improve Outcome: Adequate for Discharge Problem: Sensory: Goal: Pain level will decrease Outcome: Adequate for Discharge Problem: Cardiac: Goal: Cardiovascular alteration will improve Outcome: Adequate for Discharge Goal: Hemodynamic stability will improve Outcome: Adequate for Discharge Problem: Fluid Volume: Goal: Risk for excess fluid volume will decrease Outcome: Adequate for Discharge Problem: Health Behavior: Goal: Ability to seek appropriate health care will improve Outcome: Adequate for Discharge * Plan of Care - Destiney Rodriguez RN - 04/13/2019 4:26 AM CDT Goals: Clinical Goals for the Shift: to feel less short of breath Problem: Health Behavior: Goal: Understanding of discharge needs will improve Outcome: Progressing Problem: Lack of Knowledge: Goal: Ability to develop a pain control plan will improve Outcome: Progressing Goal: Ability to identify pain intensity on a pain scale and rate it consistently will improve Outcome: Progressing Goal: Ability to notify healthcare provider of pain before it becomes unmanageable or unbearable will improve Outcome: Progressing Problem: Medication: Goal: Satisfaction with pain management regimen will improve Outcome: Progressing Problem: Sensory: Goal: Pain level will decrease Outcome: Progressing Problem: Cardiac: Goal: Cardiovascular alteration will improve Outcome: Progressing Goal: Hemodynamic stability will improve Outcome: Progressing Problem: Fluid Volume: Goal: Risk for excess fluid volume will decrease Outcome: Progressing Problem: Health Behavior: Goal: Ability to seek appropriate health care will improve Outcome: Progressing Summary: Patient alert/oriented and pleasant/cooperative with cares. Educated patient on importanceof tests ordered for patient and plan of care. Patients daughter at bedside and in agreement. Able to make needs known. PRN Tramadol given at patients request. Bi-pap in place during sleep. Appears to have gotten some rest. Call light within reach. Will continue to monitor. * Plan of Care - Brittny Mena RN - 04/12/2019 4:00 PM CDT Goals: Problem: Health Behavior: Goal: Understanding of discharge needs will improve Outcome: Progressing Problem: Lack of Knowledge: Goal: Ability to develop a pain control plan will improve Outcome: Progressing Goal: Ability to identify pain intensity on a pain scale and rate it consistently will improve Outcome: Progressing Goal: Ability to notify healthcare provider of pain before it becomes unmanageable or unbearable will improve Outcome: Progressing Problem: Medication: Goal: Satisfaction with pain management regimen will improve Outcome: Progressing Problem: Sensory: Goal: Pain level will decrease Outcome: Progressing Clinical Goals for the Shift: patient will remain hemodynamically stable Summary: VSS. Denies pain or SOB. * Plan of Care - Casey Gould RN - 04/12/2019 4:37 AM CDT Goals: Clinical Goals for the Shift: VSS, Rest comfortably Summary: Pt complained of headache x 1, and temp went up to 38.2 C. Gave ibuprofen x 1 and both improved. Pt slept when not up for procedures. Problem: Health Behavior: Goal: Understanding of discharge needs will improve Outcome: Progressing Problem: Lack of Knowledge: Goal: Ability to develop a pain control plan will improve Outcome: Progressing Goal: Ability to identify pain intensity on a pain scale and rate it consistently will improve Outcome: Progressing Goal: Ability to notify healthcare provider of pain before it becomes unmanageable or unbearable will improve Outcome: Progressing Problem: Medication: Goal: Satisfaction with pain management regimen will improve Outcome: Progressing Problem: Sensory: Goal: Pain level will decrease Outcome: Progressing * Plan of Care - Mehrdad Gil RN - 04/11/2019 2:57 PM CDT Goals: Clinical Goals for the Shift: no resp distress, temp return to normal Summary: Alert and orientated, resp even and unlabored on ra. No resp distress noted. Denies dyspnea. Ambulating in room/BRP per self, steady gait. IVFs dc'd. [place] po intake well, appetite good. Has remained afebrile this shift. Denies pain or discomfort. Monitor shows NSR. * Plan of Care - Maribel Betts RN - 04/11/2019 4:26 AM CDT Goals: Clinical Goals for the Shift: No resp distress, decrease in temperature. Summary: Resting quietly, c/o headache, relieved with Tramadol and Ibuprofen. Febrile and treated with Tylenol. Ambulatory in room independently. Uses CPAP intermittently. Problem: Health Behavior: Goal: Understanding of discharge needs will improve Outcome: Progressing Problem: Lack of Knowledge: Goal: Ability to develop a pain control plan will improve Outcome: Progressing Goal: Ability to identify pain intensity on a pain scale and rate it consistently will improve Outcome: Progressing Goal: Ability to notify healthcare provider of pain before it becomes unmanageable or unbearable will improve Outcome: Progressing Problem: Medication: Goal: Satisfaction with pain management regimen will improve Outcome: Progressing Problem: Sensory: Goal: Pain level will decrease Outcome: Progressing * Plan of Care - Shilpi Quiroz RRT - 04/11/2019 1:11 AM CDT BiPAP Pt is tolerating non-invasive ventilation well. Mask fits well with minimal leak. No skin break down noted. Will continue to monitor, and titrate per MD order. * Plan of Care - Mehrdad Gil RN - 04/10/2019 2:42 PM CDT Goals: Clinical Goals for the Shift: no resp distress, pain control Summary: Alert and orientated, resp even and unlabored on ra/2l/nc w/cpap, no acute resp distress noted. Up to BR per self steady gait, no falls. Appetite fair. Temp remains elevated this shift despite tylenol, [employer] on case aware. Denies pain other than generalized discomfort from fever. Monitor shows NSR. * Plan of Care - Maribel Betts RN - 04/10/2019 4:03 AM CDT Goals: Clinical Goals for the Shift: Pt will have have stable vitals and adequate intake and output Summary: Resting with eyes closed at interval. Febrile, treated with Tylenol, temp decreased to 100.3. No other complaints. IVF infusing at 125ml/hr Problem: Health Behavior: Goal: Understanding of discharge needs will improve Outcome: Progressing Problem: Lack of Knowledge: Goal: Ability to develop a pain control plan will improve Outcome: Progressing Goal: Ability to identify pain intensity on a pain scale and rate it consistently will improve Outcome: Progressing Goal: Ability to notify healthcare provider of pain before it becomes unmanageable or unbearable will improve Outcome: Progressing Problem: Medication: Goal: Satisfaction with pain management regimen will improve Outcome: Progressing Problem: Sensory: Goal: Pain level will decrease Outcome: Progressing * Assessment & Plan Note - Marie Yadav MD - 04/10/2019 1:41 AM CDTAssociated Problem(s): SIRS (systemic inflammatory response syndrome) (HCC) Exact etiology is unclear. Patient really only had symptoms of a fever and generalized weakness. She is having a cough with sinus drainage for the last 4 days. Denies any sputum. Denies any chest pain or shortness of breath. Patient also denies any abdominal pain, nausea, vomiting or changes in herbowel habits. Patient has crackles on exam at [...] this time. Will continue with IV hydration. * Assessment & Plan Note - Marie Yadav MD - 04/10/2019 1:41 AM CDTAssociated Problem(s): Hyperlipidemia Continue statin * Assessment & Plan Note - Marie Yadav MD - 04/10/2019 1:40 AM CDTAssociated Problem(s): Chronic ischemic heart disease Continue Plavix and statin. Patient intolerant to both beta-blockers and Marin inhibitors. * Assessment & Plan Note - Marie Yadav MD - 04/10/2019 1:40 AM CDTAssociated Problem(s): Hypertension Blood pressure is normotensive at this time. Will resume diltiazem with hold parameters. * Assessment & Plan Note - Marie Yadav MD - 04/10/2019 1:40 AM CDTAssociated Problem(s): Anxiety Continue p.r.n. Xanax * Assessment & Plan Note - Marie Yadav MD - 04/10/2019 1:40 AM CDTAssociated Problem(s): GERD (gastroesophageal reflux disease) Continue PPI * Assessment & Plan Note - Marie Yadav MD - 04/10/2019 1:39 AM CDTAssociated Problem(s): History of tobacco use Patient quit 2 days ago. She states she was smoking 1 pack per week but has smoked up to 2 packs per day for 50 years. She is not interested in a nicotine patch. documented in this encounter Plan of Treatment Not on file documented as of this encounter Procedures Procedure Name Priority Date/Time Associated Diagnosis Comments TRANSTHORACIC ECHO (TTE) COMPLETE W DOPPLER/CF WO CONTRAST Routine 04/13/2019 11:40 AM CDT EGFR Routine 04/13/2019 4:25 AM CDT DIFFERENTIAL AUTO Routine 04/13/2019 4:2 5 AM CDT CBC WITH AUTO DIFFERENTIAL Routine 04/13/2019 4:25 AM CDT MAGNESIUM Routine 04/13/2019 4:25 AM CDT COMPREHENSIVE METABOLIC PANEL Routine 04/13/2019 4:25 AM CDT LIPID PANEL Add-On 04/13/2019 4:22 AM CDT DIFFERENTIAL AUTO Routine 04/11/2019 4:4 5 AM CDT CBC WITH AUTO DIFFERENTIAL Routine 04/11/2019 4:45 AM CDT XR CHEST 1 VIEW IP Routine 04/10/2019 9:20 AM CDT EGFR Routine 04/10/2019 4:38 AM CDT DIFFERENTIAL AUTO Routine 04/10/2019 4:3 8 AM CDT CBC WITH AUTO DIFFERENTIAL Routine 04/10/2019 4:38 AM CDT COMPREHENSIVE METABOLIC PANEL Routine 04/10/2019 4:[address] ABDOMEN PELVIS W CONTRAST ED 04/09/2019 7:01 PM CDT URINALYSIS AND REFLEX TO MICROSCOPIC AND CULTURE STAT 04/09/2019 5:40 PM CDT XR CHEST 1 VIEW ED 04/09/2019 4:[address] HEAD WO CONTRAST ED 04/09/2019 4 :51 PM CDT LACTATE STAT 04/09/2019 4:40 PM CDT EGFR STAT 04/09/2019 4:35 PM CDT DIFFERENTIAL AUTO STAT 04/09/2019 4:3 5 PM CDT PRO B-TYPE NATRIURETIC PEPTIDE STAT 04/09/2019 4:35 PM CDT CBC WITH AUTO DIFFERENTIAL STAT 04/09/2019 4:35 PM CDT BLOOD CULTURE STAT 04/09/2019 4:35 PM CDT D-DIMER, QUANTITATIVE Add-On 04/09/2019 4:35 PM CDT CRP (ACUTE PHASE) STAT 04/09/2019 4:3 5 PM CDT TROPONIN T STAT 04/09/2019 4:35 PM CDT CREATINE KINASE (CK), TOTAL STAT 04/09/2019 4:35 PM CDT COMPREHENSIVE METABOLIC PANEL STAT 04/09/2019 4:35 PM CDT BLOOD CULTURE STAT 04/09/2019 4:29 PM CDT ECG 12-LEAD Routine 04/09/2019 4:23 PM CDT documented in this encounter Results * TRANSTHORACIC ECHO (TTE) COMPLETE W DOPPLER/CF WO CONTRAST (04/13/2019 11:40 AM CDT) Anatomical Region Laterality Modality Ultrasound 04/13/2019 10:3 0 AM CDT Narrative 04/13/2019 5:28 PM CDT [address] [place] [address] Echocardiogram Report Patient Name: DESIREE ROBLERO LYNN : 1955 Study Date: 04/13/2019 10:30:33 Gender: F Tech: AA Location: [id number] Ref.Provider: JOSE HUERTA Height(Cm): BSA: Weight(Kg): Quality: Good Procedures: Echocardiographic Report: Transthoracic echocardiogram with complete 2D, M-Mode, and color Doppler examination. Indications: Fever, pulmonary congestion. Measurements: 2D/M Mode ?Doppler ? Measurement ?Value ?Normal Range ? Measurement ?Value ?Normal Range ? EF Teich 2D ?62.9 ? [ 55.0 - 70.0 ] percent ?BEBETO Vmax ? 2.60 ? [ 2.00 - 4.00 ] cm2 ? EF Mod 4C ?73.2 ? [ 55.0 - 70.0 ] percent ?AV Mean PG ? 17 ? [ 2 - 4 ] mmHg ? LVIDd 2D ? 4.65 ? [ 3.90 - 5.30 ] cm ? AV Peak Homero ?2.66 ? [ 1.00 - 1.70 ] m/s ? LVIDs 2D ? 3.07 ? [ 2.30 - 3.90 ] cm ? AV VTI ? 47.05 ?cm ? LVPWd 2D ? 1.20 ? [ 0.60 - 1.00 ] cm ? LVOT Diam ?2.07 ? [ 1.70 - 2.10 ] cm ? IVSd 2D ?1.39 ? [ 0.60 - 0.90 ] cm ? LVOT Peak Homero ?1.52 ? [ 0.70 - 1.10 ] m/s ? LA Dimension MM ?4.29 ? [ 2.70 - 3.80 ] cm ? LVOT VTI ? 36.31 ?[ 20.00 - 30.00 ] cm ? AoR Diam MM ?3.54 ? [ 2.60 - 3.70 ] cm ? MV E Peak Homero ?1.23 ? [ 0.60 - 1.30 ] m/s ? ACS MM ? 1.57 ? cm ? MV A Peak Homero ?1.38 ? [ 1.00 - 1.20 ] m/s ? MV Mean PG ? 4 ?[ <= 5 ] mmHg ? MV PHT ? 69 ? [ 20 - 100 ] msec ? MVA ?2.60 ? MV Decel Time ?239 ?[ 104 - 258 ] msec ? PV Peak Homero ?1.51 ? [ 0.40 - 0.80 ] m/s ? TR Peak Homero ?2.83 ? [ 1.00 - 2.80 ] m/s ? TR Peak PG ? 32 ? mmHg ? RVSP ? 42.00 ?[ 10.00 - 36.00 ] mmHg ? E' ? 0.06 ? E/E' ? 21.00 ? PA Pressure ?10.00 ?[ 10.00 - 36.00 ] mmHg ? Findings: Atrial Septum: Normal atrial septum. Left Ventricle: Normal left ventricular systolic function with no focal wall motion abnormalities. Normal left ventricular wall thickness. Ejection fraction is visually estimated at 70 %. Left Atrium: There is moderate enlargement of left atrium. Right Ventricle: Normal right ventricular size. Normal right ventricular systolic function. Right Atrium: The right atrium is normal in size. Aortic Valve: Normal structure of the aortic valve. No evidence of hemodynamically significant aortic stenosis by Doppler. Mitral Valve: Normal structure of the mitral valve. Trivial regurgitation of the mitral valve. Pulmonic Valve: Pulmonic valve not well visualized. Tricuspid Valve: Right Ventricular Systolic Pressure could not be estimated due to inadequate visualization of TR jet. Pericardium: Normal pericardium with no significant pericardial effusion. Aorta: Normal aortic root. Sinus of Valsalva is normal. IVC: Normal size and normal respiratory collapse consistent with normal right atrial pressure (<5 mmHg). Conclusions: Normal left ventricular systolic function with no focal wall motion abnormalities. Normal left ventricular wall thickness. Ejection fraction is visually estimated at 70 %. Right Ventricular Systolic Pressure could not be estimated due to inadequate visualization of TR jet. Electronically Signed By: Dr Servando Melgar 2019-04-13 17:28:24 CDT Procedure Note Servando Melgar, DO - 04/13/2019 [place] [id number] Echocardiogram Report Patient Name: DESIREE ROBLERO LYNNPvidalent ID: [id number] : [id number] Date: 04/13/2019 10:30:33 Gender: FAccession #: [id number] Tech: AALocation: [id number] Ref.Provider: Shankar HUERTA(Cm): BSA: Weight(Kg): Quality: Good Procedures: Echocardiographic Report: Transthoracic echocardiogram with complete 2D, M-Mode, and color Dopplerexamination. Indications: Fever, pulmonary congestion. Measurements: 2D/M Mode Doppler Measurement Value Normal Range MeasurementValue Normal Range EF Teich 2D 62.9 [ 55.0 - 70.0 ] percent BEBETO Vmax2.60 [ 2.00 - 4.00 ] cm2 EF Mod 4C 73.2 [ 55.0 - 70.0 ] percent AV Mean PG 17[ 2 - 4 ] mmHg LVIDd 2D 4.65 [ 3.90 - 5.30 ] cm AV Peak Vel2.66 [ 1.00 - 1.70 ] m/s LVIDs 2D 3.07 [ 2.30 - 3.90 ] cm AV VTI47.05 cm LVPWd 2D 1.20 [ 0.60 - 1.00 ] cm LVOT Diam2.07 [ 1.70 - 2.10 ] cm IVSd 2D 1.39 [ 0.60 - 0.90 ] cm LVOT Peak Vel1.52 [ 0.70 - 1.10 ] m/s LA Dimension MM 4.29 [ 2.70 - 3.80 ] cm LVOT VTI36.31 [ 20.00 - 30.00 ] cm AoR Diam MM 3.54 [ 2.60 - 3.70 ] cm MV E Peak Vel1.23 [ 0.60 - 1.30 ] m/s ACS MM 1.57 cm MV A Peak Vel1.38 [ 1.00 - 1.20 ] m/s MV Mean PG 4[ <= 5 ] mmHg MV PHT 69[ 20 - 100 ] msec MVA2.60 MV Decel [id number] [ 104 - 258 ] msec PV Peak Vel1.51 [ 0.40 - 0.80 ] m/s TR Peak Vel2.83 [ 1.00 - 2.80 ] m/s TR Peak PG 32mmHg RVSP42.00 [ 10.00 - 36.00 ] mmHg E'0.06 E/E'21.00 PA Ipzwdauu21.00 [ 10.00 - 36.00 ] mmHg Findings: Atrial Septum: Normal atrial septum. Left Ventricle: Normal left ventricular systolic function with no focal wall motionabnormalities. Normal left ventricular wall thickness. Ejection fraction is visually estimatedat 70 %. Left Atrium: There is moderate enlargement of left atrium. Right Ventricle: Normal right ventricular size. Normal right ventricular systolicfunction. Right Atrium: The right atrium is normal in size. Aortic Valve: Normal structure of the aortic valve. No evidence of hemodynamicallysignificant aortic stenosis by Doppler. Mitral Valve: Normal structure of the mitral valve. Trivial regurgitation of the mitralvalve. Pulmonic Valve: Pulmonic valve not well visualized. Tricuspid Valve: Right Ventricular Systolic Pressure could not be estimated due toinadequate visualization of TR jet. Pericardium: Normal pericardium with no significant pericardial effusion. Aorta: Normal aortic root. Sinus of Valsalva is normal. IVC: Normal size and normal respiratory collapse consistent with normal rightatrial pressure (<5 mmHg). Conclusions: Normal left ventricular systolic function with no focal wall motionabnormalities. Normal left ventricular wall thickness. Ejection fraction is visually estimatedat 70 %. Right Ventricular Systolic Pressure could not be estimated due toinadequate visualization of TR jet. Electronically Signed By: Dr Servando Melgar 2019-04-13 17:28:24 CDT us Jose Huerta MD CV ECHO PROCEDURES Final Result * eGFR (04/13/2019 4:25 AM CDT) eGFR 102 mL/min/1.7 3 m2 [facility] ([facility]ER) Comment: Interpretive Data Reference Interval Normal ?>/= 90 mL/min/1.73m2 Mildly decreased* ? 60 - 89 mL/min/1.73m2 Mildly to moderately decreased ?45 - 59 mL/min/1.73m2 Moderately to severely decreased ??30 - 44 mL/min/1.73m2 Severely decreased ?15 - 29 mL/min/1.73m2 Kidney Failure ?< 15 ??mL/min/1.73m2 *Relative to young adult level If -[place]ai[place]ese multiply value by 1.16. Estimated glomerular filtration [...] was last reviewed 2016. Blood specimen (specimen) 04/13/2019 4:25 AM CDT 04/13/2019 4:46 AM CDT us Jose Huerta MD LAB BLOOD ORDERABLES Final Resul t [facility] ([facility] [address] [place] [address] * (ABNORMAL) Differential, auto (04/13/2019 4:25 AM CDT) Neutrophil abs 7.4(H) 1.7 - 6.5 K/cumm [facility] ([facility]) Imm gran abs 0.1 0.0 - 0.1 K/cumm [facility] ([facility]) Lymphocyte abs 1.0 0.8 - 3.3 K/cumm [facility] ([facility]) Monocyte abs 0.3 0.2 - 0.8 K/cumm [facility] ([facility]) Eosinophil abs 0.0 0.0 - 0.5 K/cumm [facility] ([facility]) Basophil abs 0.0 0.0 - 0.1 K/cumm [facility] ([facility]) Neutrophil pct 83.3 % [facility] ([facility] Comment: Interpretive Data Percent cell count reference ranges are not reported, since discordance with absolute values may lead to misinterpretation of CBC data. Current Interpretive Data was last revised on 2017. Imm gran pct 1.6 % [facility] ([facility] Comment: Interpretive Data Percent cell count reference ranges are not reported, since discordance with absolute values may lead to misinterpretation of CBC data. Current Interpretive Data was last revised on 2017. Lymphocyte pct 11.6 % [facility] ([facility] Comment: Interpretive Data Percent cell count reference ranges are not reported, since discordance with absolute values may lead to misinterpretation of CBC data. Current Interpretive Data was last revised on 2017. Monocyte pct 3.1 % [facility] ([facility] Comment: Interpretive Data Percent cell count reference ranges are not reported, since discordance with absolute values may lead to misinterpretation of CBC data. Current Interpretive Data was last revised on 2017. Eosinophil pct 0.2 % [facility] ([facility] Comment: Interpretive Data Percent cell count reference ranges are not reported, since discordance with absolute values may lead to misinterpretation of CBC data. Current Interpretive Data was last revised on 2017. Basophil pct 0.2 % [facility] ([facility] Comment: Interpretive Data Percent cell count reference ranges are not reported, since discordance with absolute values may lead to misinterpretation of CBC data. Current Interpretive Data was last revised on 2017. Blood specimen (specimen) 04/13/2019 4:25 AM CDT 04/13/2019 4:49 AM CDT us Jose Huerta MD LAB BLOOD ORDERABLES Final Resul t Performing Organization Address City/[facility]/ZIP Co de Phone Number [facility] ([facility]) [address] [place] [address] * Magnesium (04/13/2019 4:25 AM CDT) Magnesium 1.9 1.6 - 2.4 mg/dL [facility] ([facility]) Blood specimen (specimen) 04/13/2019 4:25 AM CDT 04/13/2019 4:46 AM CDT us Jose Huerta MD LAB BLOOD ORDERABLES Final Resul t Performing Organization Address [facility] de Phone Number [facility] ([facility] [address] [place] [address] * (ABNORMAL) Comprehensive metabolic panel (04/13/2019 4:25 AM CDT) Sodium 140 135 - 145 mmol/L [facility] Potassium, pl 3.6 3.3 - 4.9 mmol/L [facility] ([facility] Chloride 101 97 - 110 mmol/L [facility] ([facility] CO2 25 22 - 32 mmol/L [facility] ([facility] Anion gap 14 2 - 15 mmol/L [facility] ([facility]) BUN 11 8 - 25 mg/dL [facility] ([facility]) Creatinine 0.51(L) 0.60 - 1.10 mg/dL [facility] ([facility] Glucose 143 70 - 199 mg/dL [facility] ([facility] [...] 10.3 mg/dL [facility] ([facility]) Bilirubin, total 0.2 0.1 - 1.2 mg/dL [facility] ([facility]) Protein, pl 7.4 6.5 - 8.5 g/dL [facility] ([facility]) Albumin 3.7 3.5 - 5.0 g/dL [facility] ([facility]) Alk phos 45 40 - 130 Units/L [facility] ([facility] ALT 18 7 - 45 Units/L [facility] ([facility] AST 13 10 - 45 Units/L [facility] ([facility]) Blood specimen (specimen) 04/13/2019 4:25 AM CDT 04/13/2019 4:46 AM CDT us Jose Huerta MD LAB BLOOD ORDERABLES Final Resul t [facility] ([facility] [address] [place] [address] * (ABNORMAL) CBC with auto differential (04/13/2019 4:25 AM CDT) WBC 8.9 3.8 - 9.9 K/cumm [facility] ([facility]) Hgb 13.1 11.9 - 15.5 g/dL [facility] ([facility] Hct 37.2 35.6 - 45.5 % [facility] ([facility]) Plt 210 150 - 400 K/cumm [facility] ([facility]) MPV 10.3 9.1 - 12.3 fL [facility] ([facility] RBC 4.12 3.90 - 5.20 M/cumm [facility] ([facility]) MCV 90.3 81.3 - 96.4 fL [facility] ([facility]) MCH 31.8 27.1 - 33.3 pg [facility] ([facility]) MCHC 35.2 32.3 - 35.7 g/dL [facility] ([facility]) RDW CV 13.2 11.1 - 14.9 % [facility]) RDW SD 43.8 35.7 - 48.1 fL [facility] ([facility]) NRBC abs 0.02(H) 0.00 - 0.01 K/cumm [facility] ([facility]) Blood specimen (specimen) 04/13/2019 4:25 AM CDT 04/13/2019 4:49 AM CDT Jose Huerta MD LAB BLOOD ORDERABLES Final Resul t [facility] ([facility]) [address] [place] [id number] * Lipid panel (04/13/2019 4:22 AM CDT) Cholesterol 112 30 - 199 mg/dL [facility] [...] Data was last revised on 2018. Triglycerides 68 <=149 mg/dL [facility] ([facility] Comment: Interpretive [...] Data was last revised on 2018. HDL 40 >=40 mg/dL [facility]) Comment: Interpretive Data [...] was last revised on 2018. LDL, calculated 58 <=129 mg/dL [facility] ([facility] Comment: Interpretive [...] was last revised on 2018. Non-HDL Cholesterol 72 mg/dL [facility] ([facility]) Comment: Interpretive Data [...] last revised on 2018. Chol/HDL ratio 3 [facility] ([place]) Blood specimen (specimen) 04/13/2019 4:22 AM CDT 04/13/2019 8:36 AM CDT Jose Huerta MD LAB BLOOD ORDERABLES Final Resul t [facility] ([facility] [address] [place] [address] * Differential, auto (04/11/2019 4:45 AM CDT) Neutrophil abs 5.8 1.7 - 6.5 K/cumm [facility] ([facility]) Imm gran abs 0.1 0.0 - 0.1 K/cumm [facility] ([facility]) Lymphocyte abs 1.3 0.8 - 3.3 K/cumm [facility] ([facility]) Monocyte abs 0.6 0.2 - 0.8 K/cumm [facility] ([facility]) Eosinophil abs 0.4 0.0 - 0.5 K/cumm [facility] ([facility]) Basophil abs 0.0 0.0 - 0.1 K/cumm [facility] ([facility]) Neutrophil pct 70.3 % [facility] ([facility] Comment: Interpretive Data Percent cell count reference ranges are not reported, since discordance with absolute values may lead to misinterpretation of CBC data. Current Interpretive Data was last revised on 2017. Imm gran pct 1.1 % [facility] ([facility] Comment: Interpretive Data Percent cell count reference ranges are not reported, since discordance with absolute values may lead to misinterpretation of CBC data. Current Interpretive Data was last revised on 2017. Lymphocyte pct 15.6 % [facility] ([facility] Comment: Interpretive Data Percent cell count reference ranges are not reported, since discordance with absolute values may lead to misinterpretation of CBC data. Current Interpretive Data was last revised on 2017. Monocyte pct 7.5 % [facility] ([facility]) Comment: Interpretive Data Percent cell count reference ranges are not reported, since discordance with absolute values may lead to misinterpretation of CBC data. Current Interpretive Data was last revised on 2017. Eosinophil pct 5.4 % [facility] ([facility] Comment: Interpretive Data Percent cell count reference ranges are not reported, since discordance with absolute values may lead to misinterpretation of CBC data. Current Interpretive Data was last revised on 2017. Basophil pct 0.1 % [facility] ([facility] Comment: Interpretive Data Percent cell count reference ranges are not reported, since discordance with absolute values may lead to misinterpretation of CBC data. Current Interpretive Data was last revised on 2017. Blood specimen (specimen) 04/11/2019 4:45 AM CDT 04/11/2019 4:58 AM CDT us Sanjana Billy MD LAB BLOOD ORDERABLES Final Re sult [facility] ([facility] [address] [place] [address] * (ABNORMAL) CBC with auto differential (04/11/2019 4:45 AM CDT) WBC 8.3 3.8 - 9.9 K/cumm [facility] ([facility]) Hgb 11.8(L) 11.9 - 15.5 g/dL [facility] ([facility] Hct 34.7(L) 35.6 - 45.5 % [facility] ([facility]) Plt 158 150 - 400 K/cumm [facility] ([facility]) MPV 10.4 9.1 - 12.3 fL [facility] ([facility] RBC 3.69(L) 3.90 - 5.20 M/cumm [facility] ([facility]) MCV 94.0 81.3 - 96.4 fL [facility] ([facility]) MCH 32.0 27.1 - 33.3 pg [facility] ([facility]) MCHC 34.0 32.3 - 35.7 g/dL [facility] ([facility]) RDW CV 14.1 11.1 - 14.9 % [facility] ([facility] RDW SD 48.4(H) 35.7 - 48.1 fL [facility] NRBC abs 0.00 0.00 - 0.01 K/cumm [facility] ([facility] Blood specimen (specimen) 04/11/2019 4:45 AM CDT 04/11/2019 4:58 AM CDT us Sanjana Billy MD LAB BLOOD ORDERABLES Final Re sult [facility] ([facility] [address] [place] [address] * XR Chest 1 View (04/10/2019 9:20 AM CDT) Anatomical Region Laterality Modality Body, Chest N/A Computed Radiogr aphy 04/10/2019 9:34 AM CDT Impressions 04/10/2019 9:36 AM CDT MILD CARDIOMEGALY, WITH MINIMAL INTERSTITIAL INFILTRATES PRIMARILY LOWER LUNG JOHNSON, SUPPORTING PULMONARY EDEMA/CONGESTIVE HEART FAILURE. ??FOLLOW-UP STANDARD EXAMINATION RECOMMENDED. Electronically signed by: Robson Spence M.D Narrative 04/10/2019 9:36 AM CDT XR CHEST 1 VIEW HISTORY: Shortness of Breath increased crackles, comparative. TECHNIQUE: Portable AP view. COMPARISON: 92,019. FINDINGS: Mild cardiomegaly. ??Minimal interstitial changes/infiltrates primarily lower lung johnson. ??No lung consolidation identified. ??No definite pleural effusion is evident. Atherosclerotic changes of aorta. ??Diminished detail due to body habitus. ??Follow up standard examination recommended. Procedure Note Robson Spence MD - 04/10/2019 XR CHEST 1 VIEW HISTORY: Shortness of Breath increased crackles, comparative. TECHNIQUE: Portable AP view. COMPARISON: 92,019. FINDINGS: Mild cardiomegaly. Minimal interstitial changes/infiltrates primarily lower lung johnson. No lung consolidation identified. No definite pleural effusion is evident. Atherosclerotic changes of aorta. Diminished detail due to body habitus. Follow up standard examination recommended. IMPRESSION: MILD CARDIOMEGALY, WITH MINIMAL INTERSTITIAL INFILTRATES PRIMARILY LOWER LUNG JOHNSON, SUPPORTING PULMONARY EDEMA/CONGESTIVE HEART FAILURE. FOLLOW-UP STANDARD EXAMINATION RECOMMENDED. Electronically signed by: Robson Spence M.D Marie Yadav MD IMG XR PROCEDURES Final Result * eGFR (04/10/2019 4:38 AM CDT) eGFR 93 mL/min/1.7 3 m2 [facility] Comment: Interpretive Data Reference Interval Normal ?>/= 90 mL/min/1.73m2 Mildly decreased* ? 60 - 89 mL/min/1.73m2 Mildly to moderately decreased ?45 - 59 mL/min/1.73m2 Moderately to severely decreased ??30 - 44 mL/min/1.73m2 Severely decreased ?15 - 29 mL/min/1.73m2 Kidney Failure ?< 15 ??mL/min/1.73m2 *Relative to young adult level If -[place] multiply value by 1.16. Estimated glomerular filtration [...] was last reviewed 2016. Blood specimen (specimen) 04/10/2019 4:38 AM CDT 04/10/2019 5:03 AM CDT us Marie Yadav MD LAB BLOOD ORDERABLES Final Resul t [facility] ([facility] [address] [place], [place] [id number] * (ABNORMAL) Differential, auto (04/10/2019 4:38 AM CDT) Neutrophil abs 9.8(H) 1.7 - 6.5 K/cumm [facility] ([facility]) Imm gran abs 0.1 0.0 - 0.1 K/cumm [facility] ([facility]) Lymphocyte abs 0.7(L) 0.8 - 3.3 K/cumm [facility] ([facility]) Monocyte abs 0.8 0.2 - 0.8 K/cumm [facility] ([facility]) Eosinophil abs 0.4 0.0 - 0.5 K/cumm [facility] ([facility]) Basophil abs 0.0 0.0 - 0.1 K/cumm [facility] ([facility]) Neutrophil pct 83.0 % [facility] ([facility] Comment: Interpretive [...] was last revised on 2017. Lymphocyte pct 6.1 % [facility] ([facility] Comment: Interpretive Data Percent cell count reference ranges are not reported, since discordance with absolute values may lead to misinterpretation of CBC data. Current Interpretive Data was last revised on 2017. Monocyte pct 7.1 % [facility] ([facility] Comment: Interpretive Data Percent cell count reference ranges are not reported, since discordance with absolute values may lead to misinterpretation of CBC data. Current Interpretive Data was last revised on 2017. Eosinophil pct 3.0 % [facility] ([facility] Comment: Interpretive Data Percent cell count reference ranges are not reported, since discordance with absolute values may lead to misinterpretation of CBC data. Current Interpretive Data was last revised on 2017. Basophil pct 0.1 % [facility] ([facility] Comment: Interpretive Data Percent cell count reference ranges are not reported, since discordance with absolute values may lead to misinterpretation of CBC data. Current Interpretive Data was last revised on 2017. Blood specimen (specimen) 04/10/2019 4:38 AM CDT 04/10/2019 5:03 AM CDT us Marie Yadav MD LAB BLOOD ORDERABLES Final Resul t [facility] ([facility]) [address] [place] [address] * (ABNORMAL) CBC with auto differential (04/10/2019 4:38 AM CDT) WBC 11.7(H) 3.8 - 9.9 K/cumm [facility] ([facility] Hgb 12.8 11.9 - 15.5 g/dL [facility] ([facility] Hct 38.4 35.6 - 45.5 % [facility] ([facility] Plt 166 150 - 400 K/cumm [facility] ([facility]) MPV 10.4 9.1 - 12.3 fL [facility] RBC 4.08 3.90 - 5.20 M/cumm [facility] ([facility] MCV 94.1 81.3 - 96.4 fL [facility] MCH 31.4 27.1 - 33.3 pg [facility] MCHC 33.3 32.3 - 35.7 g/dL [facility] RDW CV 14.0 11.1 - 14.9 % [facility] RDW SD 48.2(H) 35.7 - 48.1 fL [facility] ([facility]) NRBC abs 0.00 0.00 - 0.01 K/cumm [facility] ([facility]) Blood specimen (specimen) 04/10/2019 4:38 AM CDT 04/10/2019 5:03 AM CDT us Marie Yadav MD LAB BLOOD ORDERABLES Final Resul t [facility] ([facility]) [address] [place] [address] * Comprehensive metabolic panel (04/10/2019 4:38 AM CDT) Sodium 139 135 - 145 mmol/L [facility] ([facility]) Potassium, pl 3.8 3.3 - 4.9 mmol/L [facility] Chloride 102 97 - 110 mmol/L [facility]) CO2 27 22 - 32 mmol/L [facility] Anion gap 11 2 - 15 mmol/L [facility] ([facility]) BUN 11 8 - 25 mg/dL [facility] Creatinine 0.67 0.60 - 1.10 mg/dL [facility] Glucose 108 70 - 199 mg/dL [facility] Comment: Interpretive Data Fasting glucose [...] interpretive data was last revised 2017. Calcium 8.9 8.5 - 10.3 mg/dL [facility]) Bilirubin, total 0.4 0.1 - 1.2 mg/dL [facility] ([facility] Protein, pl 6.8 6.5 - 8.5 g/dL [facility] ([facility] Albumin 3.6 3.5 - 5.0 g/dL [facility] ([facility] Alk phos 44 40 - 130 Units/L [facility] ALT 13 7 - 45 Units/L [facility] AST 15 10 - 45 Units/L [facility] ([facility] Blood specimen (specimen) 04/10/2019 4:38 AM CDT 04/10/2019 5:03 AM CDT us Marie Yadav MD LAB BLOOD ORDERABLES Final Resul t [facility] ([facility] [address] [place] [address] * CT Abdomen Pelvis W Contrast (04/09/2019 7:01 PM CDT) Anatomical Region Laterality Modality Body N/A Computed Tomogra phy 04/09/2019 7:3 1 PM CDT Impressions 04/09/2019 7:42 PM CDT 1. ??DIVERTICULOSIS WITH SOME MINIMAL CHANGES FOR POSSIBLE DIVERTICULITIS. 2. ??POSSIBLE ENTERITIS. ??ENTERITIS MAY BE INFECTIOUS, INFLAMMATORY, OR ISCHEMIC. 3. ??PRIOR CHOLECYSTECTOMY. 4. ??BORDERLINE INTRAHEPATIC BILIARY DUCTAL DILATATION. 5. ??9 MM IN NATURE. ??NODULE RIGHT LOWER LOBE. ??THIS MEASURES 6 MM ON PRIOR STUDY OF 09/16/2015. 6. ??PATCHY ATELECTASIS/SCARRING IN LUNG BASES. 7. ??ECTASIA ABDOMINAL AORTA, WITH MAXIMAL DIAMETER 2.9 CM, UPPER RANGE OF NORMAL. Electronically signed by: Zachery Dooley 04/09/2019 7:[address] ABDOMEN PELVIS W CONTRAST HISTORY: Abd pain, gastroenteritis or colitis suspected. TECHNIQUE: Helical CT scan abdomen and pelvis obtained with intravenous contrast. ??100 mL Optiray 320. ??No oral contrast as requested. COMPARISON: None available. FINDINGS: Mild hepatic steatosis. ??Prior cholecystectomy. ??Borderline intrahepatic ductal dilatation. ??No extra hepatic biliary ductal dilatation. ??No pancreatic mass identified. ??For the kidneys, no hydronephrosis. ??A cyst at the midpole of the left kidney measuring 5.8 cm. ??Just above this a small cyst is seen left kidney. ??No adrenal mass identified. ??No small bowel dilatation identified. Evaluation the gastrointestinal tract is limited without oral contrast. ??Also some mural thickening of a few jejunal segments, for possible enteritis. ??Fairly extensive diverticulosis descending and sigmoid colon. ??Some minimal stranding associated with the distal descending sigmoid colon. ??Possible minimal change of diverticulitis. Urinary bladder is mildly distended with urine. ??Uterus is present. Umbilical hernia containing only adipose tissue. ??Atherosclerotic changes abdominal aorta, with ectasia. ??Diameter of the distal abdominal aorta is at the upper range of normal at 2.9 cm. ??Scattered patchy atelectasis/scarring in lung bases. ??9 mm subpleural nodule lateral aspect right lower lobe on axial image #6. ??Noncalcified. Indeterminate nature. ??This measures 6 mm on the prior examination of 09/16/2015. ??Degenerative disc disease L3-L4 and L4-L5. Procedure Note Robson Spence MD - 04/09/2019 CT ABDOMEN PELVIS W CONTRAST HISTORY: Abd pain, gastroenteritis or colitis suspected. TECHNIQUE: Helical CT scan abdomen and pelvis obtained with intravenous contrast. 100 mL Optiray 320. No oral contrast as requested. COMPARISON: None available. FINDINGS: Mild hepatic steatosis. Prior cholecystectomy. Borderline intrahepatic ductal dilatation. No extra hepatic biliary ductal dilatation. No pancreatic mass identified. For the kidneys, no hydronephrosis. A cyst at the midpole of the left kidney measuring 5.8 cm. Just above this a small cyst is seen left kidney. No adrenal mass identified. No small bowel dilatation identified. Evaluation the gastrointestinal tract is limited without oral contrast. Also some mural thickening of a few jejunal segments, for possible enteritis. Fairly extensive diverticulosis descending and sigmoid colon. Some minimal stranding associated with the distal descending sigmoid colon. Possible minimal change of diverticulitis. Urinary bladder is mildly distended with urine. Uterus is present. Umbilical hernia containing only adipose tissue. Atherosclerotic changes abdominal aorta, with ectasia. Diameter of the distal abdominal aorta is at the upper range of normal at 2.9 cm. Scattered patchy atelectasis/scarring in lung bases. 9 mm subpleural nodule lateral aspect right lower lobe on axial image #6. Noncalcified. Indeterminate nature. This measures 6 mm on the prior examination of 09/16/2015. Degenerative disc disease L3-L4 and L4-L5. IMPRESSION: 1. DIVERTICULOSIS WITH SOME MINIMAL CHANGES FOR POSSIBLE DIVERTICULITIS. 2. POSSIBLE ENTERITIS. ENTERITIS MAY BE INFECTIOUS, INFLAMMATORY, OR ISCHEMIC. 3. PRIOR CHOLECYSTECTOMY. 4. BORDERLINE INTRAHEPATIC BILIARY DUCTAL DILATATION. 5. 9 MM IN NATURE. NODULE RIGHT LOWER LOBE. THIS MEASURES 6 MM ON PRIOR STUDY OF 09/16/2015. 6. PATCHY ATELECTASIS/SCARRING IN LUNG BASES. 7. ECTASIA ABDOMINAL AORTA, WITH MAXIMAL DIAMETER 2.9 CM, UPPER RANGE OF NORMAL. Electronically signed by: Robson Spence M.D Uziel Miner MD IMG CT PROCEDURES Final Res ult * Urinalysis reflex to microscopic and culture Urine, clean voided (04/09/2019 5:40 PM CDT) Color, ur Yellow Yellow [facility] ([facility] Clarity, ur Clear Clear [facility] ([facility]) Specific gravity, ur 1.024 1.010 - 1.025 [facility] ([facility] pH, urine 7.5 [facility] Protein, ur ql Trace Negative [facility] ([facility] Glucose, ur ql Negative Negative [facility] ([facility] Ketones, ur Negative Negative [facility] ([facility]) Bilirubin, ur Negative Negative [facility] Blood, ur Negative Negative [facility]) Urobilinogen, ur 1.0 mg/dL [facility] Nitrite, ur Negative Negative [facility] ([facility]) Leukocyte esterase, ur Negative Negative [facility] ([facility]) Urine, clean voided 04/09/2019 5:40 PM CDT 04/09/2019 5:45 PM CDT Narrative [facility]) - 04/09/2019 5:54 PM CDT ?? Urine pH is affected by diet, medications, systemic acid-base disturbances, and renal tubular function. ??pH may affect urinary stone formation. ??For example, urine pH below 6.0 may help reduce the tendency for calcium phosphate stones and pH greater than 6.0 may reduce the tendency for uric acid stone formation. Source: [facility]. Last revised 08-12-2017 us Uziel Miner MD LAB MICROBIOLOGY - GENERAL ORDERABLES Final Result [facility] ([place] [address] [place] [address] * XR Chest 1 Vw Portable (04/09/2019 4:58 PM CDT) Anatomical Region Laterality Modality Body, Chest N/A Computed Radiogr aphy 04/09/2019 5:24 PM CDT Impressions 04/09/2019 5:25 PM CDT NO DEFINITE FOCAL INFILTRATE IDENTIFIED. ??FOLLOW-UP STANDARD EXAMINATION MAY BE BENEFICIAL. Electronically signed by: Zachery Dooley 04/09/2019 5:25 PM CDT XR CHEST 1 VIEW HISTORY: fever. ??Cough and congestion. TECHNIQUE: Portable AP view. COMPARISON: Topogram from CT the chest 09/16/2015. FINDINGS: Heart size within range of normal. ??No definite focal infiltrate identified. ??Costophrenic angles are sharp. ??Opacity left lower lung Field appears to be primarily due to superimposition of shadows including left breast. ??Some infiltrate/atelectasis in this area difficult to exclude. ??Atherosclerotic changes of the aorta. Diminished detail due to body habitus. ??Dextro scoliosis lower thoracic spine. Procedure Note Robson Spence MD - 04/09/2019 XR CHEST 1 VIEW HISTORY: fever. Cough and congestion. TECHNIQUE: Portable AP view. COMPARISON: Topogram from CT the chest 09/16/2015. FINDINGS: Heart size within range of normal. No definite focal infiltrate identified. Costophrenic angles are sharp. Opacity left lower lung Field appears to be primarily due to superimposition of shadows including left breast. Some infiltrate/atelectasis in this area difficult to exclude. Atherosclerotic changes of the aorta. Diminished detail due to body habitus. Dextro scoliosis lower thoracic spine. IMPRESSION: NO DEFINITE FOCAL INFILTRATE IDENTIFIED. FOLLOW-UP STANDARD EXAMINATION MAY BE BENEFICIAL. Electronically signed by: Robson Spence M.D Uziel Miner MD IMG XR PROCEDURES Final Res ult * CT Head WO Contrast (04/09/2019 4:51 PM CDT) Anatomical Region Laterality Modality Head and Neck N/A Computed Tomogra phy 04/09/2019 4:55 PM CDT Impressions 04/09/2019 4:57 PM CDT NO ACUTE INTRACRANIAL FINDING. Electronically signed by: Robson Spence M.D [facility] 04/09/2019 4:57 PM CDT PROCEDURE: CT HEAD WO CONTRAST HISTORY: Headache, acute, normal neuro exam. COMPARISON: None. TECHNIQUE: Helical CT scan of the head obtained noncontrast. FINDINGS: No acute intracranial hemorrhage identified. ??No midline shift is noted. ??Brainstem cisterns are intact. ??Ventricles are normal in size. ??Cerebrovascular atherosclerosis. ??Diminished attenuation involving the reynold on axial image #9 appears be technical/artifactual nature. ??This appears less remarkable on adjacent images. Procedure Note Robson Spence MD - 04/09/2019 PROCEDURE: CT HEAD WO CONTRAST HISTORY: Headache, acute, normal neuro exam. COMPARISON: None. TECHNIQUE: Helical CT scan of the head obtained noncontrast. FINDINGS: No acute intracranial hemorrhage identified. No midline shift is noted. Brainstem cisterns are intact. Ventricles are normal in size. Cerebrovascular atherosclerosis. Diminished attenuation involving the reynold on axial image #9 appears be technical/artifactual nature. This appears less remarkable on adjacent images. IMPRESSION: NO ACUTE INTRACRANIAL FINDING. Electronically signed by: Robson Spence M.D Uziel Miner MD IMG CT PROCEDURES Final Res ult * Lactate (04/09/2019 4:40 PM CDT) [facility] [address] Lactate 1.4 0.7 - 2.0 mmol/L [facility] ([place]) Blood specimen (specimen) 04/09/2019 4:40 PM CDT 04/09/2019 4:43 PM CDT Uziel Miner MD LAB BLOOD ORDERABLES Final Result Performing Organization Address [facility] de Phone Number [facility] ([place]) [address] [place] [phone] * D-dimer, quantitative (04/09/2019 4:35 PM CDT) [facility] [facility] [address] D-dimer 223 150 - 230 ng/mL D-DU [facility] ([place]) Comment: Interpretive Data This D-dimer test is approved by the FDA to exclude suspected PE and DVT in outpatients when the result is <230 ng/mL in conjunction with a pre-test probability score of low or moderate using the Wells criteria. Current Interpretive Data was last revised on 2015. Blood specimen (specimen) 04/09/2019 4:35 PM CDT 04/09/2019 6:31 PM CDT Uziel Miner MD LAB BLOOD ORDERABLES Final Result Performing Organization Address [facility] de Phone Number [facility] ([place]) [address] [place] [address] * eGFR (04/09/2019 4:35 PM CDT) [facility] [address] eGFR 86 mL/min/1.7 3 m2 [facility] ([place]) Comment: Interpretive Data Reference Interval Normal ?>/= 90 mL/min/1.73m2 Mildly decreased* ? 60 - 89 mL/min/1.73m2 Mildly to moderately decreased ?45 - 59 mL/min/1.73m2 Moderately to severely decreased ??30 - 44 mL/min/1.73m2 Severely decreased ?15 - 29 mL/min/1.73m2 Kidney Failure ?< 15 ??mL/min/1.73m2 *Relative to young adult level If -Tai[place]ese multiply value by 1.16. Estimated glomerular filtration [...] was last reviewed 2016. Blood specimen (specimen) 04/09/2019 4:35 PM CDT 04/09/2019 4:38 PM CDT Uziel Miner MD LAB BLOOD ORDERABLES Final Result [facility] ([facility] [address] [place] [address] * (ABNORMAL) Differential, auto (04/09/2019 4:35 PM CDT) Neutrophil abs 10.6(H) 1.7 - 6.5 K/cumm [facility] ([place]) Imm gran abs 0.1 0.0 - 0.1 K/cumm [facility] ([place]) Lymphocyte abs 0.4(L) 0.8 - 3.3 K/cumm [facility] ([place]) Monocyte abs 0.7 0.2 - 0.8 K/cumm [facility] ([place]) Eosinophil abs 0.1 0.0 - 0.5 K/cumm [facility] ([place]) Basophil abs 0.0 0.0 - 0.1 K/cumm [facility] ([place]) Neutrophil pct 88.8 % [facility] ([place]) Comment: Interpretive Data Percent cell count reference ranges are not reported, since discordance with absolute values may lead to misinterpretation of CBC data. Current Interpretive Data was last revised on 2017. Imm gran pct 0.9 % [facility] ([place]) Comment: Interpretive Data Percent cell count reference ranges are not reported, since discordance with absolute values may lead to misinterpretation of CBC data. Current Interpretive Data was last revised on 2017. Lymphocyte pct 3.3 % [facility] ([place]) Comment: Interpretive Data Percent cell count reference ranges are not reported, since discordance with absolute values may lead to misinterpretation of CBC data. Current Interpretive Data was last revised on 2017. Monocyte pct 5.8 % [facility] ([place]) Comment: Interpretive Data Percent cell count reference ranges are not reported, since discordance with absolute values may lead to misinterpretation of CBC data. Current Interpretive Data was last revised on 2017. Eosinophil pct 1.2 % [facility] ([place] Comment: Interpretive Data Percent cell count reference ranges are not reported, since discordance with absolute values may lead to misinterpretation of CBC data. Current Interpretive Data was last revised on 2017. Basophil pct 0.0 % [facility] ([place]) Comment: Interpretive Data Percent cell count reference ranges are not reported, since discordance with absolute values may lead to misinterpretation of CBC data. Current Interpretive Data was last revised on 2017. Blood specimen (specimen) 04/09/2019 4:35 PM CDT 04/09/2019 4:38 PM CDT Uziel Miner MD LAB BLOOD ORDERABLES Final Result [facility] ([place]) [address] [place] [address] * Pro B-type natriuretic peptide (04/09/2019 4:35 PM CDT) NT-proBNP 146 <=300 pg/mL [facility] ([place]) Comment: Interpretive Comments: A. Dyspnea in Acute Care Setting All Ages: ?< 300 pg/ml, acute heart failure unlikely. < 50 yrs: ?300 - 450 pg/ml, further investigation warranted. ? > 450 pg/ml, acute heart failure likely. 50 - 74 yrs: ? 300 - 900 pg/ml, further investigation warranted. ? > 900 pg/ml, acute heart failure likely . > or = 75 yrs: ? 450 - 1800 pg/ml, further investigation warranted. ? > 1800 pg/ml, acute heart failure likely. B. Non-acute Setting < 75 yrs ? < 125 pg/ml, rules out heart failure. ? > or = 125 pg/ml, further investigation warranted. > or = 75 yrs ?< 450 pg/ml, rules out heart failure. ? > or = 450 pg/ml, further investigation warranted. - Knowledge of each individual patient's NT-proBNP range may be more useful than using similar cut-points for every patient. Please note that marked elevations in NT-proBNP levels may be observed in state other than Left Ventricular Congestive Failure, including: acute coronary syndromes, right heart strain/failure (including pulmonary embolism and cor pulmonale), critical illness, renal failure, as well as advanced age. - References: 1. Rocio MCDONALD et.al. Eur Heart J. 2006:27:330-337. 2. Pamela RW, Diego DUNCAN. J. AM Abby Cardiol: Cardiovasc Imag. 2009;2: 216- 225. Interpretive Data Last Revised Date: 2018. Blood specimen (specimen) 04/09/2019 4:35 PM CDT 04/09/2019 4:38 PM CDT us Uziel Miner MD LAB BLOOD ORDERABLES Final Result [facility] [place]) [address] [place] [address] * Troponin T (04/09/2019 4:35 PM CDT) Pathologist [facility] Troponin T <0.01 0.00 - 0.01 ng/mL [facility] ([place]) Comment: Interpretive Data Reference ranges for children <18 years of age have not been established. - > or = 18 years: Serial determinations are recommended for the diagnosis of myocardial infarction. ??Temporal rise and fall are consistent with myocardial infarction when at least one value is above the 99th percentile upper reference limit for troponin assay. ??Journal of the [place] [employer] 2012;60:1581-98. Current Interpretive Data Last Revised Date: 2018. Blood specimen (specimen) 04/09/2019 4:35 PM CDT 04/09/2019 4:38 PM CDT Uziel Miner MD LAB BLOOD ORDERABLES Final Result Performing Organization Address City/[facility]/ZIP Co de Phone Number [facility] ([place]) [address] [place] [address] * Creatine kinase (CK), total (04/09/2019 4:35 PM CDT) Pathologist [facility] CK 76 30 - 200 Units/L [facility] ([place]) Blood specimen (specimen) 04/09/2019 4:35 PM CDT 04/09/2019 4:38 PM CDT Uziel Miner MD LAB BLOOD ORDERABLES Final Result [facility] ([place]) [address] [place] [address] * (ABNORMAL) CRP (acute phase) (04/09/2019 4:35 PM CDT) Pathologist [facility] CRP 60.7(H) <=10.0 mg/L [facility] ([place]) Blood specimen (specimen) 04/09/2019 4:35 PM CDT 04/09/2019 4:38 PM CDT Uziel Miner MD LAB BLOOD ORDERABLES Final Result Performing Organization Address City/[facility]/ZIP Co de Phone Number [facility]) [address] [place] [phone] * Blood culture Blood Antecubital, right (04/09/2019 4:35 PM CDT) Report Final Report: No growth [facility]) Comment:Testing performed by : [facility], [address] [place]., [address] Blood specimen (specimen) (Antecubital, right) 04/09/2019 4:35 PM CDT 04/09/2019 8:14 PM CDT Narrative [facility]) - 04/15/2019 7:00 AM CDT 1. Blood cultures are incubated for 5 days on a continuously monitored blood culture system. The first report of a negative culture is issued within 24 hours of receipt of the specimen in the laboratory. 2. Positive culture results are reported as soon as they are detected. 3. The most important factor for detection of microbes in the setting of bloodstream infection is the volume of blood submitted for culture. Failure to collect an optimal blood volume can result in false negative blood cultures. For pediatric patients, the recommended blood volume to collect is 1 mL of blood per year of patient age (up to 20 mL) per blood culture set. For adult patients, 20 mL of blood, divided equally between aerobic and anaerobic blood culture bottles, is recommended for each blood culture set. 4. For blood cultures with Gram-positive cocci, a rapid molecular test for organism identification may be performed using the Tiragiuigene Gram-Positive Blood Culture Assay. This assay detects microbial DNA in positive blood culture broth via hybridization of target DNA to capture oligonucleotides on a microarray. This assay has been cleared by the [place] Food and Drug Administration and its performance characteristics have been verified by the [facility]. 5. For questions about this culture, contact the Microbiology Laboratory at [phone]. Interpretive data was last revised on 2018. Uziel Miner MD LAB MICROBIOLOGY - GENERAL ORDERABLES Final Result Performing Organization Address City/[facility]/ZIP Co de Phone Number [facility]) [address] [place] [address] * Comprehensive metabolic panel (04/09/2019 4:35 PM CDT) Sodium 135 135 - 145 mmol/L [facility] ([place]) Potassium, pl 3.6 3.3 - 4.9 mmol/L [facility] ([place]) Chloride 98 97 - 110 mmol/L [facility] ([place] CO2 26 22 - 32 mmol/L [facility] ([place] Anion gap 11 2 - 15 mmol/L [facility] ([place] BUN 10 8 - 25 mg/dL [facility] ([place]) Creatinine 0.74 0.60 - 1.10 mg/dL [facility] ([place]) Glucose 136 70 - 199 mg/dL [facility] ([place] [...] 10.3 mg/dL [facility] ([place]) Bilirubin, total 0.6 0.1 - 1.2 mg/dL [facility] ([place]) Protein, pl 7.6 6.5 - 8.5 g/dL [facility] ([place]) Albumin 4.2 3.5 - 5.0 g/dL [facility] ([place]) Alk phos 54 40 - 130 Units/L [facility] ([place]) ALT 16 7 - 45 Units/L [facility] ([place]) AST 17 10 - 45 Units/L [facility] ([place]) Blood specimen (specimen) 04/09/2019 4:35 PM CDT 04/09/2019 4:38 PM CDT Uziel Miner MD LAB BLOOD ORDERABLES Final Result [facility] ([place]) [address] [place] [address] * (ABNORMAL) CBC with auto differential (04/09/2019 4:35 PM CDT) WBC 12.0(H) 3.8 - 9.9 K/cumm [facility] ([place]) Hgb 14.4 11.9 - 15.5 g/dL [facility] ([place]) Hct 42.3 35.6 - 45.5 % [facility] ([place]) Plt 199 150 - 400 K/cumm [facility] ([place]) MPV 9.8 9.1 - 12.3 fL [facility] ([place]) RBC 4.56 3.90 - 5.20 M/cumm [facility] ([place]) MCV 92.8 81.3 - 96.4 fL [facility] ([place]) MCH 31.6 27.1 - 33.3 pg [facility] ([place]) MCHC 34.0 32.3 - 35.7 g/dL [facility] ([place]) RDW CV 13.9 11.1 - 14.9 % [facility] ([place]) RDW SD 47.5 35.7 - 48.1 fL [facility] ([place]) NRBC abs 0.00 0.00 - 0.01 K/cumm [facility] ([place]) Blood specimen (specimen) 04/09/2019 4:35 PM CDT 04/09/2019 4:38 PM CDT Uziel Miner MD LAB BLOOD ORDERABLES Final Result [facility] ([place]) [address] [place] [address] * Blood culture Blood Hand, left (04/09/2019 4:29 PM CDT) Report Final Report: No growth [facility] ([place]) Comment:Testing performed by : [facility], [address] [facility] [place] [address] Blood specimen (specimen) (Hand, left) 04/09/2019 4:29 PM CDT 04/09/2019 10:24 PM CDT Narrative [facility] ([place]) - 04/15/2019 7:00 AM CDT 1. Blood cultures are incubated for 5 days on a continuously monitored blood culture system. The first report of a negative culture is issued within 24 hours of receipt of the specimen in the laboratory. 2. Positive culture results are reported as soon as they are detected. 3. The most important factor for detection of microbes in the setting of bloodstream infection is the volume of blood submitted for culture. Failure to collect an optimal blood volume can result in false negative blood cultures. For pediatric patients, the recommended blood volume to collect is 1 mL of blood per year of patient age (up to 20 mL) per blood culture set. For adult patients, 20 mL of blood, divided equally between aerobic and anaerobic blood culture bottles, is recommended for each blood culture set. 4. For blood cultures with Gram-positive cocci, a rapid molecular test for organism identification may be performed using the Tiragiuigene Gram-Positive Blood Culture Assay. This assay detects microbial DNA in positive blood culture broth via hybridization of target DNA to capture oligonucleotides on a microarray. This assay has been cleared by the [place] Food and Drug Administration and its performance characteristics have been verified by the [facility]. 5. For questions about this culture, contact the Microbiology Laboratory at [phone]. Interpretive data was last revised on 2018. Uziel Miner MD LAB MICROBIOLOGY - GENERAL ORDERABLES Final Result [facility] ([place]) [address] [place] [address] * ECG 12 lead (04/09/2019 4:23 PM CDT) 04/09/2019 4:23 PM CDT Narrative [facility] - 04/12/2019 5:18 PM CDT Vent Rate: 60 bpm RR Interval: 988 msec [place] Interval: 177 msec QRS Duration: 93 msec QT Interval: 493 msec QTC Interval: 494 msec P-R-T [place]: 48 - -17 - 30 degrees SINUS RHYTHM WITH FREQUENT ECTOPIC PREMATURE COMPLEXES WITH MARKED RHYTHM IRREGULARITY, POSSIBLE NON-CONDUCTED PAC, SA BLOCK, A Poor quality tracing Electronically Signed By: Dr Servando Melgar us Uziel Miner MD ECG ORDERABLES Final Resul t [facility] documented in this encounter Visit Diagnoses Diagnosis SIRS (systemic inflammatory response syndrome) (HCC)- Primary Systemic inflammatory response syndrome, unspecified Diverticulosis large intestine w/o perforation or abscess w/o bleeding SIRS (systemic inflammatory response syndrome) (HCC) Systemic inflammatory response syndrome, unspecified Chronic ischemic heart disease Unspecified chronic ischemic heart disease Hyperlipidemia Other and unspecified hyperlipidemia History of tobacco use Personal history of tobacco use, presenting hazards to health Hypertension Unspecified essential hypertension GERD (gastroesophageal reflux disease) Esophageal reflux Anxiety Anxiety state, unspecified documented in this encounter Administered Medications Inactive Administered Medications - up to 3 most recent administrations Medication Order MAR Action Action Date Dose Rate Site acetaminophen (TYLENOL) tablet 1,000 mg 1,000 mg, oral, Once, On 04/09/19 at 1614, For 1 dose, Indications: PainIndications:Pain Given 04/09/2019 4:35 PM CDT 1,000 mg acetaminophen (TYLENOL) tablet 650 mg 650 mg, oral, Every 4 hours PRN, 1st line for pain, Starting on 04/09/19 at 2231, Indications: PainIndications:Pain Given 04/10/2019 11:17 PM CDT 650 mg Given 04/10/2019 1:36 PM CDT 650 mg Given 04/10/2019 7:57 AM CDT 650 mg ALPRAZolam (XANAX) tablet 0.5 mg 0.5 mg, oral, 2 times daily PRN, anxiety, Starting on 04/10/19 at 0132 Given 04/13/2019 8:32 AM CDT 0.5 mg Given 04/12/2019 9:30 PM CDT 0.5 mg Given 04/12/2019 8:37 AM CDT 0.5 mg ALPRAZolam (XANAX) tablet 0.5 mg 0.5 mg, oral, Once, On Wed04/12/19 at 2200, For 1 dose Given 04/12/2019 9:37 PM CDT 0.5 mg azithromycin (ZITHROMAX) 500 mg in sodium chloride 0.9% 250 mL IVPB 500 mg, intravenous, at 255 mL/hr, Administer over 60 Minutes, Every 24 hours, First dose on Wed04/12/19 at 1800, Indications: Pneumonia, Community AcquiredIndications:Pneumonia, Community Acquired New 04/12/2019 6:53 PM CDT 500 mg 255 mL/hr azithromycin (ZITHROMAX) tablet 500 mg 500 mg, oral, Nightly, First dose on Wed04/10/19 at 0200, For 3 doses, Indications: Pneumonia, Community AcquiredIndications:Pneumonia, Community Acquired Given 04/11/2019 9:37 PM CDT 500 mg Given 04/10/2019 8:45 PM CDT 500 mg Given 04/10/2019 2:16 AM CDT 500 mg Bifidobacterium infantis (ALIGN) capsule 4 mg 4 mg, oral, Daily, First dose on Wed04/10/19 at 0900 Given 04/13/2019 8:24 AM CDT 4 mg Given 04/12/2019 8:36 AM CDT 4 mg Given 04/11/2019 8:45 AM CDT 4 mg calcium carbonate-vitamin D3 1,250mg (500mg elemental) - 200 units per tablet 1 tablet 1 tablet, oral, Daily, First dose on Wed04/10/19 at 0900 Given 04/13/2019 8:24 AM CDT 1 tablet Given 04/12/2019 8:36 AM CDT 1 tablet Given 04/11/2019 8:41 AM CDT 1 tablet cefTRIAXone (ROCEPHIN) 1,000 mg/10 mL in sterile water (premix) 1,000 mg 1,000 mg, intravenous, at 120 mL/hr, Administer over 5 Minutes, Once, On Wed04/09/19 at 1707, For 1 dose, Indications: SepsisIndications:Sepsis New 04/09/2019 6:18 PM CDT 1,000 mg 120 mL /hr cefTRIAXone (ROCEPHIN) 1,000 mg/10 mL in sterile water (premix) 1,000 mg 1,000 mg, intravenous, at 120 mL/hr, Administer over 5 Minutes, Every 24 hours scheduled, First dose on Wed04/10/19 at 0900, Indications: Abdominal/Pelvic InfectionIndications:Abdominal/Pe lvic Infection New Bag 04/13/2019 8:23 AM CDT 1,000 mg 120 mL/hr New Bag 04/12/2019 8:38 AM CDT 1,000 mg 120 mL/hr New Bag 04/11/2019 8:40 AM CDT 1,000 mg 120 mL/hr cholecalciferol (VITAMIN D-3) tablet 1,000 Units 1,000 Units, oral, Daily, First dose on Wed04/10/19 at 0900 Given 04/13/2019 8:24 AM CDT 1,000 Units Given 04/12/2019 8:36 AM CDT 1,000 Units Given 04/11/2019 8:41 AM CDT 1,000 Units clopidogrel (PLAVIX) tablet 37.5 mg 37.5 mg, oral, Daily, First dose on Wed04/10/19 at 0900, Indications: Stent placementIndications:Stent placement Given 04/13/2019 8:23 AM CDT 37.5 mg Given 04/12/2019 8:37 AM CDT 37.5 mg Given 04/11/2019 8:44 AM CDT 37.5 mg dilTIAZem XR (CARDIZEM CD,DILACOR XR) 24 hour capsule 240 mg 240 mg, oral, Daily, First dose on Wed04/10/19 at 0900, Hold for SBP<120 and/or HR<60 Do not crush, chew, cut, dissolve, open or otherwise manipulate tablet/capsule. Given 04/13/2019 8:24 AM CDT 240 mg Given 04/12/2019 8:36 AM CDT 240 mg Given 04/11/2019 8:46 AM CDT 240 mg enoxaparin (LOVENOX) syringe 40 mg 40 mg, subcutaneous, Daily (for enoxaparin), First dose on Wed04/09/19 at 2315, Indications: Deep Vein Thrombosis PreventionIndications:Deep Vein Thrombosis Prevention Given 04/12/2019 9:37 PM CDT 40 mg Right Lower Abdomen Given 04/11/2019 9:37 PM CDT 40 mg Ri ght Lower Abdomen Given 04/10/2019 8:45 PM CDT 40 mg Ri ght Lower Abdomen furosemide (LASIX) 10 mg/mL injection 20 mg 20 mg, intravenous, Administer over 1 Minutes, Once, On Wed04/10/19 at 1200, For 1 dose, Room temperature only Given 04/10/2019 11:55 AM CDT 20 mg furosemide (LASIX) 10 mg/mL injection 40 mg 40 mg, intravenous, Administer over 1 Minutes, Once, On [place] 04/13/19 at 0900, For 1 dose, Room temperature only Given 04/13/2019 9:23 AM CDT 40 mg furosemide (LASIX) 10 mg/mL injection 60 mg 60 mg, intravenous, Administer over 1 Minutes, Once, On Wed04/12/19 at 1230, For 1 dose, Administer each 20 mg over at least 1 minute., (60 mg over 3 minutes) Room temperature only Given 04/12/2019 12:16 PM CDT 60 mg hydrocortisone (Solu-CORTEF) preservative free injection 100 mg 100 mg, intravenous, Once, On [place] 04/09/19 at 1614, For 1 dose, For adults rapid IV push administer over 30 seconds Given 04/09/2019 4:34 PM CDT 100 mg HYDROmorphone (DILAUDID) injection 0.5 mg 0.5 mg, intravenous, Administer over 2 Minutes, Once, On [place] 04/09/19 at 1800, For 1 dose Given 04/09/2019 6:18 PM CDT 0.5 mg ibuprofen (ADVIL,MOTRIN) tablet 400 mg 400 mg, oral, Every 6 hours PRN, fever, Starting on Wed04/10/19 at 1113 Given 04/12/2019 12:52 AM CDT 400 mg Given 04/11/2019 12:48 AM CDT 400 mg Given 04/10/2019 3:08 PM CDT 400 mg ibuprofen (ADVIL,MOTRIN) tablet 400 mg 400 mg, oral, 3 times daily PRN, fever, for pain swelling redness in right arm where recent blood draw took place, Starting on Wed04/12/19 at 1215 ioversol intravenous syringe 100 mL 100 mL, intravenous, Once in imaging, contrast, Starting on Wed04/09/19 at 1856, For 1 dose Given 04/09/2019 7:00 PM CDT 100 mL ipratropium-albuterol (DUO-NEB) 0.5-2.5 mg/3 mL nebulizer solution 3 mL 3 mL, nebulization, Every 4 hours while awake (foreign correspondent), First dose on Wed04/12/19 at 1300, Indications: Chronic Obstructive Pulmonary Disease with BronchospasmsIndications:Chronic Obstructive Pulmonary Disease with Bronchospasms Given 04/12/2019 2:10 PM CDT 3 mL ipratropium-albuterol (DUO-NEB) 0.5-2.5 mg/3 mL nebulizer solution 3 mL 3 mL, nebulization, Once (foreign correspondent), On [place] 04/13/19 at 0900, For 1 dose, Indications: Chronic Obstructive Pulmonary Disease with BronchospasmsIndications:Chronic Obstructive Pulmonary Disease with Bronchospasms Given 04/13/2019 8:36 AM CDT 3 mL ketorolac (TORADOL) 15 mg/mL injection 30 mg 30 mg, intravenous, Once, On 04/09/19 at 1614, For 1 dose, For Adult IV push, administer over 15 seconds Given 04/09/2019 4:35 PM CDT 30 mg levalbuterol (XOPENEX) 1.25 mg/0.5 mL nebulizer solution 1.25 mg 1.25 mg, nebulization, Every 6 hours (foreign correspondent), First dose on 04/10/19 at 0300 Given 04/10/2019 2:00 AM CDT 1.25 mg methylPREDNISolone sodium succinate (SOLU-medrol) preservative free injection 81.25 mg 81.25 mg (rounded from 80 mg), intravenous, Administer over 3 Minutes, Every 12 hours scheduled, First dose on Wed04/12/19 at 1200, Administer 125 mg or less over 3 minutes Given 04/13/2019 8:23 AM CDT 81.25 mg Given 04/12/2019 9:37 PM CDT 81.25 mg Given 04/12/2019 12:16 PM CDT 81.25 mg metroNIDAZOLE (FLAGYL) 500 mg/100 mL in sodium chloride (premix) 500 mg 500 mg, intravenous, at 200 mL/hr, Administer over 30 Minutes, Once, On 04/09/19 at 2008, For 1 dose, Room temperature only, Indications: Abdominal/Pelvic InfectionIndications:Abdominal/Pelv ic Infection New Bag 04/09/2019 8:20 PM CDT 500 mg 200 mL/hr metroNIDAZOLE (FLAGYL) 500 mg/100 mL in sodium chloride (premix) 500 mg 500 mg, intravenous, at 200 mL/hr, Administer over 30 Minutes, Every 8 hours scheduled, First dose (after last modification) on Wed04/10/19 at 0600, Room temperature only, Indications: Abdominal/Pelvic InfectionIndications:Abdominal/Pelv ic Infection New Bag 04/11/2019 5:49 AM CDT 500 mg 200 mL/hr New Bag 04/10/2019 8:46 PM CDT 500 mg 200 mL/hr New Bag 04/10/2019 1:23 PM CDT 500 mg 200 mL/hr metroNIDAZOLE (FLAGYL) tablet 500 mg 500 mg, oral, Every 8 hours scheduled, First dose on Wed04/11/19 at 1400, Indications: Abdominal/Pelvic InfectionIndications:Abdominal/Pelvic Infection Given 04/12/2019 5:39 AM CDT 500 mg Given 04/11/2019 9:36 PM CDT 500 mg Given 04/11/2019 2:03 PM CDT 500 mg omega 3-hec-cto-fish oil capsule 1,000 mg 1,000 mg (1 capsule), oral, Daily, First dose on Wed04/10/19 at 0900 Given 04/13/2019 8:24 AM CDT 1,000 mg Given 04/12/2019 8:36 AM CDT 1,000 mg Given 04/11/2019 8:45 AM CDT 1,000 mg ondansetron (ZOFRAN) injection 4 mg 4 mg, intravenous, Administer over 2 Minutes, Once, On Wed04/09/19 at 1800, For 1 dose Given 04/09/2019 6:18 PM CDT 4 mg ondansetron (ZOFRAN) injection 4 mg 4 mg, intravenous, Administer over 2 Minutes, Every 6 hours PRN, nausea, vomiting, if not tolerating PO, Starting on Wed04/10/19 at 0137, Indications: Nausea and VomitingIndications:Nausea and Vomiting ondansetron ODT (ZOFRAN-ODT) disintegrating tablet 4 mg 4 mg, oral, Every 6 hours PRN, nausea, vomiting, Starting on Wed04/10/19 at 0137, Indications: Nausea and VomitingIndications:Nausea and Vomiting oxyCODONE-acetaminophen (PERCOCET) 5-325 mg per tablet 1 tablet 1 tablet, oral, Once, On Wed04/09/19 at 2044, For 1 dose, Indications: PainIndications:Pain Given 04/09/2019 8:48 PM CDT [address] (PROTONIX) extended release tablet 40 mg 40 mg, oral, 2 times daily, First dose on Wed04/10/19 at 0215, Do not crush, chew, cut, dissolve, open or otherwise manipulate tablet/capsule., Indications: Treatment of Non-Bleeding Gastric DisorderIndications:Treatment of Non-Bleeding Gastric Disorder Given 04/13/2019 8:24 AM CDT 40 mg Given 04/12/2019 9:38 PM CDT 40 mg Given 04/12/2019 8:36 AM CDT 40 mg polyethylene glycol (MIRALAX) packet 17 g 17 g, oral, 2 times daily, First dose on 04/09/19 at 2315, Indications: constipationIndications:constipation Given 04/09/2019 11:05 PM CDT 17 g rosuvastatin (CRESTOR) tablet 20 mg 20 mg, oral, Nightly, First dose on Wed04/10/19 at 2100 Given 04/12/2019 9:38 PM CDT 20 mg Given 04/11/2019 9:36 PM CDT 20 mg Given 04/10/2019 8:45 PM CDT 20 mg sodium chloride 0.9% bolus 1,000 mL 1,000 mL, intravenous, Once, On 04/09/19 at 1614, For 1 dose New Bag 04/09/2019 4:36 PM CDT 1,000 mL sodium chloride 0.9% flush 0.5-20 mL 0.5-20 mL, intra-catheter, Every 8 hours scheduled, First dose on Wed04/10/19 at 0600, Flush volume based on line type and size. Given 04/13/2019 6:39 AM CDT 10 mL Given 04/12/2019 9:39 PM CDT 10 mL Given 04/12/2019 12:17 PM CDT 10 mL sodium chloride 0.9% infusion 75 mL/hr, intravenous, Continuous, Starting on Wed04/10/19 at 0215 New Bag 04/11/2019 12:50 AM CDT 75 mL/hr 75 mL/hr Rate/Dose Verify 04/10/2019 8:30 PM CDT 75 mL/hr 75 mL/h r New Bag 04/10/2019 11:41 AM CDT 75 mL/hr 75 mL/hr traMADol (ULTRAM) tablet 50 mg 50 mg, oral, 4 times daily PRN, 2nd line for pain, Starting on 04/10/19 at 0135 Given 04/13/2019 12:41 AM CDT 50 mg Given 04/11/2019 12:48 AM CDT 50 mg documented in this encounter Discontinued Medications Medication Sig Discontinue Reason Start Date End Da te clindamycin (CLEOCIN) 300 mg capsuleIndications:Pro phylaxis, Surgical Take 1 capsule (300 mg total) by mouth 3 (three) times a day. Take 2 capsules (600MG) by oral route 1 hour prior to dental procedure Other 04/28/2017 04/09/2019 cyclobenzaprine (FLEXERIL) 10 mg tablet take 1 tablet by oral route 3 times every day Other 11/06/2013 04/09/2019 yxeomwjutchw-emcd-oonm c acid (CENTRUM COMPLETE) 18-400 mg-mcg tablet take 1 tablet by oral route every day with food Other 08/10/2014 04/09/2019 naproxen sodium (ALEVE) 220 mg capsule take 1 capsule daily Other 08/10/201403/2019 psyllium 0.52 gram capsule take 1 capsule daily Duplicate order 08/10/2014 04/09/2019 psyllium seed, sugar, (METAMUCIL, SUGAR,) powder Duplicate order 11/06/2013 04/09/2019 pravastatin (PRAVACHOL) 40 mg tablet take 1 tablet by oral route every day Alternate therapy 11/06/2013 04/09/2019 ticagrelor (BRILINTA) 90 mg tablet take 1 tablet by oral route 2 times every day Therapy completed 07/01/2015 04/09/2019 albuterol HFA (PROVENTIL HFA,VENTOLIN HFA) 90 mcg/actuation inhaler inhale 2 puff by inhalation route every 4 - 6 hours as needed Therapy completed 08/10/2014 04/09/2019 albuterol HFA (PROVENTIL HFA,VENTOLIN HFA) 90 mcg/actuation inhaler inhale 2 puff by inhalation route every 4 - 6 hours as needed Therapy completed 08/10/2014 04/09/2019 aspirin (ASPIR-81) 81 mg tablet take 1 tablet by oral route every day Alternate therapy 01/09/2016 04/09/2019 citalopram (CeleXA) 20 mg tablet take 1 tablet by oral route every day Therapy completed 11/06/2013 04/09/2019 documented as of this encounter Historical Medications * This list may reflect changes made after this encounter. clopidogrel (PLAVIX) 75 mg tabletIndications: Stent placement Take 75 mg by mouth daily added in this encounter Active and Recently Administered Medications Times are shown in CDT. Scheduled Medication Order 04/11/2019 04/12/2019 04/13/2019 ALPRAZolam (XANAX) tablet 0.5 mg (COMPLETED) 0.5 mg, oral, Once, On Wed04/12/19 at 2200, For 1 dose 2136 (Given - Provider: Janett Jeronimo, CHICHI) azithromycin (ZITHROMAX) 500 mg in sodium chloride 0.9% 250 mL IVPB 500 mg, intravenous, at 255 mL/hr, Administer over 60 Minutes, Every 24 hours, First dose on Wed04/12/19 at 1800, Indications: Pneumonia, Community Acquired 185 (New Bag - Provider: Brittny Mena, CHICHI) azithromycin (ZITHROMAX) tablet 500 mg (COMPLETED) 500 mg, oral, Nightly, First dose on Wed04/10/19 at 0200, For 3 doses, Indications: Pneumonia, Community Acquired 2136 (Given - Provider: Casey Gould, CHICHI) Bifidobacterium infantis (ALIGN) capsule 4 mg 4 mg, oral, Daily, First dose on Wed04/10/19 at 0900 0845 (Given - Provider: Mehrdad Gil, CHICHI) 0836 (Given - Provider: Brittny Mena, CHICHI) 0824 (Given - Provider: Zeina Barnett, CHICHI) calcium carbonate-vitamin D3 1,250mg (500mg elemental) - 200 units per tablet 1 tablet 1 tablet, oral, Daily, First dose on Wed04/10/19 at 0900 0841 (Given - Provider: Mehrdad Gil RN) 0836 (Given - Provider: Brittny Mena, CHICHI) 0824 (Given - Provider: Zeina Barnett, CHICHI) cefTRIAXone (ROCEPHIN) 1,000 mg/10 mL in sterile water (premix) 1,000 mg 1,000 mg, intravenous, at 120 mL/hr, Administer over 5 Minutes, Every 24 hours scheduled, First dose on Wed04/10/19 at 0900, Indications: Abdominal/Pelvic Infection 0840 (New Bag - Provider: Mehrdad Gil, CHICHI) 0838 (New Bag - Provider: Brittyn Mena, RN) 0823 (New Bag - Provider: Zeina Barnett RN) cholecalciferol (VITAMIN D-3) tablet 1,000 Units 1,000 Units, oral, Daily, First dose on Wed04/10/19 at 0900 0841 (Given - Provider: Mehrdad Gil RN) 0836 (Given - Provider: Brittny Mena RN) 0824 (Given - Provider: Zeina Barnett, CHICHI) clopidogrel (PLAVIX) tablet 37.5 mg 37.5 mg, oral, Daily, First dose on Wed04/10/19 at 0900, Indications: Stent placement 0844 (Given - Provider: Mehrdad Gil RN) 0837 (Given - Provider: Brittny Mena, CHICHI) 0823 (Given - Provider: Zeina Barnett RN) dilTIAZem XR (CARDIZEM CD,DILACOR XR) 24 hour capsule 240 mg 240 mg, oral, Daily, First dose on Wed04/10/19 at 0900, Hold for SBP<120 and/or HR<60 Do not crush, chew, cut, dissolve, open or otherwise manipulate tablet/capsule. 0846 (Given - Provider: Mehrdad Gil RN) 0836 (Given - Provider: Brittny Mena, CHICHI) 0824 (Given - Provider: Zeina Barnett, CHICHI) enoxaparin (LOVENOX) syringe 40 mg 40 mg, subcutaneous, Daily (for enoxaparin), First dose on 04/09/19 at 2315, Indications: Deep Vein Thrombosis Prevention 2136 (Given - Provider: Casey Gould, CHICHI) 2136 (Given - Provider: Janett Jeronimo RN) furosemide (LASIX) 10 mg/mL injection 40 mg (COMPLETED) 40 mg, intravenous, Administer over 1 Minutes, Once, On Vandana 04/13/19 at 0900, For 1 dose, Room temperature only 0923 (Given - Provider: Zeina Barnett RN) furosemide (LASIX) 10 mg/mL injection 60 mg (COMPLETED) 60 mg, intravenous, Administer over 1 Minutes, Once, On Wed04/12/19 at 1230, For 1 dose, Administer each 20 mg over at least 1 minute., (60 mg over 3 minutes) Room temperature only 1216 (Given - Provider: Brittny Mena, RN) ipratropium-albuterol (DUO-NEB) 0.5-2.5 mg/3 mL nebulizer solution 3 mL (CANCELED) 3 mL, nebulization, Every 4 hours while 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 (foreign correspondent), First dose on Wed04/12/19 at 1300, Indications: Chronic Obstructive Pulmonary Disease with Bronchospasms 1410 (Given - Provider: Queta Salazar, LAP GRINDER) ipratropium-albuterol (DUO-NEB) 0.5-2.5 mg/3 mL nebulizer solution 3 mL (COMPLETED) 3 mL, nebulization, Once (foreign correspondent), On Wed04/13/19 at 0900, For 1 dose, Indications: Chronic Obstructive Pulmonary Disease with Bronchospasms 0836 (Given - Provider: Yonatan Gamble, LAP GRINDER) methylPREDNISolone sodium succinate (SOLU-medrol) preservative free injection 81.25 mg 81.25 mg (rounded from 80 mg), intravenous, Administer over 3 Minutes, Every 12 hours scheduled, First dose on Wed04/12/19 at 1200, Administer 125 mg or less over 3 minutes 1216 (Given - Provider: Brittny Mena, CHICHI)2137 (Given - Provider: Janett Jeronimo, CHICHI) 0823 (Given - Provider: Zeina Barnett RN) metroNIDAZOLE (FLAGYL) 500 mg/100 mL in sodium chloride (premix) 500 mg (CANCELED) 500 mg, intravenous, at 200 mL/hr, Administer over 30 Minutes, Every 8 hours scheduled, First dose (after last modification) on Wed04/10/19 at 0600, Room temperature only, Indications: Abdominal/Pelvic Infection 0549 (New Bag - Provider: Maribel Betts, CHICHI) metroNIDAZOLE (FLAGYL) tablet 500 mg (CANCELED) 500 mg, oral, Every 8 hours scheduled, First dose on Wed04/11/19 at 1400, Indications: Abdominal/Pelvic Infection 1403 (Given - Provider: Mehrdad Gil RN)2135 (Given - Provider: Casey Gould RN) 0539 (Given - Provider: Casey Gould RN) omega 5-jpw-zgg-fish oil capsule 1,000 mg 1,000 mg (1 capsule), oral, Daily, First dose on Wed04/10/19 at 0900 0845 (Given - Provider: Mehrdad Gil RN) 08 (Given - Provider: Brittny Mena RN) 0824 (Given - Provider: Zeina Barnett, CHICHI) pantoprazole DR (PROTONIX) extended release tablet 40 mg 40 mg, oral, 2 times daily, First dose on Wed04/10/19 at 0215, Do not crush, chew, cut, dissolve, open or otherwise manipulate tablet/capsule., Indications: Treatment of Non-Bleeding Gastric Disorder 0845 (Given - Provider: Mehrdad Gil RN)2135 (Given - Provider: Casey Gould RN) 0836 (Given - Provider: Brittny Mena RN)2137 (Given - Provider: Janett Jeronimo RN) 0824 (Given - Provider: Zeina Barnett, CHICHI) rosuvastatin (CRESTOR) tablet 20 mg 20 mg, oral, Nightly, First dose on Wed04/10/19 at 2100 213 (Given - Provider: Casey Gould RN) 2137 (Given - Provider: Janett Jeronimo RN) sodium chloride 0.9% flush 0.5-20 mL 0.5-20 mL, intra-catheter, Every 8 hours scheduled, First dose on Wed04/10/19 at 0600, Flush volume based on line type and size. 0547 (Not Given - Provider: Maribel Betts RN - Reason: IV Infusing)1410 (Given - Provider: Mehrdad Gil RN)2137 (Given - Provider: Casey Gould RN) 0539 (Given - Provider: Casey Gould RN)1217 (Given - Provider: Brittny Mena RN)2138 (Given - Provider: Janett Jeronimo RN) 0639 (Given - Provider: Destiney Rodriguez RN)1320 (Not Given - Provider: Zeina Barnett, CHICHI - Reason: Loss of IV access) Continuous Medication Order 04/11/2019 04/12/2019 04/13/2019 sodium chloride 0.9% infusion (CANCELED) 75 mL/hr, intravenous, Continuous, Starting on Wed04/10/19 at 0215 0050 (New Bag - Provider: Maribel Betts, CHICHI)1146 (Stopped - Provider: Mehrdad Gil RN) PRN Medication Order 04/11/2019 04/12/2019 04/13/2019 acetaminophen (TYLENOL) tablet 650 mg 650 mg, oral, Every 4 hours PRN, 1st line for pain, Starting on Wed04/09/19 at 2231, Indications: Pain ALPRAZolam (XANAX) tablet 0.5 mg 0.5 mg, oral, 2 times daily PRN, anxiety, Starting on Wed04/10/19 at 0132 0846 (Given - Provider: Mehrdad Gil, CHICHI)2136 (Given - Provider: Casey Gould, CHICHI) 0837 (Given - Provider: Brittny Mena, CHICHI)2130 (Given - Provider: Janett Jeronimo, CHICHI) 0832 (Given - Provider: Zeina Barnett RN) ibuprofen (ADVIL,MOTRIN) tablet 400 mg (CANCELED) 400 mg, oral, Every 6 hours PRN, fever, Starting on Wed04/10/19 at 1113 0048 (Given - Provider: Maribel Betts RN) 0052 (Given - Provider: Casey Gould, CHICHI) ibuprofen (ADVIL,MOTRIN) tablet 400 mg 400 mg, oral, 3 times daily PRN, fever, for pain swelling redness in right arm where recent blood draw took place, Starting on Wed04/12/19 at 1215 ondansetron (ZOFRAN) injection 4 mg(Linked Group 1) 4 mg, intravenous, Administer over 2 Minutes, Every 6 hours PRN, nausea, vomiting, if not tolerating PO, Starting on Wed04/10/19 at 0137, Indications: Nausea and Vomiting ondansetron ODT (ZOFRAN-ODT) disintegrating tablet 4 mg(Linked Group 1) 4 mg, oral, Every 6 hours PRN, nausea, vomiting, Starting on Wed04/10/19 at 0137, Indications: Nausea and Vomiting sodium chloride 0.9% flush 0.5-20 mL 0.5-20 mL, intra-catheter, As needed, line care, Starting on Wed04/10/19 at 0137, Flush volume based on line type and size. Flush before and after each use. traMADol (ULTRAM) tablet 50 mg 50 mg, oral, 4 times daily PRN, 2nd line for pain, Starting on Wed04/10/19 at 0135 0048 (Given - Provider: Maribel Betts RN) 0041 (Given - Provider: Destiney Rodriguez RN) Linked Groups Order Group 1: ondansetron ODT (ZOFRAN-ODT) disintegrating tablet 4 mgJump to med 4 mg, oral, Every 6 hours PRN, nausea, vomiting, Starting on Wed04/10/19 at 0137, Indications: Nausea and Vomiting Or ondansetron (ZOFRAN) injection 4 mgJump to med 4 mg, intravenous, Administer over 2 Minutes, Every 6 hours PRN, nausea, vomiting, if not tolerating PO, Starting on Wed04/10/19 at 0137, Indications: Nausea and Vomiting documented in this encounter Orders Medications Ordered That Jarret ht Not Have Been Administered Count Last Ordered Date First Ordered Date ibuprofen (ADVIL,MOTRIN) tablet 400 mg 1 ipratropium-albuterol (DUO-N EB) 0.5-2.5 mg/3 mL nebulizer solution 3 mL 1 04/12/2019 albuterol (PROVENTIL,VENTOLI N) 2.5 mg /3 mL (0.083 %) nebulizer solution 2.5 mg 2 04/10/2019 furosemide (LASIX) 10 mg/mL injection 40 mg 1 04/10/2019 levalbuterol (XOPENEX) 1.25 mg/0.5 mL nebulizer solution 1.25 mg 1 04/10/2019 ondansetron (ZOFRAN) injection 4 mg 1 04/10 ondansetron ODT (ZOFRAN-ODT) disintegrating tablet 4 mg 1 04/10/2019 sodium chloride 0.9% flush 0.5-20 mL 1 04/2019 acetaminophen (TYLENOL) tablet 650 mg 1 03/2019 cefTRIAXone (ROCEPHIN) 1,000 mg/10 mL in sterile water (premix) 1,000 mg 1 04/09/2019 ketorolac (TORADOL) 15 mg/mL injection 30 mg 1 04/09/2019 Lactated Ringer's (LR) bolus 1,000 mL 1 03/2019 metroNIDAZOLE (FLAGYL) 500 m g/100 mL in sodium chloride (premix) 500 mg 1 04/09/2019 oxyCODONE (ROXICODONE) tablet 5 mg 1 2018 vancomycin 1,000 mg/200 mL i n sodium chloride 0.9% (premix) 1,000 mg 1 04/09/2019 vancomycin 1500 mg/250 mL in sodium chloride 0.9% (premix) 1,500 mg 1 04/09/2019 Consult Count Last Ordered Date First Orde red Date IP CONSULT TO [facility] 1 04/10/2019 CORE MEASURES Count Last Ordered Date First Ord ered Date REASON FOR NO VTE PROPHYLAXIS AT ADMISSION 04/10/2019 ADT Patient Update Count Last Ordered Date Firs t Ordered Date ED IP DECISION TO ADMIT 04/09/2019 documented in this encounter Care Teams Ice Platform Supervisor Relationship Specialty Start Date End Date Kellie Pizano NP PCP - General 02/27/15 03/07/20 documented as of this encounter
--- OUTSIDE RECORDS SUMMARY | 2024-07-31 09:18 | XMS_ITS | Encounter Summary ---
Author Organization [facility] Address [address] [place] [address] Care Team Providers Care Spring Encaser Name Role Phone Kellie Pizano NP Primary Care Provider Encounter Details Date Type Department Care Team (Late st Contact Info) Description 04/27/2017 Telephone [facility] Orthopedics and Sports Medicine [address] [place] [phone] Harris Vu MD [address] [place] [address] [address] PETERS [address] [address] Social History Tobacco Use Types Packs/Day Years Used Date Smoking Tobacco: Smoker, Current Status Unknown Alcohol Use Standard Drinks/Week Comments Yes 0 (1 standard drink = 0.6 oz pur e alcohol) Comments Unknown Sex and Gender Information Value Date Recorded Sex Assigned at Not on file 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 * Telephone Encounter - Keyla Da Silva PA - 04/27/2017 4:47 PM CDT need pharmacy to send Rx. May send for clinda, per [facility] protocol. * Telephone Encounter - Nader Guerrero - 04/27/2017 2:22 PM CDT Patient called and is having some Dental work done and Needs per med antibiotics sent to pharmacy Please call patient when done [phone] documented in this encounter Plan of Treatment Not on file documented as of this encounter Visit Diagnoses Not on filedocumented in this encounter Care Teams Spring Encaser Relationship Specialty Start Date End Date Kellie Pizano NP PCP - General 02/27/15 03/07/20 documented as of this encounter
--- OUTSIDE RECORDS SUMMARY | 2024-07-31 09:18 | XMS_ITS | Encounter Summary ---
Author Organization 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
--- OUTSIDE RECORDS SUMMARY | 2024-07-31 09:18 | XMS_ITS | Encounter Summary ---
Author Organization [facility] Address [address] [place] [address] Care Team Providers Care Truer Pinion And Wheel Name Role Phone Kellie Pizano NP Primary Care Provider [phone] Encounter Details Date Type Department Care Team (Late st Contact Info) Description 04/28/[address] 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 Take 2 capsules (600MG) by oral route 1 hour prior to dental procedure 2 capsule 8 04/28/2017 9 documented in this encounter Plan of Treatment Not on file documented as of this encounter Visit Diagnoses Not on filedocumented in this encounter Care Teams Truer Pinion And Wheel Relationship Specialty Start Date End Date Kellie Pizano NP PCP - General 02/27/15 03/07/20 documented as of this encounter
--- OUTSIDE RECORDS SUMMARY | 2024-07-31 09:19 | XMS_ITS | Encounter Summary ---
Author Organization [facility] Healthcare Address [address] [place] [address] Care Team Providers Care Dope Pourer Name Role Phone Kellie Pizano NP Primary Care Provider [phone] Encounter Details Date Type Department Care Team (Late st Contact Info) Description 09/16/2015 8:38 PM GRIEVANCE COORDINATOR - 09/17/2015 12:52 AM [facility] Hospital Encounter [facility] Shannon De Luna MD [address] [place] [address] Anxiety disorder; Palpitations; Personal history of nicotine dependence; Allergy status to sulfonamides Social History Tobacco Use Types Packs/Day Years Used Date Smoking Tobacco: Smoker, Current Status Unknown Alcohol Use Standard Drinks/Week Comments No 0 (1 standard drink = 0.6 oz pur e alcohol) Comments Unknown Sex and Gender Information Value Date Recorded Sex Assigned at Not on file Legal Sex Female 8:07 PM GRIEVANCE COORDINATOR Gender Identity Not on file Sexual Orientation Not on file documented as of this encounter Medications at Time of Discharge acetaminophen (TYLENOL) 325 mg tablet take 1 tablet by oral route every 4 hours as needed 0 0 11/06/2013 ALPRAZolam (XANAX) 0.5 mg tablet Take one by mouth one time per day 30 0 11/06/2008 calcium carbonate-vitamin D3 (CALCIUM 600 + D,3,) 600 mg calcium- 200 unit capsule take 1 capsule a day 0 0 08/10/2014 dilTIAZem CD (CARTIA XT) 240 mg 24 hr capsule take 1 capsule by oral route every day 0 0 11/06/2013 Lactobacillus acidophilus (PROBIOTIC ORAL) Take 1 capsule by mouth daily 08/02/1969 sertraline (ZOLOFT) 50 mg tablet Take 50 mg by mouth daily 08/02/1969 acetaminophen (TYLENOL) 325 mg tablet take 1 tablet by oral route every 4 hours as needed 0 0 08/10/2014 7 albuterol HFA (PROVENTIL HFA,VENTOLIN HFA) 90 mcg/actuation inhaler inhale 2 puff by inhalation route every 4 - 6 hours as needed 0 Inhaler 0 08/10/2014 9 albuterol HFA (PROVENTIL HFA,VENTOLIN HFA) 90 mcg/actuation inhaler inhale 2 puff by inhalation route every 4 - 6 hours as needed 0 Inhaler 0 08/10/2014 9 ALPRAZolam (XANAX) 1 mg tablet take 1 tablet by oral route every day 0 0 11/06/2013 7 ascorbic acid (vitamin C) 1,000 mg tablet take 1 tablet daily 0 0 08/10/2014 7 aspirin (ASPIR-81) 81 mg tablet take 1 tablet by oral route every day 0 0 11/06/2013 7 betamethasone dipropionate (DIPROLENE) 0.05 % cream apply by topical route every day a thin layer to the affected area(s) 0 0 11/06/2013 2 calcium carbonate-vitamin D3 (CALCIUM 600 + D,3,) 600 mg calcium- 200 unit capsule take 1 capsule a day 0 0 08/10/2014 7 citalopram (CeleXA) 20 mg tablet take 1 tablet by oral route every day 0 0 11/06/2013 9 cyclobenzaprine (FLEXERIL) 10 mg tablet take 1 tablet by oral route 3 times every day 0 0 11/06/2013 9 docosahexanoic acid-epa (FISH OIL) 120-180 mg capsule 0 0 11/06/[address] (NexIUM) 40 mg capsule take 1 capsule by oral route every day 0 0 11/06/2013 7 HYDROcodone-acetam inophen (NORCO) 5-325 mg per tablet take 1 - 2 Tablet by oral route every 6 hours as needed for pain 33 0 05/07/2015 7 L. gasseri-B. bifidum-B longum (DealCircle) 1.5 billion cell capsule 0 0 11/06/2013 2 Lactobacillus acidophilus (PROBIOTIC) 10 billion cell capsule take 1 daily 0 0 08/10/2014 2 levalbuterol (XOPENEX HFA) 45 mcg/actuation inhaler inhale 2 puff by inhalation route every 6 hours 0 Inhaler 0 11/06/2013 2 multivitamin-iron- folic acid (CENTRUM COMPLETE) 18-400 mg-mcg tablet take 1 tablet by oral route every day with food 0 0 08/10/2014 9 mupirocin (BACTROBAN) 2 % ointment apply by topical route 3 times every day a small amount to the affected area 0 0 11/06/2013 7 naproxen sodium (ALEVE) 220 mg capsule take 1 capsule daily 0 0 08/10/2014 9 nitroglycerin (NITROLINGUAL) 400 mcg/spray spray 1-2 sprays under the tongue prn, max 3 sprays in 15 minutes. 1 3 11/19/2008 2 pravastatin (PRAVACHOL) 40 mg tablet take 1 tablet by oral route every day 0 0 11/06/2013 9 psyllium 0.52 gram capsule take 1 capsule daily 0 0 08/10/2014 9 psyllium 0.52 gram capsule take 1 capsule daily 0 0 08/10/2014 2 psyllium seed, sugar, (METAMUCIL, SUGAR,) powder 0 0 11/06/2013 9 ticagrelor (BRILINTA) 90 mg tablet take 1 tablet by oral route 2 times every day 0 0 07/01/2015 9 documented as of this encounter Plan of Treatment Not on file documented as of this encounter Procedures Procedure Name Priority Date/Time Associated Diagnosis Comments DISCHARGE LABORATORY CUMULATIVE REPORT 09/17/2015 CT CHEST W CONTRAST Routine 09/16/2015 1 1:25 PM GRIEVANCE COORDINATOR URINALYSIS Routine 09/16/2015 9:55 PM GRIEVANCE COORDINATOR SERUM THYROID-STIMULATING HORMONE (TSH) Routine 09/16/2015 9:20 PM GRIEVANCE COORDINATOR SERUM ESTIMATED GLOMERULAR FILTRATION RATE Routine 09/16/2015 9:20 PM GRIEVANCE COORDINATOR PLASMA TROPONIN-T Routine 09/16/2015 9:2 0 PM GRIEVANCE COORDINATOR PLASMA COMPREHENSIVE METABOLIC PANEL Routine 09/16/2015 9:20 PM GRIEVANCE COORDINATOR BLOOD PROTHROMBIN TIME (PT) Routine 09/16/2015 9:20 PM GRIEVANCE COORDINATOR BLOOD PRO B-TYPE NATRIURETIC PEPTIDE Routine 09/16/2015 9:20 PM GRIEVANCE COORDINATOR BLOOD PARTIAL THROMBOPLASTIN TIME (PTT) Routine 09/16/2015 9:20 PM GRIEVANCE COORDINATOR BLOOD D-DIMER Routine 09/16/2015 9:20 PM GRIEVANCE COORDINATOR BLOOD CELL COUNT (CBC), MORPHOLOGIC EXAM Routine 09/16/2015 9:20 PM GRIEVANCE COORDINATOR BLOOD CELL MORPHOLOGIC EXAM Routine 09/16/2015 9:20 PM GRIEVANCE COORDINATOR ELECTROCARDIOGRAPHY (ECG) 09/16/2015 documented in this encounter Results * DISCHARGE LABORATORY CUMULATIVE REPORT (09/17/2015) Narrative 09/17/2015 Ordered by an unspecified provider. us Historical Provider LAB BLOOD ORDERABLES Bianca l Result * CT Chest W Contrast (09/16/2015 11:25 PM GRIEVANCE COORDINATOR) Anatomical Region Laterality Modality Body N/A Computed Tomogra phy 09/16/2015 11:2 5 PM GRIEVANCE COORDINATOR Narrative 09/17/2015 2:[address] Chest PE W ?[id number] ??Acc#: ??[id number] DATE OF EXAM: ??Sep 16 2015 CLINICAL HISTORY: D-dimer 1172. Chest discomfort. Recent knee surgery. RESULT: Post IV contrast (120 mL Optiray 350) spiral axial scans were obtained from above lung apices to below diaphragm. Axial and coronal reformatted images were reviewed. No pulmonary arterial filling defects are identified. Minimal dependent atelectasis posteriorly in lower lobes is seen bilaterally. No infiltrate, mass or pleural effusion is identified. No enlarged hilar or mediastinal lymph nodes are demonstrated. Heart size is normal without pericardial thickening or effusion. No thoracic aortic aneurysm or dissection is seen. A moderate hiatal hernia is present. Mild aortic and coronary artery calcifications are seen. Degenerative changes are present at multiple levels in the thoracic spine along with very mild dextroscoliosis. IMPRESSION: 1. ??NO PULMONARY EMBOLISM IS SEEN. 2. ??SMALL AMOUNT OF DEPENDENT ATELECTASIS IN LOWER LOBE BILATERALLY. 3. ??CORONARY AND THORACIC AORTIC ARTERIOSCLEROSIS. 4. ??DEGENERATIVE CHANGES AND MILD DEXTROSCOLIOSIS IN THORACIC SPINE. PRELIMINARY REPORT FAXED TO EMERGENCY DEPARTMENT BY [facility] ON 16 SEPTEMBER 2015 AT 2357 HOURS. Interpreting Physician: ??DR STANLEY FORMAN M.D. ??Read on: ??Sep 16 2015 11:59P Transcribed by: ??TXD ??On: Sep 17 2015 ??8:20A Approved Electronically by: ??DASIA Iqbal, DR ANGEL ??on: ??Sep 17 2015 2:10P Attending: ??SHANNON VALENCIA Requesting: ??SHANNON VALENCIA Requesting Fax: ??-- Attending Fax: ??-- Attending ID: ??[id number] Requesting ID: ??[id number] Report To 1 ID: ??[id number] Report To 1 Name: ??SHANNON VALENCIA Report To 1 FAX: ??-- NextGen Order #: Procedure Note Provider, MD Yoseph - 11/24/2016 CT Chest PE W [id number] Acc#: [id number] DATE OF EXAM: Sep 16 2015 CLINICAL HISTORY: D-dimer 1172. Chest discomfort. Recent knee surgery. RESULT: Post IV contrast (120 mL Optiray 350) spiral axial scans were obtainedfrom above lung apices to below diaphragm. Axial and coronal reformattedimages were reviewed. No pulmonary arterial filling defects areidentified. Minimal dependent atelectasis posteriorly in lower lobes isseen bilaterally. No infiltrate, mass or pleural effusion is identified.No enlarged hilar or mediastinal lymph nodes are demonstrated. Heart sizeis normal without pericardial thickening or effusion. No thoracic aorticaneurysm or dissection is seen. A moderate hiatal hernia is present. Mildaortic and coronary artery calcifications are seen. Degenerative changesare present at multiple levels in the thoracic spine along with very milddextroscoliosis. IMPRESSION: 1. NO PULMONARY EMBOLISM IS SEEN. 2. SMALL AMOUNT OF DEPENDENT ATELECTASIS IN LOWER LOBE BILATERALLY. 3. CORONARY AND THORACIC AORTIC ARTERIOSCLEROSIS. 4. DEGENERATIVE CHANGES AND MILD DEXTROSCOLIOSIS IN THORACIC SPINE.PRELIMINARY REPORT FAXED TO EMERGENCY DEPARTMENT BY [facility] ON September2015 AT 2357 HOURS. Interpreting Physician: DR STANLEY FORMAN M.D. Read on: Sep 16 201511:59P Transcribed by: LYSSA On: Sep 17 2015 8:20A Approved Electronically by: DASIA Iqbal, DR ANGEL on: Sep 17 20152:10P Attending: SHANNON VALENCIA Requesting: SHANNON VALENCIA Requesting Fax: -- Attending Fax: -- Attending ID: [id number] Requesting ID: [id number] Report To 1 ID: [id number] Report To 1 Name: SHANNON VALENCIA Report To 1 FAX: -- NextGen Order #: us Historical Provider MD WELCH CT PROCEDURES Final R esult * Urinalysis (09/16/2015 9:55 PM GRIEVANCE COORDINATOR) Color, ur Yellow Yellow HISTORICAL RESULTS Clarity, ur Clear Clear HISTORIC AL RESULTS Specific gravity, ur 1.008 1.003 - 1.030 HISTORICAL RESULTS Comment:Normal Ranges: 1.003 -1.030 pH, ur 6.0 4.5 - 8.0 HISTORICAL RESULTS Comment:Normal ranges: 4.5-8 .0 Protein, ur, quant Negative Negative mg/dl HISTORICAL RESULTS Glucose, ur, quant Negative Negative mg/dl HISTORICAL RESULTS Ketones, ur Negative Negative HISTORIC AL RESULTS Bilirubin, ur Negative Negative HISTOR ICAL RESULTS U Blood Negative Negative HISTORICAL RESULTS Urobilinogen, quant, ur 0.2 0.2 - 1.0 Sonido Units/dl HISTORICAL RESULTS Comment:Normal Ranges: 0.2-1 .0 EU/dL Nitrites, ur Negative Negative HISTORI SHANIQUA RESULTS Leukocyte esterase, ur Negative Negative HISTORICAL RESULTS Urine 09/16/2015 9:55 PM GRIEVANCE COORDINATOR Historical Provider MD LAB BLOOD ORDERABLES Bianca l Result Performing Organization Address [facility] de Phone Number HISTORICAL RESULTS * Serum thyroid-stimulating hormone (TSH) (09/16/2015 9:20 PM GRIEVANCE COORDINATOR) TSH 1.05 0.30 - 5.00 mcIUnits/ml HISTORICAL RESULTS Serum 09/16/2015 9:20 PM GRIEVANCE COORDINATOR Result [facility] Historical Provider MD LAB BLOOD ORDERABLES Bianca l Result Performing Organization Address [facility] de Phone Number HISTORICAL RESULTS * Plasma troponin-T (09/16/2015 9:20 PM GRIEVANCE COORDINATOR) Troponin T <0.01 0.00 - 0.06 ng/ml HISTORICAL RESULTS Comment: Interpretive Data Troponin table: ? Negative ? 0.00-0.06 ng/ml ? Indeterminate ?0.07-0.10 ng/ml ? Consistent with Myocardial Injury ?Greater than 0.10 ng/ml ?? Current interpretive data was last revised on 2014 Plasma 09/16/2015 9:20 PM GRIEVANCE COORDINATOR Result [facility] Historical Provider MD LAB BLOOD ORDERABLES Bianca l Result Performing Organization Address [facility] de Phone Number HISTORICAL RESULTS * Blood Pro B-type natriuretic peptide (09/16/2015 9:20 PM GRIEVANCE COORDINATOR) Pro BNP 22.0 10.0 - 150.0 pg/ml HISTORICAL RESULTS Comment: Diagnosis of Congestive Heart Failure: ??Heart Failure Unlikely: All Ages ?Less than 300 pg/ml ??Heart Failure Possible: Less than 50Y ?? 300-450 pg/ml ?50-75 Y ? 300-900 pg/ml ?75-160Y ? 300-1800 pg/ml ?Heart Failure Likely: ?? Less than 50Y ?? Greater than 450 pg/ml ?50-75 Y ? Greater than 900 pg/ml ?75-160 Y ?Greater than 1,800 pg/ml ??Renal Failure: ?All Ages ?Greater than 1,200 pg/ml Current interpretive data was last revised on 2014. Blood specimen (specimen) 09/16/2015 9:20 PM GRIEVANCE COORDINATOR us Historical Provider MD LAB BLOOD ORDERABLES Bianca l Result Performing Organization Address [facility] de Phone Number HISTORICAL RESULTS * Blood partial thromboplastin time (PTT) (09/16/2015 9:20 PM GRIEVANCE COORDINATOR) PTT 29.6 25.0 - 37.0 seconds HISTORICAL RESULTS Blood specimen (specimen) 09/16/2015 9:20 PM GRIEVANCE COORDINATOR Result [facility] Historical Provider LAB BLOOD ORDERABLES Bianca l Result Performing Organization Address [facility] de Phone Number HISTORICAL RESULTS * Blood prothrombin time (PT) (09/16/2015 9:20 PM GRIEVANCE COORDINATOR) Prothrombin time (PT) 12.2 9.5 - 12.5 seconds HISTORICAL RESULTS INR 1.13 0.90 - 1.20 HISTORIC AL RESULTS Comment: Interpretive Data Recommended ranges for Protime INR: 2.0 - 3.0 Most indications for Warfarin therapy (e.g. Treatment of DVT, PE, bioprosthetic valve replacement, prophylaxis venous thrombosis, atrial fibrillation). 2.5 - 3.5 Mechanical mitral valve or dual mechanical mitral and Aortic valve replacement. Current Interpretive Data was last revised on 2015. Blood specimen (specimen) 09/16/2015 9:20 PM GRIEVANCE COORDINATOR Result [facility] Provider LAB BLOOD ORDERABLES Bianca l Result Performing Organization Address [facility] de Phone Number HISTORICAL RESULTS * (ABNORMAL) Blood D-dimer (09/16/2015 9:20 PM GRIEVANCE COORDINATOR) D-dimer 1172(H) 150 - 230 ng/ml D-DU HISTORICAL RESULTS Comment: Interpretive Data This D-dimer test is approved by the FDA to exclude suspected PE and DVT in outpatients when the result is <230 ng/mL in conjunction with a pre-test probability score of low or moderate using the Wells criteria. Current Interpretive Data was last revised on 2015. Blood specimen (specimen) 09/16/2015 9:20 PM GRIEVANCE COORDINATOR Result [facility] Historical Provider LAB BLOOD ORDERABLES Bianca l Result Performing Organization Address [facility] de Phone Number HISTORICAL RESULTS * (ABNORMAL) Plasma comprehensive metabolic panel (09/16/2015 9:20 PM GRIEVANCE COORDINATOR) Sodium 137 135 - 145 mmol/L HISTORICAL RESULTS K, pl 3.6 3.5 - 5.1 mmol/L HISTORICAL RESULTS Chloride 99 97 - 110 mmol/L HISTORICAL RESULTS CO2 25 22 - 32 mmol/L HISTORICAL RESULTS A. gap 17(H) 8 - 16 mmol/L HISTORICAL RESULTS Glucose 99 70 - 199 mg/dl HISTORICAL RESULTS Comment: Interpretive Data Note:The glucose is assumed non fasting Fastin-99 mg/dL Random: ??70-199 mg/dL Either a fasting glucose > 126 mg/dL or a random glucose > 200 mg/dL plus symptoms is diagnostic of diabetes when confirmed on another day. Fasting values > 100 mg/dL but < 125 mg/dL are diagnostic of impaired fasting glucose. Current interpretive data was last revised on 2014. BUN 12.1 8.0 - 25.0 mg/dl HISTORICAL RESULTS Creatinine 0.65 0.60 - 1.10 mg/dl HISTORICAL RESULTS BUN/creat ratio 19 10 - 20 HIST ORICAL RESULTS Calcium 9.2 8.6 - 10.2 mg/dl HISTORICAL RESULTS Protein, sr 7.2 6.0 - 8.4 g/dl HISTORICAL RESULTS Alb 4.0 3.6 - 5.0 g/dl HISTORICAL RESULTS Alb/glob ratio 1.2 1.1 - 1.8 ratio HISTORICAL RESULTS Alk phos 70 40 - 130 Units/L HISTORICAL RESULTS ALT 11 5 - 45 Units/L HISTORICAL RESULTS AST 14 10 - 40 Units/L HISTORICAL RESULTS Bilirubin 0.2 <=1.2 mg/dl HISTORICAL RESULTS Plasma 09/16/2015 9:20 PM GRIEVANCE COORDINATOR us Historical Provider LAB BLOOD ORDERABLES Bianca l Result HISTORICAL RESULTS * Blood cell morphologic exam (09/16/2015 9:20 PM GRIEVANCE COORDINATOR) Neutrophils 61.7 44.0 - 80.0 % HISTORICAL RESULTS Immature granulocytes 0.6 0.0 - 1.0 % HISTORICAL RESULTS Lymphocytes 25.9 13.0 - 44.0 % HISTORICAL RESULTS Monos 8.1 2.0 - 11.0 % HISTORICAL RESULTS Eosinophils 2.9 0.0 - 6.0 % HISTORICAL RESULTS Basophils 0.8 0.0 - 3.0 % HISTORICAL RESULTS Neutrophils, abs 4.8 1.6 - 7.0 K/cumm HISTORICAL RESULTS Immature granulocyte, abs 0.05 0.00 - 0.20 K/cumm HISTORICAL RESULTS Lymphocytes, abs 2.0 0.5 - 4.3 K/cumm HISTORICAL RESULTS Monocytes, absolute 0.6 0.1 - 1.0 K/cumm HISTORICAL RESULTS Eosinophils, abs 0.2 0.0 - 0.6 K/cumm HISTORICAL RESULTS Basophils, abs 0.1 0.0 - 0.3 K/cumm HISTORICAL RESULTS Blood specimen (specimen) 09/16/2015 9:20 PM GRIEVANCE COORDINATOR Historical Provider LAB BLOOD ORDERABLES Bianca bello Result HISTORICAL RESULTS * Blood cell count (CBC), morphologic exam (09/16/2015 9:20 PM GRIEVANCE COORDINATOR) WBC 7.8 3.8 - 9.8 K/cumm HISTORICAL RESULTS RBC 4.00 3.90 - 5.00 M/cumm HISTORICAL RESULTS Hgb 12.3 12.1 - 15.1 g/dl HISTORICAL RESULTS Hct 36.3 36.1 - 44.3 % HISTORICAL RESULTS MCV 90.8 80.0 - 100.0 fl HISTORICAL RESULTS MCH 30.8 26.7 - 33.7 pg HISTORICAL RESULTS MCHC 33.9 32.7 - 36.0 g/dl HISTORICAL RESULTS Rdw 13.0 11.5 - 14.6 % HISTORICAL RESULTS Platelets 303 140 - 440 K/cumm HISTORICAL RESULTS MPV 9.7 8.0 - 12.0 fl HISTORICAL RESULTS NRBC 0.0 0.0 - 0.0 % HISTORIC AL RESULTS NRBC, abs 0.00 0.00 - 0.00 K/cumm HISTORICAL RESULTS Blood specimen (specimen) 09/16/2015 9:20 PM GRIEVANCE COORDINATOR Historical Provider LAB BLOOD ORDERABLES Bianca bello Result HISTORICAL RESULTS * Serum estimated glomerular filtration rate (09/16/2015 9:20 PM GRIEVANCE COORDINATOR) eGFR >60 ml/min/1.7 3 m2 HISTORICAL RESULTS Comment: Interpretation of Estimated GFR (eGFR): Normal ?>/= 60 mL/min/1.73m2 Possible Chronic Kidney Disease ??15 - 59 mL/min/1.73m2 Possible Kidney Failure ?< 15 ??mL/min/1.73m2 If -[place] multiply value by 1.16. ??Estimated glomerular filtration rate is determined by the CKD-EPI equation recommended by the National Kidney Foundation (KDIGO 2012 Clinical Practice Guideline for the Evaluation and Management of Chronic Kidney Disease. ??Kidney Intnl Suppl Aug 2012;3:1). ??The CKD-EPI equation should not be used in acute renal failure or acute kidney injury and is not valid in children. Serum 09/16/2015 9:20 PM GRIEVANCE COORDINATOR Historical Provider LAB BLOOD ORDERABLES Bianca l Result HISTORICAL RESULTS * ELECTROCARDIOGRAPHY (ECG) (09/16/2015) Narrative 09/16/2015 Ordered by an unspecified provider. us Historical Provider ECG ORDERABLES Final Res ult documented in this encounter Visit Diagnoses Diagnosis Anxiety disorder Anxiety state, unspecified Palpitations Personal history of nicotine dependence Allergy status to sulfonamides documented in this encounter Care Teams Dope Pourer Relationship Specialty Start Date End Date Kellie Pizano NP PCP - General 02/27/15 03/07/20 documented as of this encounter
--- OUTSIDE RECORDS SUMMARY | 2024-07-31 09:19 | XMS_ITS | Encounter Summary ---
Author Organization [facility] Healthcare Address [address] [place] [address] Care Team Providers Care Machine Fitter Name Role Phone Kellie Pizano NP Primary Care Provider [phone] Encounter Details Date Type Department Care Team (Latest Contact Info) Description 06/14/2015 11:38 AM TAX ACCOUNTING MANAGER - 06/15/2015 12:28 PM TAX ACCOUNTING MANAGER [place] [id number] [address] Atherosclerotic heart disease of burns paiute coronary artery without angina pectoris; Pain of lower extremity; Edema; Other obesity; Body mass index (BMI) of 39.0-39.9 in adult; Personal history of nicotine dependence Social History Tobacco Use Types Packs/Day Years Used Date Smoking Tobacco: Smoker, Current Status Unknown Alcohol Use Standard Drinks/Week Comments No 0 (1 standard drink = 0.6 oz pur e alcohol) Comments Unknown Sex and Gender Information Value Date Recorded Sex Assigned at Not on file Legal Sex Female 8:07 PM TAX ACCOUNTING MANAGER Gender Identity Not on file Sexual Orientation Not on file documented as of this encounter Last Filed Vital Signs Vital Sign Reading Time Taken Comments Blood Pressure 143/65 06/15/2015 11:24 AM TAX ACCOUNTING MANAGER Pulse 75 06/15/2015 11:24 AM TAX ACCOUNTING MANAGER Temperature - - Respiratory Rate - - Oxygen Saturation - - Inhaled Oxygen Concentration - - Weight 103.8 kg (228 lb 13.4 oz) 06/14/2015 8:45 PM TAX ACCOUNTING MANAGER Height 162.6 cm (5' 4.02 ) 06/14/2015 8:45 PM CS T Body Mass Index 39.26 06/14/2015 8:45 PM TAX ACCOUNTING MANAGER documented in this encounter Discharge Summaries * ProviderYoseph MD - 06/15/2015 12:00 AM CST DISCHARGE SUMMARY Patient: DESIREE PARSON Account: [id number] Room No: 808-02 : 1955 Patient Type: SDS Attend.: Frank Frazier M.D., F.A.CZinaC. Admit Date: 06/14/2015 Dict.: Lexus Vance N.P. Disch. Date: 06/15/2015 Principal and Secondary Diagnoses: 1. Chest pain. 2. Palpitations. 3. Lower extremity edema. 4. Leg pain. 5. Dyspnea on exertion. 6. Chest pain with exertion. 7. Coronary artery disease (CAD). 8. Hyperlipidemia. Principal and Secondary Procedures Performed: Cardiac catheterization. History of Present Illness: Ms. Parson is a 60-year-old female who has a history of CAD on a cardiac catheterization that was mild to moderate back in 2007. She had been having some chest discomfort, dyspnea on exertion, worsening chest pain with activity and some palpitations. She came into the office, and a stress test was performed that showed ischemia in the LAD and left circumflex territories. She was brought in for an elective cardiac catheterization. Radiologic and Laboratory Data: There are no laboratories drawn postprocedure. Cardiac catheterization performed. She had a stent placed to the left circumflex with an 80 percent blockage to 0 with a 3.5/12 Vision stent and RCA stent with 99 percent blockage status post with a Vision stent 4.015. Physical Examination: Constitutional: Ms. Parson is a 60-year-old female who appears in no acute distress. HEENT: Neck is supple. Thyroid is not palpable. Head is normocephalic. Full range of motion. Pulmonary: Lungs are clear auscultation with respirations even and unlabored. Cardiac: S1, S2 are noted. No murmurs, rubs, or gallops. Abdomen: Soft, nondistended, nontender. Bowel sounds noted x4 quadrants. Extremities: No cyanosis or clubbing noted. Pedal pulses are palpable and 1+. She does have some tape vance from the large pressure dressing that was in place. It is slightly reddened. There was no lesions or blisters noted. The tape vance are on her leg and her abdominal area. Groin site is clear otherwise with a clean and dry dressing intact. Hospital Course: Again, Ms. Parson is a 60-year-old female who was admitted postprocedure up to the 8th floor. She was observed overnight. She did have some groin pain that was taken care of by Tylenol and Ultram. She has both those medications at home. After her catheterization, she has been placed on Brilinta 90 mg p.o. b.i.d. She is already on a statin at home. Fish oil for her cholesterol. She is to continue her aspirin. She is on Cartia already for her palpitations. There will be no beta blockers started due to borderline heart rates. Her ejection fraction is 70 percent. So there is no ALEJANDRA inhibitor required. She has been up and ambulating with no issues. She does have some slight groin pain that is relieved with Tylenol and Ultram. She had a little bit of a headache this morning postprocedure, but that has resolved as well. She will be given some post-catheterization restrictions. I discussed some restrictions with her at baseline. 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 She will be off work until next Wednesday, June 24, 2015. She is to go home and rest and no strenuous exercise. No pushing, pulling, straining, or lifting 10 pounds for the next week. She is to monitor groin site and call for any issues. Discharge Diet: Low-fat, low-cholesterol diet. Discharge Followup: With primary medical doctor in 1 to 2 weeks, Dr. Frazier in 4 weeks. Condition on Discharge: Stable. Electronically Authenticated by: NATHALY Vaca On 06/18/2015 10:24 AM TAX ACCOUNTING MANAGER Electronically Authenticated by: Frank Frazier MD On 06/20/2015 04:07 PM TAX ACCOUNTING MANAGER Frank Frazier M.D., F.A.C.C. Dictated by: Jonathan Rubin/ct TD: 06/16/2015 17:50 documented in this encounter Medications at Time [...] 0 05/07/2015 7 L. gasseri-B. bifidum-B longum (Metabar) 1.5 billion cell capsule 0 0 11/06/2013 [...] (METAMUCIL, SUGAR,) powder 0 0 11/06/2013 9 documented as of this encounter Plan of Treatment Not on file documented as of this encounter Procedures Procedure Name Priority Date/Time Associated Diagnosis Comments PLASMA LIPID PANEL Routine 06/15/2015 7: 04 AM TAX ACCOUNTING MANAGER DISCHARGE LABORATORY CUMULATIVE REPORT 06/15/2015 CARDIOLOGY PROCEDURE LOG INTERVENTION 06/14/2015 STAPHYLOCOCCUS SCREEN Routine 06/14/2015 12:00 AM TAX ACCOUNTING MANAGER CARDIAC CATHETERIZATION Routine 06/14/20 15 12:00 AM TAX ACCOUNTING MANAGER documented in this encounter Results * (ABNORMAL) Plasma lipid panel (06/15/2015 7:04 AM TAX ACCOUNTING MANAGER) Cholesterol 203(H) 100 - 200 mg/dl HISTORICAL RESULTS Triglycerides 335(H) 10 - 150 mg/dl HISTORICAL RESULTS HDL 37(L) 40 - 59 mg/dl HISTORICAL RESULTS LDL 99 60 - 129 mg/dl HISTORICAL RESULTS Plasma 06/15/2015 7:0 4 AM TAX ACCOUNTING MANAGER Frank Frazier MD LAB BLOOD ORDERABLES Final Resul t HISTORICAL RESULTS * DISCHARGE LABORATORY CUMULATIVE REPORT (06/15/2015) Narrative 06/15/2015 Ordered by an unspecified provider. Historical Provider LAB BLOOD ORDERABLES Bianca l Result * Staphylococcus Screen (06/14/2015 12:00 AM TAX ACCOUNTING MANAGER) 06/14/2015 Narrative HISTORICAL RESULTS - 06/15/2015 3:54 PM TAX ACCOUNTING MANAGER [facility] ?Patient Name: ?DESIREE PARSON ?Med. Rec#: ?? [id number] ?Pt. Acct.#: ??[id number] ?Birthdate: ?? 1955 ?Age / Sex: ?? 60Y / F ?Location: ?DISCH (808-02) ?Admit Date: ??06/14/2015 ?Discharge Date: ? 06/15/2015 ?Doctor: ?Frank Frazier M.D. ?Patient Type: ?CH OP in bed Culture, Staph Screen for MRSA ? Collected: 06/14/2015 12:36 Specimen: Swab ?? Specimen Source: Nose, external nares Status: Final ??Last Update: 06/15/2015 14:40 Culture Result ?? Culture NEGATIVE for Methicillin Resistant Staphylococcus ?? aureus us Historical Provider LAB MICROBIOLOGY - GENERA L ORDERABLES Final Result HISTORICAL RESULTS * CARDIOLOGY PROCEDURE LOG INTERVENTION (06/14/2015) Anatomical Region Laterality Modality X-Ray Angiograph y Narrative 06/14/2015 Ordered by an unspecified provider. Historical Provider CV CARDIAC CATH PROCEDURE S Final Result * Cardiac Catheterization (06/14/2015 12:00 AM TAX ACCOUNTING MANAGER) Anatomical Region Laterality Modality X-Ray Angiograph y 06/14/2015 Narrative 06/16/2015 8:20 AM TAX ACCOUNTING MANAGER ?CARDIAC PLANNING SUPERVISOR Patient: ??DESIREE PARSON ? : ? 1955 Account: ??[id number] ? Age: ? 60 Film No: ? Room No: ? 808-02 Attend.: ??Frank Frazier M.D., Geoff ? Patient Type: ??SDS Dict.: ?Frank Frazier M.D., LizzyCCharles ? Admit Date: ?06/14/2015 ? CARDIAC CATHETERIZATION REPORT Date of Exam: ??06/14/2015 BRIEF CLINICAL HISTORY: ?? Very pleasant woman who was born on [birth year]. ??She had complained of chest pain and shortness of breath, and also is a candidate for knee surgery. Thus, she had Myoview scan that showed ischemia involving the left circumflex and left anterior descending artery territories. ??In 2007 she had a cardiac cath that showed mild to moderate coronary artery disease. ??In view of the above, she presents for cardiac catheterization. ??She is aware of the risks, benefits and alternatives of the procedure. ??Risks include but are not limited to myocardial infarction, , cerebrovascular accident, contrast nephropathy, vascular injury, subacute thrombosis, restenosis and . PROCEDURE: 1. ??Left heart cath. 2. ??Selective right and left coronary arteriography. 3. ??Left ventriculogram. 4. ??Renal angiography. 5. ??PTCA and stent deployment. TECHNICAL SUMMARY: ??After informed consent was obtained, the patient was brought to the cardiac catheterization laboratory in the post-absorptive state. The patient was sedated with Versed and fentanyl. ??The right groin was prepped and draped in the usual sterile manner. ??Local anesthesia was given with lidocaine 1% plain. ??The right common femoral artery was cannulated using the modified Seldinger technique. ??A 5 Vietnamese short sheath was inserted without difficulty. ?? Next, left and right coronary angiography was performed using a 5 4 JL and JR respectively. ??Next, left ventriculography was performed using a 5 Vietnamese pigtail. ??Pullback through the aorta was recorded. ??Selective left and right renal artery angiography were performed using the 5 4 JR catheter. ??At the conclusion of the diagnostic procedure, intervention was performed; see below. RESULTS: Please see the attached sheet. HEMODYNAMICS: Pre-angiographic aortic pressure: ??160/80 ?LV pressure: ??145/12 ?. Post-angiographic aortic pressure: ??150/80 ?? LV pressure: ??150/12 ?. INTERPRETATION OF HEMODYNAMIC DATA: ??No gradient across the aortic valve. LEFT CORONARY ARTERY: ?? The left main coronary artery is normal. The left anterior descending artery is normal. The left circumflex contained 80% stenosis of the proximal segment. RIGHT CORONARY ARTERY: ?? The right coronary artery is the dominant vessel. It contained 40% stenosis of the proximal to mid segment and 99% short stenosis of the mid to distal segment. LEFT VENTRICULOGRAM: ?? Normal ejection fraction of 70%. RENAL ARTERY ANGIOGRAPHY: Right renal artery was normal. ??Left renal artery was normal. INTERVENTION: The sheath was exchanged over a guide wire to a 6 Vietnamese short sheath. ??We gave Angiomax per protocol, aspirin 325 mg and Brilinta 180 mg. ??We used a 6 4 right Rai guide catheter to intubate the right coronary artery. Then we used a Whisper wire 15 x 2.5 mm balloon to cross the lesion of the mid right coronary artery. ??We then performed predilation with the same balloon and then placed a 4.0 x 15 mm Vision stent at high pressure with excellent result without any residual stenosis. We now turned our attention to the left circumflex, and we used a 6 x 3.5 CLS guide catheter to intubate the left main coronary artery. ??We tried to wire the lesion with the Whisper wire, but it was difficult to access the left circumflex due to acute angle. Thus, we changed to a 0.04 BMW guide wire which crossed the lesion into the distal left circumflex. We performed pre-dilation with the same 2.5 x 15 mm balloon and then placed a 3.5 x 12 mm Vision stent at high pressure with excellent result without residual stenosis. We now removed all equipment and performed angiography of the right femoral artery via the side arm of the sheath. We confirmed that the entry point of the sheath is in the common femoral artery and 6 Vietnamese Angio-Seal closure device was successfully deployed per protocol. The patient tolerated the procedure well. There were no complications. FINAL DIAGNOSIS: ??1. Severe two-vessel with 99% stenosis of the right coronary artery and 80% ? stenosis of the left circumflex. ??2. Normal ejection fraction of 70%. ??3. Normal renal arteries. ??4. Successful stenting of the right coronary artery and the left circumflex ? with bare metal Vision stents. ??5. Successful closure of the right groin using a 6 Vietnamese Angio-Seal closure ? device. Thank you very much for allowing me to participate in the care of this patient. If I can be of further assistance, please do not hesitate to call me. Electronically Authenticated by: Frank Frazier MD On 06/20/2015 04:07 PM TAX ACCOUNTING MANAGER Dictated by Frank Frazier M.D., F.A.C.C. [facility]/ny Job #: ??[id number] DD: ??06/14/2015 16:33 TD: ??06/16/2015 08:20 Procedure Note Provider, MD Yoseph - 12/01/2016 CARDIAC PLANNING SUPERVISOR Patient: DESIREE PARSON : 1955 Account: [id number] Age: 60 Film No: Room No: 808-02 Attend.: Frank Frazier M.D., Geoff Patient Type: SDS Dict.: Frank Frazier M.D., Gina. Admit Date: 06/14/2015 CARDIAC CATHETERIZATION REPORT Date of Exam: 06/14/2015 BRIEF CLINICAL HISTORY: Very pleasant woman who was born on [birth year].She had complained of chest pain and shortness of breath, and also is a candidatefor knee surgery. Thus, she had Myoview scan that showed ischemia involvingthe left circumflex and left anterior descending artery territories. In 2007she had a cardiac cath that showed mild to moderate coronary artery disease.In view of the above, she presents for cardiac catheterization. She is awareof the risks, benefits and alternatives of the procedure. Risks include butare not limited to myocardial infarction, , cerebrovascular accident,contrast nephropathy, vascular injury, subacute thrombosis, restenosis and . PROCEDURE: 1. Left heart cath. 2. Selective right and left coronary arteriography. 3. Left ventriculogram. 4. Renal angiography. 5. PTCA and stent deployment. TECHNICAL SUMMARY: After informed consent was obtained, the patient was brought to the cardiac catheterization laboratory in the post-absorptivestate. The patient was sedated with Versed and fentanyl. The right groin wasprepped and draped in the usual sterile manner. Local anesthesia was given with lidocaine 1% plain. The right common femoral artery was cannulated usingthe modified Seldinger technique. A 5 Vietnamese short sheath was insertedwithout difficulty. Next, left and right coronary angiography was performedusing a 5 4 JL and JR respectively. Next, left ventriculography was performed usinga 5 Vietnamese pigtail. Pullback through the aorta was recorded. Selective leftand right renal artery angiography were performed using the 5 4 JR catheter.At the conclusion of the diagnostic procedure, intervention was performed;see below. RESULTS: Please see the attached sheet. HEMODYNAMICS: Pre-angiographic aortic pressure: 160/80 LV pressure: 145/12 . Post-angiographic aortic pressure: 150/80 LV pressure: 150/12 . INTERPRETATION OF HEMODYNAMIC DATA: No gradient across the aorticvalve. LEFT CORONARY ARTERY: The left main coronary artery is normal. Theleft anterior descending artery is normal. The left circumflex contained 80% stenosis of the proximal segment. RIGHT CORONARY ARTERY: The right coronary artery is the dominant vessel.It contained 40% stenosis of the proximal to mid segment and 99% shortstenosis of the mid to distal segment. LEFT VENTRICULOGRAM: Normal ejection fraction of 70%. RENAL ARTERY ANGIOGRAPHY: Right renal artery was normal. Left renalartery was normal. INTERVENTION: The sheath was exchanged over a guide wire to a 6 Frenchshort sheath. We gave Angiomax per protocol, aspirin 325 mg and Brilinta 180mg. We used a 6 4 right Rai guide catheter to intubate the right coronaryartery. Then we used a Whisper wire 15 x 2.5 mm balloon to cross the lesion of themid right coronary artery. We then performed predilation with the sameballoon and then placed a 4.0 x 15 mm Vision stent at high pressure with excellentresult without any residual stenosis. We now turned our attention to the left circumflex, and we used a 6 x 3.5 CLS guide catheter to intubate the leftmain coronary artery. We tried to wire the lesion with the Whisper wire, butit was difficult to access the left circumflex due to acute angle. Thus, wechanged to a 0.04 BMW guide wire which crossed the lesion into the distal leftcircumflex. We performed pre-dilation with the same 2.5 x 15 mm balloon and thenplaced a 3.5 x 12 mm Vision stent at high pressure with excellent result without residual stenosis. We now removed all equipment and performed angiographyof the right femoral artery via the side arm of the sheath. We confirmed thatthe entry point of the sheath is in the common femoral artery and 6 Vietnamese Angio-Seal closure device was successfully deployed per protocol. Thepatient tolerated the procedure well. There were no complications. FINAL DIAGNOSIS: 1. Severe two-vessel with 99% stenosis of the right coronary artery and80% stenosis of the left circumflex. 2. Normal ejection fraction of 70%. 3. Normal renal arteries. 4. Successful stenting of the right coronary artery and the leftcircumflex with bare metal Vision stents. 5. Successful closure of the right groin using a 6 Vietnamese Angio-Sealclosure device. Thank you very much for allowing me to participate in the care of thispatient. If I can be of further assistance, please do not hesitate to call me. Electronically Authenticated by: Frank Frazier MD On 06/20/2015 04:07 PM TAX ACCOUNTING MANAGER Dictated by Frank Frazier M.D., F.A.C.C. [facility]/ny TD: 06/16/2015 08:20 us Historical Provider CV CARDIAC CATH PROCEDURE S Final Result documented in this encounter Visit Diagnoses Diagnosis Atherosclerotic heart disease of burns paiute coronary artery without angina pectoris Pain of lower extremity Edema Other obesity Body mass index (BMI) of 39.0-39.9 in adult Personal history of nicotine dependence documented in this encounter Care Teams Machine Fitter Relationship Specialty Start Date End Date Kellie Pizano NP PCP - General 02/27/15 03/07/20 documented as of this encounter
--- OUTSIDE RECORDS SUMMARY | 2024-07-31 09:19 | XMS_ITS | Encounter Summary ---
Author Organization [facility] Address [address] [place] [address] Care Team Providers Care Supply Chain Design Manager Name Role Phone Kellie Pizano NP Primary Care Provider [phone] Carlee Mtz MD Primary Care Provider [phone] Encounter Details Date Type Department Care Team (Late st Contact Info) Description 01/08/2017 Telephone [facility] Orthopedics and Sports Medicine [address] [place] [address] Markos Crum II, PA [address] [facility] [address] [place] [address] Social History Tobacco Use Types Packs/Day Years Used Date Smoking Tobacco: Smoker, Current Status Unknown Alcohol Use Standard Drinks/Week Comments Yes 0 (1 standard drink = 0.6 oz pur e alcohol) Comments Unknown Sex and Gender Information Value Date Recorded Sex Assigned at Not on file Legal Sex Female 8:07 PM MASTER HEARTH TECHNICIAN Gender Identity Not on file Sexual Orientation Not on file documented as of this encounter Plan of Treatment Not on file documented as of this encounter Visit Diagnoses Not on filedocumented in this encounter Care Teams Supply Chain Design Manager Relationship Specialty Start Date End Date Kellie Pizano NP PCP - General 02/27/15 03/07/20 Carlee Mtz MD [address] [place] [address] [place] [address] PCP - General Family Medicine 03/08/20 09/27/22 documented as of this encounter
--- OUTSIDE RECORDS SUMMARY | 2024-07-31 09:19 | XMS_ITS | Encounter Summary ---
Author Organization [facility] Healthcare Address [address] [place] [address] Care Team Providers Care Rn Rehabilitation Name Role Phone Ori Pizano NP Primary Care Provider [phone] Encounter Details Date Type Department Care Team (Late st Contact Info) Description 11/05/2016 10:06 AM CDT - 11/05/2016 11:59 PM CDT Hospital Encounter [facility] OP INTERIM Carlee Mtz MD [address] [place], [place] [id number] Ori Pizano NP [address] [place] [address] Discharge Disposition: Discharge to home or self care Social History Tobacco Use Types Packs/Day Years Used Date Smoking Tobacco: Smoker, Current Status Unknown Alcohol Use Standard Drinks/Week Comments Yes 0 (1 standard drink = 0.6 oz pur e alcohol) Comments Unknown Sex and Gender Information Value Date Recorded Sex Assigned at Not on file 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 Gender Identity Not on file [...] 1 capsule by mouth daily 08/02/1969 omega 6-zaa-acf-fish oil (FISH OIL) 100-160-1,000 mg capsule 0 0 01/09/2016 rosuvastatin (CRESTOR) 20 mg tablet take 1 tablet by oral route every day 0 0 01/09/2016 sertraline (ZOLOFT) 50 mg tablet Take 50 mg by mouth daily 08/02/1969 traMADol (ULTRAM) 50 mg tablet take 1 - 2 Tablet by oral route every 6 hours for pain 0 0 01/09/2016 acetaminophen (TYLENOL) 325 mg tablet take 1 [...] oral route every day 0 0 01/09/2016 9 aspirin (ASPIR-81) 81 mg tablet take 1 tablet by oral route every day 0 0 11/06/2013 7 betamethasone dipropionate (DIPROLENE) 0.05 % cream apply by topical route every day a thin layer to the affected area(s) 0 0 11/06/2013 2 calcium carbonate-vitamin D3 (CALCIUM 600 + D,3,) 600 mg calcium- 200 unit capsule take 1 capsule a day 0 0 08/10/2014 7 cholecalciferol (VITAMIN D3) 1,000 unit capsule take 1 Capsule by Oral route once 0 0 01/09/2016 2 citalopram (CeleXA) 20 mg tablet take 1 [...] route every day 0 0 01/09/[address] (NexIUM) 40 mg capsule take 1 capsule by oral route every day 0 0 11/06/2013 7 HYDROcodone-acetam inophen (NORCO) 5-325 mg per tablet take 1 - 2 Tablet by oral route every 6 hours as needed for pain 33 0 05/07/2015 7 L. gasseri-B. bifidum-B longum ([facility] [employer]) 1.5 billion cell capsule 0 0 11/06/2013 [...] 07/01/2015 9 documented as of this encounter Discharge Disposition Disposition Code Departure Means Destination Discharge to home or self care documented in this encounter Plan of Treatment Not on file documented as of this encounter Procedures Procedure Name Priority Date/Time Associated Diagnosis Comments MRI LOWER EXTREMITY JOINT W WO CONTRAST Routine 11/05/2016 4:13 PM CDT documented in this encounter Results * MRI Lower Extremity Joint W WO Contrast (11/05/2016 4:13 PM CDT) Anatomical Region Laterality Modality N/A Magnetic Resonan ce 11/05/2016 4:13 PM CDT Narrative 11/05/2016 4:13 PM CDT MRI# 3T/vm/mr MR Lower Leg/Calf W/WO L ??- LEFT Acc#: ??[id number] DATE OF EXAM: ??Oct ??2016 CLINICAL HISTORY: Lump of the lower leg for one year. RESULT: TECHNIQUE: ??Sagittal T1, proton density SPAIR, and T1 post-contrast; coronal T1, proton density SPAIR, and T1 post-contrast; axial T1, proton density SPAIR, and T1 post-contrast. ??Exam is performed with a marker on the skin over the region of interest. FINDINGS: ??Deep to the marker lies subcutaneous fat. ??No suspicious solid or cystic lesions are identified. ??No abnormal enhancement is noted. ??An internally stabilized tibial plateau fracture is noted. ??The hardware creates some susceptibility artifact but the hardware ends proximal to the region of interest in the soft tissues. ??No muscular atrophy is identified. ??No evidence of denervation is seen. ??No abnormality of the tibial shaft is evident. IMPRESSION: 1. NO ABNORMAL FINDINGS TO CORRESPOND TO THE REPORTED ABNORMALITY IN THE MEDIAL LEFT CALF. 2. PRIOR TIBIAL PLATEAU FRACTURE WITH INTERNAL STABILIZATION HARDWARE CREATING SOME ARTIFACT. Interpreting Physician: ??CASS ARBOLEDA M.D. ??Read on: ??Oct ??2016 11:28A Transcribed by: ??va ??On: Oct ??2016 ??2:50P Approved Electronically by: ??CASS ARBOLEDA M.D. ??on: ??Nov 17 2016 5:30P Attending: ??ORI PIZANO Requesting: ??ORI PIZANO Requesting Fax: ??-- Attending Fax: ??-- Attending ID: ??[id number] Requesting ID: ??[id number] Report To 1 ID: ??[id number] Report To 1 Name: ??ORI PIZANO Report To 1 FAX: ??-- NextGen Order #: ?? Procedure Note Miscellaneous, Notinfile / Provider, MD Yoseph - 12/25/2016 MRI# 3T/vm/mr MR Lower Leg/Calf W/WO L - LEFT Acc#: [id number] DATE OF EXAM: Nov 05 2016 CLINICAL HISTORY: Lump of the lower leg for one year. RESULT: TECHNIQUE: Sagittal T1, proton density SPAIR, and T1 post-contrast;coronal T1, proton density SPAIR, and T1 post-contrast; axial T1, protondensity SPAIR, and T1 post-contrast. Exam is performed with a marker onthe skin over the region of interest. FINDINGS: Deep to the marker lies subcutaneous fat. No suspicious solidor cystic lesions are identified. No abnormal enhancement is noted. Aninternally stabilized tibial plateau fracture is noted. The hardwarecreates some susceptibility artifact but the hardware ends proximal to theregion of interest in the soft tissues. No muscular atrophy isidentified. No evidence of denervation is seen. No abnormality of thetibial shaft is evident. IMPRESSION: 1. NO ABNORMAL FINDINGS TO CORRESPOND TO THE REPORTED ABNORMALITY IN THEMEDIAL LEFT CALF. 2. PRIOR TIBIAL PLATEAU FRACTURE WITH INTERNAL STABILIZATION HARDWARECREATING SOME ARTIFACT. Interpreting Physician: CASS ARBOLEDA M.D. Read on: Nov 05 201611:28A Transcribed by: wilmer On: Nov 05 2016 2:50P Approved Electronically by: CASS ARBOLEDA M.D. on: Nov 17 20165:30P Attending: ORI PIZANO Requesting: ORI PIZANO Requesting Fax: -- Attending Fax: -- Attending ID: [id number] Requesting ID: [id number] Report To 1 ID: [id number] Report To 1 Name: ORI PIZANO Report To 1 FAX: -- NextGen Order #: us Not In File Miscellaneous IMG MRI PROCEDURES Fin al Result documented in this encounter Visit Diagnoses Not on filedocumented in this encounter Care Teams Rn Rehabilitation Relationship Specialty Start Date End Date Ori Pizano NP PCP - General 02/27/15 03/07/20 documented as of this encounter
--- OUTSIDE RECORDS SUMMARY | 2024-07-31 09:19 | XMS_ITS | Encounter Summary ---
Author Organization [facility] Healthcare Address [address] [place] [address] Care Team Providers Care Parts Salesperson Name Role Phone Kellie Pizano NP Primary Care Provider [phone] Encounter Details Date Type Department Care Team (Late st Contact Info) Description 01/16/2016 3:40 PM CDT Ancillary Procedure [facility] Outside Films Social History Tobacco Use Types Packs/Day Years Used Date Smoking Tobacco: Smoker, Current Status Unknown Alcohol Use Standard Drinks/Week Comments Yes 0 (1 standard drink = 0.6 oz pur e alcohol) Comments Unknown Sex and Gender Information Value Date Recorded Sex Assigned at Not on file 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 us Not In File Miscellaneous IMG MAMMO PROCEDURES F inal Result [facility] documented in this encounter Visit Diagnoses Not on filedocumented in this encounter Care Teams Parts Salesperson Relationship Specialty Start Date End Date Kellie Pizano NP PCP - General 02/27/15 03/07/20 documented as of this encounter
--- OUTSIDE RECORDS SUMMARY | 2024-07-31 09:19 | XMS_ITS | Encounter Summary ---
Author Organization [facility] Healthcare Address [address] [place] [address] Care Team Providers Care Nuclear Powerplant Mechanic Name Role Phone Kellie Pizano NP Primary Care Provider Encounter Details Date Type Department Care Team (Late st Contact Info) Description 08/28/2015 6:57 AM SPECIMEN TRANSPORTER - 08/28/2015 1:20 PM [facility] Hospital Encounter [facility] Harris Mccarthy MD [address] [place] [address] [address] [address] Osteoarthritis of knee; Essential (primary) hypertension; Procedure and treatment not carried out, unspecified reason; Gastro-esophageal reflux disease without esophagitis; Hyperlipidemia; History of peptic ulcer disease; History of methicillin resistant Staphylococcus aureus infection; Diaphragmatic hernia without obstruction or gangrene Social History Tobacco Use Types Packs/Day Years Used Date Smoking Tobacco: Smoker, Current Status Unknown Alcohol Use Standard Drinks/Week Comments No 0 (1 standard drink = 0.6 oz pur e alcohol) Comments Unknown Sex and Gender Information Value Date Recorded Sex Assigned at Not on file Legal Sex Female 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 gasseri-B. bifidum-B longum ([employer]) 1.5 billion cell capsule 0 0 11/06/2013 [...] 07/01/2015 9 documented as of this encounter H&P Notes * Provider, MD Yoseph - 08/28/2015 12:00 AM CST HISTORY AND PHYSICAL Patient: DESIREE PARSON Account: [id number] Room No: : 1955 Patient Type: IP Attend.: Harris Vu M.D. Admit Date: 08/28/2015 Dict.: Lynne Gong, A.TZinaCZina Disch. Date: 08/28/2015 The patient is a pleasant 60-year-old female under the care of Dr. Vu for left knee osteoarthritis. She failed conservative treatment options for this knee, and has now been deemed a safe surgical candidate to move forward with a left total knee arthroplasty. She has been seen and evaluated by her primary care physician, Dr. Jennings, and cleared for this procedure. ALLERGIES - 1) ALEJANDRA INHIBITORS, 2) ATENOLOL, 3) BETA BLOCKERS, 4) SULFA, 5) TERFENADINE. MEDICATIONS: 1. Cartia XT 240 mg. 2. Omeprazole 40 mg. 3. Alprazolam 0.5 mg. 4. Pravastatin 80 mg/40 mg. 5. ProAir inhaler. 6. [place]-7 tablets. 7. Aleve one tablet twice daily. 8. Vitamin D3 1,000 international units daily. 9. Centrum vitamin supplementation. 10. Aspirin 81 mg daily. 11. Calcium 1,200 mg daily. 12. Metabiotic one daily. 13. Tylenol p.r.n. 14. Tramadol 50 mg one twice a day. PAST MEDICAL HISTORY: 1) History of methicillin-resistant Staphylococcus aureus infection, 2) hypertension, 3) low back pain, 4) arrhythmia, 5) gastroesophageal reflux disease with ulcers, 6) hyperlipidemia, 7) hiatal hernia. PAST SURGICAL HISTORY: Is unknown. 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 She is . She lives alone. She reports rare alcohol use and she is a smoker. FAMILY HISTORY: Is noncontributory. REVIEW OF SYSTEMS: At the time of examination performed by Dr. Vu on 07/01/2015, the patient denied headache, blurred vision, dizziness, shortness of breath, chest pain, nausea, vomiting, fevers or chills, upper or lower respiratory symptoms, upper or lower gastrointestinal symptoms, no bowel or bladder issues. X-RAY INTERPRETATION: Showed severe tricompartmental arthrosis with a varus deformity. LABORATORY VALUES: Hemoglobin of 15.0, hematocrit of 43.5. Nasal swab for methicillin-resistant Staphylococcus aureus colonization was negative. INR was 1.05. Creatinine of 0.61. Urinalysis was negative. ESR was 19. C. reactive protein was 2.1. PHYSICAL EXAMINATION: On examination, the patient was alert and oriented x three. She was in no acute distress. Her vital signs were stable. The skin overlying the knee was clean, dry, and intact with no signs of infection. She had a negative Homans sign. She had full extension of the knee, pain in medial, lateral, and patellofemoral joints. Pain increased with range of motion. ASSESSMENT: End-stage osteoarthritis of the left knee. PLAN: The patient will be undergoing a left total knee arthroplasty by Dr. Vu on 08/28/2015 at [facility]. It is estimated she will have a minimum two night stay following the procedure. Preoperative antibiotics will be vancomycin due to her history of methicillin-resistant Staphylococcus aureus infection. Anesthesia will be spinal with an adductor canal block. Postoperative deep venous thrombosis prophylaxis will be aspirin 325 mg p.o. b.i.d. for 28 days postoperatively. Then the patient will be resuming her 81 mg daily dosage. The risks and benefits of the procedure were discussed with the patient in detail. She verbalized understanding of these risks and benefits and signed an informed consent. Electronically Authenticated by: Sylvain West P.A.-C On 09/04/2015 07:15 PM SPECIMEN TRANSPORTER Lynne Gong., A.T.C. REYES/leah TD: 08/26/2015 12:52 documented in this encounter Plan of Treatment Not on file documented as of this encounter Visit Diagnoses Diagnosis Osteoarthritis of knee Osteoarthrosis, unspecified whether generalized or localized, lower leg Essential (primary) hypertension Unspecified essential hypertension Procedure and treatment not carried out, unspecified reason Gastro-esophageal reflux disease without esophagitis Hyperlipidemia Other and unspecified hyperlipidemia History of peptic ulcer disease Personal history of peptic ulcer disease History of methicillin resistant Staphylococcus aureus infection Diaphragmatic hernia without obstruction or gangrene Diaphragmatic hernia without mention of obstruction or gangrene documented in this encounter Care Teams Nuclear Powerplant Mechanic Relationship Specialty Start Date End Date Kellie Pizano NP PCP - General 02/27/15 03/07/20 documented as of this encounter
--- OUTSIDE RECORDS SUMMARY | 2024-07-31 09:19 | XMS_ITS | Encounter Summary ---
Author Organization [facility] Healthcare Address [address] [place] [address] Care Team Providers Care Physicist Cryogenics Name Role Phone Kellie Pizano NP Primary Care Provider [phone] Encounter Details Date Type Department Care Team (Late st Contact Info) Description 01/04/2012 11:05 AM CDT - 01/04/2012 11:59 PM CDT Hospital Encounter [facility] Leigh Hay MD [address] [facility] [address] [place] [address] Guillaume Singleton PA [address] [place] [id number] Chest pain Social History Tobacco Use Types Packs/Day Years Used Date Smoking Tobacco: Never Assessed Comments Unknown Sex and Gender Information Value Date Recorded Sex Assigned at Not on file Legal Sex Female 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 1 3 11/19/2008 12/30/2021 documented as of this encounter Plan of Treatment Not on file documented as of this encounter Visit Diagnoses Diagnosis Chest pain Unspecified chest pain documented in this encounter Care Teams Physicist Cryogenics Relationship Specialty Start Date End Date Kellie Pizano NP PCP - General 11/06/08 02/26/15 documented as of this encounter
--- OUTSIDE RECORDS SUMMARY | 2024-07-31 09:19 | XMS_ITS | Encounter Summary ---
Author Organization [facility] Healthcare Address [address] [place] [address] Care Team Providers Care Security Rep Name Role Phone Kellie Pizano NP Primary Care Provider [phone] Encounter Details Date Type Department Care Team (Late st Contact Info) Description 10/15/2015 8:54 AM CDT - 10/15/2015 11:59 PM CDT Hospital Encounter [facility] Carlee Yuan MD [address] [place] [address] Kellie Pizano NP [address] [place] [address] Anxiety disorder; Essential (primary) hypertension; Presence of coronary angioplasty implant and graft Social History Tobacco Use Types Packs/Day Years Used Date Smoking Tobacco: Smoker, Current Status Unknown Alcohol Use Standard Drinks/Week Comments No 0 (1 standard drink = 0.6 oz pur e alcohol) Comments Unknown Sex and Gender Information Value Date Recorded Sex Assigned at Not on file 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 gasseri-B. bifidum-B longum ([employer]) 1.5 billion cell capsule 0 0 11/06/2013 [...] Associated Diagnosis Comments DISCHARGE LABORATORY CUMULATIVE REPORT 10/16/2015 SERUM THYROXINE (T4), FREE Routine 10/15/2015 9:05 AM CDT SERUM THYROID-STIMULATING HORMONE (TSH) Routine 10/15/2015 9:05 AM CDT SERUM LIPID PANEL Routine 10/15/2015 9:0 5 AM CDT SERUM ESTIMATED GLOMERULAR FILTRATION RATE Routine 10/15/2015 9:05 AM CDT PLASMA COMPREHENSIVE METABOLIC PANEL Routine 10/15/2015 9:05 AM CDT BLOOD CELL COUNT (CBC), MORPHOLOGIC EXAM Routine 10/15/2015 9:05 AM CDT BLOOD CELL MORPHOLOGIC EXAM Routine 10/15/2015 9:05 AM CDT documented in this encounter Results * DISCHARGE LABORATORY CUMULATIVE REPORT (10/16/2015) Narrative 10/16/2015 Ordered by an unspecified provider. us Historical Provider LAB BLOOD ORDERABLES Bianca l Result * Serum thyroid-stimulating hormone (TSH) (10/15/2015 9:05 AM CDT) TSH 1.16 0.30 - 5.00 mcIUnits/ml HISTORICAL RESULTS Serum 10/15/2015 9:05 AM CDT Carlee Mtz MD LAB BLOOD ORDERABLES Final Result HISTORICAL RESULTS * Plasma comprehensive metabolic panel (10/15/2015 9:05 AM CDT) Sodium 139 135 - 145 mmol/L HISTORICAL RESULTS K, pl 3.9 3.5 - 5.1 mmol/L HISTORICAL RESULTS Chloride 102 97 - 110 mmol/L HISTORICAL RESULTS CO2 27 22 - 32 mmol/L HISTORICAL RESULTS A. gap 14 8 - 16 mmol/L HISTORICAL RESULTS Glucose 86 70 - 199 mg/dl HISTORICAL RESULTS Comment: [...] data was last revised on 2014. BUN 12.3 8.0 - 25.0 mg/dl HISTORICAL RESULTS Creatinine 0.65 0.60 - 1.10 mg/dl HISTORICAL RESULTS BUN/creat ratio 19 10 - 20 HIST ORICAL RESULTS Calcium 9.4 8.6 - 10.2 mg/dl HISTORICAL RESULTS Protein, sr 7.3 6.0 - 8.4 g/dl HISTORICAL RESULTS Alb 4.3 3.6 - 5.0 g/dl HISTORICAL RESULTS Alb/glob ratio 1.4 1.1 - 1.8 ratio HISTORICAL RESULTS Alk phos 54 40 - 130 Units/L HISTORICAL RESULTS ALT 12 5 - 45 Units/L HISTORICAL RESULTS AST 14 10 - 40 Units/L HISTORICAL RESULTS Bilirubin 0.3 <=1.2 mg/dl HISTORICAL RESULTS Plasma 10/15/2015 9:05 AM CDT us Carlee Mtz MD LAB BLOOD ORDERABLES Final Result HISTORICAL RESULTS * (ABNORMAL) Serum lipid panel (10/15/2015 9:05 AM CDT) Cholesterol 136 40 - 199 mg/dl HISTORICAL RESULTS Comment: Interpretive Data Desirable: ??Less than 200 mg/dl ? Borderline High: ?200 - 239 mg/dl ? High: ??Greater than ?? 239 mg/dl Current interpretive data was last revised on 2014. Triglycerides 197(H) <=150 mg/dl HISTORICAL RESULTS Comment: Interpretive Data Normal: ? Less than 150 mg/dl Borderline high: ??105-199 mg/dl ?? High: ? 200-499 mg/dl ? Very high: ??Greater than or equal to 500 mg/dl Current interpretive data was last revised on 2014. HDL 48 40 - 60 mg/dl HISTORICAL RESULTS Comment: Interpretive Data Low HDL Cholesterol: ? Less than 40 mg/dl Normal HDL Cholesterol: ??40-60 mg/dl High HDL Cholesterol: ?Greater than 60 mg/dl Current interpretive data was last revised on 2014. LDL 49 mg/dl HISTORICAL RESULTS Comment: Interpretive Data Optimal ? Less than 100 mg/dL ? Near optimal/Above optimal ??100 - 129 mg/dL ? Borderline high ? 130 - 159 mg/dL ? High ?160 - 189 mg/dL ? Very high ? Greater than or = 190 mg/dL ? LDL values are not valid when the total Triglyceride is greater than 300 mg/dL. Current interpretive data was last revised on 2014. Non-HDL cholesterol, calculated 88 mg/dl HISTORICAL RESULTS Comment: Interpretive Data Optimal ? Less than 130 mg/dL Low Risk ?130 - 159 mg/dL Moderate Risk ? 160 - 189 mg/dL High Risk ? Greater than or equal to 190 mg/dL Current interpretive data was last revised on 2014. Serum 10/15/2015 9:05 AM CDT Carlee Mtz MD LAB BLOOD ORDERABLES Final Result Performing Organization Address [facility] de Phone Number HISTORICAL RESULTS * Serum thyroxine (T4), free (10/15/2015 9:05 AM CDT) Free T4 1.2 0.8 - 1.8 ng/dl HISTORICAL RESULTS Serum 10/15/2015 9:05 AM CDT Carlee Mtz MD LAB BLOOD ORDERABLES Final Result Performing Organization Address [facility] de Phone Number HISTORICAL RESULTS * Blood cell morphologic exam (10/15/2015 9:05 AM CDT) Neutrophils 69.0 44.0 - 80.0 % HISTORICAL RESULTS Immature granulocytes 0.4 0.0 - 1.0 % HISTORICAL RESULTS Lymphocytes 20.4 13.0 - 44.0 % HISTORICAL RESULTS Monos 6.7 2.0 - 11.0 % HISTORICAL RESULTS Eosinophils 2.9 0.0 - 6.0 % HISTORICAL RESULTS Basophils 0.6 0.0 - 3.0 % HISTORICAL RESULTS Neutrophils, abs 5.6 1.6 - 7.0 K/cumm HISTORICAL RESULTS Immature granulocyte, abs 0.03 0.00 - 0.20 K/cumm HISTORICAL RESULTS Lymphocytes, abs 1.6 0.5 - 4.3 K/cumm HISTORICAL RESULTS Monocytes, absolute 0.5 0.1 - 1.0 K/cumm HISTORICAL RESULTS Eosinophils, abs 0.2 0.0 - 0.6 K/cumm HISTORICAL RESULTS Basophils, abs 0.0 0.0 - 0.3 K/cumm HISTORICAL RESULTS Blood specimen (specimen) 10/15/2015 9:05 AM CDT Carlee Mtz MD LAB BLOOD ORDERABLES Final Result Performing Organization Address [facility] de Phone Number HISTORICAL RESULTS * Blood cell count (CBC), morphologic exam (10/15/2015 9:05 AM CDT) WBC 8.0 3.8 - 9.8 K/cumm HISTORICAL RESULTS RBC 4.29 3.90 - 5.00 M/cumm HISTORICAL RESULTS Hgb 13.1 12.1 - 15.1 g/dl HISTORICAL RESULTS Hct 39.7 36.1 - 44.3 % HISTORICAL RESULTS MCV 92.5 80.0 - 100.0 fl HISTORICAL RESULTS MCH 30.5 26.7 - 33.7 pg HISTORICAL RESULTS MCHC 33.0 32.7 - 36.0 g/dl HISTORICAL RESULTS Rdw 13.1 11.5 - 14.6 % HISTORICAL RESULTS Platelets 225 140 - 440 K/cumm HISTORICAL RESULTS MPV 10.3 8.0 - 12.0 fl HISTORICAL RESULTS NRBC 0.0 0.0 - 0.0 % HISTORIC AL RESULTS NRBC, abs 0.00 0.00 - 0.00 K/cumm HISTORICAL RESULTS Blood specimen (specimen) 10/15/2015 9:05 AM CDT us Carlee Mtz MD LAB BLOOD ORDERABLES Final Result HISTORICAL RESULTS * Serum estimated glomerular filtration rate (10/15/2015 9:05 AM CDT) Pathologist [facility] eGFR >60 ml/min/1.7 3 m2 HISTORICAL RESULTS Comment: Interpretation of Estimated GFR (eGFR): Normal ?>/= 60 mL/min/1.73m2 Possible Chronic Kidney Disease ??15 - 59 mL/min/1.73m2 Possible Kidney Failure ?< 15 ??mL/min/1.73m2 If -Swiss multiply value by 1.16. ??Estimated glomerular filtration rate is determined by the CKD-EPI equation recommended by the National Kidney Foundation (KDIGO 2012 Clinical Practice Guideline for the Evaluation and Management of Chronic Kidney Disease. ??Kidney Intnl Suppl Aug 2012;3:1). ??The CKD-EPI equation should not be used in acute renal failure or acute kidney injury and is not valid in children. Serum 10/15/2015 9:05 AM CDT us Carlee Mtz MD LAB BLOOD ORDERABLES Final Result HISTORICAL RESULTS documented in this encounter Visit Diagnoses Diagnosis Anxiety disorder Anxiety state, unspecified Essential (primary) hypertension Unspecified essential hypertension Presence of coronary angioplasty implant and graft documented in this encounter Care Teams Security Rep Relationship Specialty Start Date End Date Kellie Pizano NP PCP - General 02/27/15 03/07/20 documented as of this encounter
--- OUTSIDE RECORDS SUMMARY | 2024-07-31 09:19 | XMS_ITS | Encounter Summary ---
Author Organization [facility] Address [address] [place] [address] Care Team Providers Care Planned Giving Officer Name Role Phone Kellie Pizano NP Primary Care Provider [phone] Encounter Details Date Type Department Care Team (Late st Contact Info) Description 01/12/2017 Telephone [facility] Orthopedics and Sports Medicine [address] [place] [id number] Steffanie Castanon MA Social History Tobacco Use Types Packs/Day Years Used Date Smoking Tobacco: Smoker, Current Status Unknown Alcohol Use Standard Drinks/Week Comments Yes 0 (1 standard drink = 0.6 oz pur e alcohol) Comments Unknown Sex and Gender Information Value Date Recorded Sex Assigned at Not on file Legal Sex Female 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
--- OUTSIDE RECORDS SUMMARY | 2024-07-31 09:19 | XMS_ITS | Encounter Summary ---
Author Organization [facility] Healthcare Address [address] [place] [address] Care Team Providers Care Pack Press Operator Name Role Phone Kellie Pizano NP Primary Care Provider [phone] Encounter Details Date Type Department Care Team (Late st Contact Info) Description 07/11/2015 2:28 PM STRETCHING MACHINE TENDER FRAME - 07/11/2015 11:59 PM STRETCHING MACHINE TENDER FRAME Hospital Encounter [facility] Harris Mccarthy MD [address] [place] [address] DR PETERS B [address] [address] Osteoarthritis of knee Social History Tobacco Use Types Packs/Day Years Used Date Smoking Tobacco: Smoker, Current Status Unknown Alcohol Use Standard Drinks/Week Comments No 0 (1 standard drink = 0.6 oz pur e alcohol) Comments Unknown Sex and Gender Information Value Date Recorded Sex Assigned at Not on file Legal Sex Female 8:07 PM STRETCHING MACHINE TENDER FRAME Gender Identity Not on file Sexual Orientation [...] 0 05/07/2015 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 [id number] ??Acc#: ??[id number] DATE OF EXAM: ??Jul 11 2015 CLINICAL HISTORY: Knee arthritis. RESULT: PROTOCOL: ??Helically acquired axial images were obtained at corporate representative sections through the left hip, left knee and left distal tibia and fibula according to [employer] protocol FINDINGS: ??Images through the hip demonstrate no evidence of fracture or osseous lesion. ??The soft tissues are grossly normal. Images through the left knee demonstrate tricompartment osteoarthritis. There is no evidence of fracture or osseous lesion. ??The soft tissues are normal. Images through the distal left tibia and fibula demonstrate no evidence of fracture or osseous lesion. ??The soft tissues are normal. IMPRESSION: 1. OSTEOARTHRITIS OF THE LEFT KNEE. 2. OTHERWISE NORMAL TRUMATCH PROTOCOL CT OF THE LEFT LOWER EXTREMITY. Interpreting Physician: ??DR ЮЛИЯ SALAZAR M.D. ??Read on: ??Jul 11 2015 3:16P Transcribed by: ??wilmer ??On: Jul 11 2015 ??7:43P Approved Electronically by: ??MARTIN Iqbal, DR REDMAN ??on: ??Jul 12 2015 2:45P Attending: ??HARRIS ANDERSON Requesting: ??HARRIS ANDERSON Requesting Fax: ??[phone] Attending Fax: ??-- Attending ID: ??[id number] Requesting ID: ??[id number] Report To 1 ID: ??[id number] Report To 1 Name: ??HARRIS ANDERSON Report To 1 FAX: ??-- NextGen Order #: Procedure Note Provider, MD Yoseph - 11/24/[address] [place] [id number] Acc#: [id number] DATE OF EXAM: Jul 11 2015 CLINICAL HISTORY: Knee arthritis. RESULT: PROTOCOL: Helically acquired axial images were obtained at representativesections through the left hip, left knee and left distal tibia and fibulaaccording to [employer] protocol FINDINGS: Images through the hip demonstrate no evidence of fracture orosseous lesion. The soft tissues are grossly normal. Images through theleft knee demonstrate tricompartment osteoarthritis. There is no evidenceof fracture or osseous lesion. The soft tissues are normal. Imagesthrough the distal left tibia and fibula demonstrate no evidence offracture or osseous lesion. The soft tissues are normal. IMPRESSION: 1. OSTEOARTHRITIS OF THE LEFT KNEE. 2. OTHERWISE NORMAL TRUMATCH PROTOCOL CT OF THE LEFT LOWER EXTREMITY. Interpreting Physician: DR ЮЛИЯ SALAZAR M.D. Read on: Jul 11 20153:16P Transcribed by: wilmer On: Jul 11 2015 7:43P Approved Electronically by: MARTIN Iqbal, DR REDMAN on: Jul 12 20152:45P Attending: HARRIS ANDERSON Requesting: HARRIS ANDERSON Requesting Attending Fax: -- Attending ID: [id number] Requesting ID: [id number] Report To 1 ID: [id number] Report To 1 Name: HARRIS ANDERSON Report To 1 FAX: -- NextGen Order #: us Historical Provider MD WELCH CT PROCEDURES Final R esult documented in this encounter Visit Diagnoses Diagnosis Osteoarthritis of knee Osteoarthrosis, unspecified whether generalized or localized, lower leg documented in this encounter Care Teams Pack Press Operator Relationship Specialty Start Date End Date Kellie Pizano NP PCP - General 02/27/15 03/07/20 documented as of this encounter
--- OUTSIDE RECORDS SUMMARY | 2024-07-31 09:19 | XMS_ITS | Encounter Summary ---
Author Organization [facility] Healthcare Address [address] [place] [address] Care Team Providers Care Credit Processor Name Role Phone Kellie Pizano NP Primary Care Provider [phone] Encounter Details Date Type Department Care Team (Latest Contact Info) Description 11/05/2014 11:23 AM CDT - 11/05/2014 11:59 PM CDT Hospital Encounter [facility] CLINCONV Fever due to unspecified condition; Syncope and collapse; Cellulitis and abscess of leg; Vaginitis and vulvovaginitis Social History Tobacco Use Types Packs/Day Years Used Date Smoking Tobacco: Smoker, Current Status Unknown Alcohol Use Standard Drinks/Week Comments No 0 (1 standard drink = 0.6 oz pur e alcohol) Comments Unknown Sex and Gender Information Value Date Recorded Sex Assigned at Not on file 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
--- OUTSIDE RECORDS SUMMARY | 2024-07-31 09:19 | XMS_ITS | Encounter Summary ---
Author Organization [facility] Healthcare Address [address] [place] [address] Care Team Providers Care Roller Turner Name Role Phone Kellie Pizano NP Primary Care Provider [phone] Encounter Details Date Type Department Care Team (Late st Contact Info) Description 08/20/2015 3:45 PM RURAL ELECTRIFICATION ENGINEER - 08/20/2015 11:59 PM RURAL ELECTRIFICATION ENGINEER Hospital Encounter [facility]INCONV Social History Tobacco Use Types Packs/Day Years Used Date Smoking Tobacco: Smoker, Current Status Unknown Alcohol Use Standard Drinks/Week Comments No 0 (1 standard drink = 0.6 oz pur e alcohol) Comments Unknown Sex and Gender Information Value Date Recorded Sex Assigned at Not on file Legal Sex Female 8:07 PM RURAL ELECTRIFICATION ENGINEER Gender Identity Not on file Sexual [...] 0 05/07/2015 7 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
--- OUTSIDE RECORDS SUMMARY | 2024-07-31 09:19 | XMS_ITS | Encounter Summary ---
Author Organization [facility] Healthcare Address [address] [place] [address] Care Team Providers Care Registration Specialist Name Role Phone Kellie Pizano NP Primary Care Provider [phone] Encounter Details Date Type Department Care Team (Late st Contact Info) Description 07/11/2012 2:00 PM SALES COACH Ancillary Procedure [facility] Outside Films Social History Tobacco Use Types Packs/Day Years Used Date Smoking Tobacco: Never Assessed Comments Unknown Sex and Gender Information Value Date Recorded Sex Assigned at Not on file Legal Sex Female 8:07 PM SALES COACH Gender Identity Not on file Sexual Orientation Not on file documented as of this encounter Plan of Treatment Not on file documented as of this encounter Procedures Procedure Name Priority Date/Time Associated Diagnosis Comments BREAST IMAGING OUTSIDE REFERENCE Routine 07/11/2012 2:00 PM SALES COACH documented in this encounter Results * Breast Imaging Outside Reference (07/11/2012 2:00 PM SALES COACH) Narrative [facility] - 04/18/2020 1:43 PM CDT This order has been auto-finalized and does not contain a result. us Not In File Miscellaneous IMG MAMMO PROCEDURES F inal Result [facility] documented in this encounter Visit Diagnoses Not on filedocumented in this encounter Care Teams Registration Specialist Relationship Specialty Start Date End Date Kellie Pizano NP PCP - General 11/06/08 02/26/15 documented as of this encounter
--- OUTSIDE RECORDS SUMMARY | 2024-07-31 09:19 | XMS_ITS | Encounter Summary ---
Author Organization [facility] Healthcare Address [address] [place] [address] Care Team Providers Care Mortgage Originator Name Role Phone Harinder Kellie GOODRICH Primary Care Provider Encounter Details Date Type Department Care Team (Late st Contact Info) Description 08/20/2015 3:38 PM VOCATIONAL EVALUATOR - 08/20/2015 11:59 PM VOCATIONAL EVALUATOR Hospital Encounter [facility] Harris Mccarthy MD [address] [place] [address] [address] PETERS [address] [address] Encounter for preprocedural laboratory examination Social History Tobacco Use Types Packs/Day Years Used Date Smoking Tobacco: Smoker, Current Status Unknown Alcohol Use Standard Drinks/Week Comments No 0 (1 standard drink = 0.6 oz pur e alcohol) Comments Unknown Sex and Gender Information Value Date Recorded Sex Assigned at Not on file Legal Sex Female 8:07 PM VOCATIONAL EVALUATOR Gender Identity Not on file Sexual Orientation [...] 0 05/07/2015 7 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 0 0 11/06/2013 [...] Procedure Name Priority Date/Time Associated Diagnosis Comments STAPH AUREUS (MRSA/MSSA) CULTURE, CDR Routine 08/20/2015 3:45 PM VOCATIONAL EVALUATOR SERUM PREALBUMIN Routine 08/20/2015 3:45 PM VOCATIONAL EVALUATOR SERUM ESTIMATED GLOMERULAR FILTRATION RATE Routine 08/20/2015 3:45 PM VOCATIONAL EVALUATOR SERUM C-REACTIVE PROTEIN Routine 08/20/2015 3:45 PM VOCATIONAL EVALUATOR PLASMA COMPREHENSIVE METABOLIC PANEL Routine 08/20/2015 3:45 PM VOCATIONAL EVALUATOR BLOOD PROTHROMBIN TIME (PT) Routine 08/20/2015 3:45 PM VOCATIONAL EVALUATOR BLOOD PARTIAL THROMBOPLASTIN TIME (PTT) Routine 08/20/2015 3:45 PM VOCATIONAL EVALUATOR BLOOD ERYTHROCYTE SEDIMENTATION RATE (ESR) Routine 08/20/2015 3:45 PM VOCATIONAL EVALUATOR BLOOD CELL COUNT (CBC), MORPHOLOGIC EXAM Routine 08/20/2015 3:45 PM VOCATIONAL EVALUATOR BLOOD CELL MORPHOLOGIC EXAM Routine 08/20/2015 3:45 PM VOCATIONAL EVALUATOR URINALYSIS Routine 08/20/2015 9:45 AM VOCATIONAL EVALUATOR DISCHARGE LABORATORY CUMULATIVE REPORT 08/20/2015 documented in this encounter Results * Plasma comprehensive metabolic panel (08/20/2015 3:45 PM VOCATIONAL EVALUATOR) Sodium 138 135 - 145 mmol/L HISTORICAL RESULTS K, pl 3.8 3.5 - 5.1 mmol/L HISTORICAL RESULTS Chloride 100 97 - 110 mmol/L HISTORICAL RESULTS CO2 26 22 - 32 mmol/L HISTORICAL RESULTS A. gap 16 8 - 16 mmol/L HISTORICAL RESULTS Glucose [...] data was last revised on 2014. BUN 10.3 8.0 - 25.0 mg/dl HISTORICAL RESULTS Creatinine 0.61 0.60 - 1.10 mg/dl HISTORICAL RESULTS BUN/creat ratio 17 10 - 20 HIST ORICAL RESULTS Calcium 9.8 8.6 - 10.2 mg/dl HISTORICAL RESULTS Protein, sr 7.8 6.0 - 8.4 g/dl HISTORICAL RESULTS Alb 4.4 3.6 - 5.0 g/dl HISTORICAL RESULTS Alb/glob ratio 1.3 1.1 - 1.8 ratio HISTORICAL RESULTS Alk phos 63 40 - 130 Units/L HISTORICAL RESULTS ALT 26 5 - 45 Units/L HISTORICAL RESULTS AST 21 10 - 40 Units/L HISTORICAL RESULTS Comment:Hemolysis present. R esults may be affected. Bilirubin 0.3 <=1.2 mg/dl HISTORICAL RESULTS Plasma 08/20/2015 3:45 PM VOCATIONAL EVALUATOR Result [facility] Historical Provider LAB BLOOD ORDERABLES Bianca l Result HISTORICAL RESULTS * Serum C-reactive protein (08/20/2015 3:45 PM VOCATIONAL EVALUATOR) C-RP 2.1 <=10.0 mg/L HISTORIC AL RESULTS Serum 08/20/2015 3:45 PM VOCATIONAL EVALUATOR Result [facility] Historical Provider LAB BLOOD ORDERABLES Bianca l Result HISTORICAL RESULTS * Serum prealbumin (08/20/2015 3:45 PM VOCATIONAL EVALUATOR) Prealbumin 20 18 - 40 mg/dl HISTORICAL RESULTS Comment:Test performed at [facility], [address] [place] [address], [place]., [address] Serum 08/20/2015 3:45 PM VOCATIONAL EVALUATOR Result [facility] Historical Provider LAB BLOOD ORDERABLES Bianca l Result Performing Organization Address [facility] de Phone Number HISTORICAL RESULTS * Blood partial thromboplastin time (PTT) (08/20/2015 3:45 PM VOCATIONAL EVALUATOR) PTT 32.6 25.0 - 37.0 seconds HISTORICAL RESULTS Blood specimen (specimen) 08/20/2015 3:45 PM VOCATIONAL EVALUATOR Result [facility] Historical Provider LAB BLOOD ORDERABLES Bianca l Result Performing Organization Address [facility] de Phone Number HISTORICAL RESULTS * Blood erythrocyte sedimentation rate (ESR) (08/20/2015 3:45 PM VOCATIONAL EVALUATOR) Erythrocyte sedimentation rate 19.0 0.0 - 30.0 mm/hr HISTORICAL RESULTS Blood specimen (specimen) 08/20/2015 3:45 PM VOCATIONAL EVALUATOR Result [facility] Historical Provider LAB BLOOD ORDERABLES Bianca l Result Performing Organization Address [facility] Phone Number HISTORICAL RESULTS * Blood prothrombin time (PT) (08/20/2015 3:45 PM VOCATIONAL EVALUATOR) Prothrombin time (PT) 11.3 9.5 - 12.5 seconds HISTORICAL RESULTS INR 1.05 0.90 - 1.20 HISTORIC AL RESULTS Comment: Interpretive Data Recommended ranges for Protime INR: 2.0 - 3.0 Most indications for Warfarin therapy (e.g. Treatment of DVT, PE, bioprosthetic valve replacement, prophylaxis venous thrombosis, atrial fibrillation). 2.5 - 3.5 Mechanical mitral valve or dual mechanical mitral and Aortic valve replacement. Current Interpretive Data was last revised on 2015. Blood specimen (specimen) 08/20/2015 3:45 PM VOCATIONAL EVALUATOR Result [facility] Historical Provider LAB BLOOD ORDERABLES Bianca l Result Performing Organization Address [facility] de Phone Number HISTORICAL RESULTS * Blood cell morphologic exam (08/20/2015 3:45 PM VOCATIONAL EVALUATOR) Neutrophils 53.8 44.0 - 80.0 % HISTORICAL RESULTS Immature granulocytes 0.8 0.0 - 1.0 % HISTORICAL RESULTS Lymphocytes 32.2 13.0 - 44.0 % HISTORICAL RESULTS Monos 7.4 2.0 - 11.0 % HISTORICAL RESULTS Eosinophils 5.1 0.0 - 6.0 % HISTORICAL RESULTS Basophils 0.7 0.0 - 3.0 % HISTORICAL RESULTS Neutrophils, abs 4.6 1.6 - 7.0 K/cumm HISTORICAL RESULTS Immature granulocyte, abs 0.07 0.00 - 0.20 K/cumm HISTORICAL RESULTS Lymphocytes, abs 2.8 0.5 - 4.3 K/cumm HISTORICAL RESULTS Monocytes, absolute 0.6 0.1 - 1.0 K/cumm HISTORICAL RESULTS Eosinophils, abs 0.4 0.0 - 0.6 K/cumm HISTORICAL RESULTS Basophils, abs 0.1 0.0 - 0.3 K/cumm HISTORICAL RESULTS Blood specimen (specimen) 08/20/2015 3:45 PM VOCATIONAL EVALUATOR Historical Provider LAB BLOOD ORDERABLES Bianca l Result HISTORICAL RESULTS * Blood cell count (CBC), morphologic exam (08/20/2015 3:45 PM VOCATIONAL EVALUATOR) WBC 8.6 3.8 - 9.8 K/cumm HISTORICAL RESULTS RBC 4.87 3.90 - 5.00 M/cumm HISTORICAL RESULTS Hgb 15.0 12.1 - 15.1 g/dl HISTORICAL RESULTS Hct 43.5 36.1 - 44.3 % HISTORICAL RESULTS MCV 89.3 80.0 - 100.0 fl HISTORICAL RESULTS MCH 30.8 26.7 - 33.7 pg HISTORICAL RESULTS MCHC 34.5 32.7 - 36.0 g/dl HISTORICAL RESULTS Rdw 13.0 11.5 - 14.6 % HISTORICAL RESULTS Platelets 219 140 - 440 K/cumm HISTORICAL RESULTS MPV 10.5 8.0 - 12.0 fl HISTORICAL RESULTS NRBC 0.0 0.0 - 0.0 % HISTORIC AL RESULTS NRBC, abs 0.00 0.00 - 0.00 K/cumm HISTORICAL RESULTS Blood specimen (specimen) 08/20/2015 3:45 PM VOCATIONAL EVALUATOR us Historical Provider LAB BLOOD ORDERABLES Bianca l Result Performing Organization Address [facility] de Phone Number HISTORICAL RESULTS * Serum estimated glomerular filtration rate (08/20/2015 3:45 PM VOCATIONAL EVALUATOR) eGFR >60 ml/min/1.7 3 m2 HISTORICAL RESULTS Comment: Interpretation of Estimated GFR (eGFR): Normal ?>/= 60 mL/min/1.73m2 Possible Chronic Kidney Disease ??15 - 59 mL/min/1.73m2 Possible Kidney Failure ?< 15 ??mL/min/1.73m2 If -Congolese multiply value by 1.16. ??Estimated glomerular filtration rate is determined by the CKD-EPI equation recommended by the National Kidney Foundation (KDIGO 2012 Clinical Practice Guideline for the Evaluation and Management of Chronic Kidney Disease. ??Kidney Intnl Suppl Aug 2012;3:1). ??The CKD-EPI equation should not be used in acute renal failure or acute kidney injury and is not valid in children. Serum 08/20/2015 3:45 PM VOCATIONAL EVALUATOR Result [facility] Historical Provider LAB BLOOD ORDERABLES Bianca l Result Performing Organization Address [facility] de Phone Number HISTORICAL RESULTS * Staph aureus (MRSA/MSSA) Culture (08/20/2015 3:45 PM VOCATIONAL EVALUATOR) Nasal (Unknown) 08/20/2015 3 :45 PM VOCATIONAL EVALUATOR Impressions HISTORICAL RESULTS - 08/21/2015 1:35 PM VOCATIONAL EVALUATOR Patient's Nasal specimens are processed for Methicillin-resistant Staphylococcus aureus (MRSA) only. Current interpretive data was last revised on 2015. Narrative HISTORICAL RESULTS - 08/21/2015 1:35 PM VOCATIONAL EVALUATOR No Methicillin Resistant Staph aureus cultured Historical Provider LAB MICROBIOLOGY - GENERA L ORDERABLES Final Result Performing Organization Address [facility] Co de Phone Number HISTORICAL RESULTS * Urinalysis (08/20/2015 9:45 AM VOCATIONAL EVALUATOR) Color, ur Yellow Yellow HISTORICAL RESULTS Clarity, ur Clear Clear HISTORIC AL RESULTS Specific gravity, ur 1.008 1.003 - 1.030 HISTORICAL RESULTS Comment:Normal Ranges: 1.003 -1.030 pH, ur 5.5 4.5 - 8.0 HISTORICAL RESULTS Comment:Normal ranges: [...] esterase, ur Negative Negative HISTORICAL RESULTS Urine 08/20/2015 9:45 AM VOCATIONAL EVALUATOR Narrative HISTORICAL RESULTS - 08/20/2015 10:32 AM VOCATIONAL EVALUATOR CLEAN VOID Historical Provider LAB BLOOD ORDERABLES Bianca l Result HISTORICAL RESULTS * DISCHARGE LABORATORY CUMULATIVE REPORT (08/20/2015) Narrative 08/20/2015 Ordered by an unspecified provider. Historical Provider LAB BLOOD ORDERABLES Bianca l Result documented in this encounter Visit Diagnoses Diagnosis Encounter for preprocedural laboratory examination documented in this encounter Care Teams Mortgage Originator Relationship Specialty Start Date End Date Kellie Pizano NP PCP - General 02/27/15 03/07/20 documented as of this encounter
--- OUTSIDE RECORDS SUMMARY | 2024-07-31 09:19 | XMS_ITS | Encounter Summary ---
Author Organization [facility] Healthcare Address [address] [place] [address] Care Team Providers Care Craft Worker Name Role Phone Ori Pizano NP Primary Care Provider [phone] Encounter Details Date Type Department Care Team (Late st Contact Info) Description 10/28/2016 11:15 AM CDT - 10/28/2016 11:59 PM CDT Hospital Encounter [facility] Carlee Tabares MD [address] [place] [address] Ori Pizano NP [address] [place] [address] Discharge Disposition: Discharge to home or self care Social History Tobacco Use Types Packs/Day Years Used Date Smoking Tobacco: Smoker, Current Status Unknown Alcohol Use Standard Drinks/Week Comments Yes 0 (1 standard drink = 0.6 oz pur e alcohol) Comments Unknown Sex and Gender Information Value Date Recorded Sex Assigned at Not on file 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 gasseri-B. bifidum-B longum ([facility] [employer]) 1.5 billion cell capsule 0 0 11/06/2013 [...] Name Priority Date/Time Associated Diagnosis Comments US ARTERIAL DOPPLER LOWER EXTREMITY COMPLETE Routine 10/28/2016 4:55 PM CDT documented in this encounter Results * Vl US Arterial Doppler Lower Extremity Complete (10/28/2016 4:55 PM CDT) Anatomical Region Laterality Modality Vascular N/A Ultrasound 10/28/2016 4:55 PM CDT Narrative 10/28/2016 4:55 PM CDT CC: ??R. HERMINIA-MELECIO VL/US Venous Low Ext L ??Acc#: ??[id number] DATE OF EXAM: ??Oct 28 2016 CLINICAL HISTORY: Thrombophlebitis. Localized lump left lower leg. RESULT: The left common and superficial femoral, popliteal, posterior tibial, peroneal and greater saphenous veins are patent with no deep vein thrombosis identified in the left lower extremity. Images focused in the lateral aspect of the upper calf at one of the areas of soft tissue lump reveals no discrete ultrasonographic abnormality. ??At the second lump site in the medial aspect of the left lower leg there is very vague area of mild increased echogenicity amongst the muscle which could represent a component of fatty infiltration but it is difficult to characterize specifically on this exam. ??Given the history of soft tissue lumps would suggest MRI for further assessment. IMPRESSION: 1. ??NO DEEP VEIN THROMBOSIS IN THE LEFT LOWER EXTREMITY. 2. ??POSSIBLE COMPONENT OF FATTY INFILTRATION IN THE MUSCLE IN THE MEDIAL ASPECT OF THE UPPER CALF IN THE AREA OF CLINICAL CONCERN. IN THE LATERAL ASPECT OF THE UPPER CALF NO ULTRASONOGRAPHIC ABNORMALITY IS CLEARLY SEEN. ??WOULD SUGGEST MRI FOR MORE SPECIFIC CHARACTERIZATION. Interpreting Physician: ??SOY WAKEFIELD M.D. ??Read on: ??Oct 28 2016 12:22P Transcribed by: ??ylharvinder ??On: Oct 28 2016 ??2:57P Approved Electronically by: ??SOY WAKEFIELD M.D. ??on: ??Oct 28 2016 ??3:18P Attending: ??ORI PIZANO Requesting: ??ORI PIZANO Requesting Fax: ??-- Attending Fax: ??-- Attending ID: ??[id number] Requesting ID: ??[id number] Report To 1 ID: ??[id number] Report To 1 Name: ??ORI PIZANO Report To 1 FAX: ??-- NextGen Order #: ?? Procedure Note Miscellaneous, Notinfile / Provider, MD Yoseph - 12/25/2016 CC: Micaela TABARES /US Venous Low Ext L Acc#: [id number] DATE OF EXAM: Oct 28 2016 CLINICAL HISTORY: Thrombophlebitis. Localized lump left lower leg. RESULT: The left common and superficial femoral, popliteal, posterior tibial,peroneal and greater saphenous veins are patent with no deep veinthrombosis identified in the left lower extremity. Images focused in thelateral aspect of the upper calf at one of the areas of soft tissue lumpreveals no discrete ultrasonographic abnormality. At the second lump sitein the medial aspect of the left lower leg there is very vague area ofmild increased echogenicity amongst the muscle which could represent acomponent of fatty infiltration but it is difficult to characterizespecifically on this exam. Given the history of soft tissue lumps wouldsuggest MRI for further assessment. IMPRESSION: 1. NO DEEP VEIN THROMBOSIS IN THE LEFT LOWER EXTREMITY. 2. POSSIBLE COMPONENT OF FATTY INFILTRATION IN THE MUSCLE IN THE MEDIALASPECT OF THE UPPER CALF IN THE AREA OF CLINICAL CONCERN. IN THE LATERALASPECT OF THE UPPER CALF NO ULTRASONOGRAPHIC ABNORMALITY IS CLEARLY SEEN.WOULD SUGGEST MRI FOR MORE SPECIFIC CHARACTERIZATION. Interpreting Physician: SOY WAKEFIELD M.D. Read on: Oct 28 2016 12:22P Transcribed by: shahid On: Oct 28 2016 2:57P Approved Electronically by: SOY WAKEFIELD M.D. on: Oct 28 2016 3:18P Attending: ROI PIZANO Requesting: ORI PIZANO Requesting Fax: -- Attending Fax: -- Attending ID: [id number] Requesting ID: [id number] Report To 1 ID: [id number] Report To 1 Name: ORI PIZANO Report To 1 FAX: -- NextGen Order #: us Not In File Miscellaneous IMG US PROCEDURES Bianca l Result documented in this encounter Visit Diagnoses Not on filedocumented in this encounter Care Teams Craft Worker Relationship Specialty Start Date End Date Ori Pizano NP PCP - General 02/27/15 03/07/20 documented as of this encounter
--- OUTSIDE RECORDS SUMMARY | 2024-07-31 09:19 | XMS_ITS | Encounter Summary ---
Author Organization [facility] Healthcare Address [address] [place] [address] Care Team Providers Care Miller Head Name Role Phone Kellie Pizano NP Primary Care Provider [phone] Encounter Details Date Type Department Care Team (Late st Contact Info) Description 06/01/2011 6:17 PM CDT - 06/01/2011 11:59 PM CDT Hospital Encounter [facility] MD [address] [place] [address] Screening for malignant neoplasm of cervix Social History Tobacco Use Types Packs/Day Years Used Date Smoking Tobacco: Never Assessed Comments Unknown Sex and Gender Information Value Date Recorded Sex Assigned at Not on file 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
--- OUTSIDE RECORDS SUMMARY | 2024-07-31 09:19 | XMS_ITS | Encounter Summary ---
Author Organization [facility] Healthcare Address [address] [place] [address] Care Team Providers Care Cognos Developer Name Role Phone Kellie Pizano NP Primary Care Provider [phone] Encounter Details Date Type Department Care Team (Late st Contact Info) Description 08/29/2015 12:17 PM CLASSICS TEACHER - 08/30/2015 6:45 PM CLASSICS TEACHER Hospital Encounter [facility] Dat Mccarthy MD [address] [place] [address] DR PETERS [address] [address] Osteoarthritis of knee; Essential (primary) hypertension; Hyperlipidemia; History of methicillin resistant Staphylococcus aureus infection; Gastro-esophageal reflux disease without esophagitis; Diaphragmatic hernia without obstruction or gangrene; Sleep apnea; Uncomplicated asthma Social History Tobacco Use Types Packs/Day Years Used Date Smoking Tobacco: Smoker, Current Status Unknown Alcohol Use Standard Drinks/Week Comments No 0 (1 standard drink = 0.6 oz pur e alcohol) Comments Unknown Sex and Gender Information Value Date Recorded Sex Assigned at Not on file Legal Sex Female 8:07 PM CLASSICS TEACHER Gender Identity Not on file Sexual Orientation Not on file documented as of this encounter Last Filed Vital Signs Vital Sign Reading Time Taken Comments Blood Pressure 119/72 08/30/2015 3:33 PM CLASSICS TEACHER Pulse 81 08/30/2015 3:33 PM CLASSICS TEACHER Temperature - - Respiratory Rate - - Oxygen Saturation - - Inhaled Oxygen Concentration - - Weight - - Height - - Body Mass Index - - documented in this encounter Discharge Summaries * Provider, MD Yoseph - 08/30/2015 12:00 AM CST DISCHARGE SUMMARY Patient: DESIREE PARSON Account: [id number] Room No: G612-01 : 1955 Patient Type: IP Attend.: Dat Vu M.D. Admit Date: 08/29/2015 Dict.: Lynne Gong, MayiTCharles Disch. Date: 08/30/2015 DATE OF ADMISSION: August 29, 2015. DATE OF DISCHARGE: August 30, 2015. ADMITTING DIAGNOSIS: Osteoarthritis of the left knee. DISCHARGE DIAGNOSIS: Status post total knee arthroplasty on the left side. ATTENDING PHYSICIAN: Dat Vu M.D. CONSULTING PHYSICIAN: None. DISPOSITION: Home. DISCHARGE CONDITION: Good. HISTORY AND PHYSICAL EXAMINATION: Please refer to chart note from today, August 30, 2015. The patient has done well postoperatively and now been deemed a safe candidate to return to home with home health and home physical therapy. DISCHARGE INSTRUCTIONS: She weightbearing as tolerated with a walker at all times. Incisional care and dressing care information provided to the patient in written form. She is to keep her current dressings intact for seven days. She will remove these on day seven with daily dressing changes thereafter. She has been instructed on the use of home sequential devices and incentive spirometry at home and her CMP. DISCHARGE MEDICATIONS: The patient will be resuming her home medications including her anti-platelet therapy, Brilinta 90 milligrams plus 81 mgs of aspirin daily. At this time, we will be using this for DVT prophylaxis. We have put in a phone call to her relief pilot to speak with him in regards to appropriate DVT prophylaxis postoperatively and if he feels this is in fact appropriate for her use. In addition to this, she will be on the followin. MS Contin 30 mg one p.o. q. 12 hours as needed for pain. 2. Percocet 5/325 one to two p.o. q. 4-6 hours as needed for pain. 3. Vitamin C 500 milligrams p.o. twice daily. 4. Celebrex 200 milligrams p.o. twice daily. 5. Colace 100 milligrams p.o. twice daily as needed for constipation. 6. Iron 325 milligrams daily. 7. Zofran 4 milligrams 1 p.o. q. 4-6 hours as needed for nausea and vomiting. These medications have been sent to her pharmacy, [facility] in [place]. FOLLOWUP will be in two weeks' time with x-rays, evaluation and suture removal. Electronically Authenticated by: Dat Vu MD On 08/31/2015 11:19 AM CLASSICS TEACHER Dat Vu M.D. Dictated by: Lynne Gong, A.T.C. REYES/dm TD: 08/30/2015 20:48 documented in this encounter Medications at Time [...] 0 05/07/2015 7 L. gasseri-B. bifidum-B longum (Zizerones) 1.5 billion cell capsule 0 0 11/06/2013 [...] 07/01/2015 9 documented as of this encounter Miscellaneous Notes * Op Note - Provider, MD Yoseph - 08/29/2015 12:00 AM CST OPERATIVE REPORT Patient: DESIREE PARSON Account: [id number] Room No: G612-01 : 1955 Patient Type: IP Attend.: Dat Vu M.D. Admit Date: 08/29/2015 Surg.: Dat Vu M.D. Disch. Date: 08/30/2015 DATE 08/29/2015 DIAGNOSIS Left knee osteoarthrosis. PROCEDURE Left total knee arthroplasty with a Salazar and Nephew ceramic knee. ANESTHESIA General. FINDING Tricompartmental arthrosis. SUPERVISOR SHED WORKERS Kallie Gong. - Daryn., A.T.C. who was essential assisting throughout the procedure. SPECIMENS SENT Estimated blood loss 250. TOURNIQUET TIME 20 minutes at 300 mmHg. IV fluids 1800. COMPLICATIONS None. Condition on discharge is stable. SURGEON Dat Vu M.D. OPERATIVE INDICATIONS The patient failed conservative management of left knee osteoarthrosis and elected to have the above named procedure. Informed consent obtained from the patient. The patient understood the risks and benefits of procedure including but not limited to , stroke, bleeding, infection, damage to nerves, arteries, veins, tendons, ligaments, fracture, deep venous thrombosis, need for additional procedures. Informed consent obtained. Consent form was also signed. The patient was in the hospital on 11/27/2015 and did receive an adductor block, however, after reviewing her metal allergies, the patient was concerned of the probability of having any type of metal allergy to the implant, although she does have a cobalt stent in which is not bothering her. She still was concerned, thus we rescheduled her case and ordered a ceramic implant. The patient was taken to the operating room. A spinal anesthetic was performed. She was placed supine. All extremities were well padded. Tourniquet was placed on her left thigh. Her left lower extremity was cleaned with alcohol and prepped and draped in standard sterile technique with ChloraPrep. Standard timeout was performed. Operative extremities were identified and were also marked preoperatively. We marked out a standard medial parapatellar arthrotomy. We sealed the incision with Ioban. Gloves were changed and changed every 30 minutes throughout the surgery by the entire team. Skin incision was made. Bovie was used for further dissection. The quad tendon, patella tendon and the VMO insertion of the patella marked with a fresh marking pen. Arthrotomy was performed and Aqumantys was used throughout the procedure for hemostasis. A medial release was performed and a fat pad was removed. The soft tissue off the distal femur was removed and the Populruy cutting block was pinned in place. The distal femoral cut was performed, and the Salazar and Nephew sizer guide was place, and this patient was sized to be a 5. We set this at 3 degrees external rotation and pinned this in place. We then made an anterior cut and dropped a block 2 mm and tightened our flexion gap and made out anterior posterior cut and chamfer cuts. We then resected the ACL, PCL, medial and lateral meniscus, subluxed it anteriorly. The ___ medullary guide set to 3 degree posterior slope. The tibia cut was made with 9 mm from off the lateral tibial plateau. Appropriate resection obtained which included the curved ostium with osteophytes off the posterior medial and lateral aspect of the femur. We checked our flexion and extension gaps. They were well balanced with a size 9 and alignment was felt to be appropriate. We then prepared the tibia for a size 3 Salazar and Nephew tibia and placed a trial 5 femur. We reamed the box and after the box cut was completed, any boy debris was removed. The posterior capsule was injected with cocktail solution carefully aspirating as we injected including the medial and lateral gutters. Aqamantys was used to treat the soft tissues. A trial 9 poly was placed and knee was taken through a range of motion with well balance, full extension and good stability and flexion. No varus or valgus instability. The patella was sized to be a 22. This was cut down to 15 and prepared for a 13 mm patella. We exsanguinated the lower extremity and inflamed the tourniquet to 300 mmHg for approximately 20 minutes. We removed the trial components. We used iced tea solution and Pulsavac to remove any bloody and bony debris. We used antibiotic impregnated cement and cemented the tibial component, femoral component and placed a size 9 Salazar and Nephew posterior stabilized high flexion poly and used the Yesenia ceramic II femur. All excessive cement was removed and the knee was placed in full extension. The patella was then cemented in place and during the cement hardening portion we used an additional liter of iced tea solution and warm saline to irrigate out the knee thoroughly. Once the cement hardened, the tourniquet was released and any additional cement was removed. The knee was taken through a range of motion and was well balanced at flexion and extension. The patella tracked well. The knee was then irrigated out again and no drain was placed. The arthrotomy was closed with #2 Orthocord, #1 Stratafix and then the knee was inflated with an additional 30 cc of Marcaine with epinephrine. Then we closed in layers with Quill, 4-0 Monocryl, Dermabond, Op-Site dressing, cast padding, TENS unit pads and the VMO, VML and Marin over the foot over the thigh and a Polar Care was placed. The patient was extubated and taken to the recovery room in stable condition. Needle counts, sponge counts, instrument counts correct at the end of the case. POSTOPERATIVE PLAN The patient will follow standard total knee arthroplasty protocol. She will be in CPM at 90 degrees for one hour in recovery and to follow standard CPM protocol. She will require deep venous thrombosis prophylaxis for the next [address] Jennings for allowing me to participate in the patient's care. Electronically Authenticated by: Dat Vu MD On 08/31/2015 11:18 AM CLASSICS TEACHER Farida Soto/sebastián TD: 08/30/2015 06:57 CC: Dr. Jennings documented in this encounter Plan of Treatment Not on file documented as of this encounter Procedures Procedure Name Priority Date/Time Associated Diagnosis Comments SERUM ESTIMATED GLOMERULAR FILTRATION RATE Routine 08/30/2015 4:24 AM CLASSICS TEACHER PLASMA BASIC METABOLIC PANEL Routine 08/30/2015 4:24 AM CLASSICS TEACHER BLOOD CELL COUNT (CBC), MORPHOLOGIC EXAM Routine 08/30/2015 4:24 AM CLASSICS TEACHER BLOOD CELL MORPHOLOGIC EXAM Routine 08/30/2015 4:24 AM CLASSICS TEACHER DISCHARGE LABORATORY CUMULATIVE REPORT 08/30/2015 SERUM ESTIMATED GLOMERULAR FILTRATION RATE Routine 08/29/2015 6:34 PM CLASSICS TEACHER SERUM CREATININE Routine 08/29/2015 6:34 PM CLASSICS TEACHER XR KNEE 1 OR 2 VW Routine 08/29/2015 5:1 4 PM CLASSICS TEACHER SURGICAL PATHOLOGY 08/29/2015 ELECTROCARDIOGRAPHY (ECG) 08/28/2015 documented in this encounter Results * (ABNORMAL) Plasma basic metabolic panel (08/30/2015 4:24 AM CLASSICS TEACHER) Sodium 140 135 - 145 mmol/L HISTORICAL RESULTS K, pl 4.4 3.5 - 5.1 mmol/L HISTORICAL RESULTS Chloride 106 97 - 110 mmol/L HISTORICAL RESULTS CO2 25 22 - 32 mmol/L HISTORICAL RESULTS A. gap 13 8 - 16 mmol/L HISTORICAL RESULTS Glucose 150 70 - 199 mg/dl HISTORICAL RESULTS Comment: [...] data was last revised on 2014. BUN 9.8 8.0 - 25.0 mg/dl HISTORICAL RESULTS Creatinine 0.56(L) 0.60 - 1.10 mg/dl HISTORICAL RESULTS Calcium 8.8 8.6 - 10.2 mg/dl HISTORICAL RESULTS BUN/creat ratio 18 10 - 20 HIST ORICAL RESULTS Plasma 08/30/2015 4:24 AM CLASSICS TEACHER us Historical Provider LAB BLOOD ORDERABLES Bianca bello Result HISTORICAL RESULTS * (ABNORMAL) Blood cell morphologic exam (08/30/2015 4:24 AM CLASSICS TEACHER) Pathologist [facility] Neutrophils 89.1(H) 44.0 - 80.0 % HISTORICAL RESULTS Immature granulocytes 0.6 0.0 - 1.0 % HISTORICAL RESULTS Lymphocytes 6.0(L) 13.0 - 44.0 % HISTORICAL RESULTS Monos 4.2 2.0 - 11.0 % HISTORICAL RESULTS Basophils 0.1 0.0 - 3.0 % HISTORICAL RESULTS Neutrophils, abs 11.7(H) 1.6 - 7.0 K/cumm HISTORICAL RESULTS Immature granulocyte, abs 0.08 0.00 - 0.20 K/cumm HISTORICAL RESULTS Lymphocytes, abs 0.8 0.5 - 4.3 K/cumm HISTORICAL RESULTS Monocytes, absolute 0.6 0.1 - 1.0 K/cumm HISTORICAL RESULTS Basophils, abs 0.0 0.0 - 0.3 K/cumm HISTORICAL RESULTS Blood specimen (specimen) 08/30/2015 4:24 AM CLASSICS TEACHER Result [facility] Historical Provider LAB BLOOD ORDERABLES Bianca bello Result Performing Organization Address City/[facility] Co de Phone Number HISTORICAL RESULTS * (ABNORMAL) Blood cell count (CBC), morphologic exam (08/30/2015 4:24 AM CLASSICS TEACHER) MCH 30.4 26.7 - 33.7 pg HISTORICAL RESULTS WBC 13.1(H) 3.8 - 9.8 K/cumm HISTORICAL RESULTS MCHC 33.6 32.7 - 36.0 g/dl HISTORICAL RESULTS RBC 3.91 3.90 - 5.00 M/cumm HISTORICAL RESULTS Rdw 13.2 11.5 - 14.6 % HISTORICAL RESULTS Hgb 11.9(L) 12.1 - 15.1 g/dl HISTORICAL RESULTS Platelets 178 140 - 440 K/cumm HISTORICAL RESULTS Hct 35.4(L) 36.1 - 44.3 % HISTORICAL RESULTS MPV 10.0 8.0 - 12.0 fl HISTORICAL RESULTS MCV 90.5 80.0 - 100.0 fl HISTORICAL RESULTS NRBC 0.0 0.0 - 0.0 % HISTORIC AL RESULTS NRBC, abs 0.00 0.00 - 0.00 K/cumm HISTORICAL RESULTS Blood specimen (specimen) 08/30/2015 4:24 AM CLASSICS TEACHER Historical Provider LAB BLOOD ORDERABLES Bianca l Result Performing Organization Address [facility] Co de Phone Number HISTORICAL RESULTS * Serum estimated glomerular filtration rate (08/30/2015 4:24 AM CLASSICS TEACHER) eGFR >60 ml/min/1.7 3 m2 HISTORICAL RESULTS Comment: Interpretation of Estimated GFR (eGFR): Normal ?>/= 60 mL/min/1.73m2 Possible Chronic Kidney Disease ??15 - 59 mL/min/1.73m2 Possible Kidney Failure ?< 15 ??mL/min/1.73m2 If -Croatian multiply value by 1.16. ??Estimated glomerular filtration rate is determined by the CKD-EPI equation recommended by the National Kidney Foundation (KDIGO 2012 Clinical Practice Guideline for the Evaluation and Management of Chronic Kidney Disease. ??Kidney Intnl Suppl Aug 2012;3:1). ??The CKD-EPI equation should not be used in acute renal failure or acute kidney injury and is not valid in children. Serum 08/30/2015 4:24 AM CLASSICS TEACHER [facility] Provider MD LAB BLOOD ORDERABLES Bianca l Result Performing Organization Address City/[facility] Co de Phone Number HISTORICAL RESULTS * DISCHARGE LABORATORY CUMULATIVE REPORT (08/30/2015) Narrative 08/30/2015 Ordered by an unspecified provider. [facility] Provider MD LAB BLOOD ORDERABLES Bianca l Result * Serum creatinine (08/29/2015 6:34 PM CLASSICS TEACHER) Creatinine 0.66 0.60 - 1.10 mg/dl HISTORICAL RESULTS Serum 08/29/2015 6:34 PM CLASSICS TEACHER [facility] Provider MD LAB BLOOD ORDERABLES Bianca l Result Performing Organization Address City/[facility] Co de Phone Number HISTORICAL RESULTS * Serum estimated glomerular filtration rate (08/29/2015 6:34 PM CLASSICS TEACHER) eGFR >60 ml/min/1.7 3 m2 HISTORICAL RESULTS Comment: Interpretation of Estimated GFR (eGFR): Normal ?>/= 60 mL/min/1.73m2 Possible Chronic Kidney Disease ??15 - 59 mL/min/1.73m2 Possible Kidney Failure ?< 15 ??mL/min/1.73m2 If -Croatian multiply value by 1.16. ??Estimated glomerular filtration rate is determined by the CKD-EPI equation recommended by the National Kidney Foundation (KDIGO 2012 Clinical Practice Guideline for the Evaluation and Management of Chronic Kidney Disease. ??Kidney Intnl Suppl Aug 2012;3:1). ??The CKD-EPI equation should not be used in acute renal failure or acute kidney injury and is not valid in children. Serum 08/29/2015 6:34 PM CLASSICS TEACHER us Historical Provider LAB BLOOD ORDERABLES Bianca l Result HISTORICAL RESULTS * XR Knee 1 Or 2 VW (08/29/2015 5:14 PM CLASSICS TEACHER) Anatomical Region Laterality Modality N/A Radiographic Maude ging 08/29/2015 5:14 PM CLASSICS TEACHER Narrative 08/29/2015 5:58 PM CLASSICS TEACHER XR Knee 1-2 Views L ??[id number] ??Acc#: ??[id number] DATE OF EXAM: ??Aug 29 2015 CLINICAL HISTORY: Osteoarthritis. ??Knee replacement. RESULT: AP and lateral views of the left knee were obtained. ??A knee prosthesis is noted. ??Subcutaneous emphysema is a manifestation of recent surgery. IMPRESSION: 1. LEFT KNEE PROSTHESIS. Interpreting Physician: ??CASS ARBOLEDA M.D. ??Read on: ??Aug 29 2015 5:16P Transcribed by: ??wilmer ??On: Aug 29 2015 ??5:48P Approved Electronically by: ??CASS ARBOLEDA M.D. ??on: ??Aug 29 2015 5:58P Attending: ??DAT VU Requesting: ??JACE CONNELLY Requesting Fax: ??[phone] Attending Fax: ??[phone] Attending ID: ??[id number] Requesting ID: ??[id number] Report To 1 ID: ??[id number] Report To 1 Name: ??DAT VU Report To 1 FAX: ??[phone] NextGen Order #: Procedure Note Provider, MD Yoseph - 11/24/2016 XR Knee 1-2 Views L [id number] Acc#: [id number] DATE OF EXAM: Aug 29 2015 CLINICAL HISTORY: Osteoarthritis. Knee replacement. RESULT: AP and lateral views of the left knee were obtained. A knee prosthesisis noted. Subcutaneous emphysema is a manifestation of recent surgery. IMPRESSION: 1. LEFT KNEE PROSTHESIS. Interpreting Physician: CASS ARBOLEDA M.D. Read on: Aug 29 20155:16P Transcribed by: wilmer On: Aug 29 2015 5:48P Approved Electronically by: CASS ARBOLEDA M.D. on: Aug 29 20155:58P Attending: DAT VU Requesting: JACE CONNELLY Requesting Attending Attending ID: [id number] Requesting ID: [id number] Report To 1 ID: [id number] Report To 1 Name: DAT VU Report To 1 FAX: [phone] NextGen Order #: Historical Provider IMG XR PROCEDURES Final R esult * Surgical pathology (08/29/2015) Narrative 08/29/2015 Ordered by an unspecified provider. [facility] Provider LAB PATHOLOGY ORDERABLES Final Result * ELECTROCARDIOGRAPHY (ECG) (08/28/2015) Narrative 08/28/2015 Ordered by an unspecified provider. [facility] Provider ECG ORDERABLES Final Res ult documented in this encounter Visit Diagnoses Diagnosis Osteoarthritis of knee Osteoarthrosis, unspecified whether generalized or localized, lower leg Essential (primary) hypertension Unspecified essential hypertension Hyperlipidemia Other and unspecified hyperlipidemia History of methicillin resistant Staphylococcus aureus infection Gastro-esophageal reflux disease without esophagitis Diaphragmatic hernia without obstruction or gangrene Diaphragmatic hernia without mention of obstruction or gangrene Sleep apnea Unspecified sleep apnea Uncomplicated asthma documented in this encounter Care Teams Cognos Developer Relationship Specialty Start Date End Date Kellie Pizano NP PCP - General 02/27/15 03/07/20 documented as of this encounter
--- OUTSIDE RECORDS SUMMARY | 2024-07-31 09:19 | XMS_ITS | Encounter Summary ---
Author Organization [facility] Address [address] [place] [address] Care Team Providers Care Shirt Cleaner Name Role Phone Harinder Kellie GOODRICH Primary Care Provider [phone] Reason for Visit * Reason Comments Pain Encounter Details Date Type Department Care Team (Latest Contact Info) Description 01/12/2017 1:00 PM CDT Office Visit [facility] Orthopedics and Sports Medicine [address] [place] [id number] Milo Crum II, PA [address] [place] [address] [address] [place] [address] Primary osteoarthritis of right knee (Primary Dx) Social History Tobacco Use Types Packs/Day Years Used Date Smoking Tobacco: Smoker, Current Status Unknown Alcohol Use Standard Drinks/Week Comments Yes 0 (1 standard drink = 0.6 oz pur e alcohol) Comments Unknown Sex and Gender Information Value Date Recorded Sex Assigned at Not on file Legal 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 Female 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 Gender Identity Not on file Sexual Orientation Not on file documented as of this encounter Last Filed Vital Signs Vital Sign Reading Time Taken Comments Blood Pressure 123/83 01/12/2017 1:50 PM CDT Pulse 81 01/12/2017 1:50 PM CDT Temperature - - Respiratory Rate - - Oxygen Saturation - - Inhaled Oxygen Concentration - - Weight 100.7 kg (222 lb) 01/12/2017 1:50 PM CDT Height 160 cm (5' 3 ) 01/12/2017 1:50 PM CDT Body Mass Index 39.33 01/12/2017 1:50 PM CDT documented in this encounter Progress Notes * Milo Crum PA - 01/12/2017 1:00 PM CDTAssociated Order(s): LARGE JOINT ARTHROCENTESIS Post-Procedure Diagnose(s): Primary osteoarthritis of right knee Images from the original note were not included. FOLLOW UP VISIT Subjective CHIEF COMPLAINT She had concerns including Pain of the Right Knee. HISTORY OF PRESENT ILLNESS Mrs. Parson returns to the office today for repeat viscosupplementation injection of Crystal Gel1 in her arthritic right knee. She was last seen in the office on 07/09/2016 at which time she received a the Crystal Gel 1 using a lateral suprapatellar pouch injection site and aseptic technique. She has had significant pain relief until 6 weeks ago when pain in the right knee returned. Pain Assessment Pain Assessment: 0-10 Pain Score: 5 - Moderate pain Pain Location: Knee Pain Orientation: Right Pain Descriptors: Aching MEDICATIONS She has a current medication list which includes the following prescription(s): tylenol, albuterol hfa, albuterol hfa, xanax, aspir-81, betamethasone dipropionate, calcium 600 + d(3), vitamin d3, citalopram, cyclobenzaprine, cartia xt, fish oil, nexium, MicroPort ([place]), probiotic, xopenex hfa, centrum complete, aleve, nitrolingual, fish oil, psyllium, psyllium, metamucil (sugar), crestor, brilinta, tramadol, and pravastatin. REVIEW OF SYSTEMS Review of Systems Objective PHYSICAL EXAM BP 123/83 (BP Location: Right arm) Pulse 81 Ht 160 cm (5' 3 ) Wt 101 kg (222 lb) BMI 39.33 kg/m?? Right knee Comments: Examination of the right knee demonstrates mild effusion with varus deformity. There is no increased warmth or erythema noted. Active range of motion is from 5 to 120?? with mild retropatellar grinding. There is tenderness of the medial joint line and medial patellar retinaculum. Motor strength is 4+/5 in the quadriceps and hamstring muscle groups. There is no gross ligamentous instability with varus or valgus stress and Fredi's test is negative. Hossein's test is positive for medial and lateral pain. REVIEW OF X-RAYS/STUDIES/LABS Assessment/Plan Desiree was seen today for pain. Diagnoses and all orders for this visit: Primary osteoarthritis of right knee - Large Joint Arthrocentesis Large Joint (Hip, Knee, Shoulder) Injection Date/Time: 01/12/2017 2:44 PM Performed by: MILO CRUM Authorized by: MILO CRUM Consent Given by: Patient Site marked: the procedure site was marked Timeout: prior to procedure the correct patient, procedure, and site was verified Verbal consent obtained: Yes Indications: Pain Location: Knee Site: R knee Prep: patient was prepped and draped in usual sterile fashion Needle Size: 18 G Approach: Anterolateral (Lateral suprapatellar pouch) Medications: Hylan g-f 20 48 mg/6 mL; hyaluronate sodium, cross-linked 30 mg/3 mL Patient tolerance: Patient tolerated the procedure well with no immediate complications Patient instructed in post injection care. PLAN Mrs. Parson received an intra-articular injection of Crystal Gel 1 in the right knee without complication. She was instructed on post-injection care and advised to curtail her activities for the next 24-48 hours. Mrs. Parson will return to the office in 6 months for repeat viscosupplementation injection and is encouraged to call the office anytime she has any problems or concerns during the interim. Mrs. Parson is considering right total knee replacement and was advised to follow up with Dr. Vu at her convenience to discuss surgery. FLORES Brandt documented in this encounter Plan of Treatment Not on file documented as of this encounter Procedures Procedure Name Priority Date/Time Associated Diagnosis Comments DE ARTHROCENTESIS ASPIR&/INJ MAJOR JT/BURSA W/O US Routine 01/12/2017 3:00 PM CDT Primary osteoarthritis of right knee documented in this encounter Results * DE ARTHROCENTESIS ASPIR&/INJ MAJOR JT/BURSA W/O US (01/12/2017 3:00 PM CDT) Narrative Milo Crum PA - 01/12/2017 3:00 PM CDT FLORES Brandt ? 01/12/2017 ??3:00 PM Large Joint (Hip, Knee, Shoulder) Injection Date/Time: 01/12/2017 2:44 PM Performed by: MILO CRUM Authorized by: MILO CRUM Consent Given by: ??Patient Site marked: the procedure site was marked ?? Timeout: prior to procedure the correct patient, procedure, and site was verified ?? Verbal consent obtained: Yes ?? Indications: ??Pain Location: ??Knee Site: ??R knee Prep: patient was prepped and draped in usual sterile fashion ?? Needle Size: ??18 G Approach: ??Anterolateral (Lateral suprapatellar pouch) Medications: ??Hylan g-f 20 48 mg/6 mL; hyaluronate sodium, cross-linked 30 mg/3 mL Patient tolerance: ??Patient tolerated the procedure well with no immediate complications Patient instructed in post injection care. us FLORES Abdullahi II IN CLINIC/BEDSIDE ORDER EFREM Final Result documented in this encounter Visit Diagnoses Diagnosis Primary osteoarthritis of right knee- Primary documented in this encounter Administered Medications Inactive Administered Medications - up to 3 most recent administrations Medication Order MAR Action Action Date Dose Rate Site hyaluronate sodium, cross-linked (GEL-ONE) injection 30 mg 30 mg, One-Time Injection, Starting on Wed01/12/17 at 1444, For 1 dose, Indications: Osteoarthritis of the KneeIndications:Osteoarthritis of the Knee Given 01/12/2017 2:44 PM CDT hylan g-f 20 (SYNVISC-ONE) 48 mg/6 mL injection 48 mg 48 mg, One-Time Injection, Starting on Wed01/12/17 at 1444, For 1 dose, Indications: Osteoarthritis of the KneeIndications:Osteoarthritis of the Knee Given 01/12/2017 2:44 PM CDT documented in this encounter Discontinued Medications Medication Sig Discontinue Reason Start Date End Da te acetaminophen (TYLENOL) 325 mg tablet take 1 tablet by oral route every 4 hours as needed Duplicate order 08/10/2014 01/12/2017 aspirin (ASPIR-81) 81 mg tablet take 1 tablet by oral route every day Duplicate order 11/06/2013 01/12/2017 ALPRAZolam (XANAX) 1 mg tablet take 1 tablet by oral route every day Duplicate order 11/06/2013 01/12/2017 ascorbic acid (vitamin C) 1,000 mg tablet take 1 tablet daily Duplicate order 08/10/2014 01/12/2017 calcium carbonate-vitamin D3 (CALCIUM 600 + D,3,) 600 mg calcium- 200 unit capsule take 1 capsule a day Discontinued by another clinician 08/10/2014 01/12/[address] (NexIUM) 40 mg capsule take 1 capsule by oral route every day Discontinued by another clinician 11/06/2013 01/12/2017 HYDROcodone-acetamino phen (NORCO) 5-325 mg per tablet take 1 - 2 Tablet by oral route every 6 hours as needed for pain Discontinued by another clinician 05/07/2015 01/12/2017 mupirocin (BACTROBAN) 2 % ointment apply by topical route 3 times every day a small amount to the affected area Discontinued by another clinician 11/06/2013 01/12/2017 documented as of this encounter Care Teams Shirt Cleaner Relationship Specialty Start Date End Date Kellie Pizano NP PCP - General 02/27/15 03/07/20 documented as of this encounter
--- OUTSIDE RECORDS SUMMARY | 2024-07-31 09:19 | XMS_ITS | Encounter Summary ---
Author Organization [facility] Healthcare Address [address] [place] [address] Care Team Providers Care Quick Mixer Operator Name Role Phone Kellie Pizano NP Primary Care Provider [phone] Encounter Details Date Type Department Care Team (Late st Contact Info) Description 11/05/2016 Orders Only [facility] Interim [phone] Carlee Mtz MD [address] [place] [address] [place] [address] Social History Tobacco Use Types Packs/Day Years Used Date Smoking Tobacco: Smoker, Current Status Unknown Alcohol Use Standard Drinks/Week Comments Yes 0 (1 standard drink = 0.6 oz pur e alcohol) Comments Unknown Sex and Gender Information Value Date Recorded Sex Assigned at Not on file 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 Gender Identity Not on file Sexual Orientation Not on file documented as of this encounter Plan of Treatment Not on file documented as of this encounter Procedures Procedure Name Priority Date/Time Associated Diagnosis Comments CREATININE, WHOLE BLOOD STAT 11/05/2016 10:13 AM CDT documented in this encounter Results * Creatinine, whole blood (11/05/2016 10:13 AM CDT) Creatinine, bld 0.73 0.60 - 1.30 mg/dL [facility] ([facility]) Blood specimen (specimen) 11/05/2016 10:13 AM CDT 11/05/2016 10:17 AM CDT us Carlee Mtz MD LAB BLOOD ORDERABLES Final Result [facility] ([facility]) [address] [facility] Department [place] [address] documented in this encounter Visit Diagnoses Not on filedocumented in this encounter Care Teams Quick Mixer Operator Relationship Specialty Start Date End Date Kellie Pizano NP PCP - General 02/27/15 03/07/20 documented as of this encounter
--- OUTSIDE RECORDS SUMMARY | 2024-07-31 09:20 | XMS_ITS | Encounter Summary ---
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
--- OUTSIDE RECORDS SUMMARY | 2024-07-31 09:20 | XMS_ITS | Encounter Summary ---
Author Organization [facility] Healthcare Address [address] [place] [address] Care Team Providers Care Teacher Vocal Name Role Phone Kellie Pizano NP Primary Care Provider Encounter Details Date Type Department Care Team (Late st Contact Info) Description 09/12/2009 2:05 PM SECURITY POLICE Ancillary Procedure [facility] Outside Films Social History Tobacco Use Types Packs/Day Years Used Date Smoking Tobacco: Never Assessed Comments Unknown Sex and Gender Information Value Date Recorded Sex Assigned at Not on file Legal Sex Female 8:07 PM SECURITY POLICE Gender Identity Not on file Sexual Orientation Not on file documented as of this encounter Plan of Treatment Not on file documented as of this encounter Procedures Procedure Name Priority Date/Time Associated Diagnosis Comments BREAST IMAGING OUTSIDE REFERENCE Routine 09/12/2009 2:05 PM SECURITY POLICE documented in this encounter Results * Breast Imaging Outside Reference (09/12/2009 2:05 PM SECURITY POLICE) Narrative [facility] - 04/18/2020 1:44 PM CDT This order has been auto-finalized and does not contain a result. us Not In File Miscellaneous IMG MAMMO PROCEDURES F inal Result [facility] documented in this encounter Visit Diagnoses Not on filedocumented in this encounter Care Teams Teacher Vocal Relationship Specialty Start Date End Date Kellie Pizano NP PCP - General 11/06/08 02/26/15 documented as of this encounter
--- OUTSIDE RECORDS SUMMARY | 2024-07-31 09:20 | XMS_ITS | Encounter Summary ---
Author Organization [facility] Healthcare Address [address] [place] [address] Care Team Providers Care Seed Buyer Name Role Phone Kellie Pizano NP Primary Care Provider [phone] Encounter Details Date Type Department Care Team (Late st Contact Info) Description 04/29/2010 10:43 AM CDT - 04/29/2010 11:59 PM CDT Hospital Encounter [facility] Social History Tobacco Use Types Packs/Day Years Used Date Smoking Tobacco: Never Assessed Comments Unknown Sex and Gender Information Value Date Recorded Sex Assigned at Not on file Legal Sex Female 8:07 PM REELER OPERATOR Gender Identity Not on file Sexual [...] on filedocumented in this encounter Care Teams Seed Buyer Relationship Specialty Start Date End Date Kellie Pizano NP PCP - General 11/06/08 02/26/15 documented as of this encounter
--- OUTSIDE RECORDS SUMMARY | 2024-07-31 09:20 | XMS_ITS | Encounter Summary ---
Author Organization [facility] Healthcare Address [address] [place] [address] Care Team Providers Care Business Office Technology Instructor Name Role Phone Kellie Pizano NP Primary Care Provider [phone] Encounter Details Date Type Department Care Team (Late st Contact Info) Description 06/24/2009 2:02 PM WINDOWS SERVER ARCHITECT - 06/24/2009 11:59 PM WINDOWS SERVER ARCHITECT Hospital Encounter [facility] Social History Tobacco Use Types Packs/Day Years Used Date Smoking Tobacco: Never Assessed Comments Unknown Sex and Gender Information Value Date Recorded Sex Assigned at Not on file Legal Sex Female 8:07 PM WINDOWS SERVER ARCHITECT Gender Identity Not on file Sexual [...] filedocumented in this encounter Care Teams Business Office Technology Instructor Relationship Specialty Start Date End Date Kellie Pizano NP PCP - General 11/06/08 02/26/15 documented as of this encounter
--- OUTSIDE RECORDS SUMMARY | 2024-07-31 09:20 | XMS_ITS | Encounter Summary ---
Author Organization [facility] Healthcare Address [address] [place] [address] Care Team Providers Care Business Machine Operator Name Role Phone Kellie Pizano NP Primary Care Provider [phone] Encounter Details Date Type Department Care Team (Latest Contact Info) Description 11/22/2009 12:20 PM CDT - 11/22/2009 11:59 PM CDT Hospital Encounter [facility] Coronary atherosclerosis of [place] coronary artery Social History Tobacco Use Types Packs/Day Years Used Date Smoking Tobacco: Never Assessed Comments Unknown Sex and Gender Information Value Date Recorded Sex Assigned at Not on file 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
--- OUTSIDE RECORDS SUMMARY | 2024-07-31 09:20 | XMS_ITS | Encounter Summary ---
Author Organization [facility] Healthcare Address [address] [place] [address] Care Team Providers Care Head Cleaning Porter Name Role Phone Unavailable Primary Care Provider Unavailabl e Encounter Details Date Type Department Care Team (Late st Contact Info) Description 07/30/2008 7:50 AM INSTRUCTOR DECORATING - 07/30/2008 11:59 PM INSTRUCTOR DECORATING Hospital Encounter [facility] Social History Tobacco Use Types Packs/Day Years Used Date Smoking Tobacco: Never Assessed Comments Unknown Sex and Gender Information Value Date Recorded Sex Assigned at Not on file Legal Sex Female 8:07 PM INSTRUCTOR DECORATING Gender Identity Not on file Sexual Orientation Not on file documented as of this encounter Medications at Time of Discharge Lactobacillus acidophilus (PROBIOTIC ORAL) Take 1 capsule by mouth daily 08/02/1969 sertraline (ZOLOFT) 50 mg tablet Take 50 mg by mouth daily 08/02/1969 documented as of this encounter Plan of Treatment Not on file documented as of this encounter Visit Diagnoses Not on filedocumented in this encounter
== END 2024-07-24 07:39 | disposition home or self-care (01) ==
PROVIDERS: PCP Nurse Practitioner Adult Health; Visit Provider Nurse Practitioner Adult Health
DX: Z12.2 Encounter for screening for malignant neoplasm of respiratory organs (principal); Z87.891 Personal history of nicotine dependence
CPT/HCPCS: 71271

== ENCOUNTER 2025-01-15 09:21 | Outpatient (CLI) | payer MEDICARE, SELFPAY ==
--- OUTSIDE RECORDS SUMMARY | 2025-01-15 09:53 | XMS_ITS | Encounter Summary ---
Author Organization [facility] Healthcare Address [address] [place] [address] Care Team Providers Care Business Intelligence Manager Name Role Phone Kellie Pizano NP Primary Care Provider [phone] Carlee Mtz MD Primary Care Provider [phone] Frank Frazier MD Unavailable RaleighOscar MD Primary Care Provider [phone] Encounter Details Date Type Department Care Team (Late st Contact Info) Description 09/26/2019 Telephone [facility] Diagnostic Imaging [address] [place], [place] [id number] Carlee Mtz MD [address] [place] [address] [place] [address] Social History Tobacco Use Types Packs/Day Years Used Date Smoking Tobacco: Smoker, Current Status Unknown Smokeless Tobacco: Never Alcohol Use Standard Drinks/Week Comments Yes 0 (1 standard drink = 0.6 oz pur e alcohol) Comments No Sex and Gender Information Value Date Recorded Sex Assigned at Not on file 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 Gender Identity Not on file Sexual Orientation Not on file documented as of this encounter Plan of Treatment Not on file documented as of this encounter Visit Diagnoses Not on filedocumented in this encounter Care Teams Business Intelligence Manager Relationship Specialty Start Date End Date Kellie Pizano NP PCP - General 02/27/15 03/07/20 Carlee Mtz MD [address] [place] [address] [place] [address] PCP - General Family Medicine 03/08/20 09/27/22 Oscar Lynch MD [address] [place] [address] [place] [address] PCP - General Family Practice 09/28/22 Frank Frazier MD [address] [place] [address] [place] [address] Consulting Physician Cardiovascular Disease 01/02/22 documented as of this encounter
--- OUTSIDE RECORDS SUMMARY | 2025-01-15 09:53 | XMS_ITS | Encounter Summary ---
Author Organization [facility] Healthcare Address [address] [place] [address] Care Team Providers Care Boiler Testing Technician Name Role Phone Carlee Mtz MD Primary Care Provider [phone] Frank Frazier MD Unavailable Oscar Lynch MD Primary Care Provider [phone] Reason for Visit * Reason Onset Date Comments Scheduling Appointments 08/26/2021 no answe r for dexa reminder Encounter Details Date Type Department Care Team (Late st Contact Info) Description 08/26/2021 Telephone [facility] [address] [place] [id number] Jacqueline Thompson RT Scheduling Appointments (no answer [...] on file Legal 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 Female 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 Gender Identity Not on file Sexual Orientation Not on file documented as of this encounter Plan of Treatment Not on file documented as of this encounter Visit Diagnoses Not on filedocumented in this encounter Care Teams Boiler Testing Technician Relationship Specialty Start Date End Date Carlee Mtz MD [address] [place] [address] [place] [address] PCP - General Family Medicine 03/08/20 09/27/22 Oscar Lynch MD [address] [place] [address] [place] [address] PCP - General Family Practice 09/28/22 Frank Frazier MD [address] [place] [address] [place] [address] Consulting Physician Cardiovascular Disease 01/02/22 documented as of this encounter
--- OUTSIDE RECORDS SUMMARY | 2025-01-15 09:53 | XMS_ITS | Clinical Summary ---
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 on file Not on file Not on file Last Filed Vital Signs Vital Sign Reading Time Taken Comments Blood Pressure 129/81 05/28/2021 10:10 AM CDT Pulse 60 05/28/2021 10:10 AM CDT Temperature 36.2 C (97.2 F) 05/28/2021 8:00 AM CDT Respiratory Rate 14 05/28/2021 10:10 AM CDT Oxygen Saturation 98% 05/28/2021 10:10 AM CDT Inhaled Oxygen Concentration - - Weight 100.2 kg (221 lb) 05/09/2021 1:00 PM CDT Height 162.6 cm (5' 4) 05/09/2021 1:00 PM CDT Body Mass Index 37.93 05/09/2021 1:00 PM CDT Plan of Treatment Health Maintenance Due Date Last Done Comments Hepatitis C Virus (HCV) Screening 1955 Cologuard 2000 Immunochemical Fecal Occult Blood 2000 Zoster Immunization (1 of 2) 2005 Respiratory Syncytial Virus (RSV) Immunization (Adult) (1 - Risk 60-74 years 1-dose series) 2015 Pneumococcal Immunization (50+ years) (2 of 2 - PCV) 05/30/2021 05/30/2020, 05/30/2015 SARS-COV-2 Immunization ( - season) 2024 07/21/2021, 10/18/2020, 09/27/2020 Influenza Immunization (Season Ended) 2025 05/12/2021, 05/30/2020, 06/12/2019, Additional history exists Colonoscopy 05/28/2031 05/28/2021, 01/08/2016 Colorectal Cancer Screening 05/28/2031 DTaP/Tdap/Td Immunization Discontinued 06/30/2018, 08/2012 TdaP Immunization Completed 06/30/2018 Pneumococcal Immunization Combined Discontinued 05/30/2020, 05/30/2015 Hepatitis B Immunization Aged Out No longer eligible based on patient's age to complete this topic Human Papillomavirus (HPV) Immunization Aged Out No longer eligible based on patient's age to complete this topic Meningococcal Immunization (ACWY) Aged Out No longer eligible based on patient's age to complete this topic Rotavirus Immunization Aged Out No lo nger eligible based on patient's age to complete this topic Insurance MEDICARE [facility] Care Teams Pot Firer Relationship Specialty Start Date End Date Kellie Pizano APRN PCP - General Advanced Practice Nurse 01/07/16 Tricia Conroy MD General Surgery 12/09/14
--- OUTSIDE RECORDS SUMMARY | 2025-01-15 09:53 | XMS_ITS | Encounter Summary ---
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 Gender Identity Not on file Sexual Orientation Not on file documented as of this encounter Plan of Treatment Not on file documented as of this encounter Visit Diagnoses Not on filedocumented in this encounter Care Teams Commercial Green Building Architect Relationship Specialty Start Date End Date Carlee Mtz MD [address] [place] [address] [place] [address] PCP - General Family Medicine 03/08/20 09/27/22 Oscar Lynch MD [address] [place] [address] [place] [address] PCP - General Family Practice 09/28/22 Frank Frazier MD [address] [place] [address] [place] [address] Consulting Physician Cardiovascular Disease 01/02/22 documented as of this encounter
--- OUTSIDE RECORDS SUMMARY | 2025-01-15 09:53 | XMS_ITS | Data Portability ---
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 exam benign, discussed prophylactically continuing clobatesol for lichen sclerosis even when feels normal got to watch 5 y.o. 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 Lab cytology report, thin prep, smear or scraping, cervical or vaginal 2020 021 [facility], [address], [address], [place], [address], 1 16:11:15 fecal occult blood, stool 2019 020 In-Office Order, Internal Use Only DO Not Attach Compendium DO Not Attach Compendium, Do Not Delete/merge, [id number] 0 15:29:46 fecal occult blood, stool 2018 019 WARREN In-Office Order, Internal Use Only DO Not Attach Compendium DO Not Attach Compendium, Do Not Delete/merge, [id number] 9 15:19:49 unlisted lab - igp, rfx aptima HPV ascu 2017 018 [facility], [address], [address], [place], [address], 8 15:14:43 fecal occult blood, stool 2017 018 WARREN In-Office Order, Internal Use Only DO Not Attach Compendium DO Not Attach Compendium, Do Not Delete/merge, [id number] 8 17:04:12 fecal occult blood, stool 2015 016 In-Office Order, Internal Use Only DO Not Attach Compendium DO Not Attach Compendium, Do Not Delete/merge, [id number] 6 04:32:48 Referral None recorded. Procedures None recorded. Surgeries None recorded. Imaging MAMMO, screening, digital, bilateral [address] [facility] Scheduling, 1 [facility] [place], [address], 2 08:16:29 bone density [address] [facility] Scheduling, 1 [facility] [place], [address], 2 12:50:02 MAMMO, screening, digital, bilateral 2018 019 [email or web address] Not available 9 15:19:29 MAMMO, screening, digital, bilateral 2017 018 WARREN Not available 8 14:27:54 MAMMO, screening, digital, bilateral 2015 016 Not available 6 04:32:46 Medication Orders None recorded. Patient TargetsNo targets recorded. Patient Instructions Encounter Date Encounter Id Patient Instructions Last Modified By Organization Details Last Modified Time 06/29/2016 [id number] learning about breast cancer screening [email or web address] Not available 06/29/2016 09:55:44 10/18/2017 [id number] learning about breast cancer screening Not available 10/18/2017 16:54:48 01/02/2019 [id number] learning about breast cancer screening Not available 01/02/2019 15:12:19 07/28/2021 [id number] learning about breast cancer screening Not available 07/28/2021 15:06:25 Reason for Referral None Reported. Results Created Date Observation Date Name Description Value Unit Range Abnormal Flag Note LastModifiedBy Organization Detail LastModifiedTime 06/29/20 16 06/29/2016 fecal occul t blood , stool Occult Blood negati ve Not Available In-Office Order Internal Use Only DO Not Attach Compendium DO Not Attach Compendium, Do Not Delete/merge, [id number] 06/29/2016 09:45:02 10/19/19 18 10/21/2017 pap, IG + refle x HR HPV diagnosis: Commen t NEGAT BALDO FOR INTRA EPITH ELIAL LESIO N AND YUMIKO PERAZA . CELLU LAR SERVIN ES ASSOC IATED WITH ATROP HY ARE PRESE NT. THIS SPECI MEN WAS RESCR EENED PART OF OUR QUALI TY CONTR OL PROGR AM. Not Available [facility] ([facility]) [address], [place], [address], 10/21/2017 15:14:43 10/19/19 18 10/21/2017 pap, IG + refle x HR HPV specimen adequacy: Commen t Satis facto ry for evalu ation . Endoc ervic al compo nent may not be disti nguis hed in cases of atrop hy. Not Available [facility] ([facility]) [address] [place], [address], 10/21/2017 15:14:43 10/19/19 18 10/21/2017 pap, IG + refle x HR HPV clinician provided ICD10: Jules jaime Z01.4 19 Not Available [facility] ([facility]) [address] [place], [address], 10/21/2017 15:14:43 10/19/19 18 10/21/2017 pap, IG + refle x HR HPV performed by: Jules Flanagan , Cytot echno logis t (ASCP ) Not Available [facility] ([facility]) [address] [place], [address], 10/21/2017 15:14:43 10/19/19 18 10/21/2017 pap, IG + refle x HR HPV QC reviewed by: Jules garzon, Super visor y Cytot echno logis t (ASCP ) Not Available [facility] ([facility]) [address] [place], [address], 10/21/2017 15:14:43 10/19/19 18 10/21/2017 pap, IG + refle x HR HPV . . Not Available [facility] ([facility]) [address] [place], [address], 10/21/2017 15:14:43 10/19/19 18 10/21/2017 pap, IG + refle x HR HPV note: Jules jaime The Pap smear is a scree tim test desig keo to aid in the detec tion of ang ligna nt and malig nant condi tions of the uteri ne cervi x. It is not a diagn ostic proce dure and shoul d not be used as the sole means of detec ting cervi seb cance r. Both false -posi tive and false -nega tive repor ts do occur . Not Available [facility] ([facility]) [address] [facility], [place], [address], 10/21/2017 15:14:43 10/19/19 18 10/21/2017 pap, IG + refle x HR HPV test methodology: Commen t This liqui d based ThinP rep(R ) pap test was scree keo with the use of an image guide d syste m. Not Available [facility] ([facility]) [address] [facility], [place], [address], 10/21/2017 15:14:43 10/19/19 18 10/21/2017 pap, IG + refle x HR HPV . Commen t The HPV DNA refle x crite juma were not met with this speci men resul t there fore, no HPV testi ng was perfo rmed. Not Available [facility] ([facility]) [address] [facility], [place], [address], 10/21/2017 15:14:43 10/19/19 18 10/18/2017 fecal occul t blood , stool Occult Blood negati ve Not Available In-Office Order Internal Use Only DO Not Attach Compendium DO Not Attach Compendium, Do Not Delete/merge, [id number] 10/18/2017 16:27:07 01/03/20 19 01/02/2019 fecal occul t blood , stool Occult Blood negati ve Not Available In-Office Order Internal Use Only DO Not Attach Compendium DO Not Attach Compendium, Do Not Delete/merge, [id number] 01/02/2019 15:11:17 04/25/20 20 04/25/2020 fecal occul t blood , stool Occult Blood negati ve Not Available In-Office Order Internal Use Only DO Not Attach Compendium DO Not Attach Compendium, Do Not Delete/merge, [id number] 04/25/2020 15:15:49 07/28/20 21 07/31/2021 IGP, RFX APTIM A HPV ASCU diagnosis: Commen t NEGAT BALDO FOR INTRA EPITH ELIAL LESIO N OR YUMIKO PERAZA . CELLU HENRRY SERVIN ES ASSOC IATED WITH ATROP HY ARE PRESE NT. THIS SPECI MEN WAS RESCR EENED PART OF OUR QUALI TY CONTR OL PROGR AM. Not Available [facility] ([facility]) [address] [place], [address], 07/31/2021 16:11:15 07/28/20 21 07/31/2021 IGP, RFX APTIM A HPV ASCU specimen adequacy: Jules jaime Satis facto ry for evalu ation . Endoc ervic al compo nent may not be disti nguis hed in cases of atrop hy. Not Available [facility] ([facility]) [address] [place], [address], 07/31/2021 16:11:15 07/28/20 21 07/31/2021 IGP, RFX APTIM A HPV ASCU clinician provided ICD10: Jules jaime Z01.4 19 Not Available [facility] ([facility]) [address] [place], [address], 07/31/2021 16:11:15 07/28/20 21 07/31/2021 IGP, RFX APTIM A HPV ASCU performed by: Jules Lara in [facility] ick, Cytot echno logis t (ASCP ) Not Available [facility] ([facility]) [address] [place], [address], 07/31/2021 16:11:15 07/28/20 21 07/31/2021 IGP, RFX APTIM A HPV ASCU QC reviewed by: Jules Hawthornejewels orn, Cytot echno logis t (ASCP ) Not Available [facility] ([facility]) [address] [place], [address], 07/31/2021 16:11:15 07/28/20 21 07/31/2021 IGP, RFX APTIM A HPV ASCU . . Not Available [facility] ([facility]) [address] [place], [address], 07/31/2021 16:11:15 07/28/20 21 07/31/2021 IGP, RFX APTIM A HPV ASCU note: Commen t The Pap smear is a scree tim test desig keo to aid in the detec tion of ang ligna nt and malig nant condi tions of the uteri ne cervi x. It is not a diagn ostic proce dure and shoul d not be used as the sole means of detec ting cervi seb cance r. Both false -posi tive and false -nega tive repor ts do occur . Not Available [facility] ([facility]) [address] [facility], [place], [address], 07/31/2021 16:11:15 07/28/20 21 07/31/2021 IGP, RFX APTIM A HPV ASCU test methodology: Commen t This liqui d based ThinP rep(R ) pap test was scree keo with the use of an image guide d syste m. Not Available [facility] ([facility]) [address] [facility], [place], [address], 07/31/2021 16:11:15 07/28/20 21 07/31/2021 IGP, RFX APTIM A HPV ASCU . Commen t The HPV DNA refle x crite juma were not met with this speci men resul t there fore, no HPV testi ng was perfo rmed. Not Available [facility] ([facility]) [address] [facility], [place], [address], 07/31/2021 16:11:15 01/13/20 18 01/12/2018 MAMMO , althea dumont, digit al, bilat eral No observ ation record ed. [email or web address] [facility] [address] [place], [address], 01/12/2018 14:28:46 01/13/20 18 01/12/2018 XR, knee No observ ation record ed. [email or web address] [facility] ([facility]) [address], [place], [address], 01/12/2018 14:57:42 04/19/20 20 04/15/2020 MAMMO , scree tim, digit al, bilat eral No observ ation [facility] ed. [email or web address] [place], [address], 04/19/2020 10:00:50 08/27/19 22 08/27/2021 bone densi ty No observ ation record ed. [facility] 1 [facility] [place], [address], 08/27/2021 12:54:38 08/27/19 22 08/27/2021 MAMMO , scree tim, digit al, bilat eral No observ ation record ed. [facility] [place] [facility] 1 [facility] [place], [address], 08/28/2021 09:33:29 Result Notes None recorded. Problems Name Problem SNOMED Code Status Onset Date Resolution Date Notes Provider Name and Address Organization Details Recorded Time Abscess of vulva 88232623 Active Nicanor Augustine MD Attn: Casimiro sharp,[address] [place], [address], [facility] 5 11:31:01 Lesion of vulva 185709919 Active Nicanor Augustine MD Attn: Casimiro sharp,[address] [place], [address], [place] - [facility] 5 11:29:58 Menopause present 857189523 Active Nicanor Augustine MD Attn: Casimiro sharp,[address] [place], [address], [facility] 5 16:40:18 Cellulitis 937797420 Active Nicanor Augustine MD Attn: Casimiro sharp,[address] [place], [address] [place] [address] 5 11:16:37 Problem Notes None recorded. Procedures Surgical History Date Name Laterality Status Provider Name and Address Organization Details Recorded Time 08/27/19 22 Most Recent Mammogram completed Giselle Aguero RN [facility] 08/28/2021 09:33:47 07/28/20 21 Date of Last Pap Smear completed Giselle Aguero RN [facility] 07/31/2021 16:37:33 08/02/19 16 Knee arthroscopy/surgery completed Adriana Alan MA [facility] 10/18/2017 16:39:04 08/02/19 12 Cholecystectomy completed Giselle Aguero RN [facility] 08/27/2014 14:04:25 08/02/19 10 Head or Neck Surgery completed Giselle Aguero RN [facility] 08/27/2014 14:04:25 12/27/19 09 Laparoscopy completed Giselle Aguero RN [facility] 08/27/2014 14:04:25 Imaging Results None recorded. Procedure Notes None recorded. Medical Equipment None Reported. Allergies Allergen ID Allergen Name Allergen Category Reaction Reaction Severity Criticality Documentation Date Start Date Code Code System Note Provider Name and Address Organization Details Recorded Time 73417 Substance with sulfonami de structure and antibacte rial mechanism of action (substanc e) medicatio n Not available Not available Not available 08/27/2014 53945 8003 SNOMED CHICHI Martin, [facility] 5 14:04:25 12463 Seldane medicatio n Not available Not available Not available 08/27/2014 99905 0 RxNorm Giselle Aguero RN [facility], [facility] 5 14:04:25 90287 Product containin g beta adrenergi c receptor antagonis t (product) medicatio n Not available Not available Not available 08/27/2014 83172 009 DENILSON Aguero RN [facility], [facility] 5 14:04:25 98043 Product containin g angiotens in-conver ting enzyme inhibitor (product) medicatio n Not available Not available Not available 08/27/2014 22189 009 SNOMED CHICHI Martin, [facility] 5 14:04:25 Medications Name Sig Start Date Stop Date Status Note LastModified by Organization Details LastModified Time cyclobenzapr ine 10 mg tablet active Not Available Not Available Not Available amoxicillin 500 mg capsule active Not Available Not Available Not Available doxycycline hyclate 100 mg capsule TAKE 1 CAPSULE BY MOUTH TWICE DAILY FOR 10 DAYS active Not Available Not Available No t Available clindamycin HCl 300 mg capsule active Not Available Not Available Not Available azithromycin 250 mg tablet active Not Available Not Available Not Available pravastatin 40 mg tablet active Not Available Not Available Not Available alprazolam 1 mg tablet TAKE 1 TABLET BY MOUTH TWICE DAILY active Not Available Not Available No t Available fluconazole 150 mg tablet TAKE 1 TABLET BY MOUTH EVERY DAY FOR 1 DAY active Not Available Not Available No t Available citalopram 10 mg tablet active Not Available Not Available Not Available hydrocodone 5 mg-acetamino phen 325 mg tablet active Not Available Not Available Not Available diltiazem CD 240 mg capsule,exte nded release 24 hr TAKE 1 CAPSULE BY MOUTH DAILY active Not Available Not Available Not Available fluconazole 200 mg tablet active Not Available Not Available Not Available ondansetron HCl 4 mg tablet active Not Available Not Available Not Available clindamycin HCl 150 mg capsule active Not Available Not Available Not Available metronidazol e 500 mg tablet active Not Available Not Available Not Available clopidogrel 75 mg tablet TAKE 1 TABLET BY MOUTH EVERY DAY active Not Available Not Available No t Available valacyclovir 500 mg tablet Take 1 tablet every 12 hours by oral route for 7 days. active Not Available Not Available Not Available ciprofloxaci n 500 mg tablet active Not Available Not Available Not Available morphine ER 30 mg tablet,exten ded release active Not Available Not Available Not Available tramadol 50 mg tablet TAKE 1 TABLET BY MOUTH TWICE DAILY NEEDED active Not Available Not Available No t Available nystatin-tri amcinolone 100,000 unit/gram-0. 1 % topical ointment active Not Available Not Available Not Available oxycodone-ac etaminophen 5 mg-325 mg tablet active Not Available Not Available Not Available alprazolam 0.5 mg tablet TAKE 1 TABLET BY MOUTH TWICE DAILY active Not Available Not Available No t Available amoxicillin 875 mg tablet active Not Available Not Available Not Available citalopram 20 mg tablet active Not Available Not Available Not Available pravastatin 80 mg tablet active Not Available Not Available Not Available OneTouch Ultra Test strips active Not Available Not Available Not Available benzonatate 100 mg capsule active Not Available Not Available Not Available cephalexin 500 mg capsule Take 1 capsule every 8 hours by oral route for 7 days. active Not Available Not Available Not Available fluconazole 50 mg tablet active Not Available Not Available Not Available esomeprazole magnesium 40 mg capsule,mahnaz yed release active Not Available Not Available Not Available nitroglyceri n 0.4 mg sublingual tablet active Not Available Not Available Not Available clobetasol 0.05 % topical ointment APPLY THIN LAYER TOPICALLY TO THE AFFECTED AREA TWICE DAILY active Not Available Not Available No t Available polyethylene glycol 3350 17 gram/dose oral powder active Not Available Not Available Not Available levofloxacin 500 mg tablet active Not Available Not Available Not Available methylpredni solone 4 mg tablets in a dose pack TAKE BY MOUTH DIRECTED PER PACKAGE DIRECTIONS active Not Available Not Available N ot Available cefdinir 300 mg capsule active Not Available Not Available N ot Available sertraline 50 mg tablet TAKE 1 TABLET BY MOUTH DAILY active Not Available Not Available Not Available metronidazol e 0.75 % topical gel APPLY THIN LAYER TOPICALLY TO THE AFFECTED AREA TWICE DAILY IN THE MORNING AND IN THE EVENING active Not Available Not Available No t Available amoxicillin 875 mg-potassium clavulanate 125 mg tablet TAKE 1 TABLET BY MOUTH EVERY 12 HOURS FOR 10 DAYS active Not Available Not Available Not Available Ventolin HFA 90 mcg/actuatio n aerosol inhaler INHALE 2 PUFFS BY MOUTH EVERY 4 HOURS NEEDED active Not Available Not Available No t Available rosuvastatin 20 mg tablet TAKE 1 TABLET BY MOUTH DAILY active Not Available Not Available Not Available rosuvastatin 40 mg tablet TAKE 1 TABLET BY MOUTH EVERY DAY active Not Available Not Available No t Available OneTouch UltraSoft Lancets active Not Available Not Available Not Available Brilinta 90 mg tablet active Not Available Not Available No t Available Vitals Date Recorded Body height Body mass index (BMI) Body weight Systolic blood pressure Diastolic blood pressure Provider Name and Address Organization Details Last Updated DateTime 10/18/2017 162.56 cm 37.8 kg/m2 13051.32 g 136 mm[Hg] 82 mm[Hg] Adriana leung MA [place] - [facility] 8 16:38:06 Date Recorded Body weight Systolic blood pressure Diastolic blood pressure Provider Name and Address Organization Details Last Updated DateTime 01/02/2019 909389.61 g 132 mm[Hg] 80 mm[Hg] Shilpi Roblero [place] - [facility] 01/02/2019 15:07:52 Date Recorded Body weight Systolic blood pressure Diastolic blood pressure Provider Name and Address Organization Details Last Updated DateTime 04/25/2020 956339.52 g 148 mm[Hg] 86 mm[Hg] AMRIK Sapp [place] [facility] 04/25/2020 15:12:01 Date Recorded Body height Body weight Body mass index (BMI) Systolic blood pressure Diastolic blood pressure Provider Name and Address Organization Details Last Updated DateTime 06/29/2016 162.56 cm 58807.73 g 37.6 kg/m2 128 mm[Hg] 82 mm[Hg] Adriana leung [place] - [facility] 6 09:50:13 Date Recorded Body weight Systolic blood pressure Diastolic blood pressure Provider Name and Address Organization Details Last Updated DateTime 07/28/2021 702760.53 g 148 mm[Hg] 86 mm[Hg] AMRIK Sapp [facility] 07/28/2021 14:52:54 Social History Question Answer Notes LastModified by Organizat ion Details LastModified Time Tobacco Smoking Status Never Smoker [place] [facility] 07/28/2021 14:55:08 In The 14 Days Before Symptom Onset, Have You Had Close Contact With A Laboratory-confirm ed COVID-19 While That Case Was Ill? No Information n ot available 07/28/2021 In The 14 Days Before Symptom Onset, Have You Had Close Contact With A Person Who Is Under Investigation For COVID-19 While That Person Was Ill? No Information not available 07/28/2021 Have You Been To An Area Known To Be High Risk For COVID-19? No Information not available 07/28/2021 What Was The Date Of Your Most Recent Tobacco Screening? 07/28/2021 Information not available 07/28/2021 How Many Children Do You Have? 2 Information not available 02/26/2015 What Is Your Relationship Status? Information not available 02/26/2015 Has Tobacco Cessation Counseling Been Provided? No Information not available 07/28/2021 Sex: Female Functional Status Question Answer Note LastModified by Organization D etails LastModified Time Do you or have you ever used any other forms of tobacco or nicotine? No Information not available 07/28/2021 Mental Status None recorded. Family History Relationship Description Onset Age of this Age Resolved Age Notes LastModified by Organization Details LastModified Time Father No current problems or disability [email or web address] Not available 07/28 14:44:57 Mother No current problems or disability [email or web address] Not available 07/28 14:44:57 Medical History Condition Response Anxiety/Depression Y High Blood Pressure Y Urinary Tract Infection Y High Cholesterol Y Gynecological History Statement/Question Response Menses Monthly N Date of Last Pap Smear 07/28/2021 Current Control Method Tubal Ligat ion Most Recent Mammogram 08/27/2021 LMP Definite Obstetrics History GPAL:G 3 P 2 0 1 2 Type Value Full Term 2 Spontaneous 1 Living 2 Total 3 Past Encounters Encounter ID Performer Location Encounter Start Date Encounter Closed Date Diagnosis/Indication Diagnosis SNOMED-CT Code Diagnosis ICD10 Code Diagnosis Note [id number] MD Hieu Guardado ([place] [address]) [address] [facility] [place] [address] 08/27/2014 15:43:59 08/27/2014 17:53:27 Cellulitis [id number] MD Hieu Guardado ([place] [address]) [address] [facility] [place] [address] 08/31/2014 10:23:15 08/31/2014 16:21:06 Abscess of vulva 73409299 Cellulitis [id number] MD Hieu Guardado ([place] [address]) [address] [facility] [place] [address] 09/03/2014 10:41:27 09/03/2014 15:45:45 Abscess of vulva 09130441 Cellulitis [id number] MD Hieu Guardado ([place] [address]) [address] [facility] [place] [address] 09/10/2014 10:36:35 09/10/2014 12:30:09 Cellulitis [id number] MD Hieu Guardado [place] [address]) [address] [facility] [place] [address] 09/27/2014 10:40:37 09/27/2014 12:28:42 Lesion of vulva 908614214 [id number] MD Hieu Guardado ([place] [address]) [address] [facility] [place] [address] 02/26/2015 14:53:15 02/26/2015 17:00:54 Gynecologic examination 35357098 Menopause present 817247283 Screening for malignant neoplasm of breast 980423044 [id number] MD Hieu Guardado ([place] [address]) [address] [facility] [place] [address] 06/29/2016 09:22:03 06/29/2016 14:20:20 Screening for malignant neoplasm of colon 930368224 Z12.11 Gynecologi c examination 56846935 Z01.419 Menopause present 955631 006 N95.1 Screening for malignant neoplasm of breast 956050348 Z12.31 [id number] MD Hieu Guardado [place] [address]) [address] [facility] [place] [address] 10/18/2017 16:10:58 10/19/2017 18:27:31 Gynecologic examination 38842526 Z01.419 Body mass index 30+ - obesity 072894283 Z68.37 Screening for malignant neoplasm of colon 323582950 Z12.11 Screening for malignant neoplasm of breast 924117898 Z12.31 [id number] MD Hieu Guardado [address] [place] [address] 01/02/2019 14:51:48 01/03/2019 08:27:09 Gynecologic examination [id number] Z01.419 Screening for malignant neoplasm of colon 514326117 Z12.11 Screening for malignant neoplasm of breast [id number] Z12.31 Menopause present 633354 006 N95.1 [id number] MD Hieu Guardado [address] [place] [address] 04/25/2020 15:01:34 04/26/2020 14:24:17 Screening for malignant neoplasm of colon [id number] Z12.11 Gynecologi c examination [id number] Z01.419 Menopause present 673006 006 N95.1 [id number] Nicanor Augustine MD [place] 14 OB 4 [facility] [address] [place] [address] 07/28/2021 14:31:59 07/29/2021 05:39:21 Gynecologic examination [id number] Z01.419 Menopause present 976758 006 N95.1 Screening for malignant neoplasm of breast [id number] Z12.31 Health Concerns Section Related Observation LastModified by Organization Detai ls LastModified Time None Recorded Concern Status LastModified by Organization Details LastModified Time None Recorded Advance Directives Directive None Recorded Payers Insurance Date Sequence Insurance Name Policy Number Policy Klein Covered Member ID Klein Member ID Guarantor Name 07/28/2021 2 [id number] Desiree Chackoson [id number] Desiree L Parson 04/25/2020 1 [place] [id number] Desiree Jeannette ChackoParson [id number] Desiree Chackoson 07/29/2021 [place] [facility] Desireetimur Chackoson [id number] Desiree Chackoson 01/02/2019 1 UMR [id number] Desiree Chackoson [id number] Desiree Parson 07/29/2021 1 [place] Desiree Machado Parson [id number] Desiree Chackoson 08/15/2021 2 [place] [id number] Desiree Chackoson [id number] Desireetimur Chackoson Notes Date Note Type Note Provider Name and Address Organization Details Recorded Time 06/29/2016 text/html eft knee replacement and cardiac stent within last yearL Nicanor Augustine MD Attn: Accounting[address] [place], [address], [place] [facility] 06/29/2016 10:06:37 10/18/2017 text/html Annual Sports Specialist Post-MenopausalRep orted bypatient.Menopaus al Symptoms:no menopausal symptoms; normal vaginal lubrication Vaginal Bleeding:history of menopause having occurred; no history of post menopausal bleeding Urinary Symptoms:no hematuria; no incontinence; no nocturia; no urinary frequency Vulva:no genital lesion; no vulvar atrophy Vagina:normal vaginal discharge; no vaginal atrophy Breast:no breast lump; no nipple discharge; no breast pain Sexual Complaints:no sexual complaints Psychological Symptoms:no depression; no anxiety eft knee replacement and cardiac stent within last yearL Nicanor Augustine MD Attn: [address]ing[address] [place], [address], [facility] 10/18/2017 17:19:40 01/02/2019 text/html Annual Sports Specialist Post-MenopausalRep orted bypatient.Menopaus al Symptoms:no menopausal symptoms; normal vaginal lubrication Vaginal Bleeding:history of menopause having occurred; no history of post menopausal bleeding Urinary Symptoms:no hematuria; no incontinence; no nocturia; no urinary frequency Vulva:no genital lesion; no vulvar atrophy Vagina:normal vaginal discharge; no vaginal atrophy Breast:no breast lump; no nipple discharge; no breast pain Sexual Complaints:no sexual complaints Psychological Symptoms:no depression; no anxiety eft knee replacement and cardiac stent within last yearL Nicanor Augustine MD Attn: Accounting[address] [place], [address], [facility] 01/02/2019 15:20:47 04/25/2020 text/html Annual Sports Specialist Post-MenopausalRep orted bypatient.Menopaus al Symptoms:no menopausal symptoms; normal vaginal lubrication Vaginal Bleeding:history of menopause having occurred; no history of post menopausal bleeding Urinary Symptoms:no hematuria; no incontinence; no nocturia; no urinary frequency Vulva:no genital lesion; no vulvar atrophy Vagina:normal vaginal discharge; no vaginal atrophy Breast:no breast lump; no nipple discharge; no breast pain Sexual Complaints:no sexual complaints Psychological Symptoms:no depression; no anxiety eft knee replacement and cardiac stent within last yearL Nicanor Augustine MD Attn: Accounting[address] [place], [address], [facility] 04/25/2020 15:29:55 07/28/2021 text/html Annual Sports Specialist Post-MenopausalRep orted bypatient.Menopaus al Symptoms:no menopausal symptoms; normal vaginal lubrication Vaginal Bleeding:history of menopause having occurred; no history of post menopausal bleeding Urinary Symptoms:no hematuria; no incontinence; no nocturia; no urinary frequency Vulva:no genital lesion; no vulvar atrophy Vagina:normal vaginal discharge; no vaginal atrophy Breast:no breast lump; no nipple discharge; no breast pain Sexual Complaints:no sexual complaints Psychological Symptoms:no depression; no anxiety eft knee replacement and cardiac stent within last yearL Nicanor Augustine MD Attn: [address]ing[address] [place], [address], [facility] 07/28/2021 15:25:01 OBGyn Episode No OBEpisode recorded.
--- OUTSIDE RECORDS SUMMARY | 2025-01-15 09:53 | XMS_ITS | Referral Summary ---
Author Organization [facility] Address [address] [place] [address] Care Team Providers Care Freight Brakeman Name Role Phone Frank Frazier MD Unavailable Oscar Lynch MD Primary Care Provider [phone] Allergies Active Allergy Reactions Criticality Noted Date [...] PRN, 1-2 tablets, Reported on 01/02/2022 omega 8-pqb-xyl-fish oil (FISH OIL) 100-160-1,000 mg capsule 0 [...] (12/22/2021): Added automatically from request for surgery [id number] Mass of right parotid gland 01/08/2020 Assessment [...] on file Legal Sex Female 8:07 PM ZIGZAG APPLIQUER Gender Identity Not on file Sexual Orientation Not on file Last Filed Vital Signs Vital Sign Reading Time Taken Comments Blood Pressure 140/74 01/02/2022 7:00 AM CDT Pulse 60 01/02/2022 7:00 AM CDT Temperature 36.8 C (98.2 F) 01/02/2022 7:00 AM CDT Respiratory Rate 18 01/02/2022 7:00 AM CDT Oxygen Saturation 97% 01/02/2022 7:00 AM CDT Inhaled Oxygen Concentration - - Weight 97.5 kg (215 lb) 04/24/2024 9:23 AM CDT Height 158.8 cm (5' 2.5) 04/24/2024 9:23 AM CDT Body Mass Index 38.7 04/24/2024 9:23 AM CDT Plan of Treatment Not on file Medical Devices Implanted Type Area Residential Real Estate Sales Manager Device Identifier Shelf Expiration Date Model / Serial / Lot [employer] Resolute [place] 2.5mm 2.1-2.7fr 15mm 140cm Rapid Exchange [id number] - [id number] Implanted:Qty : 1 on 01/01/2022 by Frank Frazier MD at [facility] Stent Right: Coronary [employer] 09/20/2024 [id number] / / [id number] Angio-Seal Vip 6fr Closere Device [id number] - [id number] Implanted:Qty : 1 on 01/01/2022 by Frank Frazier MD at [facility] Right: Groin Lexim Amrik 10/30/2022 [id number] / / [id number] Procedures Procedure Name Priority Date/Time Associated Diagnosis Comments SCREENING MAMMOGRAM BILATERAL W CORTEZ Schedule Routine, Read Routine (OP Routine) 04/24/2024 9:30 AM CDT Encounter for screening mammogram for malignant neoplasm of breast CT LUNG CANCER SCREENING Schedule Routine, Read Routine (OP Routine) 04/24/2024 9:21 AM CDT Personal history of nicotine dependence DEXA AXIAL SKELETON BONE DENSITY 1 OR MORE SITES Schedule Routine, Read Routine (OP Routine) 08/27/2021 8:16 AM ZIGZAG APPLIQUER Menopausal and female climacteric states from Last 3 Months or Most Recently Relevant to Health Maintenance Results * Screening Mammogram Bilateral W Crotez (04/24/2024 9:30 AM CDT) Anatomical Region Laterality [...] her next mammogram. Electronically signed by: HUSAM SOLANOJASMIN DOMINGO Narrative 04/24/2024 9:59 AM CDT EXAMINATION: SCREENING MAMMOGRAM BILATERAL W CORTEZ ORDERING HEALTHCARE PROVIDER: ORI PIZANO HISTORY: Routine screening mammography. COMPARISON: 11/05/2022, 08/27/2021, 04/15/2020, 01/16/2016. TECHNIQUE: CC and MLO views of both breasts were obtained with digital technique using digital breast tomosynthesis with C view. Computer aided detection was utilized. FINDINGS: DENSITY: There are scattered areas of fibroglandular density. BREASTS: There is no new suspicious finding in either breast on mammogram. us Ori Pizano BIOCHEMISTRY TECHNICIAN IMG MAMMO PROCEDURES Final Res ult * CT Lung Cancer Screening (04/24/2024 9:21 AM CDT) Anatomical Region Laterality Modality Chest N/A Computed Tomogra phy 04/25/2024 8:57 AM CDT Narrative 04/25/2024 9:21 AM CDT EXAM DESCRIPTION: CT LUNG CANCER SCREENING REASON FOR STUDY: Screening CT of the chest in a former smoker with a 40 pack year smoking history. Additional history: The [...] index volume (CTDIvol) = 2.63 mGy COMPARISON: CT chest 11/05/2022 FINDINGS: SMOKING RELATED LUNG DISEASE: Mild pulmonary emphysema. LUNG NODULES: Numerous new ground-glass and part solid nodules predominantly within the lower and right middle lobes. For reference, new left lower lobe irregular part solid opacity measuring approximately 2.3 cm, with a 1.5 cm solid component (series 2, image 213). Stable 8 mm solid nodule in the lateral right lower lobe (series 3, image 191). CORONARY ARTERY CALCIFICATION: Aasrrhuz-gi-[id number]. OTHER: No focal consolidation, pneumothorax, or pleural effusion. The central airways are clear. No mediastinal mass. Stable borderline enlarged subaortic 1 cm mediastinal node (series 2, image 101). The heart is normal in size. Prominent mitral annular calcifications. No pericardial effusion. Mild atherosclerotic calcifications of the thoracic aorta. No thoracic aortic aneurysm. No acute fractures or suspicious osseous lesions. Redemonstrated small hiatal hernia. IMPRESSION: Numerous new part solid and ground-glass pulmonary nodules, predominantly within the lower and right middle lobes, favoring an infectious etiology. Stable right lower lobe 8 mm solid nodule. Mild emphysema. Lung-RADS category 0: Findings suggestive of an inflammatory or infectious process. Recommendation: Low dose CT of chest in 3 months. THIS IS AN ELECTRONICALLY VERIFIED FINAL REPORT 04/25/2024 9:21 AM - Electronically signed by Anson Lee M.D. KR: SHIVANI Report ID: [id number] Reading Location: [place] [address] Ori Pizano NP IMG CT PROCEDURES Final Result * Dexa Axial Skeleton Bone Density 1 or 2 Site (08/27/2021 8:16 AM ZIGZAG APPLIQUER) Anatomical Region Laterality Modality Body N/A Other 08/27/2021 11:0 6 AM ZIGZAG APPLIQUER Narrative 08/27/2021 11:08 AM ZIGZAG APPLIQUER EXAM DESCRIPTION: DEXA AXIAL SKELETON BONE DENSITY 1 OR MORE SITES REASON FOR STUDY: 66 y/o year old F with given history of screening. 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 FRAX is a World Health Organization validated fracture risk assessment tool that calculates a person's 10 year probability of a major osteoporosis related fracture and hip fracture. According to the National Osteoporosis Foundation guidelines, postmenopausal [...] Rosalino Terry M.D. MF: CORY Report ID: [id number] Reading Location: [id number] Procedure Note Rosalino Terry MD - 08/27/2021 EXAM DESCRIPTION: DEXA AXIAL SKELETON BONE DENSITY 1 OR MORE SITES REASON FOR STUDY: 66 y/o year old F with given history ofscreening. 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
--- OUTSIDE RECORDS SUMMARY | 2025-01-15 09:53 | XMS_ITS | CONTINUITY OF CARE DOCUMENT ---
Author Name peggy woods Address Unknown Organization [facility] Address [address] [place] [address] Phone [phone] Care Team Providers Care Cephalometric Technician Name Role Phone Frank Frazier MD Unavailable [phone] MIRNA KELLER MD Unavailable [phone] ORI MAYA Unavailable PROBLEMS Condition Status Date Provider Notes Chest [...] In-person encounter Office Visit Frank Frazier MD [facility] - In-person encounter Office Visit Frank Frazier MD [facility] Office - In-person encounter Office Visit Frank Frazier MD [facility] - In-person encounter Office Visit Frank Frazier MD [facility] Office - In-person encounter Office Visit Frank Frazier MD [facility] - In-person encounter Office Visit Frank Frazier MD [facility] Office Abdominal aortic ectasia - 3.54cm 03/2022HTN essential - In-person encounter Office Visit Frank Frazier MD [facility] Office - In-person encounter Office Visit Frank Frazier MD [facility] Office - In-person encounter Office Visit Frank Frazier MD [facility] Office - In-person encounter Office Visit Frank Frazier MD [facility] Office - In-person encounter Office Visit Frank Frazier MD [facility] Office Preop exam - In-person encounter Office Visit Frank Frazier MD [facility] Office - In-person encounter Office Visit Frank Frazier MD [facility] Office DyslipidemiaObstructive sleep apnea - using CPAPObesity - In-person encounter Office Visit Frank Frazier MD [facility] Office - In-person encounter Office Visit Frank Frazier MD [facility] Office - In-person encounter Office Visit Frank Frazier MD [facility] Office Dyslipidemia - In-person encounter Office Visit Frank Frazier MD [facility] Tobacco use quitLeg edema, leftCAD VITAL SIGNS Date Observation Value Provider Body Mass Index (Ratio) 38.27 kg/m2 Frank Frazier MD blood pressure, diastolic 81 mm[Hg] Dayanara Chappell blood pressure, systolic 152 mm[Hg] Esperanza Chappell oxygen saturation, oximetry 97 % Pat Chappell pulse rate 77 /min Pat Chappell respiratory rate E&M 12 /min Pat Chappell weight E&M 223 [lb_av] Pat Chappell height E&M 64 [in_i] Pat Chappell blood pressure, cuff size regular An osiel Chappell Body Mass Index (Ratio) 37.59 kg/m2 Jamari Álvarez blood pressure, cuff size regular [place] augustine Cortez blood pressure, diastolic 85 mm[Hg] [place] augustine Cortez blood pressure, systolic 124 mm[Hg] Maikol ithjael Cortez oxygen saturation, oximetry 97 % Snow Cortez pulse rate 77 /min Snow Cortez respiratory rate E&M 14 /min Snow Cortez weight E&M 219 [lb_av] Snow Cortez height E&M 64 [in_i] Snow Cortez Body Mass Index (Ratio) 36.90 kg/m2 Paula Islas blood pressure, diastolic 83 mm[Hg] Jocelyn nkLogic blood pressure, systolic 135 mm[Hg] Jeri kLog blood pressure, cuff size regular Arnoldo rret blood pressure, diastolic 83 mm[Hg] Ja rret blood pressure, systolic 135 mm[Hg] Jar ret pulse rate 70 /min Tarik respiratory rate E&M 14 /min Tarik oxygen saturation, oximetry 97 % Tarik weight E&M 215 [lb_av] Tarik y height E&M 64 [in_i] Tarik y Body Mass Index (Ratio) 41.02 kg/m2 Paula urrutia Roshan blood pressure, diastolic 93 mm[Hg] Dayanara enamorado Cornel blood pressure, systolic 134 mm[Hg] Ruthie elder Cornel pulse rate 78 /min Orin Cornel oxygen saturation, oximetry 96 % Orin Cornel weight E&M 239 [lb_av] Orin Cornel blood pressure, cuff size large An kelsea Cornel height E&M 64 [in_i] Orin Cornel Body Mass Index (Ratio) 42.91 kg/m2 Frank Frazier MD blood pressure, diastolic 77 mm[Hg] Jocelyn nkLogkaren blood pressure, systolic 149 mm[Hg] Jeri kLog oxygen saturation, oximetry 96 % Mirtha Archuleta pulse rate 66 /min Mirtha Archuleta blood pressure, cuff size regular chris Archuleta blood pressure, diastolic 77 mm[Hg] chris Archuleta blood pressure, systolic 149 mm[Hg] She edvin Kathe respiratory rate E&M 20 /min Mirtha Archuleta weight E&M 250 [lb_av] Mirtha Archuleta height E&M 64 [in_i] Mirtha Archuleta Body Mass Index (Ratio) 43.25 kg/m2 Mitch Ware blood pressure, cuff size large Mallika yifan Saravia blood pressure, diastolic 104 mm[Hg] Mi yifan Richmond blood pressure, systolic 181 mm[Hg] Fawad silvio Saravia oxygen saturation, oximetry 99 % Shilpi Saravia pulse rate 87 /min Shilpi quintana weight E&M 252 [lb_av] Shilpi quintana respiratory rate E&M 16 /min Breanna Saravia height E&M 64 [in_i] Shilpi quintana Body Mass Index (Ratio) 41.71 kg/m2 Carli Cabreratiffanie blood pressure, cuff size large Ke rri Stevenneamelieelder blood pressure, diastolic 70 mm[Hg] Ke rri Stevennenfelder blood pressure, systolic 120 mm[Hg] Hugo ri Priscillaelder oxygen saturation, oximetry 95 % Tressa Priscillaelder respiratory rate E&M 14 /min Tressa G ruenenfelder pulse rate 86 /min Tressa Anabel lder weight E&M 243 [lb_av] Tressa Priscillae lder height E&M 64 [in_i] Tressa Priscillae er Body Mass Index (Ratio) 37.93 kg/m2 [facility], diastolic 80 mm[Hg] Li nkLogic blood pressure, systolic 140 mm[Hg] Jeri kLogic blood pressure, cuff size regular Kr isbelkis Kathie blood pressure, diastolic 80 mm[Hg] Mikhail isty Kathie blood pressure, systolic 140 mm[Hg] Curtis Bermudezby pulse rate 89 /min Etelvina Kathie oxygen saturation, oximetry 97 % Etelvina Dundalk respiratory rate E&M 18 /min Etelvina Dundalk weight E&M 221 [lb_av] Etelvina Dundalk height E&M 64 [in_i] Etelvina Kathie Body Mass Index (Ratio) 39.65 kg/m2 Siva coronado [facility] blood pressure, diastolic 74 mm[Hg] Bob mcdonald [facility] blood pressure, systolic 139 mm[Hg] Melani ricketts [facility] pulse rate 85 /min Mane TeagueKartela oxygen saturation, oximetry 97 % Mane Goldstein weight E&M 231 [lb_av] Mane TeagueKartela height E&M 64 [in_i] Mane TeagueKartela blood pressure, resting No Siva Goldstein Body Mass Index (Ratio) 40.68 kg/m2 Siva Goldstein blood pressure, diastolic 82 mm[Hg] Hector ica Meyers-Lambert blood pressure, systolic 124 mm[Hg] Sarah Meyers-Lambert oxygen saturation, oximetry 98 % Winnie Meyers-Lambert pulse rate 71 /min Winnie Meyers- Lambert weight E&M 237 [lb_av] Winnie Meyers- Lambert height E&M 64 [in_i] Winnie Meyers- Lambert Body Mass Index (Ratio) 37.93 kg/m2 Siva Goldstein blood pressure, diastolic 76 mm[Hg] Mikhail valladares Dundalk blood pressure, systolic 140 mm[Hg] Curtis Bermudezby respiratory rate E&M 17 /min Etelvina Dundalk oxygen saturation, oximetry 97 % Etelvina Bermudezby pulse rate 85 /min Etelvina Bermudezby weight E&M 221 [lb_av] Etelvina Kathie blood pressure, cuff size regular Mikhail valladares Kathie height E&M 64 [in_i] Etelvina Dundalk Body Mass Index (Ratio) 38.96 kg/m2 Siva Goldstein blood pressure, diastolic 80 mm[Hg] Ta chiquis Sanju blood pressure, systolic 118 mm[Hg] Rod Bills blood pressure, cuff size regular [place] Bills oxygen saturation, oximetry 97 % Romina Bills respiratory rate E&M 18 /min Romina Bills pulse rate 84 /min Romina Bills weight E&M 227 [lb_av] Romina Bills height E&M 64 [in_i] Romina Bills Body Mass Index (Ratio) 39.13 kg/m2 Siva cliffhector Goldstein blood pressure, resting Yes Frank Frazier MD blood pressure, cuff size regular [place] Bills pulse rate 85 /min Romina Bills respiratory rate E&M 20 /min Romina Bills oxygen saturation, oximetry 98 % Romina Bills blood pressure, diastolic 82 mm[Hg] [place] iBlls blood pressure, systolic 126 mm[Hg] Rod Bills weight E&M 228 [lb_av] Romina Bills height E&M 64 [in_i] Romina Bills blood pressure, diastolic, left arm 80 mm [Hg] Etelvina Kathie blood pressure, systolic, left arm 124 mm [Hg] Etelvina Bermudezby blood pressure, diastolic, right arm 82 m m[Hg] Etelvina Dundalk blood pressure, systolic, right arm 130 m m[Hg] Etelvina Kathie blood pressure, diastolic 80 mm[Hg] Mikhail isty Dundalk blood pressure, systolic 124 mm[Hg] Kri priyanka Bermudezby pulse rate 79 /min Etelvina Kathie oxygen saturation, oximetry 98 % Etelvina Dundalk respiratory rate E&M 18 /min Etelvina Dundalk Body Mass Index (Ratio) 35.18 kg/m2 Dylan Kathie weight E&M 205 [lb_av] Etelvina Bermudezby blood pressure, diastolic 74 mm[Hg] [place] Bills blood pressure, systolic 132 mm[Hg] Rod Bills pulse rate 95 /min Romina Bills oxygen saturation, oximetry 98 % Romina Bills respiratory rate E&M 18 /min Romina Bills Body Mass Index (Ratio) 39.82 kg/m2 Tess Bills weight E&M 232 [lb_av] Romina Bills blood pressure, diastolic 100 mm[Hg] Dmitry Pichardo blood pressure, systolic 130 mm[Hg] Chris Pichardo pulse rate 79 /min Jeff Pichardo oxygen saturation, oximetry 99 % Jeff Pichardo respiratory rate E&M 18 /min Jeff Pichardo Body Mass Index (Ratio) 39.51 kg/m2 Kenneth Rascondney weight E&M 230.2 [lb_av] Jeff Rascondney blood pressure, diastolic, left arm 91 mm [Hg] Oanh Salmeronann blood pressure, systolic, left arm 139 mm [Hg] Oanh Jones blood pressure, diastolic, right arm 86 m m[Hg] Oanh Jones blood pressure, systolic, right arm 144 m m[Hg] Oanh Jones blood pressure, diastolic 91 mm[Hg] Mo gopal Jones blood pressure, systolic 139 mm[Hg] Jessica bowen Jones pulse rate 88 /min Oanh Jones oxygen saturation, oximetry 95 % Oanh Jones respiratory rate E&M 15 /min Oanh Salmeronann Body Mass Index (Ratio) 39.82 kg/m2 Olga shah Jones weight E&M 232 [lb_av] Oanh Jones height E&M 64 [in_i] Oanh Jones ALLERGIES Allergy Name Onset Date Reaction Criticality Status SULFA High Criticality active BETA BLOCKERS High Criticality activ e ALEJANDRA INHIBITORS High Criticality acti ve RESULTS Date Observation Value Provider Reference Range Interpretation Location 2 LDL cholesterol, serum 58 mg/dL Mane Goldstein 4 LDL cholesterol, serum 69 mg/dL Mane Goldstein 5 triglyceride, serum, fasting 197 mg/dL Frank Frazier MD 5 HDL cholesterol, serum 48 mg/dL Frank Frazier MD 5 LDL cholesterol, serum 49 mg/dL Frank Frazier MD 5 cholesterol, serum 136 mg/dL Frank Frazier MD HISTORY OF MEDICATION USE Medication Status Instructions Dates Provider Indications Com ments rosuvastatin 40 mg tablet active TAKE ONE (1) TABLET BY MOUTH EVERY DAY Berenice Rushing clopidogrel 75 mg tablet active TAKE ONE (1) TABLET BY MOUTH EVERY DAY Julieta Ruple Trulicity 1.5 mg/0.5 mL pen injector active INJECT 1.5 MG UNDER THE SKIN EVERY WEEK. Frank Frazier MD metformin 500 mg tablet active Frank Frazier MD rosuvastatin 40 mg tablet completed TAKE 1 TABLET BY MOUTH EVERY DAY - Berenice Rushicharlotte rosuvastatin 40 mg tablet completed Take 1 [...] by mouth once a day - Yolanda Chamberlain METAMUCIL POWD completed as needed - Romina [...] mouth once a day - Jorge A Fajardo BRILINTA 90 MG ORAL TABLET completed TWICE DAILY - Frank Frazier MD CITALOPRAM HYDROBROMIDE 10 MG ORAL TABLET completed ONCE DAILY - Romina Bills VITAMIN C TABLET [id number] rror once daily - Winnie Yuen alprazolam [...] Observation Value Provider smoking status Never smoker Sean Jeanie smoking status Never smoker Uziel hawkins smoking status Never smoker [place] smoking status Never smoker rFank Quintana social history reviewed E&M revi ewed - no changes required Frank Frazier MD social history E&M S moking History: Shaista goodiwn has never smoked. Frank Frazier MD social history reviewed E&M revi ewed - no changes required Frank Frazier MD smoking status Never smoker Mirtha Kathe social history E&M S moking History: Shaista goodwin is a former smoker. Frank Frazier MD social history reviewed E&M revi ewed - no changes required Frank Frazier MD smoking, year quit 2004 Shilpi Saravia cigarette use yes Shilpi Cabrera nd smoking status Former smoker Shilpi israel social history reviewed E&M revi ewed - no changes required Shantelle Chua social history E&M S moking History: Shaista goodwin is a former smoker. Frank Frazier MD social history reviewed E&M revi ewed - no changes required Frank Frazier MD smoking, year quit 2004 Tressa Lazaro enenfelder cigarette use yes Tressa Desainf elder smoking status Former smoker Tressa Desai nfelder social history E&M S moking History: Shaista goodwin is a former smoker. Frank Frazier MD social history reviewed E&M revi ewed - no changes required Frank Frazier MD smoking, year quit 2004 Etelvina Gabriele sby cigarette use yes Etelvina Dundalk smoking status Former smoker Etelvina Bermudezby social history reviewed E&M revi ewed - no changes required Winnie Yuen smoking, year quit 2004 Winnie cross-Lambert cigarette use yes [place] smoking status Former smoker Winnie Coles on-Lambert social history reviewed E&M revi ewed - no changes required Frank Frazier MD smoking, year quit 2004 Etelvina Suazo sby cigarette use yes Etelvina Kathie smoking status Former smoker Etelvina Bermudezby social [...] number of grandchildren Frank Frazier MD Dylan Vázquez social history reviewed E&M revi ewed - no changes required Frank Frazier MD social history reviewed E&M darion ewed - no changes required Frank Frazier MD social history E&M Smoking Histo ry: Shaista goodwin is a former smoker. Frank Frazier MD social history reviewed E&M adrion ewed - no changes required Frank Frazier MD smoking, year quit 2004 Oanh Bahena cigarette use yes Oanh Jones smoking status Former smoker Oanh Doss nn FUNCTIONAL STATUS Date Observation Value Provider HRA, CV Assess/Plan, Angina (inactive) Management Plan continue current therapy Sean Ware HRA, CV Assess/Plan, Angina (inactive) Management Plan [...] (inactive) Management Plan continue current therapy Shantelle Chua HRA, CV Assess/Plan, Angina (inactive) Management Plan [...] Payer name Policy type / Coverage type Shay red libertarian ID [id number] (PPO C-SNP) Commercial insurance [employer] [id number] ADVANCE DIRECTIVES Name Date DISCUSSED - NO DECISION MADE TREATMENT PLAN Date Name Performer [id number],SFrank MD [id number],S, H er updated medication list for this problem includes: Rosuvastatin 40 Mg Tablet (Rosuvastatin) ..... Take 1 tablet by mouth every day Frank Frazier MD [id number],S, H er updated medication list for this problem includes: Clopidogrel 75 Mg Tablet (Clopidogrel) ..... Take 1 tablet by mouth every day Cartia Xt 300 Mg Capsule,extended Release 24hr (Diltiazem hcl) ..... Take 1 capsule once a day Nitrostat 0.4 Mg Tablet, Sublingual (Nitroglycerin) ..... 1 tablet under tongue as needed Frank Frazier MD [id number],S, B P today: 134/93 P rior BP: 149/77 (09/21/2022) Labs Reviewed: C hol: 136 (10/15/2015) HDL: 48 (10/15/2015) LDL: 58 (04/13/2019) T (10/15/2015) Her updated medication list for this problem includes: Cartia Xt 300 Mg Capsule,extended Release 24hr (Diltiazem hcl) ..... Take 1 capsule once a day Lasix 40 Mg Tablet (Furosemide) ..... 1 tablet once a day as needed Frank Frazier MD [id number],S, H er updated medication list for this problem includes: Rosuvastatin 40 Mg Tablet (Rosuvastatin) ..... Take 1 tablet by mouth every day Frank Frazier MD [id number],B, B P today: 149/77 P rior BP: 181/104 (08/04/2022) Her updated medication list for this problem includes: Lasix 40 Mg Tablet (Furosemide) ..... 1 tablet once a day as needed Cartia Xt 240 Mg Capsule,extended Release 24hr (Diltiazem hcl) ..... Take 1 capsule once a day Frank Frazier MD [id number],S, Frank Frazier MD [id number],S,F /u AAA duplex today showed 3.51cm distal AAA, unchanged from previous. Will repeat her duplex in 6 months. Frank Frazier MD [id number],S, N o angina. Her updated medication list for this problem includes: Clopidogrel 75 Mg Tablet (Clopidogrel) ..... Take 1 tablet by mouth every day Nitrostat 0.4 Mg Tablet, Sublingual (Nitroglycerin) ..... 1 tablet under tongue as needed Cartia Xt 240 Mg Capsule,extended Release 24hr (Diltiazem hcl) ..... Take 1 capsule once a day Frank Frazier MD [id number],W,B P is elevated today. Patient was short on her alprazolam since she lost her PCP. We will give her a refill and she will monitor her BP. Sean Ware [id number],S, Sean Ware [id number],S, H er updated medication list for this problem includes: Rosuvastatin 40 Mg Tablet (Rosuvastatin) ..... Take 1 tablet by mouth every day Sean Ware [id number],S,W ill obtain AAA duplex in September. Sean Ware [id number],S,N o angina. Her updated medication list for this problem includes: Clopidogrel 75 Mg Tablet (Clopidogrel) ..... Take 1 tablet by mouth every day Nitrostat 0.4 Mg Tablet, Sublingual (Nitroglycerin) ..... 1 tablet under tongue as needed Cartia Xt 240 Mg Capsule,extended Release 24hr (Diltiazem hcl) ..... Take 1 capsule once a day Sean Ware [id number],W, Frank Frazier MD [id number],S, W eight loss advised Shnatelle Cabreratiffanie [id number],C, LDL 56, trigs 194. she does not want to start medications at this time Will obtain AAA duplex and lipid panel in 6 months. H er updated medication list for this problem includes: Rosuvastatin 40 Mg Tablet (Rosuvastatin) ..... Take 1 tablet by mouth once a day [facility] [id number],C, AAA is 3.5. Will obtain AAA duplex and lipid panel in 6 months. Shantelle [facility] [id number],C,Pt denies SOB and chest pain. Shantelle [facility] [id number],S, Shantelle Contreras eddiedetiffanie [id number],C,W eight loss advised Shantelle [facility] [id number],C, TGs are elevated to 185. She is going to lose weight. Will repeat in Mar. H er updated medication list for this problem includes: Rosuvastatin 40 Mg Tablet (Rosuvastatin) ..... Take 1 tablet by mouth once a day Shantelle Saavedranoemí [id number],C,. AAA showed 3.3 cm, will repeat in March. [facility]antelle [facility] [id number],C,S /p stenting of the PDA. Her sxs [...] 1 capsule once a day Shantelle Chua [id number],W, Frank Frazier MD [id number],S, Frank Frazier MD [id number],S, Frank Frazier MD [id number],S, Frank Frazier MD [id number],S, Frank Frazier MD [id number],C,Weight loss a dvised Shantellenemo Saavedradetiffanie [id number],S, Shantelle morgandetiffanie [id number],S,T he patient is using CPAP on a regular basis. The patient has been benefiting from therapy and should continue use. Shantelle Toma [id number],C,O n statin. Her updated medication list for this problem includes: Rosuvastatin 20 Mg Tablet (Rosuvastatin) ..... Take 1 tablet by mouth once a day Shantellenemo Saavedradetiffanie [id number],C,h er December duplex showed AAA increased from 2.9 to 3.2, will obtain f/u duplex in July as well as ehco and stress myoview. Shantelle Quentindetiffanie [id number],C,O verall doing well. No chest pain, but [...] by mouth once a day Shantelle Chua Cardiology Frank Frazier MD Cardiology:AAA scan showed 3.56cm distal AAA and >6cm renal cyst. Frank Frazier MD Cardiology Frank Frazier MD Cardiology: H er updated medication list for this problem includes: Rosuvastatin 40 Mg Tablet (Rosuvastatin) ..... Take one (1) tablet by mouth every day Frank Frazier MD Cardiology:This visi t has been a part of the consistent, comprehensive, and ongoing management of the chronic medical condition(s) listed above for the patient. N o CP or SOB Her updated medication list for this problem includes: Clopidogrel 75 Mg Tablet (Clopidogrel) ..... Take one (1) tablet by mouth every day Cartia Xt 300 Mg Capsule,extended Release 24hr (Diltiazem hcl) ..... Take 1 capsule once a day Nitrostat 0.4 Mg Tablet, Sublingual (Nitroglycerin) ..... 1 tablet under tongue as needed Frank Frazier MD Cardiology:This visi t has been a part of the consistent, comprehensive, and ongoing management of the chronic medical condition(s) listed above for the patient. BP today: 152/81 P rior BP: 124/85 (04/27/2024) Labs Reviewed: C hol: 136 (10/15/2015) HDL: 48 (10/15/2015) LDL: 58 (04/13/2019) T (10/15/2015) Her updated medication list for this problem includes: Cartia Xt 300 Mg Capsule,extended Release 24hr (Diltiazem hcl) ..... Take 1 capsule once a day Lasix 40 Mg Tablet (Furosemide) ..... 1 tablet once a day as needed Frank Frazier MD Cardiology: BP is we ll controlled today. [...] condition(s) listed above for the patient. Uziel Preeti Cardiology:AAA size today is 3.89 cm. Will f/u again in 6 months. Uziel Álvarez Cardiology:Her updat ed medication list for this problem includes: Clopidogrel 75 Mg Tablet (Clopidogrel) ..... Take 1 tablet by mouth every day Cartia Xt 300 Mg Capsule,extended Release 24hr (Diltiazem hcl) ..... Take 1 capsule once a day Nitrostat 0.4 Mg Tablet, Sublingual (Nitroglycerin) ..... 1 tablet under tongue as needed Uziel Álvarez Cardiology:Trigs wer e 159 on 03/25. She is interested [...] st pain. Shantelle Chua Cardiology Shantelle Prater eyevannessa Cardiology:Weight lo ss advised Shantelle Chua Cardiology: [...] mouth once a day Shantelle Chua Telehealth Mane Holm Telehealth:Orders: H EMOGLOBIN A1c (496) [facility] Telehealth:She had a n admission last April to [facility] with a fever. Echo showed EF of 70% and proBNP was 146. There was an incidental finding on CT of abdominal aortic ectasia (2.9 cm) and she reports she is scheduled for a f/u ultrasound at [facility] soon. Mane [facility] Telehealth:Denies ch est pain or SOB. Will [...] coated beads) ..... Take one capsule daily [facility] Cardiology Mane [facility] Cardiology:Her [facility] ed medication list for this problem includes: Crestor 20 Mg Oral Tablet (Rosuvastatin calcium) ..... One tab. daily Mane [facility] Cardiology:She's int erested in weight loss and would like to try Bupropion/Naltrexone. [facility] Cardiology:Feeling w ell. Denies chest pain or [...] coated beads) ..... Take one capsule daily Mane [facility] Cardiology:LDL: 69 ( 01/13/2018) Her updated medication list for this problem includes: Crestor 20 Mg Oral Tablet (Rosuvastatin calcium) ..... One tab. daily [facility] Cardiology:Her upd ed medication list for this problem includes: Clopidogrel Bisulfate 75 Mg Oral Tablet (Clopidogrel bisulfate) ..... One tablet daily Nitrostat 0.4 Mg Sublingual Tablet Sublingual (Nitroglycerin) ..... As needed Adult Aspirin Ec Low Strength 81 Mg Oral Tablet Delayed Release (Aspirin) ..... Once daily Cartia Xt 240 Mg Oral Capsule Extended Release 24 Hour (Diltiazem hcl coated beads) ..... Once daily Mane [facility] Cardiology:Weight loss advised. [facility] Cardiology:Her upd ed medication list for this problem includes: Crestor 20 Mg Tabs (Rosuvastatin calcium) ..... One tab. daily Mane [facility] Cardiology:The patie nt is actively using CPAP on a regular basis. She has been benefiting from therapy and will continue use. [facility] Cardiology:Her myovi ew scan, echo and carotid duplex were normal. She's clear for knee surgery from cardiology perspective. [facility] Cardiology:Her myovi ew scan and echo were normal. No chest pain or SOB. Her updated medication list for this problem includes: Clopidogrel Bisulfate 75 Mg Oral Tabs (Clopidogrel bisulfate) ..... One tablet daily Nitrostat 0.4 Mg Sl Subl (Nitroglycerin) ..... As needed Adult Aspirin Ec Low Strength 81 Mg Oral Tbec (Aspirin) ..... Once daily Cartia Xt 240 Mg Oral [id number] (Diltiazem hcl coated beads) ..... Once daily Mane [facility] Cardiology:She's a c andidate for knee surgery. She denies chest pain or SOB. She's on ASA/Plavix. [facility] Cardiology:In October 2015, total cholesterol was 136, HDL was 48, triglycerides was 197 and LDL was 49. Her updated medication list for this problem includes: Crestor 20 Mg Tabs (Rosuvastatin calcium) ..... One tab. daily Frank Frazier MD Cardiology:Orders: S NOMED-CT: [id number] Current Medications Documented (SCT-[id number]) E KG (CPT-04472) S TR - Adenosine (CPT-23083) C omplete Echo (CPT-73779) C arotid Duplex Bilateral (CPT-28259) She's a candidate for knee surgery. Frank Frazier MD Cardiology Frank Frazier MD Cardiology:Consistently uses her CPAP. Frank Frazier MD Cardiology:She's a c andidate for knee surgery. She denies chest pain or SOB. She's on ASA/Plavix. Frank Frazier MD Cardiology:None. Mane Teaguepreeti ramirez Cardiology:No chest pain or SOB. She complains of bruising and will try Plavix instead of Brilanta. If she continues to bruise, she can continue on ASA alone (had bare-metal stents in June). Mane Angelita Cardiology, follow u p:Her updated medication list [...] visit add on Frank Frazier MD completed Complex e/m visit add on Frank Frazier MD completed EKG Frank Frazier MD completed EKG Frank Frazier MD completed EKG Frank Frazier MD completed EKG Frank Frazier MD completed EKG Frank Frazier MD completed SNOMED-CT: 821732045 072002 Current Medications Documented Frank Frazier MD completed Stress EKG Rosalino Macdonald MD complet ed Cardiolite, 2 units Rosalino Macdonald MD completed SPECT Images Rosalino Macdonald MD compl eted EKG Frank Frazier MD completed SNOMED-CT: [id number] 819578 Current Medications Documented Frank Frazier MD completed SNOMED-CT: 298995240 564465 Current Medications Documented Frank Frazier MD completed SNOMED-CT: 632945656 Smoking Cessation Counseling Frank Frazier MD completed SNOMED-CT: 802471855 229057 Current Medications Documented Frank Frazier MD completed SNOMED-CT: 684687592 Smoking Cessation Counseling Frank Frazier MD completed SNOMED-CT: 583949189 562261 Current Medications Documented Frank Frazier MD completed SNOMED-CT: 789596067 Smoking Cessation Counseling Frank Frazier MD completed SNOMED-CT: 037441991 938556 Current Medications Documented Frank Frazier MD completed
--- OUTSIDE RECORDS SUMMARY | 2025-01-15 09:53 | XMS_ITS | Clinical Summary ---
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 Gender Identity Not on file Sexual Orientation [...] Colon Cancer Screening-Colonoscopy 1955 Depression Screening 1955 Hepatitis C Screening 1955 Hepatitis B Screening 1973 Zoster Vaccine (1 of 2) 2005 Well Visit 65+ 2020 Pneumococcal vaccine 65+ (2 of 2 - PCV) 05/30/2021 05/30/2020, 05/30/2015 Fall Risk Assessment 01/01/2023 01/01/2022 Osteoporosis Screening-Bone Density Scan 08/27/2023 08/27/2021 Covid-19 Vaccine (3 - 2023-2 5 season) 2024 10/18/2020, 09/27/2020 Lung Cancer Screening 07/23/2024 04/24/2024, 023 Influenza Vaccine (Season Ended) 2025 06/12/2019, 06/09/2018, 05/12/2017, Additional history exists Breast Cancer Screening-Mammogram 04/24/2025 04/24/2024, 11/05/2022, 08/27/2021, Additional history exists DTaP/Tdap/Td Vaccine (2 - Td or Tdap) 06/30/2028 06/30/2018, 08/02/2012 Medical Devices Implanted Type Area Executive Assistant To President Device Identifier Shelf Expiration Date Model / Serial / Lot [employer] Resolute Noah 2.5mm 2.1-2.7fr 15mm 140cm Rapid Exchange [id number] - [id number] Implanted:Qty : 1 on 01/01/2022 by Frank Frazier MD at [facility] Stent Right: Coronary [employer] 09/20/2024 [id number] / / [id number] Angio-Seal Vip 6fr Closere Device [id number] - [id number] Implanted:Qty : 1 on 01/01/2022 by Frank Frazier MD at [facility] Right: Groin wiMAN Amrik 10/30/2022 [id number] / / [id number] Procedures Procedure Name Priority Date/Time Associated Diagnosis [...] Read Routine (OP Routine) 08/27/2021 8:16 AM TECHNICAL MGR Menopausal and female climacteric states from Last [...] either breast on mammogram. us Ori Pizano CHARGING OPERATOR IMG MAMMO PROCEDURES Final Res ult * [...] (series 3, image 191). CORONARY ARTERY CALCIFICATION: [id number]. OTHER: No focal consolidation, pneumothorax, or pleural [...] Anson Lee M.D. KR: SHIVANI Report ID: [id number] Reading Location: [place] [address] Ori Pizano NP IMG [address] PROCEDURES Final Result * Dexa Axial Skeleton Bone Density 1 or 2 Site (08/27/2021 8:16 AM TECHNICAL MGR) Anatomical Region Laterality Modality Body N/A Other 08/27/2021 11:0 6 AM TECHNICAL MGR Narrative 08/27/2021 11:08 AM TECHNICAL MGR EXAM DESCRIPTION: DEXA AXIAL SKELETON BONE DENSITY 1 OR MORE SITES REASON FOR STUDY: 66 y/o year old F with given history of screening. Postmenopausal Executive Assistant To President/Model: [employer] (S/N 67512) CLINICAL INFORMATION: Current height: 64 inches Maximum [...] Rosalino Terry M.D. MF: CORY Report ID: [id number] Reading Location: [place] [address] Procedure Note Rosalino Terry MD - 08/27/2021 EXAM DESCRIPTION: DEXA AXIAL SKELETON BONE DENSITY 1 OR MORE SITES REASON FOR STUDY: 66 y/o year old F with given history ofscreening. Postmenopausal Executive Assistant To President/Model: [employer] (S/N [id number]) CLINICAL INFORMATION: Current height: 64 inches Maximum [...] Rosalino Terry M.D. MF: CORY Report ID: [id number] Reading Location: [place] [address] Abdon Obrien MD IM DXA PROCEDURES Fin al Result from Last 3 Months or Most Recently Relevant to Health Maintenance Insurance CHOICE [facility] [place]PO [place] MED[place] [facility] [place] CHOICE PR[place] PPO [place] MEDICARE [facility] UHC MEDICARE ADVANTAGE Advance Directives For more information, please contact: [phone] Documents on File Type Date Recorded Patient Roll Cutter Expl anation ADVANCE DIRECTIVE 04/09/2019 * Full Code (Latest Code Status on File) Date Activated Date Inactivated Comments 01/01/2022 3:50 PM 01/02/2022 4:58 PM * Full Code Date Activated Date Inactivated Comments 04/10/2019 1:38 AM 04/13/2019 8:51 PM * Full Code Date Activated Date Inactivated Comments 04/09/2019 10:32 PM 04/10/2019 1:38 AM Care Teams Fire Sprinkler Apparatus Inspector Relationship Specialty Start Date End Date Oscar Lynch MD PCP - General Family Practice 09/28/22 Frank Frazier MD Consulting Physician Cardiovascular Disease 01/02/22
[2025-01-15 20:31] LABS: Alanine Aminotransferase 25 U/L (6-35); Albumin Level 4.5 g/dL (3.5-5.1); Alkaline Phosphatase 56 U/L (38-126); Anion Gap 9 mmol/L (4-12); Aspartate Amino Transferase 65 U/L (14-36); Bilirubin,Total 0.6 mg/dL (0.2-1.3); Blood Urea Nitrogen 14 mg/dL (7-17); Calcium 9.5 mg/dL (8.4-10.2); Carbon Dioxide 29 mmol/L (22-30); Chloride 103 mmol/L (98-107); Cholesterol 151 mg/dL (0-200); Estimated Glomerular Filt Rate > 60; Glucose 92 mg/dL (65-110); HDL Direct 60 mg/dL; Potassium 4.2 mmol/L (3.4-5.0); Sodium 141 mmol/L (137-145); Total Protein 8.2 g/dL (6.3-8.2); Triglycerides 159 mg/dL (<150)
[2025-01-15 20:46] LABS: LDL Cholesterol Direct 47 mg/dL
[2025-01-15 21:21] LABS: Microalbumin Urine Random 20.6 mg/L (0-16.7)
[2025-01-16 03:51] LABS: Hemoglobin A1C 5.5 % (<5.7)
== END 2025-01-15 09:22 | disposition home or self-care (01) ==
PROVIDERS: PCP Nurse Practitioner Adult Health; Visit Provider Nurse Practitioner Adult Health
DX: E11.9 Type 2 diabetes mellitus without complications (principal); E78.00 Pure hypercholesterolemia, unspecified
CPT/HCPCS: 36415; 80053; 80061; 82043; 82565; 83036

== ENCOUNTER 2025-01-24 09:04 | Outpatient (CLI) | payer MEDICARE, SELFPAY ==
--- NOTE | ~2025-01-24 | CT_ITS ---
CT Scan of the Chest without Contrast: Clinical Indication: Emphysema Technique: Contiguous sections were acquired throughout the chest without intravenous contrast. Dose reduction technique was used on this scan by utilizing automated exposure control and iterative recon struction technique. The dose-length product (DLP) was 579.29 mGy-cm. COMPARISON: 07/24/2024 Findings: There is no evidence of any significant mediastinal, hilar or axillary lymphadenopathy. Coronary nathaniel ry calcifications are present. There is no evidence of pleural or pericardial effusion. Stable 7 mm right basilar pulmonary nodule. Images through the upper abdomen reveal moderate hiatal hernia. Impression: Stable 7 mm right basilar pulmonary nodule. Reviewed, dictated and finalized at location . Impression: Stable 7 mm right basilar pulmonary nodule.
--- NOTE | ~2025-01-24 | CT_ITS ---
CT soft tissue neck w con Ordering provider: Leon Ignacio M.D. History: 69 years Female with . R22.1 - Localized swelling, mass and lump, neck . Comparison: None. Technique: CT soft tissues neck was performed with contrast. . Automated exposure control and iterat wilder reconstruction technique were employed. The dose-length product was 557.06 mGy-cm. 75 mL Omnipaqu e 350 was given IV. Findings: LOWER HEAD: The visualized brain parenchyma, optic globes/orbits and mastoids are normal. The visua lized paranasal sinuses are well aerated. Right posterior communicating artery is seen. SALIVARY GLANDS: Slightly enlarged right parotid the gland. The left is absent. THYROID: Normal. SUPRAHYOID DEEP SPACES: Small parapharyngeal lymph nodes are seen with the largest measures 8 mm on t he right side. CAROTID ARTERIES: Narrowing of the left carotid bulb and 20% on the right by about 10%. JUGULAR VEINS: Normal. TONSILS: Normal. ORAL CAVITY: Possible enhancing area in the posterior aspect of the tongue markings to the left measu ring 9 x 11 mm. Clinical evaluation advised. This also may be artifactual. Partially obscured by dent al amalgam but normal as visualized. PHARYNX, LARYNX AND TRACHEA: Patent and normal. No prevertebral soft tissue swelling. SUPERFICIAL SOFT TISSUES: Normal. No lymphadenopathy or neck mass. THORACIC INLET/VISUALIZED UPPER CHEST: Groundglass appearance is seen in both upper lungs which may i ndicate an expiratory phase versus atelectasis versus pneumonia versus edema. Clinical correlation ad vised. Atherosclerotic changes of the aorta. SKELETAL: Age appropriate degenerative changes. IMPRESSION: 1. Slightly enlarged right parotid the gland with absent left. 2. Groundglass appearance in the upper lungs which may indicate atelectasis versus pneumonia versus edema. Imaging during expiration also may give similar appearance. 3. Mild narrowing of both carotid arteries. 4. Slightly hyperdense or enhancing area in the left posterior tongue which may be artifactual. Clin ical correlation and follow-up advised. Reviewed, dictated and finalized at location A. IMPRESSION: 1. Slightly enlarged right parotid the gland with absent left. 2. Groundglass appearance in the upper lungs which may indicate atelectasis ve rsus pneumonia versus edema. Imaging during expiration also may give similar ap pearance. 3. Mild narrowing of both carotid arteries. 4. Slightly hyperdense or enhancing area in the left posterior tongue which ma y be artifactual. Clinical correlation and follow-up advised.
== END 2025-01-24 09:05 | disposition home or self-care (01) ==
PROVIDERS: PCP Nurse Practitioner Adult Health; Visit Provider Otolaryngology
DX: R22.1 Localized swelling, mass and lump, neck (principal); Z90.49 Acquired absence of other specified parts of digestive tract; J43.9 Emphysema, unspecified; R05.9 Cough, unspecified
CPT/HCPCS: 70491; 71250; Q9967